=== PATIENT | female | born 1955 | race Caucasian/White ===

== ENCOUNTER 2017-04-07 05:16 | Inpatient (IN) | payer SELFPAY ==
[~2017-04-07] VITALS: Ht 154.9 cm; Wt 66.9 kg
[2017-04-07] VITALS (7 sets, daily range): BP systolic 122–165; BP diastolic 71–100; PULSE 71–100; RESP 14–20; TEMP 97–98; O2SAT 92–98
[~2017-04-07 05:16] MED LIST: PERC5TAB12 PO
--- NOTE | 2017-04-07 05:42 | PD ---
HPI Chief Complaint: Abdominal Pain Time Seen by Provider: 05:30 Travel History International Travel<30 days: No Contact w/Intl Traveler<30days: No Traveled to known affect area: No History of Present Illness HPI The patient is a 61-year-old female who complains of generalized abdominal pain , particularly in the right upper quadrant for 10 days. She has a slightly loose stool which she states is dark green. She denies any fever. She does have a history of alcohol abuse and states her all: Take last night was 2 beers before 10 PM. Her last vomiting was over week ago. In January of last year the patient had a gallbladder ultrasound which showed echogenic liver and cholelithiasis without any evidence for cholecystitis. PFSH Past Medical History Diabetes: No Diminished Hearing: No GERD: Yes Immunizations Current: Yes Menopausal: Yes Past Surgical History Abdominal Surgery: Yes (RECTAL SURGERY) Section: Yes Tonsillectomy: Yes Social History Alcohol Use: Yes Tobacco Use: Yes Substance Use: Yes (cocaine on a rare instance) Allergies-Medications (Allergen,Severity, Reaction): Coded Allergies: Sulfa (Verified Allergy, Mild, 04/07/17) Reported Meds & Prescriptions Reported Meds & Active Scripts Active No Active Prescriptions or Reported Medications Review of Systems Except as stated in HPI: all other systems reviewed are Neg Physical Exam Narrative GENERAL: The patient is alert, oriented 3 in moderate to severe distress with her abdominal discomfort. She does not smell of alcohol. Her vital signs show blood pressure 144/100 but are otherwise normal. SKIN: Focused skin assessment warm/dry. HEAD: Atraumatic. Normocephalic. EYES: Pupils equal and round. No scleral icterus. No injection or drainage. ENT: No nasal bleeding or discharge. Mucous membranes pink and moist. NECK: Trachea midline. No JVD. CARDIOVASCULAR: Regular rate and rhythm. No murmur appreciated. RESPIRATORY: No accessory muscle use. Clear to auscultation. Breath sounds equal bilaterally. GASTROINTESTINAL: Abdomen soft, with tenderness to direct palpation all 4 quadrants but particularly in the right upper quadrant, nondistended. Hepatic and splenic margins not palpable. Regalado's sign is positive. MUSCULOSKELETAL: No obvious deformities. No clubbing. No cyanosis. No edema. NEUROLOGICAL: Awake and alert. No obvious cranial nerve deficits. Motor grossly within normal limits. Normal speech. PSYCHIATRIC: Appropriate mood and affect; insight and judgment normal. Data Data Last Documented VS Vital Signs Date Time Temp Pulse Resp B/P Pulse Ox O2 Delivery O2 Flow Rate FiO2 04/07/17 05:32 04/07/17 05:21 98.0 88 14 97 Orders Complete Blood Count With Diff (04/07/17 05:36) Comprehensive Metabolic Panel (04/07/17 05:36) Lipase (04/07/17 05:36) Us Abdomen Gallbladder (04/07/17 ) Iv Access Insert/Monitor (04/07/17 05:36) Ecg Monitoring (04/07/17 05:36) Oximetry (04/07/17 05:36) Sodium Chloride 0.9% Flush (Ns Flush) (04/07/17 05:45) Urinalysis - C+S If Indicated (04/07/17 05:37) Sodium Chlor 0.9% 1000 Ml Inj (Ns 1000 M (04/07/17 05:45) Alcohol (Ethanol) (04/07/17 05:42) Hydromorphone Pf Inj (Dilaudid Pf Inj) (04/07/17 07:00) Ondansetron Inj (Zofran Inj) (04/07/17 07:00) Labs Laboratory Tests Test 04/07/17 05:50 White Blood Count 8.3 TH/MM3 Red Blood Count 5.49 MIL/MM3 Hemoglobin 16.9 GM/DL Hematocrit 51.0 % Mean Corpuscular Volume 92.9 FL Mean Corpuscular Hemoglobin 30.7 PG Mean Corpuscular Hemoglobin 33.1 % Concent Red Cell Distribution Width 12.1 % Platelet Count 255 TH/MM3 Mean Platelet Volume 7.9 FL Neutrophils (%) (Auto) 66.5 % Lymphocytes (%) (Auto) 23.0 % Monocytes (%) (Auto) 7.2 % Eosinophils (%) (Auto) 1.4 % Basophils (%) (Auto) 1.9 % Neutrophils # (Auto) 5.4 TH/MM3 Lymphocytes # (Auto) 1.9 TH/MM3 Monocytes # (Auto) 0.6 TH/MM3 Eosinophils # (Auto) 0.1 TH/MM3 Basophils # (Auto) 0.2 TH/MM3 CBC Comment DIFF FINAL Differential Comment Sodium Level 140 MEQ/L Potassium Level 3.9 MEQ/L Chloride Level 104 MEQ/L Carbon Dioxide Level 24.2 MEQ/L Anion Gap 12 MEQ/L Blood Urea Nitrogen 6 MG/DL Creatinine 0.56 MG/DL Estimat Glomerular Filtration 111 ML/MIN Rate Random Glucose 102 MG/DL Calcium Level 9.5 MG/DL Total Bilirubin 0.9 MG/DL Aspartate Amino Transf 25 U/L (AST/SGOT) Alanine Aminotransferase 37 U/L (ALT/SGPT) Alkaline Phosphatase 86 U/L Total Protein 7.2 GM/DL Albumin 3.6 GM/DL Lipase 871 U/L Ethyl Alcohol Level LESS THAN 3 MG/DL [facility] Medical Decision Making Medical Screen Exam Complete: Yes Emergency Medical Condition: Yes Medical Record Reviewed: Yes Interpretation(s) The ultrasound shows wall thickening. The CBC shows a hemoglobin of 16.9 with hematocrit of 51.0. The lipase is 871. The complete metabolic profile is normal. The alcohol level is less than 3essentially 0. Differential Diagnosis Cholelithiasis with colic, Choledocholithiasis, cholecystitis, urinary tract infection, dehydration, colitisunlikely, dehydration, pancreatitis Narrative Course It is now 070 and the patient is transferred to Dr. Chapa. The patient shows dehydration with the apparent hemoconcentration with a hemoglobin and hematocrit. The patient may have a pancreatitis and a CT scan is being ordered. Scripts No Active Prescriptions or Reported Meds Chuy Harmon MD Apr 07, 2017 05:42
[2017-04-07] MEDS ORDERED: SODIUM CHLORIDE 0.9% FLUSH 10 ML FLUSH IV FLUSH PRN ×2 (05:45→09:15)
[2017-04-07] MEDS: SODIUM CHLOR 0.9% 1000 ML INJ 1,000 ML IV SCH ×5 (06:06→19:02)
[2017-04-07 06:07] LABS: AUTOMATED NEUTROPHIL # 5.4 TH/MM3 (1.8-7.7); BASOPHIL # 0.2 TH/MM3 (0-0.2); BASOPHIL % 1.9 % (0.0-2.0); EOSINOPHIL # 0.1 TH/MM3 (0-0.4); EOSINOPHIL % 1.4 % (0.0-4.0); HEMO FLAGS DIFF FINAL; LYMPHOCYTE # 1.9 TH/MM3 (1.0-4.8); MEAN CELL VOLUME 92.9 FL (80.0-100.0); MEAN CORPUSCULAR HEMOGLOBIN 30.7 PG (27.0-34.0); MEAN CORPUSCULAR HGB CONC 33.1 % (32.0-36.0); MONO % 7.2 % (0.0-8.0); NEUT % 66.5 % (16.0-70.0); PLATELET COUNT 255 TH/MM3 (150-450); RED BLOOD COUNT 5.49 MIL/MM3 (4.00-5.30); RED CELL DISTRIBUTION WIDTH 12.1 % (11.6-17.2); WHITE BLOOD COUNT 8.3 TH/MM3 (4.0-11.0)
[2017-04-07 06:15] LABS: CHLORIDE 104 MEQ/L (98-107); POTASSIUM 3.9 MEQ/L (3.5-5.1); SODIUM (NA) 140 MEQ/L (136-145)
[2017-04-07 06:19] LABS: ANION GAP 12 MEQ/L (5-15); BICARBONATE 24.2 MEQ/L (21.0-32.0); BLOOD UREA NITROGEN 6 MG/DL (7-18)
[2017-04-07 06:22] LABS: ALT (GPT) 37 U/L (10-53); AST (GOT) 25 U/L (15-37); GLOMERULAR FILTRATION RATE 111 ML/MIN (>89)
[2017-04-07 06:23] LABS: TOTAL BILIRUBIN ADULT 0.9 MG/DL (0.2-1.0)
[2017-04-07 06:25] LABS: ALKALINE PHOSPHATASE 86 U/L (45-117)
[2017-04-07] MEDS ORDERED: ONDANSETRON HCL 4 MG/2 ML VIAL IV ONE (07:00)
[2017-04-07] MEDS ORDERED: HYDROmorphone HCL PF 1 MG/ML VIAL IVP ONE (07:00)
--- NOTE | 2017-04-07 07:18 | RADRPT ---
EXAM DATE/TIME: 04/07/2017 06:38 [facility] COMPARISON: US ABDOMEN - GALLBLADDER, January 15, 2016, 21:09. INDICATIONS : Right upper quadrant pain. MEDICAL HISTORY : Gastroesophageal reflux disease. . Cholelithiasis. SURGICAL HISTORY : Tonsillectomy. section. Rectal surgery. ENCOUNTER: Subsequent ACUITY: 2 weeks PAIN SCORE: 6/10 LOCATION: Right upper quadrant MEASUREMENTS: LIVER: 14.3 cm length COMMON DUCT: 3 mm RIGHT KIDNEY: 10.1 x 5.3 x 4.8 cm FINDINGS: LIVER: Increased echotexture without focal lesion or ductal dilatation. COMMON DUCT: No intraluminal mass or stone visualized. GALLBLADDER: Contains no stones, demonstrates no pericholecystic fluid.Some portions of the wall to measure slight ly thicker than normal but other areas are entirely normal PANCREAS: The visualized portions are within normal limits. RIGHT KIDNEY: No evidence of hydronephrosis, stone, or mass. CONCLUSION: Echogenic liver presumably fatty infiltration. No definite gallstones are identified. At times the w all appears to be thicker than normal however other areas the wall is normal thickness without eviden ce of a sonographic Regalado's sign. Jose Sousa MD on April 07, 2017 at 7:15 Board Certified Radiologist. This report was verified electronically.
[2017-04-07] MEDS ORDERED: IOHEXOL 350 MG/ML 10 ML VIAL (for RAD DIAG) IV ONE (07:35)
[2017-04-07 07:58] LABS: BLOOD, URINE TRACE (NEG); GLUCOSE,URINE NEG (NEG); KETONE, URINE NEG (NEG); NITRITE,URINE NEG (NEG)
[2017-04-07 08:11] LABS: METHOD OF COLLECTION VOIDED
[2017-04-07 08:12] LABS: BACTERIA, URINE RARE /hpf; COMMENT (UR) CULTURE INDICATED; CULTURE IF INDICATED CULTURE INDICATED
--- NOTE | 2017-04-07 08:21 | RADRPT ---
EXAM DATE/TIME: 04/07/2017 07:20 [facility] COMPARISON: No previous studies available for comparison. INDICATIONS : Diffuse abdominal pain with some right upper quadrant pain x 10 days. IV CONTRAST: 85 cc Omnipaque 350 (iohexol) IV ORAL CONTRAST: No oral contrast ingested. RADIATION DOSE: 8.24 CTDIvol (mGy) MEDICAL HISTORY : Gastroesophageal reflux disease. SURGICAL HISTORY : section. Rectal surgery. ENCOUNTER: Initial ACUITY: 1 week PAIN SCALE: 4/10 LOCATION: Right upper quadrant TECHNIQUE: Volumetric scanning of the abdomen and pelvis was performed. Using automated exposure control and ad justment of the mA and/or kV according to patient size, radiation dose was kept as low as reasonably achievable to obtain optimal diagnostic quality images. DICOM format image data is available electro nically for review and comparison. FINDINGS: Two small left less than 1 cm nodular opacities are seen in the left lung base. A 7 mm nodular opaci ty seen on the right. These are nonspecific. CT scan of the chest may be of benefit. The liver is free of focal defects. The spleen is unremarkable. There is normal edema in the region of the mesentery and pancreas suggesting mild pancreatitis. There is symmetrical renal function. There is no free air. Pelvic contents are unremarkable. CONCLUSION: 1. Findings would be consistent with mild pancreatitis radiographically. 2. Small nonspecific nodular opacities are seen in both lung bases. CT scan of the chest is suggest ed. Elmer Contreras MD FACR on April 07, 2017 at 7:52 Board Certified Radiologist. This report was verified electronically.
--- NOTE | 2017-04-07 09:11 | PD ---
Physical Exam Narrative GENERAL: Well-nourished, well-developed patient. SKIN: Warm and dry. HEAD: Normocephalic and atraumatic. EYES: No injection or drainage. ENT: No nasal drainage noted. NECK: Supple, trachea midline. CARDIOVASCULAR: Regular rate and rhythm RESPIRATORY: no increased effort. No accessory muscle use. NEUROLOGICAL: Awake and alert. moves all extremities. Normal speech. Data Data Last Documented VS Vital Signs Date Time Temp Pulse Resp B/P Pulse Ox O2 Delivery O2 Flow Rate FiO2 04/07/17 08:30 100 16 137/71 93 Room Air 04/07/17 07:15 97.7 Orders Complete Blood Count With Diff (04/07/17 05:36) Comprehensive Metabolic Panel (04/07/17 05:36) Lipase (04/07/17 05:36) Us Abdomen Gallbladder (04/07/17 ) Iv Access Insert/Monitor (04/07/17 05:36) Ecg Monitoring (04/07/17 05:36) Oximetry (04/07/17 05:36) Sodium Chloride 0.9% Flush (Ns Flush) (04/07/17 05:45) Urinalysis - C+S If Indicated (04/07/17 05:37) Sodium Chlor 0.9% 1000 Ml Inj (Ns 1000 M (04/07/17 05:45) Alcohol (Ethanol) (04/07/17 05:42) Hydromorphone Pf Inj (Dilaudid Pf Inj) (04/07/17 07:00) Ondansetron Inj (Zofran Inj) (04/07/17 07:00) Ct Abd/Pel W Iv Contrast(Rout) (04/07/17 06:54) Iohexol 350 Inj (Omnipaque 350 Inj) (04/07/17 07:35) Urine Culture (04/07/17 07:46) Admit Order (Ed Use Only) (04/07/17 08:47) Labs Laboratory Tests Test 04/07/17 04/07/17 05:50 07:46 White Blood Count 8.3 TH/MM3 Red Blood Count 5.49 MIL/MM3 Hemoglobin 16.9 GM/DL Hematocrit 51.0 % Mean Corpuscular Volume 92.9 FL Mean Corpuscular Hemoglobin 30.7 PG Mean Corpuscular Hemoglobin 33.1 % Concent Red Cell Distribution Width 12.1 % Platelet Count 255 TH/MM3 Mean Platelet Volume 7.9 FL Neutrophils (%) (Auto) 66.5 % Lymphocytes (%) (Auto) 23.0 % Monocytes (%) (Auto) 7.2 % Eosinophils (%) (Auto) 1.4 % Basophils (%) (Auto) 1.9 % Neutrophils # (Auto) 5.4 TH/MM3 Lymphocytes # (Auto) 1.9 TH/MM3 Monocytes # (Auto) 0.6 TH/MM3 Eosinophils # (Auto) 0.1 TH/MM3 Basophils # (Auto) 0.2 TH/MM3 CBC Comment DIFF FINAL Differential Comment Sodium Level 140 MEQ/L Potassium Level 3.9 MEQ/L Chloride Level 104 MEQ/L Carbon Dioxide Level 24.2 MEQ/L Anion Gap 12 MEQ/L Blood Urea Nitrogen 6 MG/DL Creatinine 0.56 MG/DL Estimat Glomerular Filtration 111 ML/MIN Rate Random Glucose 102 MG/DL Calcium Level 9.5 MG/DL Total Bilirubin 0.9 MG/DL Aspartate Amino Transf 25 U/L (AST/SGOT) Alanine Aminotransferase 37 U/L (ALT/SGPT) Alkaline Phosphatase 86 U/L Total Protein 7.2 GM/DL Albumin 3.6 GM/DL Lipase 871 U/L Ethyl Alcohol Level LESS THAN 3 MG/DL Urine Collection Type VOIDED Urine Color NONE Urine Turbidity CLEAR Urine pH 6.0 Urine Specific [place] 1.012 Urine Protein NEG mg/dL Urine Glucose (UA) NEG mg/dL Urine Ketones NEG mg/dL Urine Occult Blood TRACE Urine Nitrite NEG Urine Bilirubin NEG Urine Leukocyte Esterase SMALL Urine WBC 3-5 /hpf Urine WBC Clumps FEW Urine Squamous Epithelial 6-8 /hpf Cells Urine Bacteria RARE /hpf Microscopic Urinalysis Comment CULTURE INDICATED MDM Supervised Visit with AIME: No Interpretation(s) Last 24 hours Impressions Gall Bladder Ultrasound 04/07/17 0000 Signed Impressions: Service Date/Time: Friday, April 07, 2017 06:38 - CONCLUSION: Echogenic liver presumably fatty infiltration. No definite gallstones are identified. At times the wall appears to be thicker than normal however other areas the wall is normal thickness without evidence of a sonographic Regalado's sign. Jose Sousa MD ct with mild pancreatitis Narrative Course Signed over to me to follow CT and reevaluate. CT with mild pancreatitis. Patient agrees to observation for pain control Diagnosis Primary Impression: Pancreatitis Qualified Code: K85.90 - Acute pancreatitis, unspecified complication status, unspecified pancreatitis type Admitting Information Admitting Physician Requests: Observation Scripts No Active Prescriptions or Reported Meds Yamilet Merritt MD Apr 07, 2017 09:11
[2017-04-07] MEDS ORDERED: MAGNESIUM HYDROXIDE SUSP 30 ML CUP PO PRN (09:15)
[2017-04-07] MEDS ORDERED: ACETAMINOPHEN 325 MG TAB PO PRN (09:15)
[2017-04-07] MEDS ORDERED: SENNOSIDES 8.6 MG TAB PO PRN (09:15)
[2017-04-07] MEDS ORDERED: BISACODYL 10 MG SUPP RECTAL PRN (09:15)
[2017-04-07] MEDS ORDERED: LACTULOSE SYRUP 20 GM/30 ML CUP PO PRN (09:15)
--- NOTE | 2017-04-07 10:04 | RADRPT ---
EXAM DATE/TIME: 04/07/2017 09:20 [facility] COMPARISON: No previous studies available for comparison. INDICATIONS : Lung nodules. RADIATION DOSE: 6.82 CTDIvol (mGy) MEDICAL HISTORY : Gastroesophageal reflux disease. SURGICAL HISTORY : section. Rectal surgery. ENCOUNTER: Initial ACUITY: 1 day PAIN SCALE: 0/10 LOCATION: Bilateral chest TECHNIQUE: Volumetric scanning of the chest was performed. Using automated exposure control and adjustment of t he mA and/or kV according to patient size, radiation dose was kept as low as reasonably achievable to obtain optimal diagnostic quality images. DICOM format image data is available electronically for r eview and comparison. FINDINGS: LUNGS: There are multiple scattered nodular densities of both lung hunter. The largest nodule measures appro ximate 7 mm in the left lung base. Most of the other nodules are 5 mm or less in size. PLEURAE: There is no pleural thickening or pleural effusion. MEDIASTINUM: The heart and great vessels demonstrate no acute abnormality. There is no mediastinal or hilar lymph adenopathy. AXILLAE: Within normal limits. No lymphadenopathy. MUSCULOSKELETAL: Within normal limits for patient age. MISCELLANEOUS: Nonspecific edema surrounding the pancreas suggestive of pancreatitis. CONCLUSION: Multiple subcentimeter scattered bilateral pulmonary nodules. There are no prior studies for comparis on. Metastatic disease versus atypical inflammatory process are the primary considerations. A PET/CT could be performed to evaluate for a unknown primary neoplastic process. Denny Andino MD on April 07, 2017 at 9:56 Board Certified Radiologist. This report was verified electronically.
--- NOTE | 2017-04-07 11:37 | HHI.HP ---
[facility] Service [facility] Primary Care Physician No Primary Care Physician Admission Diagnosis pancreatitis Diagnoses: (1) Pancreatitis Diagnosis: Principal (2) Abdominal pain Diagnosis: Principal (3) Alcohol abuse Diagnosis: Secondary Chief Complaint: Abdominal pain Travel History International Travel<30 Days: No Contact w/Intl Traveler <30 Da: No Traveled to Known Affected Are: No History of Present Illness Written by Anibal Harmon, acting as scribe for Dr. Horn on 04/07/17 at 11:32. 61-year-old female with known history of alcohol abuse who presented to the hospital because of epigastric abdominal pain. Patient states that she is experiencing symptoms for up to 2 weeks to include epigastric abdominal pain radiating into her back that ranked 8/10 on a pain scale. She had had associated nausea vomiting. The patient thought that it was due to her drinking liquor on a daily basis, she switched to wine and it did improve minimally. She did eat some cottage cheese and some cherries yesterday morning and went to work. She is doing well and when she came home last night she ate some pizza and started having severe abdominal pain again progressively got worse so she came to the hospital for evaluation. Patient had workup done emergency department and CT indicates mild pancreatitis, lipase level was elevated. Those reasons the ER physician recommended patient be admitted for pancreatitis. Review of Systems Constitutional: DENIES: Diaphoretic episodes, Fatigue, Fever, Weight gain, Weight loss, Chills, Dizziness, Change in appetite, Night Sweats Eyes: DENIES: Blurred vision, Diplopia, Eye pain, Vision loss, Double Vision Ears, nose, mouth, throat: DENIES: Vertigo, Nasal discharge, Throat pain, Ear Pain, Running Nose, Sinus Pain Respiratory: DENIES: Apneas, Cough, Snoring, Wheezing, Hemoptysis, Sputum production, Shortness of breath Cardiovascular: DENIES: Chest pain, Palpitations, Syncope, Dyspnea on Exertion , PND, Lower Extremity Edema, Orthopnea, Claudication Gastrointestinal: COMPLAINS OF: Abdominal pain, Nausea, Vomiting, DENIES: Black stools, Bloody stools, Constipation, Diarrhea, Difficulty Swallowing, Anorexia Neurologic: DENIES: Abnormal gait, Headache, Localized weakness, Paresthesias, Seizures, Speech Problems, Tremor, Poor Balance Past Family Social History Past Medical History Alcohol abuse Past Surgical History 2 Rectal surgery Tonsillectomy Reported Medications Reported Meds & Active Scripts Active No Active Prescriptions or Reported Medications Allergies: Coded Allergies: Sulfa (Verified Allergy, Mild, 04/07/17) Family History Reviewed with patient and unremarkable for any heart disease, diabetes, cancer, seizures, stroke Social History Patient does continue to drink alcohol in which she states at least 5 times weekly. She is he does drink liquor but has reduced under wine due to her abdominal pain and discomfort. There is indication that she has used cocaine intermittently. He does continue to smoke mainly whenever she drinks that she was 22 years old. Physical Exam Vital Signs Vital Signs Date Time Temp Pulse Resp B/P Pulse Ox O2 Delivery O2 Flow Rate FiO2 04/07/17 09:15 97.5 82 18 122/84 97 04/07/17 08:30 100 16 137/71 93 Room Air 04/07/17 07:15 97.7 84 16 165/94 98 Room Air 04/07/17 05:32 04/07/17 05:21 98.0 88 14 144/100 97 Physical Exam GENERAL: Well-developed, well-nourished, in no acute distress. alert and orientated HEENT: Head is normocephalic without any lesions or masses noted. Facial features are symmetric. Eyes: Pupils equal round reactive to light. Extraocular muscles are intact. Conjunctivae were clear. Oropharyngeal: Pharynx without any erythema edema. Tongue is midline without deviation. Buccal mucosa is moist without any masses or lesions NECK: Supple without any masses. Trachea midline no deviation. No JVD, no bruits are appreciated CARDIAC: Regular rhythm, regular rate. S1/S2 are heard. No murmurs gallops or rubs. LUNGS: Clear to auscultation bilaterally. No wheeze, rhonchi or rales. No use of accessory muscles on inspiration or expiration. ABDOMEN: Soft, epigastric abdominal tenderness. Nondistended. Bowel sounds heard in all 4 quadrants. No organomegaly or masses. Negative rebound, negative guarding EXTREMITIES: No edema, pulses are equal bilaterally. No cyanosis or clubbing NEUROLOGY: Mood and affect appear appropriate. Cranial nerves II through XII grossly intact. Muscle strength 5/5 in upper and lower extremities bilaterally. Deep tendon reflexes are 2+ in upper and lower extremities bilaterally. Laboratory Laboratory Tests Test 04/07/17 04/07/17 05:50 07:46 White Blood Count 8.3 Red Blood Count 5.49 Hemoglobin 16.9 Hematocrit 51.0 Mean Corpuscular Volume 92.9 Mean Corpuscular Hemoglobin 30.7 Mean Corpuscular Hemoglobin 33.1 Concent Red Cell Distribution Width 12.1 Platelet Count 255 Mean Platelet Volume 7.9 Neutrophils (%) (Auto) 66.5 Lymphocytes (%) (Auto) 23.0 Monocytes (%) (Auto) 7.2 Eosinophils (%) (Auto) 1.4 Basophils (%) (Auto) 1.9 Neutrophils # (Auto) 5.4 Lymphocytes # (Auto) 1.9 Monocytes # (Auto) 0.6 Eosinophils # (Auto) 0.1 Basophils # (Auto) 0.2 CBC Comment DIFF FINAL Differential Comment Sodium Level 140 Potassium Level 3.9 Chloride Level 104 Carbon Dioxide Level 24.2 Anion Gap 12 Blood Urea Nitrogen 6 Creatinine 0.56 Estimat Glomerular Filtration 111 Rate Random Glucose 102 Calcium Level 9.5 Total Bilirubin 0.9 Aspartate Amino Transf 25 (AST/SGOT) Alanine Aminotransferase 37 (ALT/SGPT) Alkaline Phosphatase 86 Total Protein 7.2 Albumin 3.6 Lipase 871 Ethyl Alcohol Level LESS THAN 3 Urine Collection Type VOIDED Urine Color NONE Urine Turbidity CLEAR Urine pH 6.0 Urine Specific [place] 1.012 Urine Protein NEG Urine Glucose (UA) NEG Urine Ketones NEG Urine Occult Blood TRACE Urine Nitrite NEG Urine Bilirubin NEG Urine Leukocyte Esterase SMALL Urine WBC 3-5 Urine WBC Clumps FEW Urine Squamous Epithelial 6-8 Cells Urine Bacteria RARE Microscopic Urinalysis Comment CULTURE INDICATED Date/Time Procedure Status Source Growth 04/07/17 07:46 Urine Culture Received Urine Random Urine Pending Result Diagram: 04/07/17 0550 04/07/17 0550 Imaging Last Impressions Gall Bladder Ultrasound 04/07/17 0000 Signed Impressions: Service Date/Time: Wednesday, April 07, 2017 06:38 - CONCLUSION: Echogenic liver presumably fatty infiltration. No definite gallstones are identified. At times the wall appears to be thicker than normal however other areas the wall is normal thickness without evidence of a sonographic Regalado's sign. Jose Sousa MD Chest CT 04/07/17 0000 Signed Impressions: Service Date/Time: Friday, April 07, 2017 09:20 - CONCLUSION: Multiple subcentimeter scattered bilateral pulmonary nodules. There are no prior studies for comparison. Metastatic disease versus atypical inflammatory process are the primary considerations. A PET/CT could be performed to evaluate for a unknown primary neoplastic process. Denny Andino MD Assessment and Plan Problem List: (1) Pancreatitis ICD Code: K85.90 Status: Acute Plan: Patient with chronic alcohol abuse, history of gallstones. Symptoms could be secondary to a passed gallstone or alcohol abuse Continue nothing by mouth Continue IV fluids Continue pain control Continue trend lipase level (2) Alcohol abuse ICD Code: F10.10 Status: Acute Plan: Patient counseled on cessation Continue monitor for withdrawal May need to start CIWA protocol Assessment and Plan DVT prevention Subcutaneous Lovenox This note was transcribed by boone Harmon I, Dr. Tenzin Concepcion personally performed the history, physical exam, and medical decision making; and confirmed the accuracy of the information in the transcribed note. Authenticated by Dr. Tenzin Concepcion on 04/07/17 at 14:11. Problem Qualifiers (1) Pancreatitis: Qualified Code: K85.90 - Acute pancreatitis, unspecified complication status, unspecified pancreatitis type Anibal Harmon Apr 07, 2017 11:37 Tenzin Stephen MD Apr 07, 2017 14:11
[2017-04-07] MEDS: ENOXAPARIN SODIUM 40 MG/0.4 ML SYRINGE SQ SCH (12:00)
[2017-04-07] MEDS ORDERED: ONDANSETRON HCL 4 MG/2 ML VIAL IVP PRN (13:00)
[2017-04-07] MEDS ORDERED: MORPHINE SULFATE 8 MG/ML INJ IV PUSH PRN (15:00)
[2017-04-07] MEDS: DOCUSATE SODIUM 50 MG/SENNA 8.6 MG TAB PO SCH (21:44)
[2017-04-07] MEDS: SODIUM CHLORIDE 0.9% FLUSH 10 ML FLUSH IV FLUSH SCH (21:45)
[2017-04-07] MEDS: MORPHINE SULFATE 8 MG/ML INJ IV PUSH PRN (21:45)
[2017-04-08] VITALS: BP 117/83; PULSE 78; RESP 20; TEMP 96.4; O2SAT 96
[2017-04-08] MEDS: SODIUM CHLOR 0.9% 1000 ML INJ 1,000 ML IV SCH ×3 (03:55→19:09)
[2017-04-08] MEDS: MORPHINE SULFATE 8 MG/ML INJ IV PUSH PRN ×5 (04:03→21:58)
[2017-04-08 06:25] LABS: AUTOMATED NEUTROPHIL # 5.1 TH/MM3 (1.8-7.7); BASOPHIL % 0.1 % (0.0-2.0); EOSINOPHIL # 0.1 TH/MM3 (0-0.4); EOSINOPHIL % 1.9 % (0.0-4.0); HEMATOCRIT 42.5 % (35.0-46.0); HEMO FLAGS DIFF FINAL; LYMPH % 23.9 % (9.0-44.0); LYMPHOCYTE # 1.8 TH/MM3 (1.0-4.8); MEAN CELL VOLUME 93.4 FL (80.0-100.0); MEAN CORPUSCULAR HGB CONC 33.2 % (32.0-36.0); MONO % 8.7 % (0.0-8.0); NEUT % 65.4 % (16.0-70.0); PLATELET COUNT 217 TH/MM3 (150-450); RED BLOOD COUNT 4.55 MIL/MM3 (4.00-5.30); RED CELL DISTRIBUTION WIDTH 12.8 % (11.6-17.2); WHITE BLOOD COUNT 7.7 TH/MM3 (4.0-11.0)
[2017-04-08 07:10] LABS: ALKALINE PHOSPHATASE 66 U/L (45-117); ALT (GPT) 28 U/L (10-53); ANION GAP 6 MEQ/L (5-15); AST (GOT) 18 U/L (15-37); BICARBONATE 27.2 MEQ/L (21.0-32.0); BLOOD UREA NITROGEN 2 MG/DL (7-18); CHLORIDE 112 MEQ/L (98-107); GLOMERULAR FILTRATION RATE 89 ML/MIN (>89); POTASSIUM 4.6 MEQ/L (3.5-5.1); SODIUM (NA) 145 MEQ/L (136-145); TOTAL BILIRUBIN ADULT 0.7 MG/DL (0.2-1.0)
[2017-04-08] MEDS: DOCUSATE SODIUM 50 MG/SENNA 8.6 MG TAB PO SCH ×2 (08:24→20:11)
[2017-04-08] MEDS: SODIUM CHLORIDE 0.9% FLUSH 10 ML FLUSH IV FLUSH SCH ×2 (08:24→20:12)
[2017-04-08 08:56] VITALS: BP 141/88; PULSE 69; RESP 16; TEMP 96.7; O2SAT 97
[2017-04-08] MEDS: ENOXAPARIN SODIUM 40 MG/0.4 ML SYRINGE SQ SCH (12:13)
--- NOTE | 2017-04-08 12:40 | HHI.PR ---
Subjective Remarks c/o pain in lower back radiating down to the back of right thigh abdominal pain resolved denies nausea or vomiting states " I am starving" Objective Vitals Vital Signs Date Time Temp Pulse Resp B/P Pulse Ox O2 Delivery O2 Flow Rate FiO2 04/08/17 08:56 96.7 69 16 141/88 97 04/08/17 00:00 96.4 78 20 117/83 96 04/07/17 20:00 97.1 71 20 122/88 92 04/07/17 16:00 97.0 73 18 126/77 96 04/07/17 15:12 18 I/O 04/07/17 04/07/17 04/07/17 04/08/17 04/08/17 04/08/17 06:59 14:59 22:59 06:59 14:59 22:59 Intake Total 2606 ml 450 ml 2160 ml Balance 2606 ml 450 ml 2160 ml Intake Oral 0 ml 960 ml IV Total 2606 ml 450 ml 1200 ml # Voids 3 5 # Bowel Movements 0 Result Diagram: 04/08/17 0558 04/08/17 0558 Imaging Last Impressions Gall Bladder Ultrasound 04/07/17 0000 Signed Impressions: Service Date/Time: Friday, April 07, 2017 06:38 - CONCLUSION: Echogenic liver presumably fatty infiltration. No definite gallstones are identified. At times the wall appears to be thicker than normal however other areas the wall is normal thickness without evidence of a sonographic Regalado's sign. Jose Sousa MD Chest CT 04/07/17 0000 Signed Impressions: Service Date/Time: Friday, April 07, 2017 09:20 - CONCLUSION: Multiple subcentimeter scattered bilateral pulmonary nodules. There are no prior studies for comparison. Metastatic disease versus atypical inflammatory process are the primary considerations. A PET/CT could be performed to evaluate for a unknown primary neoplastic process. Denny Andino MD Objective Remarks GENERAL: Well-developed, well-nourished, in no acute distress. alert and orientated HEENT: Head is normocephalic without any lesions or masses noted. Facial features are symmetric. Eyes: Pupils equal round reactive to light. Extraocular muscles are intact. Conjunctivae were clear. Oropharyngeal: Pharynx without any erythema edema. Tongue is midline without deviation. Buccal mucosa is moist without any masses or lesions NECK: Supple without any masses. Trachea midline no deviation. No JVD, no bruits are appreciated CARDIAC: Regular rhythm, regular rate. S1/S2 are heard. No murmurs gallops or rubs. LUNGS: Clear to auscultation bilaterally. No wheeze, rhonchi or rales. No use of accessory muscles on inspiration or expiration. ABDOMEN: Soft, non tender to palpation. Nondistended. Bowel sounds heard in all 4 quadrants. No organomegaly or masses. Negative rebound, negative guarding EXTREMITIES: No edema, pulses are equal bilaterally. No cyanosis or clubbing NEUROLOGY: Mood and affect appear appropriate. Cranial nerves II through XII grossly intact. Muscle strength 5/5 in upper and lower extremities bilaterally. Deep tendon reflexes are 2+ in upper and lower extremities bilaterally. Procedures none Medications and IVs Current Medications Medications (Trade) Dose Ordered Sig/Zane Route Start Time Stop Time Status Last Admin Sodium Chloride 2 ml 2 ml UNSCH PRN IV FLUSH 04/07/17 05:45 (NS 1000 ml Inj) 1,000 ml @ 150 mls/hr Q6H40M IV 04/07/17 09:09 04/08/17 12:13 (NS Flush) 2 ml UNSCH PRN IV FLUSH 04/07/17 09:15 (NS Flush) 2 ml BID IV FLUSH 04/07/17 21:00 04/07/17 21:45 (Tylenol) 650 mg Q4H PRN PO 04/07/17 09:15 (Zofran Inj) 4 mg Q6H PRN IVP 04/07/17 13:00 (Lovenox Inj) 40 mg Q24H SQ 04/07/17 12:00 04/08/17 12:13 (Meghna-Colace) 1 tab BID PO 04/07/17 21:00 04/07/17 21:44 (Milk Of Magnesia Liq) 30 ml Q12H PRN PO 04/07/17 09:15 (Senokot) 17.2 mg Q12H PRN PO 04/07/17 09:15 (Dulcolax Supp) 10 mg DAILY PRN RECTAL 04/07/17 09:15 (Lactulose Liq) 30 ml DAILY PRN PO 04/07/17 09:15 (Morphine Inj) 2 mg Q3H PRN IV PUSH 04/07/17 15:00 04/08/17 08:31 (Morphine Inj) 4 mg Q3H PRN IV PUSH 04/07/17 15:00 04/07/17 15:07 Urinary Catheter: No Vascular Central Line Catheter: No A/P Problem List: (1) Pancreatitis ICD Code: K85.90 Status: Acute Plan: Patient with chronic alcohol abuse, history of gallstones. Symptoms could be secondary to a passed gallstone or alcohol abuse treated supportively with Iv fluids and IV morphine and npo status 04/08 Pain resolving and lipase trending down. Will add a PPI and place on soft diet. (2) Alcohol abuse ICD Code: F10.10 Status: Acute Plan: Patient counseled on cessation Continue monitor for withdrawal May need to start CIWA protocol 04/08 no evidence of alcohol withdrawal. (3) Radiculopathy ICD Code: M54.10 Status: Acute Plan: Will Rx tramadol prn. No weakness on exam. Can be worked up as outpatient if persistent. Assessment and Plan Gi proph: add PPI DVT prophylaxis: SCD's, Lovenox SQ Discharge Planning Poss dc later today if tolerates regular diet. Problem Qualifiers (1) Pancreatitis: Qualified Code: K85.90 - Acute pancreatitis, unspecified complication status, unspecified pancreatitis type (2) Radiculopathy: Qualified Code: M54.17 - Lumbosacral radiculopathy Tenzin Stephen MD Apr 08, 2017 12:40
[2017-04-08 14:19] VITALS: BP 161/103; PULSE 71; RESP 14; TEMP 96.9; O2SAT 98
[2017-04-08] MEDS ORDERED: cloNIDine HCL 0.1 MG TAB PO PRN (14:30)
[2017-04-08] MEDS ORDERED: LORazepam 2 MG TAB PO PRN (14:30)
[2017-04-08] MEDS ORDERED: LORazepam 1 MG TAB PO PRN (14:30)
[2017-04-08] MEDS ORDERED: LORazepam 2 MG/ML VIAL IV PUSH PRN ×4 (14:30)
[2017-04-08] MEDS ORDERED: ENALAPRILAT 1.25 MG/ML VIAL IV PUSH PRN (14:30)
[2017-04-08] MEDS ORDERED: FLUMAZENIL 0.5 MG/5 ML VIAL IV PUSH PRN (14:30)
[2017-04-08] MEDS ORDERED: THIAMINE INJ 100 MG in SODIUM CHLORIDE 0.9% INJ 100 ML IV SCH (16:00)
[2017-04-08] MEDS ORDERED: MULTIVITAMIN INJ 10 ML, FOLIC ACID INJ 1 MG in SODIUM CHLORID 0.9% 500 ML INJ 500 ML IV SCH (16:00)
[2017-04-08 18:51] VITALS: BP 160/98; PULSE 71; RESP 16; TEMP 96.1; O2SAT 96
[2017-04-08 20:00] VITALS: BP 160/102; PULSE 74; RESP 18; TEMP 96.7; O2SAT 97
[2017-04-09] VITALS: BP 144/108; PULSE 62; RESP 18; TEMP 96.9; O2SAT 95
[2017-04-09] MEDS: SODIUM CHLOR 0.9% 1000 ML INJ 1,000 ML IV SCH (01:49)
[2017-04-09 04:00] VITALS: BP 131/81; PULSE 74; RESP 18; TEMP 98.3; O2SAT 95
[2017-04-09 08:00] VITALS: BP 143/96; PULSE 70; RESP 18; TEMP 96.6; O2SAT 97
[2017-04-09] MEDS: MORPHINE SULFATE 8 MG/ML INJ IV PUSH PRN (08:56)
[2017-04-09] MEDS: DOCUSATE SODIUM 50 MG/SENNA 8.6 MG TAB PO SCH (08:57)
[2017-04-09] MEDS: SODIUM CHLORIDE 0.9% FLUSH 10 ML FLUSH IV FLUSH SCH (09:00)
[2017-04-09 12:00] VITALS: BP 142/100; PULSE 70; RESP 18; TEMP 98.6; O2SAT 98
[2017-04-09] MEDS ORDERED: OXYC1CAP PO (12:04)
--- NOTE | 2017-04-09 12:05 | HHI.DCPOC ---
Discharge Care Plan Diagnosis: (1) Pancreatitis (2) Alcohol abuse Goals to Promote Your Health * To prevent worsening of your condition and complications * To maintain your health at the optimal level Directions to Meet Your Goals Take your medications as prescribed Follow your dietary instruction Follow activity as directed Keep your appointments as scheduled Take your immunizations and boosters as scheduled If your symptoms worsen call your PCP, if no PCP go to Urgent Care Center or Emergency Room Smoking is Dangerous to Your Health. Avoid second hand smoke Call the 24-hour hour crisis hotline for domestic abuse at Tenzin Stephen MD Apr 09, 2017 12:05
--- NOTE | 2017-04-09 12:09 | HHI.DS ---
Discharge Summary Admission Date Apr 08, 2017 at 14:35 Admitting Diagnosis pancreatitis (1) Pancreatitis ICD Code: K85.90 (2) Alcohol abuse ICD Code: F10.10 (3) Radiculopathy ICD Code: M54.10 Procedures none Brief History - From Admission Written by Anibal Harmon, acting as scribe for Dr. Horn on 04/07/17 at 11:32. 61-year-old female with known history of alcohol abuse who presented to the hospital because of epigastric abdominal pain. Patient states that she is experiencing symptoms for up to 2 weeks to include epigastric abdominal pain radiating into her back that ranked 8/10 on a pain scale. She had had associated nausea vomiting. The patient thought that it was due to her drinking liquor on a daily basis, she switched to wine and it did improve minimally. She did eat some cottage cheese and some cherries yesterday morning and went to work. She is doing well and when she came home last night she ate some pizza and started having severe abdominal pain again progressively got worse so she came to the hospital for evaluation. Patient had workup done emergency department and CT indicates mild pancreatitis, lipase level was elevated. Those reasons the ER physician recommended patient be admitted for pancreatitis. CBC/BMP: 04/08/17 0558 04/08/17 0558 Significant Findings Laboratory Tests Test 04/07/17 04/07/17 04/08/17 05:50 07:46 05:58 Red Blood Count 5.49 MIL/MM3 (4.00-5.30) Hemoglobin 16.9 GM/DL (11.6-15.3) Hematocrit 51.0 % (35.0-46.0) Blood Urea Nitrogen 6 MG/DL (7-18) 2 MG/DL (7-18) Lipase 871 U/L 695 U/L (73-393) (73-393) Urine Occult Blood TRACE (NEG) Urine Leukocyte Esterase SMALL (NEG) Urine WBC Clumps FEW (NONE) Urine Squamous Epithelial 6-8 /hpf (0-5) Cells Urine Bacteria RARE /hpf (NONE) Monocytes (%) (Auto) 8.7 % (0.0-8.0) Chloride Level 112 MEQ/L (98-107) Calcium Level 8.4 MG/DL (8.5-10.1) Total Protein 6.0 GM/DL (6.4-8.2) Albumin 3.0 GM/DL (3.4-5.0) PE at Discharge GENERAL: Well-developed, well-nourished, in no acute distress. alert and orientated HEENT: Head is normocephalic without any lesions or masses noted. Facial features are symmetric. Eyes: Pupils equal round reactive to light. Extraocular muscles are intact. Conjunctivae were clear. Oropharyngeal: Pharynx without any erythema edema. Tongue is midline without deviation. Buccal mucosa is moist without any masses or lesions NECK: Supple without any masses. Trachea midline no deviation. No JVD, no bruits are appreciated CARDIAC: Regular rhythm, regular rate. S1/S2 are heard. No murmurs gallops or rubs. LUNGS: Clear to auscultation bilaterally. No wheeze, rhonchi or rales. No use of accessory muscles on inspiration or expiration. ABDOMEN: Soft, non tender to palpation. Nondistended. Bowel sounds heard in all 4 quadrants. No organomegaly or masses. Negative rebound, negative guarding EXTREMITIES: No edema, pulses are equal bilaterally. No cyanosis or clubbing NEUROLOGY: Mood and affect appear appropriate. Cranial nerves II through XII grossly intact. Muscle strength 5/5 in upper and lower extremities bilaterally. Deep tendon reflexes are 2+ in upper and lower extremities bilaterally. Discharge Disposition: Discharge Home Discharge Instructions DIET: Follow Instructions for: As Tolerated, No Restrictions Activities you can perform: Regular-No Restrictions Tenzin Stephen MD Apr 09, 2017 12:09
[2017-04-09] MEDS ORDERED: amLODIPine BESYLATE 5 MG TAB PO SCH (12:15)
[2017-04-09] MEDS ORDERED: PILL SPLITTER OTHER PRN (12:45)
== END 2017-04-09 15:00 | disposition home or self-care (01) | DRG 440 ==
LOC: PHED 05:16 → PHEDA 08:47 → PH3A 09:15 → OBSVTOIN 04-08 14:35
PROVIDERS: ADMIT Hospitalist; ATTEND Hospitalist
DX: K85.90 Acute pancreatitis without necrosis or infection, unspecified (principal); E86.0 Dehydration; F10.10 Alcohol abuse, uncomplicated; K21.9 Gastro-esophageal reflux disease without esophagitis; F17.200 Nicotine dependence, unspecified, uncomplicated; M54.17 Radiculopathy, lumbosacral region; R91.8 Other nonspecific abnormal finding of lung field
CPT/HCPCS: 71250; 74177; 76705; 80053; 80307; 81001; 83690; 85025; 87086; 96361; 96374; 96375; G0378; G8987-GP; G8988-GP; J1170; J1650; J2270; J2405; J3411; J7030; J7040; Q9967

== ENCOUNTER 2017-05-09 22:20 | Inpatient (IN) | payer OTHER ==
[~2017-05-09] VITALS: Ht 154.9 cm; Wt 58.3 kg
[~2017-05-09 22:20] MED LIST changes: +OXYC1CAP PO; -PERC5TAB12 PO
[2017-05-09 22:24] VITALS: BP 146/91; PULSE 74; RESP 18; TEMP 98.2; O2SAT 96
--- NOTE | 2017-05-09 23:25 | PD ---
HPI Chief Complaint: Abdominal Pain Time Seen by Provider: 23:22 Travel History International Travel<30 days: No Contact w/Intl Traveler<30days: No Traveled to known affect area: No History of Present Illness HPI H/O GALLSTONES AND BOUT OF PANCREATITIS IN EARLY APRIL. TODAY PATIENT RETURNS WITH C/O N/V AND UPPER/LEFT UPPER ABD AREA PAIN, 8/10, RADIATING TO BACK AT THIS TIME. DENIES FEVER/CP/[place]/DIARRHEA AT THIS POINT. NO ALLEVIATING / AGGRAVATING FACTORS NOTED PFSH Past Medical History Cardiovascular Problems: No Diabetes: No Diminished Hearing: No GERD: Yes (acid reflux) Genitourinary: No Musculoskeletal: No Neurologic: No Reproductive: No Respiratory: No Immunizations Current: Yes ?: Not Menopausal: Yes Past Surgical History Abdominal Surgery: Yes (RECTAL SURGERY) Section: Yes Gynecologic Surgery: Yes () Tonsillectomy: Yes Social History Alcohol Use: Yes Tobacco Use: Yes Substance Use: Yes (ETOH ) Allergies-Medications (Allergen,Severity, Reaction): Coded Allergies: Sulfa (Verified Allergy, Mild, 05/09/17) Reported Meds & Prescriptions Reported Meds & Active Scripts Active No Active Prescriptions or Reported Medications Review of Systems Except as stated in HPI: all other systems reviewed are Neg Gastrointestinal: Positive: Nausea, Vomiting, Abdominal Pain Physical Exam Narrative GENERAL: SKIN: Warm and dry. HEAD: Atraumatic. Normocephalic. EYES: Pupils equal and round. No scleral icterus. No injection or drainage. ENT: No nasal bleeding or discharge. Mucous membranes pink and moist. NECK: Trachea midline. No JVD. CARDIOVASCULAR: Regular rate and rhythm. RESPIRATORY: No accessory muscle use. Clear to auscultation. Breath sounds equal bilaterally. GASTROINTESTINAL: Abdomen soft, NO REBOUND BUT NOTED EPIG TT PERCUSSION, nondistended. MUSCULOSKELETAL: Extremities without clubbing, cyanosis, or edema. No obvious deformities. NEUROLOGICAL: Awake and alert. No obvious cranial nerve deficits. Motor grossly within normal limits. Five out of 5 muscle strength in the arms and legs. Normal speech. PSYCHIATRIC: Appropriate mood and affect; insight and judgment normal. Data Data Last Documented VS Vital Signs Date Time Temp Pulse Resp B/P Pulse Ox O2 Delivery O2 Flow Rate FiO2 05/10/17 00:12 18 97 Room Air 05/09/17 23:58 56 147/77 05/09/17 22:24 98.2 Orders Ondansetron Inj (Zofran Inj) (05/10/17 00:00) Sodium Chlor 0.9% 1000 Ml Inj (Ns 1000 M (05/09/17 23:46) Hydromorphone Pf Inj (Dilaudid Pf Inj) (05/10/17 00:00) Complete Blood Count With Diff (05/10/17 00:01) Comprehensive Metabolic Panel (05/10/17 00:01) Lipase (05/10/17 00:01) Abdomen, Flat & Upright (05/10/17 ) Iv Access Insert/Monitor (05/10/17 00:01) Ecg Monitoring (05/10/17 00:01) Oximetry (05/10/17 00:01) NPO (05/10/17 00:01) Sodium Chloride 0.9% Flush (Ns Flush) (05/10/17 00:15) Electrocardiogram (05/10/17 00:01) Admit Order (Ed Use Only) (05/10/17 ) ^ Saline Lock (05/10/17 00:51) Resp Oxygen Neno C Titrat 1-4 L (05/10/17 ) Notify Dr: Other (05/10/17 00:51) Sodium Chloride 0.9% Flush (Ns Flush) (05/10/17 09:00) Sodium Chloride 0.9% Flush (Ns Flush) (05/10/17 01:00) Pantoprazole Inj (Protonix Inj) (05/10/17 01:00) Place In Observation (05/10/17 ) Vital Signs (Adult) Q4H (05/10/17 00:52) Activity Oob Ad Tisha (05/10/17 00:52) Intake + Output ABEL.QSHIFT (05/10/17 00:52) Diet Clear Liquid (05/10/17 Breakfast) Sodium Chlor 0.9% 1000 Ml Inj (Ns 1000 M (05/10/17 00:52) Sodium Chloride 0.9% Flush (Ns Flush) (05/10/17 01:00) Sodium Chloride 0.9% Flush (Ns Flush) (05/10/17 09:00) Ondansetron Inj (Zofran Inj) (05/10/17 01:00) Comprehensive Metabolic Panel (05/10/17 06:00) Complete Blood Count With Diff (05/10/17 06:00) Lipase (05/10/17 06:00) Scd Bilateral/Knee High ABEL.BID (05/10/17 00:52) Vishnu Bilateral/Knee High ABEL.QSHIFT (05/10/17 00:52) Acetaminophen (Tylenol) (05/10/17 01:00) Acetamin-Hydrocod 325-5 Mg (Luverne 5-325 (05/10/17 01:00) Morphine Inj (Morphine Inj) (05/10/17 01:00) Docusate Sodium-Senna (Meghna-Colace) (05/10/17 09:00) Magnesium Hydroxide Liq (Milk Of Magnesi (05/10/17 01:00) Sennosides (Senokot) (05/10/17 01:00) Bisacodyl Supp (Dulcolax Supp) (05/10/17 01:00) Lactulose Liq (Lactulose Liq) (05/10/17 01:00) Labs Laboratory Tests Test 05/10/17 00:00 White Blood Count 7.4 TH/MM3 Red Blood Count 5.15 MIL/MM3 Hemoglobin 15.2 GM/DL Hematocrit 46.6 % Mean Corpuscular Volume 90.6 FL Mean Corpuscular Hemoglobin 29.6 PG Mean Corpuscular Hemoglobin 32.7 % Concent Red Cell Distribution Width 12.0 % Platelet Count 197 TH/MM3 Mean Platelet Volume 8.5 FL Neutrophils (%) (Auto) 60.1 % Lymphocytes (%) (Auto) 28.5 % Monocytes (%) (Auto) 8.4 % Eosinophils (%) (Auto) 1.6 % Basophils (%) (Auto) 1.4 % Neutrophils # (Auto) 4.5 TH/MM3 Lymphocytes # (Auto) 2.1 TH/MM3 Monocytes # (Auto) 0.6 TH/MM3 Eosinophils # (Auto) 0.1 TH/MM3 Basophils # (Auto) 0.1 TH/MM3 CBC Comment DIFF FINAL Differential Comment Sodium Level 141 MEQ/L Potassium Level 3.9 MEQ/L Chloride Level 109 MEQ/L Carbon Dioxide Level 26.3 MEQ/L Anion Gap 6 MEQ/L Blood Urea Nitrogen 3 MG/DL Creatinine 0.45 MG/DL Estimat Glomerular Filtration 143 ML/MIN Rate Random Glucose 92 MG/DL Calcium Level 9.2 MG/DL Total Bilirubin 0.8 MG/DL Aspartate Amino Transf 22 U/L (AST/SGOT) Alanine Aminotransferase 40 U/L (ALT/SGPT) Alkaline Phosphatase 91 U/L Total Protein 7.1 GM/DL Albumin 3.8 GM/DL Lipase 833 U/L MDM Medical Decision Making Medical Screen Exam Complete: Yes Emergency Medical Condition: Yes Medical Record Reviewed: Yes Differential Diagnosis ENTERITITS V PANCREATITIS V DYSPEPSIA Narrative Course SIGNED OUT TO DR MARS PENDING LAB RESULTS AND REEVALUATION Diagnosis Primary Impression: Abdominal pain Scripts No Active Prescriptions or Reported Meds Petar Sesay MD May 09, 2017 23:25
[2017-05-09] MEDS ORDERED: SODIUM CHLOR 0.9% 1000 ML INJ 1,000 ML IV SCH (23:46)
[2017-05-09 23:58] VITALS: BP 147/77; PULSE 56; RESP 18; O2SAT 97
[2017-05-10] VITALS (11 sets, daily range): BP systolic 121–187; BP diastolic 76–103; PULSE 20–68; RESP 16–20; TEMP 95.4–97.6; O2SAT 95–100
[2017-05-10] MEDS ORDERED: HYDROmorphone HCL PF 1 MG/ML VIAL IVS ONE
[2017-05-10] MEDS ORDERED: ONDANSETRON HCL 4 MG/2 ML VIAL IVP ONE
[2017-05-10] MEDS ORDERED: SODIUM CHLORIDE 0.9% FLUSH 10 ML FLUSH IV FLUSH PRN ×2 (00:15→01:00)
[2017-05-10 00:23] LABS: AUTOMATED NEUTROPHIL # 4.5 TH/MM3 (1.8-7.7); BASOPHIL # 0.1 TH/MM3 (0-0.2); BASOPHIL % 1.4 % (0.0-2.0); EOSINOPHIL # 0.1 TH/MM3 (0-0.4); EOSINOPHIL % 1.6 % (0.0-4.0); HEMATOCRIT 46.6 % (35.0-46.0); HEMO FLAGS DIFF FINAL; LYMPH % 28.5 % (9.0-44.0); LYMPHOCYTE # 2.1 TH/MM3 (1.0-4.8); MEAN CELL VOLUME 90.6 FL (80.0-100.0); MEAN CORPUSCULAR HEMOGLOBIN 29.6 PG (27.0-34.0); MEAN CORPUSCULAR HGB CONC 32.7 % (32.0-36.0); MONO % 8.4 % (0.0-8.0); NEUT % 60.1 % (16.0-70.0); PLATELET COUNT 197 TH/MM3 (150-450); RED BLOOD COUNT 5.15 MIL/MM3 (4.00-5.30); WHITE BLOOD COUNT 7.4 TH/MM3 (4.0-11.0)
[2017-05-10 00:29] LABS: CHLORIDE 109 MEQ/L (98-107); POTASSIUM 3.9 MEQ/L (3.5-5.1); SODIUM (NA) 141 MEQ/L (136-145)
[2017-05-10 00:33] LABS: ANION GAP 6 MEQ/L (5-15); BICARBONATE 26.3 MEQ/L (21.0-32.0); BLOOD UREA NITROGEN 3 MG/DL (7-18)
--- NOTE | 2017-05-10 00:33 | RADRPT ---
EXAM DATE/TIME: 05/10/2017 00:07 [place] COMPARISON: No previous studies available for comparison. INDICATIONS : Evaluate for ileus. MEDICAL HISTORY : Gastroesophageal reflux disease. SURGICAL HISTORY : section. Rectal surgery. ENCOUNTER: Initial ACUITY: 1 day PAIN SCORE: 5/10 LOCATION: Left upper quadrant abdomen. FINDINGS: Supine and upright views of the abdomen were performed. The abdominal bowel gas pattern is normal. No air fluid levels are seen. No abnormal masses, calcifications, or organomegaly is seen. The visu alized lower lungs are clear. No evidence of free intraperitoneal gas. The osseous structures are u nremarkable. CONCLUSION: Normal examination for a patient of this age. Luis Sparks MD on May 10, 2017 at 0:31 Board Certified Radiologist. This report was verified electronically.
[2017-05-10 00:36] LABS: ALT (GPT) 40 U/L (10-53); AST (GOT) 22 U/L (15-37); GLOMERULAR FILTRATION RATE 143 ML/MIN (>89)
[2017-05-10 00:37] LABS: TOTAL BILIRUBIN ADULT 0.8 MG/DL (0.2-1.0)
[2017-05-10 00:39] LABS: ALKALINE PHOSPHATASE 91 U/L (45-117)
--- NOTE | 2017-05-10 00:51 | PD ---
Physical Exam Date Seen by Provider: May 10, 2017 Time Seen by Provider: 00:39 Narrative Accept in transfer of care from Dr. Sesay GENERAL: Well developed well-nourished female in no acute distress no respiratory distress CARDIOVASCULAR: Regular rate and rhythm without murmurs, gallops, or rubs. RESPIRATORY: Breath sounds equal bilaterally. No accessory muscle use. GASTROINTESTINAL: Abdomen soft, periumbilical and epigastric tenderness to palpation without guarding or rebound, no clinical Regalado sign, nondistended. Data Data Last Documented VS Vital Signs Date Time Temp Pulse Resp B/P Pulse Ox O2 Delivery O2 Flow Rate FiO2 05/10/17 00:12 18 97 Room Air 05/09/17 23:58 56 147/77 05/09/17 22:24 98.2 Orders Ondansetron Inj (Zofran Inj) (05/10/17 00:00) Sodium Chlor 0.9% 1000 Ml Inj (Ns 1000 M (05/09/17 23:46) Hydromorphone Pf Inj (Dilaudid Pf Inj) (05/10/17 00:00) Complete Blood Count With Diff (05/10/17 00:01) Comprehensive Metabolic Panel (05/10/17 00:01) Lipase (05/10/17 00:01) Abdomen, Flat & Upright (05/10/17 ) Iv Access Insert/Monitor (05/10/17 00:01) Ecg Monitoring (05/10/17 00:01) Oximetry (05/10/17 00:01) NPO (05/10/17 00:01) Sodium Chloride 0.9% Flush (Ns Flush) (05/10/17 00:15) Electrocardiogram (05/10/17 00:01) Admit Order (Ed Use Only) (05/10/17 ) ^ Saline Lock (05/10/17 00:51) Resp Oxygen Neno C Titrat 1-4 L (05/10/17 ) Notify Dr: Other (05/10/17 00:51) Sodium Chloride 0.9% Flush (Ns Flush) (05/10/17 09:00) Sodium Chloride 0.9% Flush (Ns Flush) (05/10/17 01:00) Labs Laboratory Tests Test 05/10/17 00:00 White Blood Count 7.4 TH/MM3 Red Blood Count 5.15 MIL/MM3 Hemoglobin 15.2 GM/DL Hematocrit 46.6 % Mean Corpuscular Volume 90.6 FL Mean Corpuscular Hemoglobin 29.6 PG Mean Corpuscular Hemoglobin 32.7 % Concent Red Cell Distribution Width 12.0 % Platelet Count 197 TH/MM3 Mean Platelet Volume 8.5 FL Neutrophils (%) (Auto) 60.1 % Lymphocytes (%) (Auto) 28.5 % Monocytes (%) (Auto) 8.4 % Eosinophils (%) (Auto) 1.6 % Basophils (%) (Auto) 1.4 % Neutrophils # (Auto) 4.5 TH/MM3 Lymphocytes # (Auto) 2.1 TH/MM3 Monocytes # (Auto) 0.6 TH/MM3 Eosinophils # (Auto) 0.1 TH/MM3 Basophils # (Auto) 0.1 TH/MM3 CBC Comment DIFF FINAL Differential Comment Sodium Level 141 MEQ/L Potassium Level 3.9 MEQ/L Chloride Level 109 MEQ/L Carbon Dioxide Level 26.3 MEQ/L Anion Gap 6 MEQ/L Blood Urea Nitrogen 3 MG/DL Creatinine 0.45 MG/DL Estimat Glomerular Filtration 143 ML/MIN Rate Random Glucose 92 MG/DL Calcium Level 9.2 MG/DL Total Bilirubin 0.8 MG/DL Aspartate Amino Transf 22 U/L (AST/SGOT) Alanine Aminotransferase 40 U/L (ALT/SGPT) Alkaline Phosphatase 91 U/L Total Protein 7.1 GM/DL Albumin 3.8 GM/DL Lipase 833 U/L [facility] Medical Record Reviewed: Yes Supervised Visit with AIME: No Interpretation(s) EKG sinus bradycardia rate [address] elevation or ectopy or injury pattern CBC & BMP Diagram 05/10/17 00:00 Vital Signs Date Time Temp Pulse Resp B/P Pulse Ox O2 Delivery O2 Flow Rate FiO2 05/10/17 00:12 18 97 Room Air 05/09/17 23:58 56 18 147/77 97 Room Air 05/09/17 23:36 18 05/09/17 22:24 98.2 74 18 146/91 96 Lipase: 833, elevated Differential Diagnosis Accepted in transfer of care from Dr. Sesay please refer to his dictation Narrative Course Accepted in transfer of care from Dr. Sesay for follow-up of pending labs and patient disposition Patient presents with abdominal pain increasing since . Patient with recent diagnosis 04/07/17 of pancreatitis; at that time CT abdomen and pelvis revealed mild inflammatory changes consistent with pancreatitis; ultrasound identified intermittent areas of gallbladder wall thickening but no gallstones and no evidence for acute cholecystitis. Patient here presents with epigastric and periumbilical pain primary periumbilical pain 8/10 in intensity presently 1/ 10 in intensity after Dilaudid 1 mg. Patient denies any alcohol use since diagnosis of pancreatitis 04/07/17. Patient is been following up Jey diet to clear liquid diet. Patient is a no fever or chills. No chest pain. EKG is sinus rhythm without any acute injury pattern change. Patient is nothing by mouth and receiving IV fluids. Plans to admit patient for bowel rest and further evaluation of pancreatitis Physician Communication Physician Communication [facility] - Dr Hilton --- OBS Diagnosis Primary Impression: Abdominal pain Qualified Code: R10.33 - Periumbilical abdominal pain Additional Impression: Pancreatitis Qualified Code: K85.90 - Acute pancreatitis, unspecified complication status, unspecified pancreatitis type Admitting Information Admitting Physician Requests: Observation Scripts No Active Prescriptions or Reported Meds Cinthia Edwards MD May 10, 2017 00:51
[2017-05-10] MEDS ORDERED: MAGNESIUM HYDROXIDE SUSP 30 ML CUP PO PRN (01:00)
[2017-05-10] MEDS ORDERED: SENNOSIDES 8.6 MG TAB PO PRN (01:00)
[2017-05-10] MEDS ORDERED: BISACODYL 10 MG SUPP RECTAL PRN (01:00)
[2017-05-10] MEDS ORDERED: ACETAMINOPHEN 325 MG TAB PO PRN (01:00)
[2017-05-10] MEDS ORDERED: ONDANSETRON HCL 4 MG/2 ML VIAL IVP PRN (01:00)
[2017-05-10] MEDS ORDERED: LACTULOSE SYRUP 20 GM/30 ML CUP PO PRN (01:00)
[2017-05-10] MEDS ORDERED: SODIUM CHLORIDE 0.9% FLUSH 10 ML FLUSH IVF PRN (01:00)
[2017-05-10] MEDS: SODIUM CHLOR 0.9% 1000 ML INJ 1,000 ML IV SCH ×3 (01:16→21:13)
[2017-05-10] MEDS: PANTOPRAZOLE SODIUM 40 MG VIAL IV PUSH SCH ×2 (01:16→12:38)
[2017-05-10] MEDS: MORPHINE SULFATE 4 MG/ML INJ IV PRN ×5 (03:21→21:18)
[2017-05-10 06:54] LABS: CHLORIDE 112 MEQ/L (98-107); POTASSIUM 3.8 MEQ/L (3.5-5.1); SODIUM (NA) 143 MEQ/L (136-145)
[2017-05-10 07:06] LABS: AUTOMATED NEUTROPHIL # 3.8 TH/MM3 (1.8-7.7); BASOPHIL % 0.2 % (0.0-2.0); EOSINOPHIL # 0.2 TH/MM3 (0-0.4); EOSINOPHIL % 2.4 % (0.0-4.0); HEMATOCRIT 40.9 % (35.0-46.0); HEMO FLAGS DIFF FINAL; LYMPH % 31.7 % (9.0-44.0); LYMPHOCYTE # 2.1 TH/MM3 (1.0-4.8); MEAN CORPUSCULAR HEMOGLOBIN 29.9 PG (27.0-34.0); MEAN CORPUSCULAR HGB CONC 32.8 % (32.0-36.0); MONO % 7.7 % (0.0-8.0); PLATELET COUNT 172 TH/MM3 (150-450); RED CELL DISTRIBUTION WIDTH 12.5 % (11.6-17.2); WHITE BLOOD COUNT 6.6 TH/MM3 (4.0-11.0)
[2017-05-10 07:23] LABS: ALKALINE PHOSPHATASE 73 U/L (45-117); ALT (GPT) 31 U/L (10-53); ANION GAP 6 MEQ/L (5-15); AST (GOT) 18 U/L (15-37); BICARBONATE 24.8 MEQ/L (21.0-32.0); BLOOD UREA NITROGEN 3 MG/DL (7-18); GLOMERULAR FILTRATION RATE 159 ML/MIN (>89); TOTAL BILIRUBIN ADULT 0.8 MG/DL (0.2-1.0)
[2017-05-10] MEDS ORDERED: SODIUM CHLORIDE 0.9% FLUSH 10 ML FLUSH IV FLUSH SCH (09:00)
[2017-05-10] MEDS: SODIUM CHLORIDE 0.9% FLUSH 10 ML FLUSH IV FLUSH SCH ×2 (09:00→21:19)
[2017-05-10] MEDS: DOCUSATE SODIUM 50 MG/SENNA 8.6 MG TAB PO SCH ×2 (09:52→21:12)
--- NOTE | 2017-05-10 10:09 | HHI.HP ---
[facility] Primary Care Physician No Primary Care Physician Admission Diagnosis pancreatitis Diagnoses: (1) Abdominal pain Diagnosis: Principal (2) Pancreatitis Diagnosis: Principal Chief Complaint: Abdominal pain Travel History International Travel<30 Days: No Contact w/Intl Traveler <30 Da: No Traveled to Known Affected Are: No History of Present Illness Written by Anibal Harmon, acting as scribe for Dr. Bravo on 05/10/17 at 9: 50. 61-year-old female with no chronic medical illnesses who presented to hospital because of recurrent abdominal pain. Patient was admitted last month for first episode of pancreatitis. Patient was treated that time with nothing by mouth, IV fluids, pain control. Her lipase level trended down nicely and she was discharged home with pain medication and instructions to follow-up with primary medical doctor. Patient does not have any insurance or was unable to follow-up with any physicians. She states that she has been following a strict low-fat diet. She has abstained from any alcohol use since her last admission. She states that the abdominal pain has never gone away. She indicates the pain is always worse after she eats. She was using oxycodone and until 10 days after she was discharged last for pain control, then she switched to ibuprofen and has been using that on a daily basis since. She states that the pain has remained rather constant after she eats up until Wednesday when the pain progressively got worse so she placed herself on a clear liquid diet. She was doing well until Wednesday night and Wednesday morning when the pain started getting worse and radiating into her back. Because of the worsening pain she came to the hospital for evaluation. Patient had any nausea, vomiting, diarrhea , constipation, melena, hematochezia. ER physician did evaluate the patient and findings are indicative of pancreatitis and the patient placed in observation for continued evaluation. Review of Systems Gastrointestinal: COMPLAINS OF: Abdominal pain Except as stated in HPI: all other systems reviewed are Neg Past Family Social History Past Medical History History of pancreatitis History of Alcohol abuse Past Surgical History 2 Rectal surgery Tonsillectomy Reported Medications Reported Meds & Active Scripts Active No Active Prescriptions or Reported Medications Allergies: Coded Allergies: Sulfa (Verified Allergy, Mild, 05/09/17) Family History Reviewed with patient and unremarkable for any heart disease, diabetes, cancer, seizures, stroke Social History Patient does continue to drink alcohol in which she states at least 5 times weekly. She is he does drink liquor but has reduced under wine due to her abdominal pain and discomfort. There is indication that she has used cocaine intermittently. He does continue to smoke mainly whenever she drinks that she was 22 years old. Physical Exam Vital Signs Vital Signs Date Time Temp Pulse Resp B/P Pulse Ox O2 Delivery O2 Flow Rate FiO2 05/10/17 07:33 18 05/10/17 02:49 62 18 96 05/10/17 02:40 96.2 52 16 121/76 95 05/10/17 02:28 62 18 150/84 96 Room Air 05/10/17 01:18 66 18 154/86 97 Room Air 05/10/17 00:58 97 21 05/10/17 00:12 18 97 Room Air 05/09/17 23:58 56 18 147/77 97 Room Air 05/09/17 23:36 18 05/09/17 22:24 98.2 74 18 146/91 96 Physical Exam GENERAL: Well-developed, well-nourished, in no acute distress. alert and orientated HEENT: Head is normocephalic without any lesions or masses noted. Facial features are symmetric. Eyes: Pupils equal round reactive to light. Extraocular muscles are intact. Conjunctivae were clear. Oropharyngeal: Pharynx without any erythema edema. Tongue is midline without deviation. Buccal mucosa is moist without any masses or lesions NECK: Supple without any masses. Trachea midline no deviation. No JVD, no bruits are appreciated CARDIAC: Regular rhythm, regular rate. S1/S2 are heard. No murmurs gallops or rubs. LUNGS: Clear to auscultation bilaterally. No wheeze, rhonchi or rales. No use of accessory muscles on inspiration or expiration. ABDOMEN: Soft, mild abdominal pain in the upper quadrant. No Regalado sign. Nondistended. Bowel sounds heard in all 4 quadrants. No organomegaly or masses. Negative rebound, negative guarding EXTREMITIES: No edema, pulses are equal bilaterally. No cyanosis or clubbing NEUROLOGY: Mood and affect appear appropriate. Cranial nerves II through XII grossly intact. Muscle strength 5/5 in upper and lower extremities bilaterally. Deep tendon reflexes are 2+ in upper and lower extremities bilaterally. Laboratory Laboratory Tests Test 05/10/17 05/10/17 00:00 05:10 White Blood Count 7.4 6.6 Red Blood Count 5.15 4.50 Hemoglobin 15.2 13.4 Hematocrit 46.6 40.9 Mean Corpuscular Volume 90.6 91.0 Mean Corpuscular Hemoglobin 29.6 29.9 Mean Corpuscular Hemoglobin 32.7 32.8 Concent Red Cell Distribution Width 12.0 12.5 Platelet Count 197 172 Mean Platelet Volume 8.5 8.7 Neutrophils (%) (Auto) 60.1 58.0 Lymphocytes (%) (Auto) 28.5 31.7 Monocytes (%) (Auto) 8.4 7.7 Eosinophils (%) (Auto) 1.6 2.4 Basophils (%) (Auto) 1.4 0.2 Neutrophils # (Auto) 4.5 3.8 Lymphocytes # (Auto) 2.1 2.1 Monocytes # (Auto) 0.6 0.5 Eosinophils # (Auto) 0.1 0.2 Basophils # (Auto) 0.1 0.0 CBC Comment DIFF FINAL DIFF FINAL Differential Comment Sodium Level 141 143 Potassium Level 3.9 3.8 Chloride Level 109 112 Carbon Dioxide Level 26.3 24.8 Anion Gap 6 6 Blood Urea Nitrogen 3 3 Creatinine 0.45 0.41 Estimat Glomerular Filtration 143 159 Rate Random Glucose 92 87 Calcium Level 9.2 8.5 Total Bilirubin 0.8 0.8 Aspartate Amino Transf 22 18 (AST/SGOT) Alanine Aminotransferase 40 31 (ALT/SGPT) Alkaline Phosphatase 91 73 Total Protein 7.1 5.8 Albumin 3.8 2.9 Lipase 833 818 Result Diagram: 05/10/17 0510 05/10/17 0510 Imaging Last Impressions Abdomen X-Ray 05/10/17 0000 Signed Impressions: Service Date/Time: Wednesday, May 10, 2017 00:07 - CONCLUSION: Normal examination for a patient of this age. Luis Sparks MD Assessment and Plan Assessment and Plan Epigastric/RUQ abd pain - possible Pancreatitis, recurrent: Patient presented with abdominal pain with elevated lipase and recent hospitalization for pancreatitis. Check gallbladder u/s. Patient recommended to DC ibuprofen. Continue IV fluids, continue pain control, clear liquid diet, consult driller hand for further recommendations Elevated blood pressure: Could be related to pain. Continue monitor blood pressure, as needed Vasotec History of alcohol abuse: patient states that she has been abstinent since her last admission DVT prevention: Sequential compression devices This note was transcribed by boone Harmon. I, Dr. Carol Bravo personally performed the history, physical exam, and medical decision making; and confirmed the accuracy of the information in the transcribed note. Authenticated by Dr. Carol Bravo on 05/10/17 at 11:24. Problem Qualifiers (1) Abdominal pain: Qualified Code: R10.13 - Epigastric pain (2) Pancreatitis: Qualified Code: K85.90 - Acute pancreatitis, unspecified complication status, unspecified pancreatitis type Anibal Harmon May 10, 2017 10:08 Carol Bravo MD May 10, 2017 11:24
[2017-05-10] MEDS ORDERED: ENALAPRILAT 1.25 MG/ML VIAL IV PUSH PRN (10:15)
--- NOTE | 2017-05-10 16:39 | EKG ---
Date Performed: 05/10/2017 Time Performed: 00:32:54 PTAGE: 61 years EKG: SINUS BRADYCARDIA BORDERLINE ECG PREVIOUS TRACING : 01/15/2016 20.58 Since previous tracing, no significant change noted DOCTOR: Edwar Fu Interpretating Date/Time 05/10/2017 16:38:25
--- NOTE | 2017-05-10 18:40 | RADRPT ---
EXAM DATE/TIME: 05/10/2017 15:13 [facility] COMPARISON: No previous studies available for comparison. INDICATIONS : Right upper quadrant pain. MEDICAL HISTORY : Pancreatitis. Gallstones. Abdominal pain. GERD. UTI. ETOH abuse. SURGICAL HISTORY : Tonsillectomy. section. Rectal surgery. Right knee surgery. Blood transfusions. ENCOUNTER: Subsequent ACUITY: 4-6 days PAIN SCORE: 4/10 LOCATION: Right upper quadrant MEASUREMENTS: LIVER: 14.0 cm length COMMON DUCT: 4 mm RIGHT KIDNEY: 10.5 x 5.3 x 5.0 cm FINDINGS: Minimal free fluid in Harmon's pouch LIVER: Normal echotexture without focal lesion or ductal dilatation. COMMON DUCT: No intraluminal mass or stone visualized. GALLBLADDER: Contains significant sludge. The patient was mildly tender to sonographic compression over the gallbl adder. PANCREAS: 17 mm solid-appearing mass in the tail region of the pancreas. RIGHT KIDNEY: No evidence of hydronephrosis, stone, or mass. CONCLUSION: Mildly distended gallbladder containing sludge with mildly positive Regalado's sign. Pancreatic tail region mass. Recommend further evaluation with pancreas protocol CT. Carlos Enrique Blanchard MD on May 10, 2017 at 18:36 Board Certified Radiologist. This report was verified electronically.
[2017-05-10] MEDS: ACETAMINOPHEN/HYDROcodone 325 MG/5 MG TAB PO PRN (19:06)
--- NOTE | 2017-05-10 21:14 | PD.CONS ---
HPI History of Present Illness This is a 61 year old female who about a year ago had gallstones and so she took supplements to break down the stones and last month ended up in the hospital with an episode of pancreatitis the etiology was not exactly clear but she was noted to have sludge in her gallbladder and at that point in time she had been actively drinking alcohol she would drink about 4-5 drinks a day about 5 times a week but since that admission she had quit alcohol and on discharge she was given instructions to be on a low-fat diet and in spite of the fact that she was following all the instructions in the diet she continued to have some upper abdominal pain and the pain would waver and sometimes increase and on Wednesday she decided to go on a clear liquid diet with that she felt good Wednesday and Wednesday when in fact on Wednesday she had a sudden onset of pain in the right side under her ribs with radiation to the back and she felt also some abdominal distention no nausea or vomiting no fever or chills she had been in fact constipated as a result of the oxycodone and so she had quit the oxycodone started ibuprofen 600 mg 4 times a day she denies any melena or hematochezia any blood or bleeding denies any fever or chills she did have some cramping lower extremity pain and as a result she decided to come in for further evaluation on admission through the EGD and ultrasound of the abdomen reveals gallbladder sludge and possible pancreatic tail mass she is currently comfortable in bed with no acute pain no nausea or vomiting PFSH Past Medical History History of pancreatitis History of Alcohol abuse Past Surgical History 2 Rectal surgery for anal fissure Tonsillectomy Coded Allergies: Sulfa (Verified Allergy, Mild, 05/09/17) Medications No home medications except recently she had taken ibuprofen and had been on oxycodone Family History Reviewed with patient and unremarkable for any heart disease, diabetes, cancer, seizures, stroke Social History She tells me her last alcoholic beverage was April 06. She does continue to smoke very little and from the chart apparently there has been some cocaine use in the past Review of Systems ROS Review of systems Patient denies any headache dizziness blurry vision, denies any chest pain shortness of breath cough fever chills, Denies any palpitations or fatigue denies any polyuria dysuria hematuria, denies any numbness tingling or weakness, denies any skin rash pruritus or jaundice, denies any easy bruising or bleeding tendency, denies any recent change in mood GI Exam Vitals I&O Vital Signs Date Time Temp Pulse Resp B/P Pulse Ox O2 Delivery O2 Flow Rate FiO2 05/10/17 19:30 98 21 05/10/17 16:00 95.4 68 20 136/86 98 05/10/17 15:46 18 05/10/17 12:00 96.2 20 20 137/90 100 05/10/17 10:00 96 21 05/10/17 08:00 96.2 64 20 134/89 100 05/10/17 02:49 62 18 96 05/10/17 02:40 96.2 52 16 121/76 95 05/10/17 02:28 62 18 150/84 96 Room Air 05/10/17 01:18 66 18 154/86 97 Room Air 05/10/17 00:58 97 21 05/10/17 00:12 18 97 Room Air 05/09/17 23:58 56 18 147/77 97 Room Air 05/09/17 23:36 18 05/09/17 22:24 98.2 74 18 146/91 96 I/O 05/09/17 05/09/17 05/09/17 05/10/17 05/10/17 05/10/17 07:00 15:00 23:00 07:00 15:00 23:00 Intake Total 397 ml 1400 ml Balance 397 ml 1400 ml Intake Oral 75 ml 200 ml IV Total 322 ml 1200 ml # Voids 1 1 2 Imaging Last Impressions Gall Bladder Ultrasound 05/10/17 0000 Signed Impressions: Service Date/Time: Wednesday, May 10, 2017 15:13 - CONCLUSION: Mildly distended gallbladder containing sludge with mildly positive Regalado's sign. Pancreatic tail region mass. Recommend further evaluation with pancreas protocol CT. Carlos Enrique Blanchard MD Abdomen X-Ray 05/10/17 0000 Signed Impressions: Service Date/Time: Wednesday, May 10, 2017 00:07 - CONCLUSION: Normal examination for a patient of this age. Luis Sparks MD Laboratory Test 05/10/17 05/10/17 00:00 05:10 White Blood Count 7.4 TH/MM3 6.6 TH/MM3 Red Blood Count 5.15 MIL/MM3 4.50 MIL/MM3 Hemoglobin 15.2 GM/DL 13.4 GM/DL Hematocrit 46.6 % 40.9 % Mean Corpuscular Volume 90.6 FL 91.0 FL Mean Corpuscular Hemoglobin 29.6 PG 29.9 PG Mean Corpuscular Hemoglobin 32.7 % 32.8 % Concent Red Cell Distribution Width 12.0 % 12.5 % Platelet Count 197 TH/MM3 172 TH/MM3 Mean Platelet Volume 8.5 FL 8.7 FL Neutrophils (%) (Auto) 60.1 % 58.0 % Lymphocytes (%) (Auto) 28.5 % 31.7 % Monocytes (%) (Auto) 8.4 % 7.7 % Eosinophils (%) (Auto) 1.6 % 2.4 % Basophils (%) (Auto) 1.4 % 0.2 % Neutrophils # (Auto) 4.5 TH/MM3 3.8 TH/MM3 Lymphocytes # (Auto) 2.1 TH/MM3 2.1 TH/MM3 Monocytes # (Auto) 0.6 TH/MM3 0.5 TH/MM3 Eosinophils # (Auto) 0.1 TH/MM3 0.2 TH/MM3 Basophils # (Auto) 0.1 TH/MM3 0.0 TH/MM3 CBC Comment DIFF FINAL DIFF FINAL Differential Comment Sodium Level 141 MEQ/L 143 MEQ/L Potassium Level 3.9 MEQ/L 3.8 MEQ/L Chloride Level 109 MEQ/L 112 MEQ/L Carbon Dioxide Level 26.3 MEQ/L 24.8 MEQ/L Anion Gap 6 MEQ/L 6 MEQ/L Blood Urea Nitrogen 3 MG/DL 3 MG/DL Creatinine 0.45 MG/DL 0.41 MG/DL Estimat Glomerular Filtration 143 ML/MIN 159 ML/MIN Rate Random Glucose 92 MG/DL 87 MG/DL Calcium Level 9.2 MG/DL 8.5 MG/DL Total Bilirubin 0.8 MG/DL 0.8 MG/DL Aspartate Amino Transf 22 U/L 18 U/L (AST/SGOT) Alanine Aminotransferase 40 U/L 31 U/L (ALT/SGPT) Alkaline Phosphatase 91 U/L 73 U/L Total Protein 7.1 GM/DL 5.8 GM/DL Albumin 3.8 GM/DL 2.9 GM/DL Lipase 833 U/L 818 U/L Physical Examination HEENT: Pupils round and reactive to light; normocephalic; atraumatic; no jaundice. Throat is clear. NECK: Neck is supple, no JVD, no lymphadenopathy. CHEST: Chest is clear to auscultation and percussion. CARDIAC: Regular rate and rhythm with no murmur gallop or rubs. ABDOMEN: Soft, nondistended, mild upper abdominal tenderness no rebound or guarding; no hepatosplenomegaly; bowel sounds are present in all four quadrants. EXTREMITIES: No clubbing, cyanosis, or edema. SKIN: Normal; no rash; no jaundice. 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 Assessment and Plan Plan Abdominal pain Elevated lipase possible recurrent pancreatitis Abnormal imaging with biliary sludge and pancreatic tail mass Agree with current supportive care Monitor labs CT of the abdomen Consider MRCP Consider EUS Emphasize no alcohol Tumor markers Julián Hubbard MD May 10, 2017 21:14
[2017-05-11] VITALS: BP 175/95; PULSE 73; RESP 20; TEMP 97.3; O2SAT 98
[2017-05-11] MEDS: IOHEXOL 350 MG/ML 10 ML VIAL (for RAD DIAG) IV ONE (00:50)
[2017-05-11] MEDS: PANTOPRAZOLE SODIUM 40 MG VIAL IV PUSH SCH ×2 (01:12→12:01)
[2017-05-11] MEDS: MORPHINE SULFATE 4 MG/ML INJ IV PRN ×2 (01:21→15:12)
--- NOTE | 2017-05-11 02:05 | RADRPT ---
EXAM DATE/TIME: 05/11/2017 00:43 This report includes an Addendum and supersedes previous reports for this exam. [facility] COMPARISON: US ABDOMEN - GALLBLADDER, May 10, 2017, 15:13. INDICATIONS : Evaluate for mass in the pancreatic tail region. IV CONTRAST: 100 cc Omnipaque 350 (iohexol) IV ORAL CONTRAST: No oral contrast ingested. RADIATION DOSE: 14.59 CTDIvol (mGy) ; High dose protocol MEDICAL HISTORY : Pancreatitis. Gastroesophageal reflux disease. SURGICAL HISTORY : section. Anal fissure. ENCOUNTER: Subsequent ACUITY: 3 days PAIN SCALE: 8/10 LOCATION: Right upper quadrant TECHNIQUE: Volumetric scanning of the abdomen was performed. Using automated exposure control and adjustment of the mA and/or kV according to patient size, radiation dose was kept as low as reasonably achievable t o obtain optimal diagnostic quality images. DICOM format image data is available electronically for review and comparison. FINDINGS: The gallbladder is mildly distended. The spleen, right adrenal gland and kidneys are unrema rkable. 1.6 cm mass lateral limb left adrenal gland with negative Hounsfield units characteristic of an adenoma. There is no evidence for pancreatic mass. There is retroperitoneal lymphadenopathy with a left para-aortic node measuring 2 cm, aortocaval 1.1 cm short axis lymph node. There is also identif ied at the level of the takeoff of the inferior mesenteric artery, bulky adenopathy measuring 2.7 x 1 .8 cm transverse and AP dimension. There is mesenteric edema and subcentimeter mesenteric lymph nodes . No aneurysm. There is a noncalcified right lower lobe pulmonary nodule measured 7.7 mm on image one . There are atelectatic changes at the lung bases and a left lower lobe 9.5 mm nodule. The osseous st ructures are intact. There is a cyst left kidney measure 9.9 mm. There is a nodule of the left adrena l gland also present measuring 1 cm on image 27. CONCLUSION: 1. Left adrenal nodules felt to represent adenomas. 2. Tiny left renal cyst. 3. There is retroperitoneal lymphadenopathy identified which is likely what was imaged on the recent ultrasound. This would be concerning for metastatic disease of unknown primary or other malignant pro cesses such as lymphoma. 4. No evidence for pancreatic mass. 5. Mesenteric haziness and subcentimeter mesenteric lymph nodes are identified. 6. Lung nodules. Luis Sparks MD on May 11, 2017 at 1:56 Board Certified Radiologist. This report was verified electronically. ADDENDUM: Also noted is a 1.8 cm heterogeneous mass lesion off the upper pole of the left kidney. This should b e considered a renal cell carcinoma until proven otherwise. Elroy Loya MD on May 13, 2017 at 7:44 Board Certified Radiologist. This report was verified electronically.
[2017-05-11 05:14] VITALS: BP 138/86; PULSE 64; RESP 18
[2017-05-11] MEDS: ACETAMINOPHEN/HYDROcodone 325 MG/5 MG TAB PO PRN ×4 (05:25→22:18)
[2017-05-11 06:07] LABS: HEMATOCRIT 40.6 % (35.0-46.0); MEAN CELL VOLUME 89.6 FL (80.0-100.0); MEAN CORPUSCULAR HEMOGLOBIN 30.4 PG (27.0-34.0); MEAN CORPUSCULAR HGB CONC 33.9 % (32.0-36.0); PLATELET COUNT 167 TH/MM3 (150-450); RED BLOOD COUNT 4.53 MIL/MM3 (4.00-5.30); RED CELL DISTRIBUTION WIDTH 11.9 % (11.6-17.2); REVIEW FLAG FINAL; WHITE BLOOD COUNT 8.5 TH/MM3 (4.0-11.0)
[2017-05-11 06:15] LABS: CHLORIDE 107 MEQ/L (98-107); POTASSIUM 3.5 MEQ/L (3.5-5.1); SODIUM (NA) 140 MEQ/L (136-145)
[2017-05-11 06:22] LABS: ANION GAP 9 MEQ/L (5-15); BICARBONATE 24.4 MEQ/L (21.0-32.0); BLOOD UREA NITROGEN 2 MG/DL (7-18)
[2017-05-11 06:24] LABS: ALT (GPT) 31 U/L (10-53)
[2017-05-11 06:25] LABS: AST (GOT) 18 U/L (15-37); GLOMERULAR FILTRATION RATE 191 ML/MIN (>89)
[2017-05-11 06:27] LABS: ALKALINE PHOSPHATASE 74 U/L (45-117)
[2017-05-11 07:55] VITALS: BP 115/81; PULSE 69; RESP 16; TEMP 97.9; O2SAT 96
[2017-05-11] MEDS: SODIUM CHLOR 0.9% 1000 ML INJ 1,000 ML IV SCH ×2 (08:24→17:06)
[2017-05-11] MEDS: DOCUSATE SODIUM 50 MG/SENNA 8.6 MG TAB PO SCH ×2 (08:24→21:00)
[2017-05-11] MEDS: SODIUM CHLORIDE 0.9% FLUSH 10 ML FLUSH IV FLUSH SCH ×2 (08:24→21:00)
--- NOTE | 2017-05-11 10:02 | HHI.PR ---
Subjective Remarks The patient is tearful and anxious over the abdominal ultrasound, but is relieved to find that she does not have pancreatic mass. The patient is still having some epigastric pain but is tolerating clear liquid diet without vomiting. Objective Vitals Vital Signs Date Time Temp Pulse Resp B/P Pulse Ox O2 Delivery O2 Flow Rate FiO2 05/11/17 07:55 97.9 69 16 115/81 96 05/11/17 05:14 64 18 138/86 05/11/17 00:00 97.3 73 20 175/95 98 05/10/17 23:11 20 05/10/17 20:00 97.6 60 16 187/103 99 05/10/17 19:30 98 21 05/10/17 16:00 95.4 68 20 136/86 98 05/10/17 12:00 96.2 20 20 137/90 100 05/10/17 10:00 96 21 I/O 05/10/17 05/10/17 05/10/17 05/11/17 05/11/17 05/11/17 07:00 15:00 23:00 07:00 15:00 23:00 Intake Total 397 ml 1820 ml 3700 ml Balance 397 ml 1820 ml 3700 ml Intake Oral 75 ml 620 ml 2500 ml IV Total 322 ml 1200 ml 1200 ml # Voids 1 1 4 5 # Bowel Movements 1 Result Diagram: 05/11/17 0450 05/11/17 0450 Objective Remarks GENERAL: Well-nourished, well-developed patient. SKIN: Warm and dry. HEAD: Normocephalic. EYES: No scleral icterus. No injection or drainage. NECK: Supple, trachea midline. No JVD or lymphadenopathy. CARDIOVASCULAR: Regular rate and rhythm without murmurs, gallops, or rubs. RESPIRATORY: Breath sounds equal bilaterally. No accessory muscle use. GASTROINTESTINAL: Bowel sounds positive. Abdomen soft, mildly tender in the epigastrium, nondistended. EXTREMITIES: No cyanosis, or edema. NEUROLOGICAL: Awake, alert, and oriented x 3. Non-focal. A/P Problem List: (1) Abdominal pain ICD Code: R10.9 Status: Acute (2) Pancreatitis ICD Code: K85.90 Status: Acute (3) Retroperitoneal lymphadenopathy ICD Code: R59.0 Status: Acute (4) Alcohol abuse ICD Code: F10.10 Status: Resolved Assessment and Plan -Recurrent versus chronic pancreatitis - patient hospitalized for same one month ago and states that the pain never really resolved. The patient states she has been abstinent from alcohol for the past month. Symptoms are somewhat mild with lipase 600 today. Abdominal ultrasound showing sludge in the gallbladder with mildly distended gallbladder and sonographic mildly positive Regalado sign, possible mass in the pancreatic tail. Dominant CT scan shows retroperitoneal adenopathy which would be concerning for metastatic disease of unknown primary or other malignant process such as lymphoma, no pancreatic mass. Continue liquid diet, and I will order a hida scan. GI is following and I appreciate the consultation. Continue pain control with morphine IV and Lortab as needed. -Retroperitoneal lymphadenopathy - patient advised to have repeat CT scan in 3 months to ensure that the adenopathy resolves. As patient has no insurance, I will see if we can arrange a blue card for her and to follow-up at the [facility]. -DVT prophylaxis with SCDs. Problem Qualifiers (1) Abdominal pain: Qualified Code: R10.13 - Epigastric pain (2) Pancreatitis: Qualified Code: K85.20 - Alcohol-induced acute pancreatitis, unspecified complication status Carol Bravo MD May 11, 2017 10:02
[2017-05-11] MEDS ORDERED: HYDR-3516 PO (10:19)
[2017-05-11 12:00] VITALS: BP 125/74; PULSE 58; RESP 16; TEMP 97.6; O2SAT 97
--- NOTE | 2017-05-11 15:00 | RADRPT ---
EXAM DATE/TIME: 05/11/2017 13:11 [facility] COMPARISON: No previous studies available for comparison. INDICATIONS : Pancreatitis and gallstones with right upper quadrant pain radiating to back with nausea. DOSE: 4.1 mCi Tc99m Mebrofenin IV MEDICAL HISTORY : Pancreatitis. SURGICAL HISTORY : section. Tonsillectomy. Anal fissure repair. ENCOUNTER: Initial ACUITY: 3 days PAIN SCALE: 6/10 LOCATION: Right upper quadrant TECHNIQUE: Following the intravenous administration of radiotracer, dynamic sequential images were performed wit h continuous acquisition. FINDINGS: HEPATIC KINETICS: There is prompt uptake of radiotracer in the liver. No focal defects are seen. There is normal rate of washout from the hepatic parenchyma. BILIARY CLEARANCE: Activity is first seen in the extrahepatic biliary system at 10 minutes. There is normal excretion i nto the small bowel. GALLBLADDER: Activity is first seen in the gallbladder at 25 minutes. Common bile duct kinetics are normal and th ere is no evidence of biliary obstruction. BILIARY ENTRIC REFLUX: There is tracer activity in the stomach characteristic of some bile reflux. CONCLUSION: 1. Unremarkable HIDA scan. 2. Tracer activity noted in the stomach characteristic of bile reflux. Denny Andino MD on May 11, 2017 at 14:56 Board Certified Radiologist. This report was verified electronically.
[2017-05-11 16:00] VITALS: BP 102/71; PULSE 52; RESP 16; TEMP 97; O2SAT 97
[2017-05-11 20:00] VITALS: BP 127/76; PULSE 57; RESP 16; TEMP 96.8; O2SAT 97
--- NOTE | 2017-05-11 23:24 | HHI.GIFU ---
Subjective Remarks Patient comfortable in bed still having some abdominal pain no nausea or vomiting tolerating liquids Objective Vitals I&O Vital Signs Date Time Temp Pulse Resp B/P Pulse Ox O2 Delivery O2 Flow Rate FiO2 05/11/17 20:00 96.8 57 16 127/76 97 05/11/17 18:06 18 05/11/17 16:00 97.0 52 16 102/71 97 05/11/17 15:17 18 05/11/17 12:00 97.6 58 16 125/74 97 05/11/17 07:55 97.9 69 16 115/81 96 05/11/17 05:14 64 18 138/86 05/11/17 00:00 97.3 73 20 175/95 98 I/O 05/10/17 05/10/17 05/10/17 05/11/17 05/11/17 05/11/17 07:00 15:00 23:00 07:00 15:00 23:00 Intake Total 397 ml 1820 ml 3700 ml 200 ml 1000 ml Balance 397 ml 1820 ml 3700 ml 200 ml 1000 ml Intake Oral 75 ml 620 ml 2500 ml 200 ml 200 ml IV Total 322 ml 1200 ml 1200 ml 800 ml # Voids 1 1 4 5 6 2 # Bowel Movements 1 0 Laboratory Laboratory Tests Test 05/11/17 04:50 White Blood Count 8.5 Red Blood Count 4.53 Hemoglobin 13.8 Hematocrit 40.6 Mean Corpuscular Volume 89.6 Mean Corpuscular Hemoglobin 30.4 Mean Corpuscular Hemoglobin 33.9 Concent Red Cell Distribution Width 11.9 Platelet Count 167 Mean Platelet Volume 8.7 Sodium Level 140 Potassium Level 3.5 Chloride Level 107 Carbon Dioxide Level 24.4 Anion Gap 9 Blood Urea Nitrogen 2 Creatinine 0.35 Estimat Glomerular Filtration 191 Rate Random Glucose 77 Calcium Level 8.2 Total Bilirubin 1.0 Aspartate Amino Transf 18 (AST/SGOT) Alanine Aminotransferase 31 (ALT/SGPT) Alkaline Phosphatase 74 Total Protein 5.9 Albumin 3.0 Lipase 614 Imaging Last 48 hours Impressions Hepatobiliary Scan Nuclear Medicine 05/11/17 0000 Signed Impressions: Service Date/Time: Thursday, May 11, 2017 13:11 - CONCLUSION: 1. Unremarkable HIDA scan. 2. Tracer activity noted in the stomach characteristic of bile reflux. Denny Andino MD Gall Bladder Ultrasound 05/10/17 0000 Signed Impressions: Service Date/Time: Wednesday, May 10, 2017 15:13 - CONCLUSION: Mildly distended gallbladder containing sludge with mildly positive Regalado's sign. Pancreatic tail region mass. Recommend further evaluation with pancreas protocol CT. Carlos Enrique Blanchard MD Abdomen X-Ray 05/10/17 0000 Signed Impressions: Service Date/Time: Wednesday, May 10, 2017 00:07 - CONCLUSION: Normal examination for a patient of this age. Luis Sparks MD Abdomen CT 05/10/17 0000 Signed Impressions: Service Date/Time: Thursday, May 11, 2017 00:43 - CONCLUSION: 1. Left adrenal nodules felt to represent adenomas. 2. Tiny left renal cyst. 3. There is retroperitoneal lymphadenopathy identified which is likely what was imaged on the recent ultrasound. This would be concerning for metastatic disease of unknown primary or other malignant processes such as lymphoma. 4. No evidence for pancreatic mass. 5. Mesenteric haziness and subcentimeter mesenteric lymph nodes are identified. 6. Lung nodules. Luis Sparks MD Physical Exam HEENT: normocephalic; atraumatic; no jaundice. Throat is clear. NECK: Neck is supple, CHEST: Chest is clear to auscultation and percussion. CARDIAC: Regular rate and rhythm with no murmur gallop or rubs. ABDOMEN: Soft, nondistended, nontender; no hepatosplenomegaly; bowel sounds are present in all four quadrants. EXTREMITIES: No clubbing, cyanosis, or edema. SKIN: Normal; no rash; no jaundice. 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 Assessment and Plan Plan Abdominal pain Elevated lipase possible recurrent pancreatitis versus continuation of pancreatitis from last month Abnormal imaging with retroperitoneal lymphadenopathy and biliary sludge with a negative and normal height a scan Elevated CA 199 probably secondary to pancreatitis Agree with current supportive care Monitor labs Consider EUS Emphasize no alcohol Consider oncology evaluation Continue with clear liquid diet and in fact I would wait until her lipase has fallen significantly prior to advancing diet Julián Hubbard MD May 11, 2017 23:24
[2017-05-12] VITALS: BP 100/80; PULSE 49; RESP 20; TEMP 96.9; O2SAT 96
[2017-05-12] MEDS: PANTOPRAZOLE SODIUM 40 MG VIAL IV PUSH SCH ×2 (01:22→14:34)
[2017-05-12 04:00] VITALS: BP 150/79; PULSE 93; RESP 21; TEMP 96.5; O2SAT 97
[2017-05-12] MEDS: SODIUM CHLOR 0.9% 1000 ML INJ 1,000 ML IV SCH (06:34)
[2017-05-12] MEDS: ACETAMINOPHEN/HYDROcodone 325 MG/5 MG TAB PO PRN ×2 (06:36→22:34)
[2017-05-12] MEDS: DOCUSATE SODIUM 50 MG/SENNA 8.6 MG TAB PO SCH (09:00)
[2017-05-12] MEDS: SODIUM CHLORIDE 0.9% FLUSH 10 ML FLUSH IV FLUSH SCH ×2 (09:00→22:34)
--- NOTE | 2017-05-12 11:50 | HHI.PR ---
Subjective Remarks Patient seen in follow up for acute pancreatitis with etoh dependence US concerning for pancreatic mass, but no mass seen on further imaging Likely LAD due to pancreatitis LFTs better, Pain better patient would likle to try some mor efood. Objective Vitals Vital Signs Date Time Temp Pulse Resp B/P Pulse Ox O2 Delivery O2 Flow Rate FiO2 05/12/17 04:00 96.5 93 21 150/79 97 05/12/17 00:00 96.9 49 20 100/80 96 Automatic Cuff 05/11/17 20:00 96.8 57 16 127/76 97 05/11/17 18:06 18 05/11/17 16:00 97.0 52 16 102/71 97 05/11/17 15:17 18 05/11/17 12:00 97.6 58 16 125/74 97 I/O 05/11/17 05/11/17 05/11/17 05/12/17 05/12/17 05/12/17 07:00 15:00 23:00 07:00 15:00 23:00 Intake Total 3700 ml 200 ml 3020 ml 745 ml Balance 3700 ml 200 ml 3020 ml 745 ml Intake Oral 2500 ml 200 ml 920 ml 240 ml IV Total 1200 ml 2100 ml 505 ml # Voids 5 6 5 2 # Bowel Movements 0 0 0 Result Diagram: 05/11/17 0450 05/11/17 0450 Imaging Last Impressions Hepatobiliary Scan Nuclear Medicine 05/11/17 0000 Signed Impressions: Service Date/Time: Thursday, May 11, 2017 13:11 - CONCLUSION: 1. Unremarkable HIDA scan. 2. Tracer activity noted in the stomach characteristic of bile reflux. Denny Andino MD Gall Bladder Ultrasound 05/10/17 0000 Signed Impressions: Service Date/Time: Wednesday, May 10, 2017 15:13 - CONCLUSION: Mildly distended gallbladder containing sludge with mildly positive Regalado's sign. Pancreatic tail region mass. Recommend further evaluation with pancreas protocol CT. Carlos Enrique Blanchard MD Abdomen X-Ray 05/10/17 0000 Signed Impressions: Service Date/Time: Wednesday, May 10, 2017 00:07 - CONCLUSION: Normal examination for a patient of this age. Luis Sparks MD Abdomen CT 05/10/17 0000 Signed Impressions: Service Date/Time: Thursday, May 11, 2017 00:43 - CONCLUSION: 1. Left adrenal nodules felt to represent adenomas. 2. Tiny left renal cyst. 3. There is retroperitoneal lymphadenopathy identified which is likely what was imaged on the recent ultrasound. This would be concerning for metastatic disease of unknown primary or other malignant processes such as lymphoma. 4. No evidence for pancreatic mass. 5. Mesenteric haziness and subcentimeter mesenteric lymph nodes are identified. 6. Lung nodules. Luis Sparks MD Objective Remarks GENERAL: This is a well-nourished, well-developed patient, anxious, minimal pain CARDIOVASCULAR: Regular rate and rhythm without murmurs, gallops, or rubs. RESPIRATORY: Clear to auscultation. Breath sounds equal bilaterally. No wheezes , rales, or rhonchi. GASTROINTESTINAL: Abdomen soft, non-tender, nondistended. Normal active bowel sounds MUSCULOSKELETAL: Extremities without clubbing, cyanosis, or edema. NEURO: Alert & Oriented x4 to person, place, time, situation. Moves all ext x4 A/P Problem List: (1) Abdominal pain ICD Code: R10.9 Status: Acute Plan: Likely due to pancreatitis Imaging shows retroperitoneal LAD. oncology eval pending (may be reactive) HIDA neg GI eval appreciated Elevated CA 199 probably secondary to pancreatitis Wean narcotics (2) Pancreatitis ICD Code: K85.90 Status: Acute Plan: IV FL, Advance diet slowly (3) Alcohol abuse ICD Code: F10.10 Status: Resolved Plan: patient advise to d/c etoh Problem Qualifiers (1) Abdominal pain: Qualified Code: R10.13 - Epigastric pain (2) Pancreatitis: Qualified Code: K85.20 - Alcohol-induced acute pancreatitis, unspecified complication status Maggie Shaw MD May 12, 2017 11:50
[2017-05-12] MEDS ORDERED: DOCUSATE SODIUM 50 MG/SENNA 8.6 MG TAB PO PRN (12:00)
[2017-05-12] MEDS: MORPHINE SULFATE 4 MG/ML INJ IV PRN ×2 (14:37→20:21)
[2017-05-12 16:00] VITALS: BP 169/106; PULSE 77; RESP 18; TEMP 96.9; O2SAT 97
--- NOTE | 2017-05-12 18:05 | HHI.GIFU ---
Subjective Remarks Patient comfortable in bed no new complaints she tried a cream of mushroom soup it felt a little uncomfortable afterwards Objective Vitals I&O Vital Signs Date Time Temp Pulse Resp B/P Pulse Ox O2 Delivery O2 Flow Rate FiO2 05/12/17 04:00 96.5 93 21 150/79 97 05/12/17 00:00 96.9 49 20 100/80 96 Automatic Cuff 05/11/17 20:00 96.8 57 16 127/76 97 05/11/17 18:06 18 I/O 05/11/17 05/11/17 05/11/17 05/12/17 05/12/17 05/12/17 06:59 14:59 22:59 06:59 14:59 22:59 Intake Total 3700 ml 200 ml 3020 ml 745 ml 776 ml Balance 3700 ml 200 ml 3020 ml 745 ml 776 ml Intake Oral 2500 ml 200 ml 920 ml 240 ml IV Total 1200 ml 2100 ml 505 ml 776 ml # Voids 5 6 5 2 # Bowel Movements 0 0 0 Laboratory Laboratory Tests Test 05/10/17 05/11/17 22:33 04:50 CA 19-9 Antigen 6368.6 U/ML White Blood Count 8.5 TH/MM3 Red Blood Count 4.53 MIL/MM3 Hemoglobin 13.8 GM/DL Hematocrit 40.6 % Mean Corpuscular Volume 89.6 FL Mean Corpuscular Hemoglobin 30.4 PG Mean Corpuscular Hemoglobin 33.9 % Concent Red Cell Distribution Width 11.9 % Platelet Count 167 TH/MM3 Mean Platelet Volume 8.7 FL Sodium Level 140 MEQ/L Potassium Level 3.5 MEQ/L Chloride Level 107 MEQ/L Carbon Dioxide Level 24.4 MEQ/L Anion Gap 9 MEQ/L Blood Urea Nitrogen 2 MG/DL Creatinine 0.35 MG/DL Estimat Glomerular Filtration 191 ML/MIN Rate Random Glucose 77 MG/DL Calcium Level 8.2 MG/DL Total Bilirubin 1.0 MG/DL Aspartate Amino Transf 18 U/L (AST/SGOT) Alanine Aminotransferase 31 U/L (ALT/SGPT) Alkaline Phosphatase 74 U/L Total Protein 5.9 GM/DL Albumin 3.0 GM/DL Lipase 614 U/L Imaging Last 48 hours Impressions Hepatobiliary Scan Nuclear Medicine 05/11/17 0000 Signed Impressions: Service Date/Time: Thursday, May 11, 2017 13:11 - CONCLUSION: 1. Unremarkable HIDA scan. 2. Tracer activity noted in the stomach characteristic of bile reflux. Denny Andino MD Physical Exam HEENT: normocephalic; atraumatic; no jaundice. Throat is clear. NECK: Neck is supple, CHEST: Chest is clear to auscultation and percussion. CARDIAC: Regular rate and rhythm with no murmur gallop or rubs. ABDOMEN: Soft, nondistended, nontender; no hepatosplenomegaly; bowel sounds are present in all four quadrants. EXTREMITIES: No clubbing, cyanosis, or edema. SKIN: Normal; no rash; no jaundice. 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 Assessment and Plan Plan Abdominal pain Elevated lipase possible recurrent pancreatitis versus continuation of pancreatitis from last month Abnormal imaging with retroperitoneal lymphadenopathy and biliary sludge with a negative and normal height a scan Elevated CA 199 probably secondary to pancreatitis Agree with current supportive care Monitor labs Consider EUS Case discussed with Dr. Gamble agree with his assessment for a CT-guided biopsy of the lymph nodes Continue with clear liquid diet and in fact I would wait until her lipase has fallen significantly prior to advancing diet Julián Hubbard MD May 12, 2017 18:05
[2017-05-12 18:50] LABS: APTT (PATIENT) 27.1 SEC (24.3-30.1)
[2017-05-12 20:00] VITALS: BP 138/88; PULSE 68; RESP 20; TEMP 98.1; O2SAT 100
[2017-05-12] MEDS: ALPRAZolam 0.25 MG TAB PO SCH (22:34)
[2017-05-13] VITALS: BP 162/100; PULSE 69; RESP 20; TEMP 98.1; O2SAT 97
[2017-05-13 05:46] VITALS: BP 126/88; PULSE 66; RESP 18
[2017-05-13 06:23] LABS: HEMATOCRIT 40.5 % (35.0-46.0); MEAN CELL VOLUME 90.7 FL (80.0-100.0); MEAN CORPUSCULAR HEMOGLOBIN 30.4 PG (27.0-34.0); MEAN CORPUSCULAR HGB CONC 33.6 % (32.0-36.0); PLATELET COUNT 160 TH/MM3 (150-450); RED BLOOD COUNT 4.46 MIL/MM3 (4.00-5.30); RED CELL DISTRIBUTION WIDTH 11.7 % (11.6-17.2); REVIEW FLAG FINAL; WHITE BLOOD COUNT 7.3 TH/MM3 (4.0-11.0)
[2017-05-13 06:24] LABS: CHLORIDE 108 MEQ/L (98-107); POTASSIUM 3.3 MEQ/L (3.5-5.1); SODIUM (NA) 142 MEQ/L (136-145)
[2017-05-13 06:29] LABS: ANION GAP 8 MEQ/L (5-15); BICARBONATE 26.3 MEQ/L (21.0-32.0); BLOOD UREA NITROGEN 2 MG/DL (7-18)
[2017-05-13 06:32] LABS: ALT (GPT) 24 U/L (10-53); AST (GOT) 17 U/L (15-37); GLOMERULAR FILTRATION RATE 136 ML/MIN (>89)
[2017-05-13 06:33] LABS: TOTAL BILIRUBIN ADULT 1.2 MG/DL (0.2-1.0)
[2017-05-13 06:35] LABS: ALKALINE PHOSPHATASE 76 U/L (45-117)
[2017-05-13 08:00] VITALS: BP 143/93; PULSE 77; RESP 17; TEMP 97.4; O2SAT 93
--- NOTE | 2017-05-13 08:04 | MB ---
cc: JOSH VARGAS M.D. DATE OF CONSULTATION 05/12/2017 REASON FOR CONSULTATION Consult requested by [facility] hospitalist for evaluation of retroperitoneal lymphadenopathy. HISTORY OF PRESENT ILLNESS Saritha is a pleasant 61-year-old female. She is without any significant past medical history. A month ago around the 06 of April weekend, she was admitted to the hospital complaining of abdominal pain. She was diagnosed with alcoholic pancreatitis. She was advised to refrain from alcohol. She stated that she used to drink four to five drinks every day five times a week, but since the last month, she had cut down considerably. She has been trying to do homeopathic treatment for her pancreatitis and abdominal pain. She also has been watching her diet and she is not eating any fatty food. In spite of all these, she continues to have abdominal pain. Recently her pain got really worse and she decided to come back to the hospital. The patient is now admitted to the hospital. She had an ultrasound of the gallbladder which showed mildly distended gallbladder containing sludge with a mildly positive Regalado sign. Pancreatic tail region showed a mass. A pancreatic protocol CT scan of the abdomen was obtained which failed to show any pancreatic mass. However, she was found to have retroperitoneal lymphadenopathy of 2 cm. The radiologist mentioned that this could be consistent with malignancy. I have been asked to see the patient for further evaluation. The patient continues to have abdominal pain. She denies any nausea or vomiting, diarrhea or constipation. Her appetite is good. She is not jaundiced. Her CA19-9 was found to be very high at 6368. The patient is quite concerned with the elevated tumor markers as she was told today that this high marker is possibly due to pancreatic cancer. The patient is very emotional. She was crying during my interview. Her daughter was present at the bedside. The patient denies any weight loss. She denies any anorexia. She denies any headaches or dizziness. She denies any bone pain. The rest of the review of systems is negative. PAST MEDICAL HISTORY None PAST SURGICAL HISTORY 1. x two. 2. Anal fissure 3. Tonsillectomy ALLERGIES SULFA MEDICATIONS Prior to coming into the hospital were [id number] pain medication and herbal medications. FAMILY HISTORY The patient's maternal grandmother had colon cancer a very long time ago. The patient's parents are alive and well. They are in their 80s. The patient does not have any brothers. She has one sister, two daughters and one son all alive and well. SOCIAL HISTORY The patient smokes cigarettes. She states a one-pack lasts for a week. She also used to drink alcohol heavy four to five drinks every day five times a week, but she has cut down significantly since last month. 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 PHYSICAL EXAM This is a well-developed, well-nourished white female in no apparent distress. VITAL SIGNS: Temperature 96.9, heart rate 77, blood pressure 169/106, O2 saturation 97% on room air. HEENT: PERRLA, EOMI, anicteric. No oral lesions are noted. NECK: Supple. There is no cervical, supraclavicular or axillary lymphadenopathy noted. LUNGS: Clear. No wheezing, rhonchi or rales. HEART: Regular rate and rhythm. ABDOMEN: Soft and nontender. No hepatosplenomegaly. EXTREMITIES: No pedal edema. NEUROLOGIC: Awake, alert, and oriented times three. SKIN: No significant lesions noted. ASSESSMENT 1. A 2.7 cm x 1.8 cm retroperitoneal lymphadenopathy. The differential is reactive versus neoplastic. 2. Elevated CA19-9. This could be either due to pancreatitis or maybe due to pancreaticobiliary neoplasm. 3. Acute pancreatitis 4. Alcoholism PLAN I have reviewed her available records and I had an extensive discussion with the patient and her daughter regarding the retroperitoneal lymphadenopathy. She has 2 cm left para-aortic lymphadenopathy and 1.1 cm aortocaval lymphadenopathy. Near the inferior mesenteric artery, there is a bulky adenopathy measuring 2 x 7 x 1.8 cm. There is a noncalcified right lower lobe pulmonary nodule measuring 7.7 mm. There is no pancreatic mass noted. I believe most likely she has reactive lymphadenopathy, but neoplastic lymphadenopathy cannot be ruled out at this time. Therefore I have recommended consultation with interventional radiologist for CT-guided core needle biopsy of the retroperitoneal lymphadenopathy for tissue diagnosis. I will check the PT/INR and APTT in preparation for the biopsy by the invasive radiologist. The patient and her daughter both have agreed with that. We also discuss the option of waiting for three months and repeat the CT scan, but both adamantly declined that option. She wants to know the nature of the lymphadenopathy and have it agree with the biopsy. I discussed the case with heddler tier, Dr. Hubbard who also agreed to obtain the biopsy to get a tissue diagnosis. Order has been placed for the biopsy. Further recommendations once we have the tissue diagnosis. Thank you for asking my opinion. MD CHEY James/ARSEN /10:18 PM /7:53 AM RUTHIE
[2017-05-13] MEDS ORDERED: IOHEXOL 350 MG/ML 10 ML VIAL (for RAD DIAG) IV ONE (08:46)
[2017-05-13] MEDS: SODIUM CHLORIDE 0.9% FLUSH 10 ML FLUSH IV FLUSH SCH ×2 (09:12→22:34)
[2017-05-13] MEDS: PANTOPRAZOLE SOD 40 MG DELAYED RELEASE TAB PO SCH (09:12)
--- NOTE | 2017-05-13 11:51 | HHI.PR ---
Subjective Remarks Reason seen today in follow-up for acute pancreatitis. Abdominal pain resolved. Patient tolerating liquids without difficulty. Care plan discussed with patient regarding biopsy and further inpatient therapy. She is in agreement Objective Vitals Vital Signs Date Time Temp Pulse Resp B/P Pulse Ox O2 Delivery O2 Flow Rate FiO2 05/13/17 08:00 97.4 77 17 143/93 93 05/13/17 05:46 66 18 126/88 05/13/17 00:00 98.1 69 20 162/100 97 Manual Cuff/Auscultation 05/12/17 20:00 98.1 68 20 138/88 100 05/12/17 16:00 96.9 77 18 169/106 97 I/O 05/12/17 05/12/17 05/12/17 05/13/17 05/13/17 05/13/17 07:00 15:00 23:00 07:00 15:00 23:00 Intake Total 745 ml 776 ml 720 ml 240 ml Balance 745 ml 776 ml 720 ml 240 ml Intake Oral 240 ml 720 ml 240 ml IV Total 505 ml 776 ml # Voids 2 6 3 # Bowel Movements 0 0 0 Result Diagram: 05/13/17 0507 05/13/17 0507 Objective Remarks GENERAL: This is a well-nourished, well-developed patient, anxious, minimal pain CARDIOVASCULAR: Regular rate and rhythm without murmurs, gallops, or rubs. RESPIRATORY: Clear to auscultation. Breath sounds equal bilaterally. No wheezes , rales, or rhonchi. GASTROINTESTINAL: Abdomen soft, non-tender, nondistended. Normal active bowel sounds MUSCULOSKELETAL: Extremities without clubbing, cyanosis, or edema. NEURO: Alert & Oriented x4 to person, place, time, situation. Moves all ext x4 A/P Problem List: (1) Abdominal pain ICD Code: R10.9 Status: Acute Plan: Likely due to pancreatitis Imaging shows retroperitoneal LAD. oncology eval appreciated, for biopsy Wednesday HIDA neg GI eval appreciated Elevated CA 199 probably secondary to pancreatitis Wean narcotics (2) Pancreatitis ICD Code: K85.90 Status: Acute Plan: Continue liquid diet (3) Alcohol abuse ICD Code: F10.10 Status: Resolved Plan: patient advise to d/c etoh Assessment and Plan lmwh Discharge Planning 1-2 days pending biopsy Follow-up CT abdomen pelvis Problem Qualifiers (1) Abdominal pain: Qualified Code: R10.13 - Epigastric pain (2) Pancreatitis: Qualified Code: K85.20 - Alcohol-induced acute pancreatitis, unspecified complication status Maggie Shaw MD May 13, 2017 11:51
[2017-05-13 12:00] VITALS: BP 139/83; PULSE 79; RESP 19; TEMP 97.7; O2SAT 94
[2017-05-13] MEDS ORDERED: POTASSIUM CHLORIDE 20 MEQ PWD PACKET PO ONE (13:00)
[2017-05-13] MEDS: ENOXAPARIN SODIUM 40 MG/0.4 ML SYRINGE SQ SCH (13:48)
--- NOTE | 2017-05-13 14:56 | RADRPT ---
EXAM DATE/TIME: 05/13/2017 08:35 [facility] COMPARISON: CT ABDOMEN & PELVIS W CONTRAST, April 07, 2017, 7:20. INDICATIONS : Adenopathy. Left renal mass. IV CONTRAST: 90 cc Omnipaque 350 (iohexol) IV ORAL CONTRAST: No oral contrast ingested. RADIATION DOSE: 6.98 CTDIvol (mGy) MEDICAL HISTORY : Pancreatitis. Gastroesophageal reflux disease. Gallstones. ETOH abuse. SURGICAL HISTORY : section. Rectal surgery. ENCOUNTER: Initial ACUITY: 1 day PAIN SCALE: 4/10 LOCATION: Abdomen. TECHNIQUE: Volumetric scanning of the abdomen and pelvis was performed. Using automated exposure control and ad justment of the mA and/or kV according to patient size, radiation dose was kept as low as reasonably achievable to obtain optimal diagnostic quality images. DICOM format image data is available electro nically for review and comparison. FINDINGS: LOWER LUNGS: Atelectatic changes in the left base. Noncalcified pulmonary nodules are seen in both lung bases nuha uring upwards of 8 mm in diameter. LIVER: Homogeneous density without lesion. There is no dilation of the biliary tree. No calcified gallston es. SPLEEN: Normal size without lesion. PANCREAS: Within normal limits. KIDNEYS: Benign-appearing 1 cm cyst in the midpole of the left kidney. Kidneys are otherwise radiographically normal ADRENAL GLANDS: 2 nodular densities are identified in the left adrenal gland. The largest in the lateral limb of the adrenal measuring 1.6 cm in diameter. Her present previously and are unchanged. VASCULAR: There is no aortic aneurysm. BOWEL/MESENTERY: Extensive stranding in the mesentery with borderline prominent lymph nodes. Bowel is intact. ABDOMINAL WALL: Within normal limits. RETROPERITONEUM: Bulky retroperitoneal adenopathy. There is no extension into the iliac chains or inguinal regions. Th ere are some small varicosities in the retroperitoneum in the left abdomen which may be due to to par tial narrowing of the central venous system associated with the regional inflammatory changes BLADDER: No wall thickening or mass. REPRODUCTIVE: Varicosities about the uterus with prominent gonadal veins bilaterally. INGUINAL: There is no lymphadenopathy or hernia. MUSCULOSKELETAL: Within normal limits for patient age. CONCLUSION: 1. Bulky adenopathy is limited to the periaortic retroperitoneal distribution. No extension into the iliac chain or inguinal regions. These would be amenable to percutaneous core biopsy. 2. Noncalcified pulmonary nodules in both lung bases. Linear atelectasis/scarring in the left base. 3. Pelvic varicosities and prominent gonadal veins. In the appropriate clinical setting, findings cou ld represent pelvic congestion syndrome. 4. Nodular density initially thought to represent a mass lesion in the left kidney is actually associ ated with the left adrenal gland. There are 2 nodules on the left adrenal which are unchanged and lik allie represent adenomas. . Elroy Loya MD on May 13, 2017 at 14:47 Board Certified Radiologist. This report was verified electronically.
[2017-05-13 16:00] VITALS: BP 155/91; PULSE 72; RESP 18; TEMP 97.9; O2SAT 97
--- NOTE | 2017-05-13 16:58 | PD.ONC.PN ---
Subjective Subjective Remarks Feeling better. No abdominal pain. +bloating and loose stool. Still anxious. Objective Data Date Time Temp Pulse Resp B/P Pulse Ox O2 Delivery O2 Flow Rate FiO2 05/13/17 16:00 97.9 72 18 155/91 97 05/13/17 12:00 97.7 79 19 139/83 94 05/13/17 08:00 97.4 77 17 143/93 93 05/13/17 05:46 66 18 126/88 05/13/17 00:00 98.1 69 20 162/100 97 Manual Cuff/Auscultation 05/12/17 20:00 98.1 68 20 138/88 100 05/13/17 05/13/17 05/13/17 07:00 15:00 23:00 Intake Total 240 ml Balance 240 ml Result Diagram: 05/13/17 0507 05/13/17 0507 Laboratory Results Laboratory Tests Test 05/12/17 05/13/17 18:30 05:07 Prothrombin Time 11.0 SEC Prothromb Time International 1.0 RATIO Ratio Activated Partial 27.1 SEC Thromboplast Time White Blood Count 7.3 TH/MM3 Red Blood Count 4.46 MIL/MM3 Hemoglobin 13.6 GM/DL Hematocrit 40.5 % Mean Corpuscular Volume 90.7 FL Mean Corpuscular Hemoglobin 30.4 PG Mean Corpuscular Hemoglobin 33.6 % Concent Red Cell Distribution Width 11.7 % Platelet Count 160 TH/MM3 Mean Platelet Volume 8.8 FL Sodium Level 142 MEQ/L Potassium Level 3.3 MEQ/L Chloride Level 108 MEQ/L Carbon Dioxide Level 26.3 MEQ/L Anion Gap 8 MEQ/L Blood Urea Nitrogen 2 MG/DL Creatinine 0.47 MG/DL Estimat Glomerular Filtration 136 ML/MIN Rate Random Glucose 83 MG/DL Calcium Level 8.8 MG/DL Total Bilirubin 1.2 MG/DL Aspartate Amino Transf 17 U/L (AST/SGOT) Alanine Aminotransferase 24 U/L (ALT/SGPT) Alkaline Phosphatase 76 U/L Total Protein 6.3 GM/DL Albumin 3.0 GM/DL Lipase 373 U/L Imaging Studies Last 24 hours Impressions Abdomen/Pelvis CT 05/13/17 0000 Signed Impressions: Service Date/Time: May 08:35 - CONCLUSION: 1. Bulky adenopathy is limited to the periaortic retroperitoneal distribution. No extension into the iliac chain or inguinal regions. These would be amenable to percutaneous core biopsy. 2. Noncalcified pulmonary nodules in both lung bases. Linear atelectasis/scarring in the left base. 3. Pelvic varicosities and prominent gonadal veins. In the appropriate clinical setting, findings could represent pelvic congestion syndrome. 4. Nodular density initially thought to represent a mass lesion in the left kidney is actually associated with the left adrenal gland. There are 2 nodules on the left adrenal which are unchanged and likely represent adenomas. . Elroy Loya MD Administered Medications Medications (Trade) Dose Ordered Sig/Zane Route PRN Reason Start Time Stop Time Status Last Admin Dose Admin Sodium Chloride (NS Flush) 2 ml UNSCH PRN IV FLUSH FLUSH AFTER USING IV ACCESS 05/10/17 01:00 05/10/17 03:21 Sodium Chloride (NS Flush) 2 ml BID IV FLUSH 05/10/17 09:00 05/13/17 09:12 Acetaminophen/ Hydrocodone Bitart (Ranger 5-325 Mg) 1 tab Q4H PRN PO PAIN SCALE 3 TO 5 05/10/17 01:00 05/12/17 22:34 Enalaprilat (Vasotec Inj) 1.25 mg Q6H PRN IV PUSH SBP>160, DBP>90 05/10/17 10:15 05/11/17 01:16 Morphine Sulfate (Morphine Inj) 2 mg Q6H PRN IV Pain 6-10 05/12/17 16:00 05/12/17 20:21 Pantoprazole Sodium (Protonix) 40 mg DAILY PO 05/13/17 09:00 05/13/17 09:12 Alprazolam (Xanax) 0.25 mg HS PO 05/12/17 21:00 05/12/17 22:34 Enoxaparin Sodium (Lovenox Inj) 40 mg Q24H SQ 05/13/17 13:00 05/13/17 13:48 Objective Remarks GENERAL: Well-nourished, well-developed patient. SKIN: Warm and dry. HEAD: Normocephalic. EYES: No scleral icterus. No injection or drainage. NECK: Supple, trachea midline. No JVD or lymphadenopathy. LYMPHATIC: No adenopathy. CARDIOVASCULAR: Regular rate and rhythm without murmurs. RESPIRATORY: Breath sounds equal bilaterally. No accessory muscle use. GASTROINTESTINAL: Abdomen soft, non-tender, nondistended. +BS EXTREMITIES: No cyanosis, or edema. MUSCULOSKELETAL: Adequate muscle tone. NEUROLOGICAL: No obvious focal deficit. Awake, alert, and oriented x3. PSYCHIATRIC: Appropriate mood and affect; insight and judgment normal. Assessment/Plan Problem List: (1) Retroperitoneal lymphadenopathy Status: Acute Plan: A 2.7 cm x 1.8 cm retroperitoneal lymphadenopathy. The differential is reactive versus neoplastic. Repeat CT showed stable adenopathy. Await biopsy. (2) Pancreatitis Status: Acute Plan: Improving. No more abdominal pain. Lipase trended down. Ca19-[address] did not show any mass in the pancreas but need to monitor. Plan PLAN I have reviewed her CT result with patient. Await biopsy of retroperitoneal LN. Can be d/c after biopsy and clear by GI. F/u with after d/c from hospital. Problem Qualifiers (1) Pancreatitis: Qualified Code: K85.20 - Alcohol-induced acute pancreatitis, unspecified complication status Betito Otero MD May 13, 2017 16:58
[2017-05-13 20:00] VITALS: BP 194/94; PULSE 66; RESP 20; TEMP 97.4; O2SAT 100
[2017-05-13] MEDS: ALPRAZolam 0.25 MG TAB PO SCH (22:34)
[2017-05-13] MEDS: MORPHINE SULFATE 4 MG/ML INJ IV PRN (22:35)
[2017-05-14] VITALS (8 sets, daily range): BP systolic 102–147; BP diastolic 51–96; PULSE 52–66; RESP 16–20; TEMP 97.2–98.5; O2SAT 95–100
[2017-05-14] MEDS ORDERED: MIDAZOLAM HCL 5 MG/5 ML VIAL ONE (09:00)
[2017-05-14] MEDS: PANTOPRAZOLE SOD 40 MG DELAYED RELEASE TAB PO SCH (09:00)
[2017-05-14] MEDS: SODIUM CHLORIDE 0.9% FLUSH 10 ML FLUSH IV FLUSH SCH (09:00)
--- NOTE | 2017-05-14 10:00 | PD.RAD ---
Post CT Procedure Prog Note Pre Procedure Diagnosis: (1) Retroperitoneal lymphadenopathy Post Procedure Diagnosis: (1) Retroperitoneal lymphadenopathy Procedure Date: May 14, 2017 Supervising Radiologist: Carlos Enrique Blanchard Anesthesia: Local, Conscious Sedation Plan of Activity Patient to Unit: PACU Patient Condition: Good See PACS Report for procedural detail/treatment Biopsy Imaging Guidance: CT Biopsy Procedure: Lymph Node Site: para-aortic Specimen: Core Biopsy Carlos Enrique Blanchard MD May 14, 2017 10:00
--- NOTE | 2017-05-14 10:21 | HHI.GIFU ---
Subjective Remarks feels well today, no abdominal pain, awaiting Bx of lymph nodes. Objective Vitals I&O Vital Signs Date Time Temp Pulse Resp B/P Pulse Ox O2 Delivery O2 Flow Rate FiO2 05/14/17 08:28 97.6 55 19 125/80 95 05/14/17 06:07 98.3 66 18 144/92 97 05/14/17 00:00 97.2 61 20 147/81 97 05/13/17 20:00 97.4 66 20 194/94 100 05/13/17 16:00 97.9 72 18 155/91 97 05/13/17 12:00 97.7 79 19 139/83 94 I/O 05/13/17 05/13/17 05/13/17 05/14/17 05/14/17 05/14/17 07:00 15:00 23:00 07:00 15:00 23:00 Intake Total 240 ml 240 ml Balance 240 ml 240 ml Intake Oral 240 ml 240 ml # Voids 3 7 1 # Bowel Movements 0 0 Physical Exam HEENT: normocephalic; atraumatic; no jaundice. Throat is clear. NECK: Neck is supple, CHEST: Chest is clear to auscultation and percussion. CARDIAC: Regular rate and rhythm with no murmur gallop or rubs. ABDOMEN: Soft, nondistended, nontender; no hepatosplenomegaly; bowel sounds are present in all four quadrants. EXTREMITIES: No clubbing, cyanosis, or edema. SKIN: Normal; no rash; no jaundice. KETTLE TENDER: No focal deficits; alert and oriented times three. Assessment and Plan Plan Abdominal pain Elevated lipase possible recurrent pancreatitis versus continuation of pancreatitis from last month Abnormal imaging with retroperitoneal lymphadenopathy and biliary sludge with a negative and normal height a scan Elevated CA 199 probably secondary to pancreatitis 05-14-17 doing OK, no abdominal pain now, most likely pancreatitis but can not exclude CA supportive care Monitor labs await Bx result if tolerate diet ok to DC home after Bx Consider EUS as outpatient FU with GI and oncology in 1-2 wks Jones Ahumada MD May 14, 2017 10:21
[2017-05-14] MEDS ORDERED: LIDOCAINE HCL 1% 20 ML VIAL SQ ONE (10:30)
--- NOTE | 2017-05-14 12:20 | HHI.PR ---
Subjective Remarks Follow-up retroperitoneal lymphadenopathy/pancreatitis 05/14/17-patient seen and examined, status post CT-guided biopsy. Denies any abdominal pain, nausea or vomiting. Objective Vitals Vital Signs Date Time Temp Pulse Resp B/P Pulse Ox O2 Delivery O2 Flow Rate FiO2 05/14/17 08:28 97.6 55 19 125/80 95 05/14/17 06:07 98.3 66 18 144/92 97 05/14/17 00:00 97.2 61 20 147/81 97 05/13/17 20:00 97.4 66 20 194/94 100 05/13/17 16:00 97.9 72 18 155/91 97 I/O 05/13/17 05/13/17 05/13/17 05/14/17 05/14/17 05/14/17 07:00 15:00 23:00 07:00 15:00 23:00 Intake Total 240 ml 240 ml Balance 240 ml 240 ml Intake Oral 240 ml 240 ml # Voids 3 7 1 # Bowel Movements 0 0 Result Diagram: 05/13/17 0507 05/13/17 0507 Imaging Last Impressions Abdomen/Pelvis CT 05/13/17 0000 Signed Impressions: Service Date/Time: May 08:35 - CONCLUSION: 1. Bulky adenopathy is limited to the periaortic retroperitoneal distribution. No extension into the iliac chain or inguinal regions. These would be amenable to percutaneous core biopsy. 2. Noncalcified pulmonary nodules in both lung bases. Linear atelectasis/scarring in the left base. 3. Pelvic varicosities and prominent gonadal veins. In the appropriate clinical setting, findings could represent pelvic congestion syndrome. 4. Nodular density initially thought to represent a mass lesion in the left kidney is actually associated with the left adrenal gland. There are 2 nodules on the left adrenal which are unchanged and likely represent adenomas. . Elroy Loya MD Hepatobiliary Scan Nuclear Medicine 05/11/17 0000 Signed Impressions: Service Date/Time: Thursday, May 11, 2017 13:11 - CONCLUSION: 1. Unremarkable HIDA scan. 2. Tracer activity noted in the stomach characteristic of bile reflux. Denny Andino MD Gall Bladder Ultrasound 05/10/17 0000 Signed Impressions: Service Date/Time: Wednesday, May 10, 2017 15:13 - CONCLUSION: Mildly distended gallbladder containing sludge with mildly positive Regalado's sign. Pancreatic tail region mass. Recommend further evaluation with pancreas protocol CT. Carlos Enrique Blanchard MD Abdomen X-Ray 05/10/17 0000 Signed Impressions: Service Date/Time: Wednesday, May 10, 2017 00:07 - CONCLUSION: Normal examination for a patient of this age. Luis Sparks MD Abdomen CT 05/10/17 0000 Signed Impressions: Service Date/Time: Thursday, May 11, 2017 00:43 - CONCLUSION: 1. Left adrenal nodules felt to represent adenomas. 2. Tiny left renal cyst. 3. There is retroperitoneal lymphadenopathy identified which is likely what was imaged on the recent ultrasound. This would be concerning for metastatic disease of unknown primary or other malignant processes such as lymphoma. 4. No evidence for pancreatic mass. 5. Mesenteric haziness and subcentimeter mesenteric lymph nodes are identified. 6. Lung nodules. Luis Sparks MD ADDENDUM: Also noted is a 1.8 cm heterogeneous mass lesion off the upper pole of the left kidney. This should be considered a renal cell carcinoma until proven otherwise. Elroy Loya MD Objective Remarks GENERAL: NAD SKIN: Warm and dry. HEAD: Normocephalic. EYES: No scleral icterus. No injection or drainage. NECK: Supple, trachea midline. No JVD or lymphadenopathy. CARDIOVASCULAR: Regular rate and rhythm without murmurs, gallops, or rubs. RESPIRATORY: Breath sounds equal bilaterally. No accessory muscle use. GASTROINTESTINAL: Abdomen soft, non-tender, nondistended. MUSCULOSKELETAL: No cyanosis, or edema. BACK: Nontender without obvious deformity. No CVA tenderness. A/P Problem List: (1) Abdominal pain ICD Code: R10.9 Status: Acute (2) Pancreatitis ICD Code: K85.90 Status: Acute (3) Alcohol abuse ICD Code: F10.10 Status: Resolved Assessment and Plan 61 year-old female with Retroperitoneal lymphadenopathy Status post CT-guided biopsy pending report Appreciate input from GI, oncology Consider outpatient EUS Abdominal pain Elevated CA 19-9 Maybe secondary to recurrent pancreatitis However biopsy pending from retroperitoneal lymphadenopathy HIDA scan negative Abdominal pain Recurrent pancreatitis Lipase now within normal limits History of alcohol abuse Counseled against Continue rally pack Problem Qualifiers (1) Abdominal pain: Qualified Code: R10.13 - Epigastric pain (2) Pancreatitis: Qualified Code: K85.20 - Alcohol-induced acute pancreatitis, unspecified complication status Ruben Walsh MD May 14, 2017 12:20
--- NOTE | 2017-05-14 12:30 | HHI.DS ---
Discharge Summary Admission Date May 11, 2017 at 09:08 Discharge Date: May 14, 2017 Admitting Diagnosis pancreatitis (1) Abdominal pain ICD Code: R10.9 (2) Pancreatitis ICD Code: K85.90 (3) Alcohol abuse ICD Code: F10.10 Procedures none Brief History - From Admission Written by Anibal Harmon, acting as scribe for Dr. Bravo on 05/10/17 at 9: 50. 61-year-old female with no chronic medical illnesses who presented to hospital because of recurrent abdominal pain. Patient was admitted last month for first episode of pancreatitis. Patient was treated that time with nothing by mouth, IV fluids, pain control. Her lipase level trended down nicely and she was discharged home with pain medication and instructions to follow-up with primary medical doctor. Patient does not have any insurance or was unable to follow-up with any physicians. She states that she has been following a strict low-fat diet. She has abstained from any alcohol use since her last admission. She states that the abdominal pain has never gone away. She indicates the pain is always worse after she eats. She was using oxycodone and until 10 days after she was discharged last for pain control, then she switched to ibuprofen and has been using that on a daily basis since. She states that the pain has remained rather constant after she eats up until Wednesday when the pain progressively got worse so she placed herself on a clear liquid diet. She was doing well until Wednesday night and Wednesday morning when the pain started getting worse and radiating into her back. Because of the worsening pain she came to the hospital for evaluation. Patient had any nausea, vomiting, diarrhea , constipation, melena, hematochezia. ER physician did evaluate the patient and findings are indicative of pancreatitis and the patient placed in observation for continued evaluation. CBC/BMP: 05/13/17 0507 05/13/17 0507 Significant Findings Laboratory Tests Test 05/13/17 05:07 Potassium Level 3.3 MEQ/L (3.5-5.1) Chloride Level 108 MEQ/L (98-107) Blood Urea Nitrogen 2 MG/DL (7-18) Creatinine 0.47 MG/DL (0.50-1.00) Total Bilirubin 1.2 MG/DL (0.2-1.0) Total Protein 6.3 GM/DL (6.4-8.2) Albumin 3.0 GM/DL (3.4-5.0) PE at Discharge GENERAL: NAD SKIN: Warm and dry. HEAD: Normocephalic. EYES: No scleral icterus. No injection or drainage. NECK: Supple, trachea midline. No JVD or lymphadenopathy. CARDIOVASCULAR: Regular rate and rhythm without murmurs, gallops, or rubs. RESPIRATORY: Breath sounds equal bilaterally. No accessory muscle use. GASTROINTESTINAL: Abdomen soft, non-tender, nondistended. MUSCULOSKELETAL: No cyanosis, or edema. BACK: Nontender without obvious deformity. No CVA tenderness. Hospital Course Patient admitted secondary to recurrent pancreatitis and treated conservatively however she was found to have retroperitoneal lymphadenopathy as well as elevated CA-19-9 for which current gastroenterology and medical oncology were consulted. She underwent CT-guided biopsy with report pending. Her lipase as well as abdominal pain improved with conservative treatment. She was advised on alcohol cessation. DVT and GI prophylaxis were provided. Prior to discharge , her condition improved and vitals remained stable. Pt Condition on Discharge: Stable Discharge Disposition: Discharge Home Discharge Time: <= 30 minutes Discharge Instructions DIET: Follow Instructions for: Heart Healthy Diet Activities you can perform: Regular-No Restrictions Follow up Referrals: Gastroenterology Oncology PCP Follow-up - 1 Week New Medications: Hydrocodone-Acetaminophen (Hydrocodone-Acetaminophen) 5-325 mg Tab 1 TAB PO Q4H PRN PAIN SCALE 3 TO 5 #30 TAB Ruben Walsh MD May 14, 2017 12:30
[2017-05-14] MEDS: ENOXAPARIN SODIUM 40 MG/0.4 ML SYRINGE SQ SCH (13:21)
--- NOTE | 2017-05-14 14:15 | RADRPT ---
EXAM DATE/TIME: 05/14/2017 09:27 [facility] COMPARISON: No previous studies available for comparison. INDICATIONS : Retroperitoneal lymph node. SEDATION TIME: 30 minutes BIOPSY SITE: Retroperitoneal lymph node MEDICATION(S): 1.) 3 mg midazolam (Versed) IV 2.) 150 mcg fentanyl (Sublimaze) IV DEVICE(S): 1.) 16 gauge Temno core biopsy needle MEDICAL HISTORY : Gastroesophageal reflux disease. Pancreatitis. Gall stones. SURGICAL HISTORY : section. Rectal surgery. ENCOUNTER: Initial ACUITY: 1 day PAIN SCORE: 0/10 LOCATION: Retroperitoneal lymph node A total of one core specimen(s) were obtained and sent to the laboratory for pathologic evaluation. PROCEDURE: 1. CT guided lymph noderetroperitoneal biopsy. 2. Conscious sedation with continuous EKG and oximetry monitoring. 3. EKG and oximetry remained stable throughout the procedure. Prior to the procedure informed consent was obtained. Any appropriate prior imaging studies were rev iewed. Using automated exposure control and adjustment of the mA and/or kV according to patient size, radiat ion dose was kept as low as reasonably achievable to obtain optimal diagnostic quality images. DICOM format image data is available electronically for review and comparison. The site was prepped in a sterile fashion. Full sterile technique was used, including cap, mask, ronn rile gloves and gown and a large sterile sheet. Hand hygiene and 2% chlorhexidine and/or betadine/al cohol prep was utilized per protocol for cutaneous antisepsis. The skin and subcutaneous tissues wer e infiltrated with local anesthetic solution. With CT guidance the previously identified target was localized. Biopsy was performed using the presc ribed needle as above. Adequate hemostasis was obtained with compression at the puncture site. Follow-up CT scan reveals no hemorrhage. The patient tolerated the procedure well and there were no complications. The patient was returned to the Radiology Outpatient Unit in stable condition. CONCLUSION: Uncomplicated CT guided core biopsy of para-aortic adenopathy as above. Carlos Enrique Blanchard MD on May 14, 2017 at 14:11 Board Certified Radiologist. This report was verified electronically.
--- NOTE | 2017-05-20 10:42 | PQ ---
Physician Query Response Document PATIENT: MIGUEL GRULLON : 1955 ADMIT DATE: 05/11/2017 9:08 AM DISCH DATE: 05/14/2017 4:52 PM RESPONDING PROVIDER #: Sheeba QUERY TEXT: Clarification of Clinical Diagnostic Findings Please clarify documentation or clinical relevance for the clinical / diagnostic findings or whether those are insignificant or unable to be further specified: Are you in agreement with the findings of the Pathology report as documented above under Clinical Indicators? If you have any additional questions/comments and/or concerns, please do not hesitate to reach out to the CDI/Coding Hotline, Ext. [phone]. The patient's Clinical Indicators include: Results of Pathology report are now in the chart: FINAL DIAGNOSIS: LYMPH NODE, RETROPERITONEUM, NEEDLE BIOPSY: * MODERATELY DIFFERENTIATED ADENOCARCINOMA (SEE COMMENT). Query created by: Cara Cook on 05/19/2017 8:48 AM RESPONSE TEXT: Provider disagreed with this CDI query. Electronically signed by: Ruben Walsh MD 05/20/2017 10:39 AM
[2017-06-04] MEDS ORDERED: TURM500C3 PO (10:58)
== END 2017-05-14 16:52 | disposition home or self-care (01) | DRG 425 ==
LOC: PHED 22:20 → PHEDA 05-10 00:53 → PH3A 05-10 02:39 → OBSVTOIN 05-11 09:08
PROVIDERS: ADMIT Hospitalist; ATTEND Hospitalist
PROC: 07BC3ZX Excision of Pelvis Lymphatic, Percutaneous Approach, Diagnostic (ICD-10-PCS; principal; 2017-05-14)
DX: K85.90 Acute pancreatitis without necrosis or infection, unspecified (principal); F17.210 Nicotine dependence, cigarettes, uncomplicated; R59.0 Localized enlarged lymph nodes; K21.9 Gastro-esophageal reflux disease without esophagitis
CPT/HCPCS: 38505; 74020; 74170; 74177; 76705; 77012; 78226; 80053; 83690; 85025; 85027; 85610; 85730; 86301; 88305; 88341; 88342; 93005; 96361; 96374; 96375; 96376; 99152; 99153; A9537; C9113; G0378; J1170; J1650; J2250; J2270; J2405; J3010; J7030; Q9967

== ENCOUNTER 2017-06-02 06:49 | Day surgery (SDC) | payer OTHER ==
[~2017-06-02] VITALS: Ht 154.9 cm; Wt 56.8 kg
[~2017-06-02 06:49] MED LIST changes: +HYDR-3516 PO; -OXYC1CAP PO
[2017-06-02 07:13] VITALS: BP 158/96; PULSE 80; RESP 18; TEMP 98; O2SAT 98
[2017-06-02] MEDS ORDERED: ceFAZolin 2 GM PREMIX 50 ML - implanted port/tunneled catheter insertion IV SCH (07:15)
[2017-06-02] MEDS ORDERED: VANCOMYCIN 1000 MG/NS 250 ML - implanted port/tunneled catheter IV SCH ×2 (07:15)
[2017-06-02] MEDS ORDERED: CHLORHEXIDINE GLUCONATE 2 % 1 PACK (2 CLOTHS) TOPICAL SCH (07:15)
[2017-06-02] MEDS ORDERED: POVIDONE IODINE 5% (ANTISEPSIS KIT) 4 APPLICATIONS EACH NARE SCH (07:15)
[2017-06-02] MEDS ORDERED: MILK175C7 PO (07:19)
[2017-06-02] MEDS ORDERED: TUMERIC PO (07:19)
[2017-06-02] MEDS ORDERED: ALPR0.25 PO (07:19)
[2017-06-02] MEDS ORDERED: GRAP50CA PO (07:19)
[2017-06-02] MEDS ORDERED: LEXA10TA PO (07:19)
[2017-06-02] MEDS ORDERED: MIDAZOLAM HCL 2 MG/2 ML VIAL ONE ×2 (08:00→08:20)
[2017-06-02] MEDS ORDERED: LIDOCAINE 1%/EPINEPHrine 1:200,000 PF SOLN 30 ML VIAL ONE (08:09)
[2017-06-02 09:00] VITALS: BP 89/59; PULSE 100; RESP 16; O2SAT 96
[2017-06-02 09:15] VITALS: BP 105/60; PULSE 100; RESP 18; O2SAT 96
[2017-06-02 09:45] VITALS: BP 114/75; PULSE 97; RESP 18; O2SAT 96
[2017-06-02 10:15] VITALS: BP 89/59; PULSE 100; RESP 18; TEMP 97.8; O2SAT 96
[2017-06-02 10:45] VITALS: BP 117/53; PULSE 72; RESP 18; TEMP 97.8; O2SAT 92
[2017-06-02] MEDS ORDERED: SODIUM CHLORIDE 0.9% FLUSH 10 ML FLUSH IVF PRN (10:45)
--- NOTE | 2017-06-02 10:45 | PD.RAD ---
Post Procedure Progress Note Pre Procedure Diagnosis: (1) Retroperitoneal lymphadenopathy Post Procedure Diagnosis: (1) Retroperitoneal lymphadenopathy Procedure Date: Jun 02, 2017 Supervising Radiologist: Santana Ambriz Proceduralist/Assist: Regla Eddy, RT(R), Gosia Mehta RT(R)() Anesthesia: Conscious Sedation Plan of Activity Patient to Unit: ROPU Patient Condition: Good See PACS Report for procedural detail/treatment Central Venous Access Device Procedure 1 Right Internal Jugular Infusaport Placement single lumen Santana Ambriz MD Jun 02, 2017 10:45
--- NOTE | 2017-06-02 11:38 | RADRPT ---
EXAM DATE/TIME: 06/02/2017 08:15 [facility] COMPARISON: No previous studies available for comparison. INDICATIONS : Patient with pancreatic cancer in need of [id number] placement. MEDICAL HISTORY : GERD, Pancreatitis, Alcohol abuse SURGICAL HISTORY : Rectal surgery, Tonsillectomy, Lymph node biopsy, Right knee surgery ENCOUNTER: Initial ACUITY: 2 weeks PAIN SCORE: 0/10 FLUORO TIME: 0.2 minutes IMAGE SERIES: 0 SEDATION TIME: 45 minutes ACCESS: Right internal jugular vein SEDATION: 1.) 3 mg midazolam (Versed) IV 2.) 175 mcg fentanyl (Sublimaze) IV Prophylactic antibiotics were administered with appropriate pre-procedure timing. Vancomycin within 2 hours of procedure, Ancef (or alternative) within 1 hour of procedure. DEVICE: 1. 8 Taj[place] single lumen Smart port with vortex PROCEDURE : 1. Continuous pulse oximetry and EKG monitoring. 2. Intravenous conscious sedation. 3. Ultrasound guidance for venous access. 4. Fluoroscopic guided implantable central venous port placement. The patient was placed supine. The neck was prepped in sterile fashion. Full sterile technique was u sed, including cap, mask, sterile gloves and gown, and a large sterile sheet. Hand hygiene and 2% ch lorhexidine Betadine was utilized per protocol for cutaneous antisepsis with appropriate dry time for site. The skin and subcutaneous tissues were infiltrated with local anesthetic solution. Sterile g el and sterile probe cover were utilized for ultrasound guidance. Under direct ultrasound guidance, central venous access was accomplished in the targeted vessel. The ultrasound images depicting access guidance were stored and saved to PACS for permanent record. A s ubcutaneous pocket was created using blunt dissection. The port was introduced to the pocket. The c atheter tubing was fed through a subcutaneous tunnel to the venotomy site. The catheter tubing was c ut to a suitable length and then was introduced through a valved Peel-Away sheath and positioned with catheter tubing tip at the cavo-atrial junction level. The pocket incision was closed with subcutic ular Vicryl suture. Steri-Strips were applied. The port was flushed and locked with heparin solutio n per protocol. Sterile dressing was applied to the site. The patient tolerated the procedure well. Conscious sedation was performed with the prescribed dosages and duration as above in the presence of an independent trained radiology nurse to assist in the monitoring of the patient. EKG and oximetry remained stable throughout the procedure. The patient tolerated the procedure well and there were no complications. The patient was sent to post anesthesia recovery in stable condition. CONCLUSION: Uncomplicated ultrasound and fluoroscopic guided implanted central venous port catheter placement as described in detail above. An 8 Tajik Power port was placed. Santana Ambriz MD on June 02, 2017 at 11:36 Board Certified Radiologist. This report was verified electronically.
[2017-06-04] MEDS ORDERED: TURM500C3 PO (10:58)
== END 2017-06-02 11:00 | disposition home or self-care (01) ==
LOC: HROP 06:49 → HRIP 06:54 → HROP 11:00
PROVIDERS: ATTEND Internal Medicine Hematology & Oncology
DX: C25.9 Malignant neoplasm of pancreas, unspecified (principal); F10.10 Alcohol abuse, uncomplicated
CPT/HCPCS: 36561; 76937; 77001; 99152; 99153; C1788; J0690; J1642; J2250; J3010; J3370; J7050

== ENCOUNTER → 2017-06-03 | Outpatient (CLI) | payer OTHER ==
[~2017-06-03] MED LIST changes: +ALPR0.25 PO; +GADODIAMIDE PF 287 MG/ML 5 ML VIAL (for RAD MRI) IVCONTRAST ONE; +GRAP50CA PO; +IOHEXOL 350 MG/ML 10 ML VIAL (for RAD DIAG) IVCONTRAST ONE; +LEVA500T20 PO; +LEXA10TA PO; +MILK175C7 PO; +MIRA3350 PO; +TUMERIC PO; +TURM500C3 PO; +ZOFR8TAB PO
--- NOTE | 2017-06-03 15:56 | RADRPT ---
EXAM DATE/TIME: 06/03/2017 14:20 [facility] COMPARISON: CT ABDOMEN & PELVIS W CONTRAST, May 13, 2017, 8:35. CT THORAX W/O CONTRAST, April 07, 2017, 9:20. INDICATIONS : Follow up lung nodules. Pancreatic cancer. IV CONTRAST: 70 cc Omnipaque 350 (iohexol) IV RADIATION DOSE: 8.05 CTDIvol (mGy) MEDICAL HISTORY : None SURGICAL HISTORY : None. ENCOUNTER: Subsequent ACUITY: 1 month PAIN SCALE: 0/10 LOCATION: Bilateral chest TECHNIQUE: Volumetric scanning of the chest was performed. Using automated exposure control and adjustment of t he mA and/or kV according to patient size, radiation dose was kept as low as reasonably achievable to obtain optimal diagnostic quality images. DICOM format image data is available electronically for review and comparison. Follow-up recommendations for detected pulmonary nodules are based at a minimum on nodule size and pa tient risk factors according to Fleischner Society Guidelines. FINDINGS: LUNGS: There are at least 4 or 5 new small scattered pulmonary nodules. The nodule in the left lower lobe fabian s increased in size and now measures 11 x 13 mm in diameter compared to 7 x 9 mm on the prior study. There several of the nodules in the right lung have increased mildly in size as well. There are no co nfluent infiltrates or bronchiectasis. PLEURA: There is no pleural thickening or pleural effusion. MEDIASTINUM: The heart and great vessels demonstrate no acute abnormality. Adenopathy is noted in the right perihi lar region measuring up to 2 cm in diameter. There is pretracheal adenopathy as well. These appear ne w. AXILLAE: Within normal limits. No lymphadenopathy. SKELETAL: Within normal limits for patient age. MISCELLANEOUS: Scan extended down to the level of the mid kidneys and there is evidence of retroperitoneal and mesen teric adenopathy. This there is fatty infiltration of the liver. Abnormal gordo patchy enhancement is n oted along the gallbladder fossa region. CONCLUSION: 1. Mild interval progression of metastatic disease in the lungs. Several of the nodules are slightly larger in size and there are multiple new small nodules. 2. Pretracheal and right hilar adenopathy is now present. 3. Partial visualization of retroperitoneal and mesenteric adenopathy in the upper abdomen. Trent Cortez MD on June 03, 2017 at 15:44 Board Certified Radiologist. This report was verified electronically.
--- NOTE | 2017-06-03 16:37 | RADRPT ---
EXAM DATE/TIME: 06/03/2017 15:40 [facility] COMPARISON: CT ABDOMEN & PELVIS W CONTRAST, April 07, 2017, 7:20. CT ABDOMEN & PELVIS W CONTRAST, May 13, 2017 , 8:35. INDICATIONS : Abdominal pain and adenopathy in the retroperitoneum. Left adrenal masses. CONTRAST: 12 cc Omniscan (gadodiamide) IV MEDICAL HISTORY : Carcinoma, pancreas. Metastatic disease. SURGICAL HISTORY : Tonsillectomy. section. Colonic fissure repair. ENCOUNTER: Subsequent ACUITY: 1 day PAIN SCORE: 3/10 LOCATION: Abdomen. TECHNIQUE: Multiplanar, multisequence magnetic resonance imaging of the abdomen was performed. High-resolution 3D dataset was utilized to reconstruct maximum-intensity projection (MIP) images. FINDINGS: INTRAHEPATIC BILE DUCTS: Within normal limits. No significant anatomical variant is present. EXTRAHEPATIC BILE DUCTS: The common bile duct measures 4-5 mm. No stone or filling defect is identified. There is apparent foc al narrowing noted in the distal duct approximately 3 cm from the ampulla. GALLBLADDER: No stones, wall thickening, or pericholecystic fluid. LIVER: Normal size and signal intensity. No liver lesion is identified. Portal vein is within normal limits . PANCREAS: The main pancreatic duct is normal in size. There is no significant anatomical variant. Signal inte nsity is within normal limits. No mass is visualized. OTHER: Retroperitoneal adenopathy is again visualized. The small left adrenal masses are again visualized. T hese are not well delineated on the in phase and out of phase images there is a small simple cyst in left kidney. CONCLUSION: 1. The common bile duct and intrahepatic biliary system is within normal limits of size with no evide nce of obstruction. There is apparent focal narrowing or stricture approximately 3 cm from the ampull a. This is of unclear significance. 2. The pancreas appears unremarkable with no visualized mass or pancreatic ductal dilatation. 3. Retroperitoneal adenopathy and left adrenal mass is again visualized. Trent Cortez MD on June 03, 2017 at 16:22 Board Certified Radiologist. This report was verified electronically.
== END ==
LOC: HRAD 12:35
PROVIDERS: ATTEND Internal Medicine Hematology & Oncology
DX: R10.9 Unspecified abdominal pain (principal); R59.9 Enlarged lymph nodes, unspecified; R91.1 Solitary pulmonary nodule
CPT/HCPCS: 71260; 74183; 76377; A9579; Q9967

== ENCOUNTER 2017-06-06 02:55 | Emergency (ER) | payer OTHER ==
[~2017-06-06] VITALS: Ht 154.9 cm; Wt 59.4 kg
[~2017-06-06 02:55] MED LIST changes: -GADODIAMIDE PF 287 MG/ML 5 ML VIAL (for RAD MRI) IVCONTRAST ONE; -IOHEXOL 350 MG/ML 10 ML VIAL (for RAD DIAG) IVCONTRAST ONE; -LEVA500T20 PO; -MIRA3350 PO; -TUMERIC PO; -ZOFR8TAB PO
[2017-06-06] MEDS ORDERED: ZOFR8TAB PO (03:16)
[2017-06-06] MEDS ORDERED: MIRA3350 PO (03:16)
[2017-06-06 03:27] VITALS: BP 127/62; PULSE 118; RESP 18; TEMP 99.2; O2SAT 99
--- NOTE | 2017-06-06 03:56 | PD ---
HPI Chief Complaint: Fever Time Seen by Provider: 03:28 Travel History International Travel<30 days: No Contact w/Intl Traveler<30days: No Traveled to known affect area: No History of Present Illness HPI The patient is a 61-year-old female that is being treated for pancreatic cancer. Apparently, her lymph nodes were positive and she is not getting surgery for this. She was started last Wednesday on her first dose of chemotherapy. Dr. Gamble is managing her care. Her temperature is 101.0 at home and here it is 99.2. Her heart rate is 122. She denies any dysuria, frequency, urgency, cough, nausea, vomiting, diarrhea, shortness of breath or chest pain. She has had recent MRI of the abdomen and CT of the chest. She had a fairly recent gallbladder ultrasound which showed no stones. PFSH Past Medical History Heart Rhythm Problems: No Cancer: Yes (PANCREATIC) Cardiovascular Problems: No High Cholesterol: No Chest Pain: No Congestive Heart Failure: No Diabetes: No Diminished Hearing: No Endocrine: No GERD: Yes (acid reflux) Genitourinary: Yes Immune Disorder: No Musculoskeletal: No Neurologic: No Psychiatric: No Reproductive: No Respiratory: No Immunizations Current: Yes Seizures: No Menopausal: Yes Past Surgical History Abdominal Surgery: Yes (RECTAL SURGERY) Cardiac Surgery: No Section: Yes Endocrine Surgery: No Eye Surgery: No Genitourinary Surgery: No Gynecologic Surgery: Yes () Thoracic Surgery: No Tonsillectomy: Yes Social History Alcohol Use: Yes Tobacco Use: Yes Substance Use: Yes (ETOH ) Allergies-Medications (Allergen,Severity, Reaction): Coded Allergies: Sulfa (Sulfonamide Antibiotics) (Verified Allergy, Mild, 06/06/17) Reported Meds & Prescriptions Reported Meds & Active Scripts Active Hydrocodone-Acetaminophen 5-325 mg Tab 1 Tab PO Q4H PRN Reported Miralax Powder (Polyethylene Glycol 3350 Powder) 17 Gm Powd 17 Gm PO DAILY Mix and dissolve one measuring cap-ful (17 grams) in water or juice. Zofran (Ondansetron HCl) 8 Mg Tab 8 Mg PO TID Turmeric (Turmeric (Curcuma Longa)) 450 Mg-50 Mg Cap 900 Mg PO DAILY Lexapro (Escitalopram Oxalate) 10 Mg Tab 10 Mg PO DAILY Alprazolam 0.25 Mg Tab 0.25 Mg PO Q6H PRN Review of Systems Except as stated in HPI: all other systems reviewed are Neg Physical Exam Narrative GENERAL: The patient is alert, oriented 3 and slight apparent distress except for some mild right upper quadrant abdominal discomfort. SKIN: Focused skin assessment warm/dry. HEAD: Atraumatic. Normocephalic. EYES: Pupils equal and round. No scleral icterus. No injection or drainage. ENT: No nasal bleeding or discharge. Mucous membranes pink and moist. NECK: Trachea midline. No JVD. CARDIOVASCULAR: Regular rate and rhythm. No murmur appreciated. RESPIRATORY: No accessory muscle use. Clear to auscultation. Breath sounds equal bilaterally. GASTROINTESTINAL: Abdomen soft, there is tenderness to direct palpation in the right upper quadrant, nondistended. Hepatic and splenic margins not palpable. No guarding or rebound is present. MUSCULOSKELETAL: No obvious deformities. No clubbing. No cyanosis. No edema. NEUROLOGICAL: Awake and alert. No obvious cranial nerve deficits. Motor grossly within normal limits. Normal speech. PSYCHIATRIC: Appropriate mood and affect; insight and judgment normal. Data Data Last Documented VS Vital Signs Date Time Temp Pulse Resp B/P (MAP) Pulse Ox O2 Delivery O2 Flow Rate FiO2 06/06/17 04:35 100.8 118 16 144/91 (108) 98 Room Air Orders Orders Complete Blood Count With Diff (06/06/17 03:28) Comprehensive Metabolic Panel (06/06/17 03:28) Lactic Acid Sepsis Protocol (06/06/17 03:28) Troponin I (06/06/17 03:28) Urinalysis - C+S If Indicated (06/06/17 03:28) Blood Culture (06/06/17 03:28) Chest, Single Ap (06/06/17 03:28) Blood Glucose (06/06/17 03:28) Ecg Monitoring (06/06/17 03:28) Iv Access Insert/Monitor (06/06/17 03:28) Oximetry (06/06/17 03:28) Oxygen Administration (06/06/17 03:28) Lipase (06/06/17 03:53) Acetamin-Hydrocod 325-7.5 Mg ([place] 7.5 (06/06/17 04:30) Labs Laboratory Tests Test 06/06/17 03:53 White Blood Count 8.8 TH/MM3 Red Blood Count 4.67 MIL/MM3 Hemoglobin 13.7 GM/DL Hematocrit 40.9 % Mean Corpuscular Volume 87.6 FL Mean Corpuscular Hemoglobin 29.3 PG Mean Corpuscular Hemoglobin Concent 33.4 % Red Cell Distribution Width 12.2 % Platelet Count 205 TH/MM3 Mean Platelet Volume 9.0 FL Neutrophils (%) (Auto) 90.3 % Lymphocytes (%) (Auto) 7.0 % Monocytes (%) (Auto) 1.4 % Eosinophils (%) (Auto) 0.6 % Basophils (%) (Auto) 0.7 % Neutrophils # (Auto) 7.9 TH/MM3 Lymphocytes # (Auto) 0.6 TH/MM3 Monocytes # (Auto) 0.1 TH/MM3 Eosinophils # (Auto) 0.1 TH/MM3 Basophils # (Auto) 0.1 TH/MM3 CBC Comment DIFF FINAL Differential Comment Urine Color YELLOW Urine Turbidity CLEAR Urine pH 6.0 Urine Specific Watson 1.006 Urine Protein NEG mg/dL Urine Glucose (UA) NEG mg/dL Urine Ketones 80 OR GREATER mg/dL Urine Occult Blood MOD Urine Nitrite NEG Urine Bilirubin NEG Urine Leukocyte Esterase TRACE Urine RBC 4-9 /hpf Urine WBC 3-5 /hpf Urine Squamous Epithelial Cells 0-5 /hpf Urine Bacteria NONE /hpf Microscopic Urinalysis Comment CULT NOT INDICATED Blood Urea Nitrogen 5 MG/DL Creatinine 0.52 MG/DL Random Glucose 107 MG/DL Total Protein 7.1 GM/DL Albumin 3.3 GM/DL Calcium Level 8.7 MG/DL Alkaline Phosphatase 321 U/L Aspartate Amino Transf (AST/SGOT) 724 U/L Alanine Aminotransferase (ALT/SGPT) 489 U/L Total Bilirubin 1.7 MG/DL Sodium Level 131 MEQ/L Potassium Level 3.7 MEQ/L Chloride Level 97 MEQ/L Carbon Dioxide Level 25.7 MEQ/L Anion Gap 8 MEQ/L Estimat Glomerular Filtration Rate 121 ML/MIN Lactic Acid Level 1.1 mmol/L Troponin I LESS THAN 0.02 NG/ML Lipase 363 U/L [facility] [place] Medical Decision Making Medical Screen Exam Complete: Yes Emergency Medical Condition: Yes Medical Record Reviewed: Yes Interpretation(s) The chest x-ray shows subsegmental airspace disease at the bases, no effusion no pneumothorax and the [id number] is noted. The complete metabolic profile shows an albumin of 3.3, alkaline phosphatase 321, GOT 724, GPT 489 with total bili 1.7 and sodium 131 but is otherwise unremarkable. The troponin I is normal. The lipase is 363. The CBC shows white count of 8800 with 90% neutrophils but is otherwise unremarkable. Differential Diagnosis Sepsis, fever from chemotherapy medication, acute cholecystitis, pancreatitis Narrative Course The patient has a good absolute neutrophil count. She does not feel sick and does not feel septic. She does not look septic. This may be fever from chemotherapy medication, a virus or septicemia. The patient will be given Levaquin 500 milligrams for 5 days. She will follow-up tomorrow, Wednesday, calling the oncology center to set up an appointment. I discussed this with Dr. Ramos who was covering for Dr. Gamble. Diagnosis Primary Impression: Fever Additional Impression: FH: chemotherapy Additional Instructions: Call Wednesday, tomorrow, to set up an appointment with oncology. The antibiotic is one tablet daily for 5 days. We will give you the first antibiotic dose tonight. Med/Other Pt SpecificInfo: Prescription(s) given Scripts Levofloxacin (Levaquin) 500 Mg Tablet 500 MG PO DAILY for Infection for 4 Days, TAB 0 Refills Prov: Chuy Harmon MD 06/06/17 Disposition: DISCHARGE HOME Condition: Stable Chuy Harmon MD Jun 06, 2017 03:56
--- NOTE | 2017-06-06 03:57 | RADRPT ---
EXAM DATE/TIME: 06/06/2017 03:36 [facility] COMPARISON: CT THORAX W CONTRAST, June 03, 2017, 14:20. INDICATIONS : Fever. MEDICAL HISTORY : Carcinoma, pancreas. SURGICAL HISTORY : Infusaport ENCOUNTER: Initial ACUITY: 1 day PAIN SCORE: 0/10 LOCATION: Bilateral chest FINDINGS: A single view of the chest demonstrates Bugbej-[id number] in the superior vena cava. Subsegmental basilar airspace disease. No effusion. No pneumothorax. Elevated right hemidiaphragm. Cardiomegaly. CONCLUSION: 1. Subsegmental airspace disease at the bases. No effusion. No pneumothorax. [id number] in superio r vena cava. Feliciano Sevilla MD on June 06, 2017 at 3:50 Board Certified Radiologist. This report was verified electronically.
[2017-06-06 04:21] LABS: AUTOMATED NEUTROPHIL # 7.9 TH/MM3 (1.8-7.7); BASOPHIL # 0.1 TH/MM3 (0-0.2); BASOPHIL % 0.7 % (0.0-2.0); EOSINOPHIL # 0.1 TH/MM3 (0-0.4); EOSINOPHIL % 0.6 % (0.0-4.0); HEMATOCRIT 40.9 % (35.0-46.0); HEMO FLAGS DIFF FINAL; LYMPHOCYTE # 0.6 TH/MM3 (1.0-4.8); MEAN CELL VOLUME 87.6 FL (80.0-100.0); MEAN CORPUSCULAR HEMOGLOBIN 29.3 PG (27.0-34.0); MEAN CORPUSCULAR HGB CONC 33.4 % (32.0-36.0); MONO % 1.4 % (0.0-8.0); NEUT % 90.3 % (16.0-70.0); PLATELET COUNT 205 TH/MM3 (150-450); RED BLOOD COUNT 4.67 MIL/MM3 (4.00-5.30); RED CELL DISTRIBUTION WIDTH 12.2 % (11.6-17.2); WHITE BLOOD COUNT 8.8 TH/MM3 (4.0-11.0)
[2017-06-06 04:22] LABS: BLOOD, URINE MOD (NEG); GLUCOSE,URINE NEG (NEG); KETONE, URINE 80 OR GREATER mg/dL (NEG); NITRITE,URINE NEG (NEG)
[2017-06-06 04:27] LABS: CHLORIDE 97 MEQ/L (98-107); POTASSIUM 3.7 MEQ/L (3.5-5.1); SODIUM (NA) 131 MEQ/L (136-145)
[2017-06-06 04:28] LABS: URINE COLOR YELLOW (YELLW/STRAW)
[2017-06-06 04:30] LABS: COMMENT (UR) CULT NOT INDICATED; CULTURE IF INDICATED CULT NOT INDICATED; SQUAMOUS EPITHELIAL CELL URINE 0-5 /hpf (0-5)
[2017-06-06] MEDS ORDERED: ACETAMINOPHEN/HYDROcodone 325 MG/7.5 MG TAB PO ONE (04:30)
[2017-06-06 04:31] LABS: ANION GAP 8 MEQ/L (5-15); BICARBONATE 25.7 MEQ/L (21.0-32.0); BLOOD UREA NITROGEN 5 MG/DL (7-18)
[2017-06-06 04:34] LABS: ALT (GPT) 489 U/L (10-53); AST (GOT) 724 U/L (15-37); GLOMERULAR FILTRATION RATE 121 ML/MIN (>89)
[2017-06-06 04:35] VITALS: BP_SYST 144; BP_SYST 152; BP_DIAS 91; PULSE 118; RESP 15; RESP 16; TEMP 100.8; O2SAT 98; O2SAT 99
[2017-06-06 04:36] LABS: TOTAL BILIRUBIN ADULT 1.7 MG/DL (0.2-1.0)
[2017-06-06 04:37] LABS: ALKALINE PHOSPHATASE 321 U/L (45-117)
[2017-06-06 05:26] VITALS: BP 117/75; PULSE 125; RESP 16; TEMP 100.9; O2SAT 99
[2017-06-06] MEDS ORDERED: LEVA500T20 PO (05:32)
[2017-06-06] MEDS ORDERED: LEVOFLOXACIN 500 MG TAB PO ONE (05:45)
== END 2017-06-06 05:49 | disposition home or self-care (01) ==
LOC: PHED 02:55
DX: R50.9 Fever, unspecified (principal); C25.9 Malignant neoplasm of pancreas, unspecified
CPT/HCPCS: 71010; 80053; 81001; 83605; 83690; 84484; 85025; 87040; 99284

== ENCOUNTER 2017-12-16 15:44 | Emergency (ER) | payer MEDICAID, OTHER ==
[~2017-12-16] VITALS: Ht 154.9 cm; Wt 56.0 kg
[~2017-12-16 15:44] MED LIST changes: -GRAP50CA PO; +LEVA500T33 PO; -MILK175C7 PO; +MIRA3350 PO; -TURM500C3 PO; +ZOFR8TAB PO
[2017-12-16 15:52] VITALS: BP 176/81; PULSE 92; RESP 16; TEMP 98.9; O2SAT 100
[2017-12-16] MEDS ORDERED: AUGM875T3 PO (17:40)
[2017-12-16] MEDS ORDERED: TRAM50TA PO (17:40)
--- NOTE | 2017-12-16 18:26 | PD ---
HPI Chief Complaint: Oral / Dental Pain or Problem Time Seen by Provider: 17:11 Travel History International Travel<30 days: No Contact w/Intl Traveler<30days: No Traveled to known affect area: No History of Present Illness HPI This patient complains of left jaw pain. Duration 2 days. Severity is moderate to severe at times. She is worried about a dental cavity or dental abscess. She also is getting chemotherapy for metastatic pancreatic cancer. She is due for chemotherapy tomorrow. Takes hydrocodone for pain which partially helps her pain. No exacerbating factors PFSH Past Medical History Heart Rhythm Problems: No Cancer: Yes (PANCREATIC) Cardiovascular Problems: No High Cholesterol: No Chemotherapy: Yes (2 weeks ago) Chest Pain: No Congestive Heart Failure: No Diabetes: No Diminished Hearing: No Endocrine: No Gastrointestinal Disorders: Yes (PANCREATITIS) GERD: Yes (acid reflux) Genitourinary: Yes Immune Disorder: No Implanted Vascular Access Dvce: Yes Musculoskeletal: No Neurologic: No Psychiatric: No Reproductive: No Respiratory: No Immunizations Current: Yes Pancreatitis: Yes Seizures: No Influenza Vaccination: No ?: Not Menopausal: Yes Past Surgical History Abdominal Surgery: Yes (RECTAL SURGERY) Cardiac Surgery: No Section: Yes Endocrine Surgery: No Eye Surgery: No Genitourinary Surgery: No Gynecologic Surgery: Yes () Thoracic Surgery: No Tonsillectomy: Yes Other Surgery: Yes (Port placed 06/02/17) Social History Alcohol Use: No Tobacco Use: No Substance Use: Yes (ETOH ) Allergies-Medications (Allergen,Severity, Reaction): Coded Allergies: Sulfa (Sulfonamide Antibiotics) (Verified Allergy, Mild, 12/16/17) Reported Meds & Prescriptions Reported Meds & Active Scripts Active Tramadol (Tramadol HCl) 50 Mg Tab 50 Mg PO Q6H PRN Augmentin (Amoxicillin-Clavulanate) 875-125 Mg Tab 1 Tab PO BID Levaquin (Levofloxacin) 500 Mg Tablet 500 Mg PO DAILY 4 Days Hydrocodone-Acetaminophen 5-325 mg Tab 1 Tab PO Q4H PRN Reported Miralax Powder (Polyethylene Glycol 3350 Powder) 17 Gm Powd 17 Gm PO DAILY Mix and dissolve one measuring cap-ful (17 grams) in water or juice. Zofran (Ondansetron HCl) 8 Mg Tab 8 Mg PO TID Lexapro (Escitalopram Oxalate) 10 Mg Tab 10 Mg PO DAILY Alprazolam 0.25 Mg Tab 0.25 Mg PO Q6H PRN Review of Systems General / Constitutional: No: Fever Eyes: No: Visual changes HENT: No: Headaches Cardiovascular: No: Chest Pain or Discomfort Respiratory: No: Shortness of Breath Gastrointestinal: Positive: Abdominal Pain Genitourinary: No: Dysuria Musculoskeletal: Positive: Pain Skin: No Rash Neurologic: No: Weakness Psychiatric: No: Depression Endocrine: No: Polydipsia Hematologic/Lymphatic: No: Easy Bruising Physical Exam Narrative GENERAL: Well-nourished, well-developed patient with left dental and jaw pain . SKIN: Focused skin assessment reveals no rash and nodules. Skin is Warm and dry. HEAD: Atraumatic. Normocephalic. EYES: Pupils equal and round. No scleral icterus. No injection or drainage. ENT: No nasal bleeding or discharge. Mucous membranes pink and moist. Uvula midline. No gingival abscess. Left lower jaw molar is tender. As is the mandible but no erythema or fluctuance or drainage NECK: Trachea midline. No JVD. CARDIOVASCULAR: Regular rate and rhythm. No murmur appreciated. RESPIRATORY: No accessory muscle use. Clear to auscultation. Breath sounds equal bilaterally. GASTROINTESTINAL: Abdomen soft, non-tender, nondistended. Hepatic and splenic margins not palpable. MUSCULOSKELETAL: No obvious deformities. No clubbing. No cyanosis. No edema. Has a right upper chest port NEUROLOGICAL: Awake and alert. No obvious cranial nerve deficits. Motor grossly within normal limits. Normal speech. PSYCHIATRIC: Appropriate mood and affect; insight and judgment normal. Data Data Last Documented VS Vital Signs Date Time Temp Pulse Resp B/P (MAP) Pulse Ox O2 Delivery O2 Flow Rate FiO2 12/16/17 15:52 98.9 92 16 176/81 (112) 100 MDM Medical Decision Making Medical Screen Exam Complete: Yes Emergency Medical Condition: Yes Medical Record Reviewed: Yes Differential Diagnosis Dental abscess, dental pain, gingivitis Narrative Course I have reviewed the patient's electronic medical record. Reviewed oncologist note from 3 weeks ago Patient is due for chemotherapy tomorrow. I don't think this situation should preclude that. She is afebrile Does not look septic or toxic I did give her injection of morphine and Zofran for her pain I wrote a few tramadol for breakthrough if needed I wrote one week of Augmentin She needs dental follow-up Diagnosis Primary Impression: Pain, dental Additional Impression: Pancreatic cancer Qualified Codes: C25.9 - Malignant neoplasm of pancreas, unspecified Additional Instructions: The patient was advised to follow up with their physician and a dentist and return if they worsen. The patient was warned about potential sedation for the medications they will receive on prescription. Med/Other Pt SpecificInfo: Prescription(s) given Scripts Tramadol (Tramadol) 50 Mg Tab 50 MG PO Q6H Y for PAIN, #15 TAB 0 Refills Prov: Anibal Keys MD 12/16/17 Amoxicillin-Clavulanate (Augmentin) 875-125 Mg Tab 1 TAB PO BID for Infection, #14 TAB 0 Refills Prov: Anibal Keys MD 12/16/17 Disposition: 01 DISCHARGE HOME Condition: Stable Anibal Keys MD Dec 16, 2017 18:26
[2017-12-16 18:30] VITALS: BP 168/88; PULSE 91; RESP 18; O2SAT 99
[2017-12-16] MEDS ORDERED: MORPHINE SULFATE 4 MG/ML INJ IM ONE (18:30)
[2017-12-16] MEDS ORDERED: ONDANSETRON HCL 4 MG/2 ML VIAL IM ONE (18:30)
[2017-12-16 18:33] VITALS: RESP 18
== END 2017-12-16 18:58 | disposition home or self-care (01) ==
LOC: PHED 15:44
DX: K08.89 Other specified disorders of teeth and supporting structures (principal); C25.9 Malignant neoplasm of pancreas, unspecified; R10.9 Unspecified abdominal pain
CPT/HCPCS: 96372; 99283; J2270; J2405

== ENCOUNTER 2018-02-18 11:19 | Day surgery (SDC) | END 2018-02-18 15:29 | disposition home or self-care (01) | DX: Z45.2 Encounter for adjustment and management of vascular access device (principal); C25.9 Malignant neoplasm of pancreas, unspecified; K21.9 Gastro-esophageal reflux disease without esophagitis | CPT/HCPCS: 36576; 99152; 99153; J0690; J1170; J2060; J3370; J7030; J7050 ==

== ENCOUNTER 2018-03-05 21:18 | Inpatient (IN) | payer MEDICAID, OTHER ==
[~2018-03-05] VITALS: Ht 154.9 cm; Wt 54.4 kg
[~2018-03-05 21:18] MED LIST changes: -HYDR-3516 PO; +HYDR-3583 PO; -LEVA500T33 PO; -LEXA10TA PO; +OXYC1CAP PO; -ZOFR8TAB PO
[2018-03-05 21:22] VITALS: BP 127/83; PULSE 92; RESP 16; TEMP 98.8; O2SAT 100
[2018-03-05] MEDS ORDERED: MUPI2OIN TOPICAL (21:34)
[2018-03-05] MEDS ORDERED: CEPH-460 PO (21:41)
--- NOTE | 2018-03-05 22:02 | PD ---
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 She was seen by Dr. Gamble yesterday for this and was prescribed mupirocin cream. She had already been on Keflex 500 mg twice daily for 1 week. She states the redness is increasing and the pain is increasing. She states the pain is now a 9/10, needlelike and burning type pain. Her last chemotherapy was 2 weeks ago. PFSH Past Medical History Anemia: Yes Heart Rhythm Problems: No Cancer: Yes (PANCREATIC) Cardiovascular Problems: No High Cholesterol: No Chemotherapy: Yes (02/21/18) Chest Pain: No Congestive Heart Failure: No Diabetes: No Diminished Hearing: No Endocrine: No Gastrointestinal Disorders: Yes (PANCREATIC CANCER) GERD: Yes (acid reflux) Genitourinary: Yes Hepatitis: No Immune Disorder: No Implanted Vascular Access Dvce: Yes (RIGHT CHEST) Musculoskeletal: No Neurologic: No Psychiatric: No Reproductive: No Respiratory: Yes (POSSIBLE METASTASIS) Immunizations Current: Yes Pancreatitis: Yes Seizures: No Thyroid Disease: No Influenza Vaccination: No ?: Not Menopausal: Yes : 3 Para: 3 Tubal Ligation: Yes Past Surgical History Abdominal Surgery: Yes (RECTAL SURGERY) AICD: No Cardiac Surgery: No Section: Yes (X2) Endocrine Surgery: No Eye Surgery: No Genitourinary Surgery: No Gynecologic Surgery: Yes () Joint Replacement: No Thoracic Surgery: No Tonsillectomy: Yes Other Surgery: Yes (Port placed 06/02/17, REPLACED 02/18/18) Social History Alcohol Use: No Tobacco Use: No (QUIT APRIL 07, 2017) Substance Use: No Allergies-Medications (Allergen,Severity, Reaction): Coded Allergies: Sulfa (Sulfonamide Antibiotics) (Verified Allergy, Mild, 03/05/18) Reported Meds & Prescriptions Reported Meds & Active Scripts Active Reported Keflex (Cephalexin) 500 Mg Capsule 500 Mg PO BID Mupirocin Topical (Mupirocin) 2 % Oint 1 Applic TOPICAL TID Hydrocodone-Acetaminophen 10-325 mg Tab 1 Tab PO Q4H PRN Oxycodone (Oxycodone HCl) 5 Mg Cap 5 Mg PO Q4H PRN Miralax Powder (Polyethylene Glycol 3350 Powder) 17 Gm Powd 17 Gm PO DAILY Mix and dissolve one measuring cap-ful (17 grams) in water or juice. Alprazolam 0.25 Mg Tab 0.25 Mg PO Q6H PRN Review of Systems Except as stated in HPI: all other systems reviewed are Neg Physical Exam Narrative GENERAL: The patient is alert, oriented 3 in severe distress with her right shoulder/right neck pain. Her vital signs show pulse of 92 but otherwise normal. SKIN: Focused skin assessment there is a violaceous, red erythematous area around the Kykhnq-d-Bzom approximately HEAD: Atraumatic. Normocephalic. EYES: Pupils equal and round. No scleral icterus. No injection or drainage. ENT: No nasal bleeding or discharge. Mucous membranes pink and moist. NECK: Trachea midline. No JVD. CARDIOVASCULAR: Regular rate and rhythm. No murmur appreciated. RESPIRATORY: No accessory muscle use. Clear to auscultation. Breath sounds equal bilaterally. GASTROINTESTINAL: Abdomen soft, non-tender, nondistended. Hepatic and splenic margins not palpable. MUSCULOSKELETAL: No obvious deformities. No clubbing. No cyanosis. No edema. NEUROLOGICAL: Awake and alert. No obvious cranial nerve deficits. Motor grossly within normal limits. Normal speech. PSYCHIATRIC: The patient is anxious, crying in pain; insight and judgment normal. Data Data Last Documented VS Vital Signs Date Time Temp Pulse Resp B/P (MAP) Pulse Ox O2 Delivery O2 Flow Rate FiO2 03/05/18 21:22 98.8 92 16 127/83 (98) 100 Orders Orders Blood Culture (03/05/18 22:02) Hydromorphone Pf Inj (Dilaudid Pf Inj) (03/05/18 22:30) Hydromorphone Pf Inj (Dilaudid Pf Inj) (03/05/18 22:30) Vancomycin Inj (Vancomycin Inj) (03/05/18 22:30) Vancomycin Consult Pharmacy (Vancomycin (03/05/18 22:30) Cefepime Inj (Maxipime Inj) (03/05/18 22:30) Consult Medical Oncology (03/05/18 ) Admit To Inpatient (03/05/18 ) Vital Signs (Adult) Q4H (03/05/18 22:25) Activity Oob Ad Tisha (03/05/18 22:25) Intake + Output ABEL.QSHIFT (03/05/18 22:25) Diet Regular Basic (03/06/18 Breakfast) Sodium Chlor 0.9% 1000 Ml Inj (Ns 1000 M (03/05/18 22:25) Sodium Chloride 0.9% Flush (Ns Flush) (03/05/18 22:30) Sodium Chloride 0.9% Flush (Ns Flush) (03/06/18 09:00) Metoclopramide Inj (Reglan Inj) (03/05/18 22:30) Comprehensive Metabolic Panel (03/06/18 06:00) Complete Blood Count With Diff (03/06/18 06:00) Scd Bilateral/Knee High ABEL.BID (03/05/18 22:25) Vishnu Bilateral/Knee High ABEL.QSHIFT (03/05/18 22:28) Acetaminophen (Tylenol) (03/05/18 22:30) Acetamin-Hydrocod 325-5 Mg ([place] 5-325 (03/05/18 22:30) Hydromorphone Pf Inj (Dilaudid Pf Inj) (03/05/18 22:30) Docusate Sodium-Senna (Meghna-Colace) (03/06/18 09:00) Magnesium Hydroxide Liq (Milk Of Magnesi (03/05/18 22:30) Sennosides (Senokot) (03/05/18 22:30) Bisacodyl Supp (Dulcolax Supp) (03/05/18 22:30) Lactulose Liq (Lactulose Liq) (03/05/18 22:30) Inpatient Certification (03/05/18 ) Complete Blood Count With Diff (03/05/18 22:25) Comprehensive Metabolic Panel (03/05/18 22:25) Alprazolam (Xanax) (03/05/18 22:30) MDM Medical Decision Making Medical Screen Exam Complete: Yes Emergency Medical Condition: Yes Medical Record Reviewed: Yes Differential Diagnosis Cellulitis from infected Xwjpcd-j-Sedq, abscess formation, lymphadenitis Narrative Course The patient has cellulitis from her infected Tybpsi-i-Vplb. Her pain medications are not working at home and she is in severe pain. I discussed the patient with Dr. Ceja and the patient will be admitted to the [facility], [facility], consulting oncology and put on vancomycin. Physician Communication Physician Communication I discussed the patient with Dr. Dewayne Ceja. I also discussed the patient with Dr. Pily Cutler. The patient will be admitted to Dr. Cutler and oncology will consult. Diagnosis Primary Impression: Cellulitis around Lxnkyv-f-Flft Additional Impressions: Lymphadenitis Intractable pain Admitting Information Admitting Physician Requests: Admit Chuy Harmon MD Mar 05, 2018 22:02
[2018-03-05] MEDS ORDERED: ACETAMINOPHEN 325 MG TAB PO PRN (22:30)
[2018-03-05] MEDS ORDERED: HYDROmorphone HCL PF 2 MG/ML VIAL IV PUSH ONE (22:30)
[2018-03-05] MEDS ORDERED: VANCOMYCIN INJ 1,000 MG in SODIUM CHLOR 0.9% 250 ML INJ 250 ML IV ONE (22:30)
[2018-03-05] MEDS ORDERED: MAGNESIUM HYDROXIDE SUSP 30 ML CUP PO PRN (22:30)
[2018-03-05] MEDS ORDERED: METOCLOPRAMIDE HCL 10 MG/2 ML VIAL IV PUSH PRN (22:30)
[2018-03-05] MEDS ORDERED: Vancomycin Consult Pharmacy 1 EA OTHER SCH (22:30)
[2018-03-05] MEDS ORDERED: ACETAMINOPHEN/HYDROcodone 325 MG/5 MG TAB PO PRN (22:30)
[2018-03-05] MEDS ORDERED: SENNOSIDES 8.6 MG TAB PO PRN (22:30)
[2018-03-05] MEDS ORDERED: HYDROmorphone HCL PF 0.5 MG/0.5 ML SYRINGE IV PUSH ONE (22:30)
[2018-03-05] MEDS ORDERED: LACTULOSE SYRUP 20 GM/30 ML CUP PO PRN (22:30)
[2018-03-05] MEDS ORDERED: BISACODYL 10 MG SUPP RECTAL PRN (22:30)
[2018-03-05 22:41] LABS: AUTOMATED NEUTROPHIL # 3.8 TH/MM3 (1.8-7.7); BASOPHIL % 0.4 % (0.0-2.0); EOSINOPHIL # 0.1 TH/MM3 (0-0.4); EOSINOPHIL % 1.5 % (0.0-4.0); HEMATOCRIT 33.8 % (35.0-46.0); HEMOGLOBIN 11.1 GM/DL (11.6-15.3); LYMPH % 27.5 % (9.0-44.0); LYMPHOCYTE # 1.6 TH/MM3 (1.0-4.8); MEAN CELL VOLUME 91.1 FL (80.0-100.0); MEAN CORPUSCULAR HEMOGLOBIN 29.8 PG (27.0-34.0); MEAN CORPUSCULAR HGB CONC 32.8 % (32.0-36.0); MEAN PLATELET VOLUME 8.1 FL (7.0-11.0); MONO % 7.2 % (0.0-8.0); MONOCYTE # 0.4 TH/MM3 (0-0.9); NEUT % 63.4 % (16.0-70.0); PLATELET COUNT 267 TH/MM3 (150-450); RED BLOOD COUNT 3.71 MIL/MM3 (4.00-5.30); RED CELL DISTRIBUTION WIDTH 15.2 % (11.6-17.2); WHITE BLOOD COUNT 5.9 TH/MM3 (4.0-11.0)
[2018-03-05 22:53] LABS: CHLORIDE 104 MEQ/L (98-107); SODIUM (NA) 138 MEQ/L (136-145)
[2018-03-05 22:56] LABS: CALCIUM 9.1 MG/DL (8.5-10.1)
[2018-03-05 22:57] LABS: ALBUMIN 3.6 GM/DL (3.4-5.0); BICARBONATE 28.1 MEQ/L (21.0-32.0); BLOOD UREA NITROGEN 10 MG/DL (7-18); GLUCOSE,RANDOM 95 MG/DL (74-106)
[2018-03-05 23:00] LABS: ALT (GPT) 17 U/L (10-53); AST (GOT) 10 U/L (15-37); CREATININE 0.51 MG/DL (0.50-1.00); GLOMERULAR FILTRATION RATE 123 ML/MIN (>89)
[2018-03-05 23:01] LABS: TOTAL BILIRUBIN ADULT 0.6 MG/DL (0.2-1.0); TOTAL PROTEIN 7.2 GM/DL (6.4-8.2)
[2018-03-05 23:03] LABS: ALKALINE PHOSPHATASE 63 U/L (45-117)
[2018-03-05] MEDS: SODIUM CHLORIDE 0.9% FLUSH 10 ML FLUSH IV FLUSH PRN (23:11)
[2018-03-05] MEDS ORDERED: HYDROmorphone HCL PF 0.5 MG/0.5 ML SYRINGE IV ONE (23:15)
[2018-03-05 23:47] VITALS: BP 134/78; PULSE 88; RESP 18; TEMP 96.9; O2SAT 100
[2018-03-06] MEDS: CEFEPIME INJ 1,000 MG in SODIUM CHLORIDE 0.9% INJ 100 ML IV SCH ×3 (00:18→22:26)
[2018-03-06] MEDS: SODIUM CHLOR 0.9% 1000 ML INJ 1,000 ML IV SCH ×3 (00:18→20:35)
[2018-03-06] MEDS: HYDROmorphone HCL PF 0.5 MG/0.5 ML SYRINGE IV PRN ×5 (03:40→22:29)
[2018-03-06 04:00] VITALS: BP_SYST 136; BP_SYST 142; BP_DIAS 61; BP_DIAS 77; PULSE 63; PULSE 78; RESP 18; TEMP 96.5; TEMP 98; O2SAT 100; O2SAT 93
[2018-03-06 07:50] VITALS: BP 112/66; PULSE 78; RESP 20; TEMP 96.9; O2SAT 99
[2018-03-06] MEDS: DOCUSATE SODIUM 50 MG/SENNA 8.6 MG TAB PO SCH ×2 (07:57→21:00)
[2018-03-06] MEDS: SODIUM CHLORIDE 0.9% FLUSH 10 ML FLUSH IV FLUSH SCH ×2 (07:57→21:44)
[2018-03-06 08:17] LABS: AUTOMATED NEUTROPHIL # 2.2 TH/MM3 (1.8-7.7); BASOPHIL % 0.7 % (0.0-2.0); EOSINOPHIL # 0.1 TH/MM3 (0-0.4); EOSINOPHIL % 1.9 % (0.0-4.0); HEMATOCRIT 28.2 % (35.0-46.0); HEMOGLOBIN 9.5 GM/DL (11.6-15.3); LYMPH % 37.1 % (9.0-44.0); LYMPHOCYTE # 1.5 TH/MM3 (1.0-4.8); MEAN CELL VOLUME 90.9 FL (80.0-100.0); MEAN CORPUSCULAR HEMOGLOBIN 30.7 PG (27.0-34.0); MEAN CORPUSCULAR HGB CONC 33.8 % (32.0-36.0); MEAN PLATELET VOLUME 8.1 FL (7.0-11.0); MONO % 8.1 % (0.0-8.0); MONOCYTE # 0.3 TH/MM3 (0-0.9); NEUT % 52.2 % (16.0-70.0); PLATELET COUNT 218 TH/MM3 (150-450); RED CELL DISTRIBUTION WIDTH 14.9 % (11.6-17.2); WHITE BLOOD COUNT 4.1 TH/MM3 (4.0-11.0)
[2018-03-06 08:22] LABS: CHLORIDE 107 MEQ/L (98-107); SODIUM (NA) 140 MEQ/L (136-145)
[2018-03-06 08:27] LABS: CALCIUM 8.4 MG/DL (8.5-10.1)
[2018-03-06 08:38] LABS: ALKALINE PHOSPHATASE 51 U/L (45-117); ALT (GPT) 13 U/L (10-53); AST (GOT) 10 U/L (15-37); BICARBONATE 27.3 MEQ/L (21.0-32.0); BLOOD UREA NITROGEN 7 MG/DL (7-18); CREATININE 0.41 MG/DL (0.50-1.00); GLOMERULAR FILTRATION RATE 158 ML/MIN (>89); GLUCOSE,RANDOM 90 MG/DL (74-106); TOTAL BILIRUBIN ADULT 0.5 MG/DL (0.2-1.0)
--- NOTE | 2018-03-06 09:48 | HHI.HP ---
[facility] No Primary Care Physician Admission Diagnosis Cellulitis Ybjmtf-q-Apzb, intractable pain Diagnoses: Chief Complaint: Chest wall pain at Dhsfua-l-Yvzm site as well as redness and swelling Travel History International Travel<30 Days: No Contact w/Intl Traveler <30 Da: No Traveled to Known Affected Are: No History of Present Illness This is a pleasant 62-year-old female patient with a known diagnosis of pancreatic cancer that metastases to the lung stage IV who is undergoing chemotherapy treatment with Fulfori FU5 at this time with Dr. Gamble. Patient presented to the ED with complaints of pain, swelling and redness to right chest Pksrhw-m-Ngtp site. The pain is localized and is characterized as "ripping" kind of pain. Patient states that on February 18 of this month she visited Dr. Nunn office and was referred to radiology for Kjdeoa-l-Pmlg replacement due to pain and redness to the site. After the intervention the symptoms initially began to improve but over the course of the next week the redness, swelling and pain continued to worsen. She was seen by Dr. Ovalle on February 27 and was given Keflex 500 mg twice daily prescribed for 1 week. Since beginning this antibiotic there has not been any improvement, but alternatively the symptoms have actually worsened once again. She called the office and was additionally prescribed mupirocin cream, used this for 1 day with no further improvement therefore she presented to the ED. Patient states the last time her Vydwyr-d-Vydf was accessed was 2 weeks ago. She denies any associated fever, chills, shortness of breath, headache, chest pain, abdominal pain, nausea, vomiting, diarrhea or dysuria. Review of Systems Constitutional: DENIES: Fatigue, Fever, Chills Eyes: DENIES: Diplopia Respiratory: DENIES: Cough, Sputum production, Shortness of breath Cardiovascular: DENIES: Chest pain, Palpitations Gastrointestinal: DENIES: Abdominal pain, Black stools, Bloody stools, Constipation, Diarrhea, Nausea, Vomiting Musculoskeletal: DENIES: Joint pain Integumentary: COMPLAINS OF: Abnormal pigmentation (Right chest wall Infuse-a- Port area swelling, pain) Hematologic/lymphatic: DENIES: Bruising Immunologic/allergic: DENIES: Eczema Psychiatric: COMPLAINS OF: Anxiety (, erythema) Except as stated in HPI: all other systems reviewed are Neg Past Family Social History Past Medical History Pancreatic cancer with metastatic disease to lungs stage IV. Currently on palliative chemotherapy. GERD Anemia History of pancreatitis and alcohol abuse Past Surgical History Right chest Qpgsdt-h-Byhz placement, replaced 02/18/18 Unspecified rectal surgery 2 Tonsillectomy Reported Medications Active Reported Keflex (Cephalexin) 500 Mg Capsule 500 Mg PO BID Mupirocin Topical (Mupirocin) 2 % Oint 1 Applic TOPICAL TID Hydrocodone-Acetaminophen 10-325 mg Tab 1 Tab PO Q4H PRN Oxycodone (Oxycodone HCl) 5 Mg Cap 5 Mg PO Q4H PRN Miralax Powder (Polyethylene Glycol 3350 Powder) 17 Gm Powd 17 Gm PO DAILY Mix and dissolve one measuring cap-ful (17 grams) in water or juice. Alprazolam 0.25 Mg Tab 0.25 Mg PO Q6H PRN Allergies: Coded Allergies: Sulfa (Sulfonamide Antibiotics) (Verified Allergy, Mild, 03/05/18) Active Ordered Medications Current Medications Medications (Trade) Dose Ordered Sig/Zane Route Start Time Stop Time Status Last Admin Pharmacy Profile Note 0 ml @ 0 mls/hr UNSCH OTHER 03/05/18 22:30 Cefepime HCl 1000 mg/Sodium Chloride 100 ml @ 200 mls/hr Q12H IV 03/05/18 23:00 03/06/18 00:18 Sodium Chloride 1,000 ml @ 100 mls/hr Q10H IV 03/05/18 22:25 03/06/18 07:57 (NS Flush) 2 ml UNSCH PRN IV FLUSH 03/05/18 22:30 03/05/18 23:11 (NS Flush) 2 ml BID IV FLUSH 03/06/18 09:00 (Reglan Inj) 5 mg Q6H PRN IV PUSH 03/05/18 22:30 (Tylenol) 650 mg Q6H PRN PO 03/05/18 22:30 ([place] 5-325 Mg) 1 tab Q4H PRN PO 03/05/18 22:30 (Dilaudid Pf Inj) 1 mg Q3H PRN IV 03/05/18 22:45 03/06/18 07:57 (Meghna-Colace) 1 tab BID PO 03/06/18 09:00 03/06/18 07:57 (Milk Of Magnesia Liq) 30 ml Q12H PRN PO 03/05/18 22:30 (Senokot) 17.2 mg Q12H PRN PO 03/05/18 22:30 (Dulcolax Supp) 10 mg DAILY PRN RECTAL 03/05/18 22:30 (Lactulose Liq) 30 ml DAILY PRN PO 03/05/18 22:30 (Xanax) 0.25 mg Q6H PRN PO 03/05/18 22:30 (Ativan Inj) 1 mg Q4H PRN IV PUSH 03/05/18 22:30 ([facility] [place] [facility] Ordered Lab Info) SPECIFIC LAB TO BE DRAWN:VANCOMYCIN TROUGH DATE TO... ONCE ONCE .XX 03/08/18 21:45 03/08/18 21:46 Vancomycin HCl 1000 mg/Sodium Chloride 260 ml @ 250 mls/hr Q24H IV 03/06/18 22:00 Family History Reviewed with patient and unremarkable for any heart disease, diabetes, cancer, seizures, stroke. Social History Denies any alcohol or illicit drug use. Denies any tobacco abuse. Physical Exam Vital Signs Vital Signs Date Time Temp Pulse Resp B/P (MAP) Pulse Ox O2 Delivery O2 Flow Rate FiO2 03/06/18 04:00 96.5 78 18 136/61 (86) 100 03/05/18 23:47 96.9 88 18 134/78 (96) 100 03/05/18 21:22 98.8 92 16 127/83 (98) 100 Physical Exam GENERAL: Well-developed, well-nourished patient in [facility]. SKIN: Warm and dry. Right chest wall redness and swelling, pain to palpation, firm to touch. HEAD: Normocephalic. Atraumatic. EYES: Pupils equal and round. No scleral icterus. No injection or drainage. ENT: No nasal bleeding or discharge. Mucous membranes pink and moist. NECK: Supple. Trachea midline. CARDIOVASCULAR: Regular rate and rhythm. S1, S2 noted. No murmur appreciated. RESPIRATORY: No accessory muscle use. Clear to auscultation. Breath sounds equal bilaterally. GASTROINTESTINAL: Abdomen soft, non-tender, nondistended. Normoactive bowel sounds x4. MUSCULOSKELETAL: No obvious deformities. Extremities without clubbing, cyanosis , or edema. NEUROLOGICAL: Awake and alert. No obvious cranial nerve deficits. Motor grossly within normal limits. 5/5 muscle strength in bilateral upper and lower extremities. Normal speech. PSYCHIATRIC: Appropriate mood and affect; insight and judgment normal. Laboratory Laboratory Tests Test 03/05/18 22:10 03/06/18 07:40 White Blood Count 5.9 4.1 Red Blood Count 3.71 3.10 Hemoglobin 11.1 9.5 Hematocrit 33.8 28.2 Mean Corpuscular Volume 91.1 90.9 Mean Corpuscular Hemoglobin 29.8 30.7 Mean Corpuscular Hemoglobin Concent 32.8 33.8 Red Cell Distribution Width 15.2 14.9 Platelet Count 267 218 Mean Platelet Volume 8.1 8.1 Neutrophils (%) (Auto) 63.4 52.2 Lymphocytes (%) (Auto) 27.5 37.1 Monocytes (%) (Auto) 7.2 8.1 Eosinophils (%) (Auto) 1.5 1.9 Basophils (%) (Auto) 0.4 0.7 Neutrophils # (Auto) 3.8 2.2 Lymphocytes # (Auto) 1.6 1.5 Monocytes # (Auto) 0.4 0.3 Eosinophils # (Auto) 0.1 0.1 Basophils # (Auto) 0.0 0.0 CBC Comment DIFF FINAL DIFF FINAL Differential Comment Blood Urea Nitrogen 10 7 Creatinine 0.51 0.41 Random Glucose 95 90 Total Protein 7.2 6.0 Albumin 3.6 3.0 Calcium Level 9.1 8.4 Alkaline Phosphatase 63 51 Aspartate Amino Transf (AST/SGOT) 10 10 Alanine Aminotransferase (ALT/SGPT) 17 13 Total Bilirubin 0.6 0.5 Sodium Level 138 140 Potassium Level 3.7 3.4 Chloride Level 104 107 Carbon Dioxide Level 28.1 27.3 Anion Gap 6 6 Estimat Glomerular Filtration Rate 123 158 Date/Time Source Procedure Growth Status 03/05/18 22:15 Blood Peripheral Aerobic Blood Culture Pending Received 03/05/18 22:15 Blood Peripheral Anaerobic Blood Culture Pending Received Result Diagram: 03/06/18 0740 03/06/18 0740 Septic Shock Reassessment Septic shock perfusion: reassessment completed Caprini VTE Risk Assessment Caprini VTE Risk Assessment: Mod/High Risk (score >= 2) Caprini Risk Assessment Model Point Value = 1 Point Value = 2 Point Value = 3 Point Value = 5 Age 41-60 Minor surgery BMI > 25 kg/m2 Swollen legs Varicose veins or History of unexplained or recurrent spontaneous Oral contraceptives or hormone replacement Sepsis (< 1 month) Serious lung disease, including pneumonia (< 1 month) Abnormal pulmonary function Acute myocardial infarction Congestive heart failure (< 1 month) History of inflammatory bowel disease Medical patient at bed rest Age 61-74 Arthroscopic surgery Major open surgery (> 45 min) Laparoscopic surgery (> 45 min) Malignancy Confined to bed (> 72 hours) Immobilizing plaster cast Central venous access Age >= 75 History of VTE Family history of VTE Factor V Leiden Prothrombin [id number] Lupus anticoagulant Anticardiolipin antibodies Elevated serum homocysteine Heparin-induced thrombocytopenia Other congenital or acquired thrombophilia Stroke (< 1 month) Elective arthroplasty Hip, pelvis, or leg fracture Acute spinal cord injury (< 1 month) Prophylaxis Regimen Total Risk Factor Score Risk Level Prophylaxis Regimen 0-1 Low Early ambulation 2 Moderate Order ONE of the following: *Sequential Compression Device (SCD) *Heparin 5000 units SQ BID 3-4 Higher Order ONE of the following medications: *Heparin 5000 units SQ TID *Enoxaparin/Lovenox 40 mg SQ daily (WT < 150 kg, CrCl > 30 mL/min) *Enoxaparin/Lovenox 30 mg SQ daily (WT < 150 kg, CrCl > 10-29 mL/min) *Enoxaparin/Lovenox 30 mg SQ BID (WT < 150 kg, CrCl > 30 mL/min) AND/OR *Sequential Compression Device (SCD) 5 or more Highest Order ONE of the following medications: *Heparin 5000 units SQ TID (Preferred with Epidurals) *Enoxaparin/Lovenox 40 mg SQ daily (WT < 150 kg, CrCl > 30 mL/min) *Enoxaparin/Lovenox 30 mg SQ daily (WT < 150 kg, CrCl > 10-29 mL/min) *Enoxaparin/Lovenox 30 mg SQ BID (WT < 150 kg, CrCl > 30 mL/min) AND *Sequential Compression Device (SCD) Assessment and Plan Assessment and Plan This is a pleasant 62-year-old female patient with a known diagnosis of pancreatic cancer that metastases to the lung stage IV who is undergoing chemotherapy treatment with Fulfori FU5 at this time with Dr. Gamble. Patient presented to the ED with complaints of pain, swelling and redness to right chest Rkryeu-b-Gnou site. Right chest wall cellulitis secondary to Qcuxxf-k-Wdli with possible abscess, failed outpatient antibiotic therapy Lymphadenitis suspect secondary to above Pancreatic cancer with metastasis to the lung, stage IV - Currently being treated by Dr. Gamble with chemotherapy, Fulfori FU5. - Chest wall ultrasound has been ordered and pending. Will follow. - Patient has been placed on cefepime and vancomycin for now. Will continue. - Blood cultures are pending. Follow cultures. - Monitor for any infection. White blood cells are stable at this time at 4.1. - Pain control, Dilaudid IV available per pain scale. As well as [place] p.o. per pain scale. - Ensure hydration, continue IV fluids. Encourage p.o. intake as tolerated. - Oncologist has been consulted, input and recommendations pending. Patient has chemotherapy scheduled for tomorrow a.m., this will most likely have to be postponed. Anxiety: We will continue home Xanax as needed. DVT prophylaxis: SCDs. Physician Certification 2 Midnight Certification Type: Admission for Inpatient Services Order for Inpatient Services The services are ordered in accordance with Medicare regulations or non- Medicare payer requirements, as applicable. In the case of services not specified as inpatient-only, they are appropriately provided as inpatient services in accordance with the 2-midnight benchmark. Estimated LOS (days): 3 3 days is the estimated time the patient will need to remain in the hospital, assuming treatment plan goals are met and no additional complications. Post-Hospital Plan: Home Tanesha Hickman Mar 06, 2018 09:48
[2018-03-06] MEDS: ALPRAZolam 0.25 MG TAB PO PRN (10:03)
[2018-03-06] MEDS: HEPARIN SODIUM - SQ 10,000 UNITS/ML VIAL SQ SCH ×2 (11:02→21:00)
[2018-03-06 11:50] VITALS: BP 101/59; PULSE 73; RESP 20; TEMP 98.2; O2SAT 97
[2018-03-06 15:50] VITALS: BP 105/55; PULSE 73; RESP 20; TEMP 96.7; O2SAT 100
--- NOTE | 2018-03-06 19:47 | RADRPT ---
EXAM DATE: 03/06/2018 7:34 PM EDT AGE/SEX: 62 years / Female INDICATIONS: Redness and pain at area of chemo port at right chest/neck. CLINICAL DATA: This is the patient's initial encounter. Patient reports that signs and symptoms have been present for 2 weeks and indicates a pain score of 3/10. Location: Laterality: MEDICAL/SURGICAL HISTORY: Carcinoma, pancreas. Pancreatitis. Hernia. Anemia. Chemotherapy. Blo od transfusions. Tonsillectomy. Tubal ligation. section. Rectal surgery. Knee repair. COMPARISON: No prior [place] exams available for comparison. FINDINGS: Multiple sonographic images of the region of interest around the patient's indwelling port. No subcut aneous fluid collection is noted. Subcutaneous edema is noted at the area of port placement. CONCLUSION: 1. No subcutaneous fluid collection identified. 2. Subcutaneous edema is noted at the site of the port. Electronically signed by: Ahsan Novak MD 03/06/2018 7:46 PM EDT
[2018-03-06 20:00] VITALS: BP 116/60; PULSE 80; RESP 20; TEMP 97.3; O2SAT 99
[2018-03-06] MEDS ORDERED: VANCOMYCIN INJ 1,000 MG in SODIUM CHLOR 0.9% 250 ML INJ 250 ML IV SCH (22:00)
[2018-03-07] VITALS: BP 108/65; PULSE 72; RESP 18; TEMP 97.6; O2SAT 99
--- NOTE | 2018-03-07 00:30 | MB ---
cc: Dewayne Foster MD DATE: 03/06/2018 REASON FOR CONSULTATION: The patient with a history of a pancreatic adenocarcinoma, who presents to the Emergency Department with pain, discomfort and redness at the port site. HISTORY OF PRESENT ILLNESS: This is a 62-year-old female who is currently being treated with systemic chemotherapy for her diagnosis of stage IV pancreatic adenocarcinoma. She follows with Dr. Gamble. She is being treated with FOLFIRI chemotherapy. She was originally diagnosed with pancreatic cancer in 2016. Systemic chemotherapy consisting of the FOLFIRI regimen, she follows with Dr. Gamble. She was recently treated with Gemzar and Abraxane in June 2017. She developed myelosuppression and subsequently she had dose reduction to this chemotherapy. She had a good treatment response. She states that she is doing reasonably well with her current treatment regimen. Her most recent CA 19-9 level is in the 100 range. She now presents to the emergency department with redness and discomfort at her port site. She states that she developed the redness and irritation on 02/18. She was referred to interventional radiology for Infusaport replacement. After the intervention, the symptoms improved initially, but then she developed redness, swelling and pain. She was started on Keflex 500 mg twice daily. She was also given mupirocin cream. Her symptoms continued to persist and she was worried and presented to the emergency department. She has not had any fevers or chills, no night sweats. She denies any shortness of breath. No abdominal pain. No lower extremity edema or pain. REVIEW OF SYSTEMS: A comprehensive review of system was completed, which is negative except as described in the HPI. PAST MEDICAL HISTORY: Pancreatic adenocarcinoma with metastatic disease to the lung, GERD, anemia, history of pancreatitis and alcohol abuse. PAST SURGICAL HISTORY: Right chest Infusaport placement, history of rectal surgery, x 2, tonsillectomy. MEDICATIONS: Vancomycin IV q. 24 hours, heparin 5000 units subcutaneous q. 12 hours, Meghna-Colace, cefepime, Dilaudid, Reglan, Tylenol p.r.n, Milk of Magnesia p.r.n., senna p.r.n., bisacodyl p.r.n., lactulose p.r.n., Xanax p.r.n., lorazepam p.r.n. ALLERGIES: SHE IS ALLERGIC TO SULFA DRUGS. FAMILY HISTORY: Reviewed and is noncontributory to this admission. SOCIAL HISTORY: Reviewed. She does not smoke any cigarettes. She does not drink any alcohol. No illicit drug use. PHYSICAL EXAMINATION: VITAL SIGNS: Blood pressure is 105/55, pulse is in the 70s, temperature 97.8, O2 saturation is 100% on room air. GENERAL: Well-developed, well-nourished female, in no apparent distress. She has alopecia. HEENT: Pupils are equal, round and reactive to light. EOMI. No oral thrush. No lesions. NECK: Supple. No JVD. No bruits. No lymphadenopathy. CHEST: Clear to auscultation bilaterally. CARDIAC: S1, S2. Regular rate and rhythm. ABDOMEN: Soft, nontender, nondistended. Bowel sounds are present. EXTREMITIES: Without any edema, erythema or cyanosis. SKIN: Right upper chest wall redness around the port site, with mild erythema. The area is somewhat tender. No discharge, no underlying abscess appreciated. LABORATORY DATA: WBC 4.1, hemoglobin 9.5, platelet count 218. Serum chemistries show sodium 140, potassium 3.4, chloride 107, CO2 27.3, anion gap 6, BUN 7, creatinine 0.41, GFR is 158, AST 10, ALT 13, alkaline phosphatase 51. Total protein 6, albumin 3. CA 19-9 levels are at 582.4. ASSESSMENT AND PLAN: This is a 62-year-old female with a diagnosis of stage IV pancreatic adenocarcinoma, who presents to the emergency room with swelling at the chest port site and pain. 1. Cellulitis around the port site. I agree with antibiotics consisting of IV vancomycin. She is also on cefepime. Blood cultures are pending. Clinically, she is already doing very well. We will followup on her blood cultures. If they remain negative, Cefepime can be discontinued. She can be discharged home on doxycycline 100 mg p.o. bid x 7 days. She will followup with Dr. Gamble. 2. Mild anemia, likely secondary to chemotherapy. 3. Mild hypokalemia. Replace oral potassium. 4. Stage IV pancreatic adenocarcinoma, currently getting systemic chemotherapy consisting of the FOLFIRI regimen. Most recent CA 19-9 levels are at 582.4. She will follow up in the oncology clinic. Thank you for allowing me to participate in the care of this patient. The patient can be discharged from an oncology perspective if she remains afebrile and her blood cultures are negative. Again, she can be discharged on oral antibiotics as stated above. MD AKIN Crouch/FERNANDO , 11:13 PM , 12:29 AM
[2018-03-07] MEDS: HYDROmorphone HCL PF 0.5 MG/0.5 ML SYRINGE IV PRN ×4 (04:53→21:34)
[2018-03-07 04:57] LABS: AUTOMATED NEUTROPHIL # 2.6 TH/MM3 (1.8-7.7); BASOPHIL % 0.4 % (0.0-2.0); EOSINOPHIL # 0.1 TH/MM3 (0-0.4); EOSINOPHIL % 2.4 % (0.0-4.0); HEMATOCRIT 28.1 % (35.0-46.0); HEMOGLOBIN 9.4 GM/DL (11.6-15.3); LYMPH % 33.2 % (9.0-44.0); LYMPHOCYTE # 1.5 TH/MM3 (1.0-4.8); MEAN CELL VOLUME 90.9 FL (80.0-100.0); MEAN CORPUSCULAR HEMOGLOBIN 30.3 PG (27.0-34.0); MEAN CORPUSCULAR HGB CONC 33.3 % (32.0-36.0); MEAN PLATELET VOLUME 7.8 FL (7.0-11.0); MONO % 9.3 % (0.0-8.0); MONOCYTE # 0.4 TH/MM3 (0-0.9); NEUT % 54.7 % (16.0-70.0); PLATELET COUNT 201 TH/MM3 (150-450); RED BLOOD COUNT 3.09 MIL/MM3 (4.00-5.30); RED CELL DISTRIBUTION WIDTH 14.8 % (11.6-17.2); WHITE BLOOD COUNT 4.6 TH/MM3 (4.0-11.0)
[2018-03-07 05:14] LABS: BICARBONATE 26.7 MEQ/L (21.0-32.0); CALCIUM 8.5 MG/DL (8.5-10.1)
[2018-03-07 05:18] LABS: CREATININE 0.43 MG/DL (0.50-1.00)
[2018-03-07] MEDS: ALPRAZolam 0.25 MG TAB PO PRN (06:25)
[2018-03-07] MEDS: SODIUM CHLOR 0.9% 1000 ML INJ 1,000 ML IV SCH ×2 (06:26→15:08)
[2018-03-07 08:00] VITALS: BP 111/64; PULSE 73; RESP 20; TEMP 96.9; O2SAT 100
--- NOTE | 2018-03-07 08:38 | HHI.PR ---
Subjective Remarks Follow up right chest wall cellulitis secondary to saymmd-x-znee. Patient seen and examined, sitting up in bed comfortably no apparent distress. Patient states she feels much improved. There is improvement to her Sgbrkz-l-Yxpv site , erythema has improved as well as pain. Patient denies any pain today with palpation. No fevers overnight. Vital signs are stable. Tolerating p.o. intake with no abdominal pain, nausea or vomiting. Patient is tearful regarding delay in chemotherapy. Spoke to Dr. Gamble this morning as well as a visit from Dr. Ovalle, all updated about patient presentation to the hospital. Awaiting interventional radiology input. Objective Vitals Vital Signs Date Time Temp Pulse Resp B/P (MAP) Pulse Ox O2 Delivery O2 Flow Rate FiO2 03/07/18 08:00 96.9 73 20 111/64 (80) 100 03/07/18 00:00 97.6 72 18 108/65 (79) 99 03/06/18 20:00 97.3 80 20 116/60 (78) 99 03/06/18 15:50 96.7 73 20 105/55 (72) 100 03/06/18 11:50 98.2 73 20 101/59 (73) 97 I/O 03/06/18 03/06/18 03/06/18 03/07/18 03/07/18 03/07/18 07:00 15:00 23:00 07:00 15:00 23:00 Intake Total 250 ml 240 ml 1600 ml 120 ml Output Total 4 ml Balance 250 ml 240 ml 1596 ml 120 ml Intake Oral 240 ml 600 ml 120 ml IV Total 250 ml 1000 ml Output Urine Total 4 ml # Voids 0 2 # Bowel Movements 2 0 Result Diagram: 03/07/18 0435 03/07/18 0435 Imaging Last Impressions Neck Ultrasound 03/06/18 0000 Signed Impressions: CONCLUSION: 1. No subcutaneous fluid collection identified. 2. Subcutaneous edema is noted at the site of the port. Objective Remarks GENERAL: Well-developed, well-nourished patient in NAD. SKIN: Warm and dry. Right chest wall with erythema, mild swelling, firm. No drainage. This has improved since yesterday. HEAD: Normocephalic. Atraumatic. EYES: Pupils equal and round. No scleral icterus. No injection or drainage. ENT: No nasal bleeding or discharge. Mucous membranes pink and moist. NECK: Supple. Trachea midline. CARDIOVASCULAR: Regular rate and rhythm. S1, S2 noted. No murmur appreciated. RESPIRATORY: No accessory muscle use. Clear to auscultation. Breath sounds equal bilaterally. GASTROINTESTINAL: Abdomen soft, non-tender, nondistended. Normoactive bowel sounds x4. MUSCULOSKELETAL: No obvious deformities. Extremities without clubbing, cyanosis , or edema. NEUROLOGICAL: Awake and alert. No obvious cranial nerve deficits. Motor grossly within normal limits. 5/5 muscle strength in bilateral upper and lower extremities. Normal speech. PSYCHIATRIC: Appropriate mood and affect; insight and judgment normal. A/P Assessment and Plan This is a pleasant 62-year-old female patient with a known diagnosis of pancreatic cancer that metastases to the lung stage IV who is undergoing chemotherapy treatment with Fulfori FU5 at this time with Dr. Gamble. Patient presented to the ED with complaints of pain, swelling and redness to right chest Gzwkdx-s-Ybwy site. Cellulitis of skin overlying Mnlppp-c-Hvbb, failed outpatient antibiotic therapy Lymphadenitis suspect secondary to above Metastatic adenocarcinoma of the pancreas with disease progression, stage IV - Currently being treated by Dr. Gamble with chemotherapy, gemcitabine and Abraxane. Will remain on hold until infection resolved. - Chest wall ultrasound reviewed showing no subcu fluid collection. Edema at the site, no abscess mentioned. Awaiting interventional radiology input. - Patient has been placed on cefepime and vancomycin. Will continue. - Blood cultures no growth to date. Follow cultures. - Monitor for any infection or neutropenia. White blood cells are stable at this time at 4.6. - Pain control, Dilaudid IV available per pain scale. As well as Britton p.o. per pain scale. Pain well controlled. - Ensure hydration, continue IV fluids. Encourage p.o. intake as tolerated. - Oncologist has been consulted, appreciate input recommendations. Anxiety: We will continue home Xanax as needed. DVT prophylaxis: SCDs. Discharge Planning Pending clinical improvement as well as interventional radiology input regarding Ntkdyd-z-Bubt. Tanesha Hickman Mar 07, 2018 08:38
--- NOTE | 2018-03-07 08:40 | PD.ONC.PN ---
Subjective Subjective Remarks Ms. Wyatt was seen and examined this morning, she reports the redness and swelling and pain around her infusion port has decreased significantly when compared to yesterday. Today is her second day of cefepime and vancomycin. The patient denies having fevers or chills, she denies nausea or vomiting. She is however concerned about missing chemotherapy infusion which was scheduled for today in [place]. Objective Data Date Time Temp Pulse Resp B/P (MAP) Pulse Ox O2 Delivery O2 Flow Rate FiO2 03/07/18 08:00 96.9 73 20 111/64 (80) 100 03/07/18 00:00 97.6 72 18 108/65 (79) 99 03/06/18 20:00 97.3 80 20 116/60 (78) 99 03/06/18 15:50 96.7 73 20 105/55 (72) 100 03/06/18 11:50 98.2 73 20 101/59 (73) 97 03/07/18 03/07/18 03/07/18 07:00 15:00 23:00 Intake Total 120 ml Balance 120 ml Result Diagram: 03/07/18 0435 03/07/18 0435 Laboratory Results Laboratory Tests Test 03/07/18 04:35 White Blood Count 4.6 TH/MM3 Red Blood Count 3.09 MIL/MM3 Hemoglobin 9.4 GM/DL Hematocrit 28.1 % Mean Corpuscular Volume 90.9 FL Mean Corpuscular Hemoglobin 30.3 PG Mean Corpuscular Hemoglobin Concent 33.3 % Red Cell Distribution Width 14.8 % Platelet Count 201 TH/MM3 Mean Platelet Volume 7.8 FL Neutrophils (%) (Auto) 54.7 % Lymphocytes (%) (Auto) 33.2 % Monocytes (%) (Auto) 9.3 % Eosinophils (%) (Auto) 2.4 % Basophils (%) (Auto) 0.4 % Neutrophils # (Auto) 2.6 TH/MM3 Lymphocytes # (Auto) 1.5 TH/MM3 Monocytes # (Auto) 0.4 TH/MM3 Eosinophils # (Auto) 0.1 TH/MM3 Basophils # (Auto) 0.0 TH/MM3 CBC Comment DIFF FINAL Differential Comment Blood Urea Nitrogen 5 MG/DL Creatinine 0.43 MG/DL Random Glucose 105 MG/DL Calcium Level 8.5 MG/DL Sodium Level 143 MEQ/L Potassium Level 3.7 MEQ/L Chloride Level 110 MEQ/L Carbon Dioxide Level 26.7 MEQ/L Anion Gap 6 MEQ/L Estimat Glomerular Filtration Rate 150 ML/MIN Culture Results Microbiology Date/Time Source Procedure Growth Status 03/05/18 22:15 Blood Peripheral Aerobic Blood Culture - Preliminary NO GROWTH IN 1 DAY Resulted 03/05/18 22:15 Blood Peripheral Anaerobic Blood Culture - Preliminary NO GROWTH IN 1 DAY Resulted 03/05/18 22:10 Blood Peripheral Aerobic Blood Culture - Preliminary NO GROWTH IN 1 DAY Resulted 03/05/18 22:10 Blood Peripheral Anaerobic Blood Culture - Preliminary NO GROWTH IN 1 DAY Resulted Administered Medications Medications (Trade) Dose Ordered Sig/Zane Route PRN Reason Start Time Stop Time Status Last Admin Dose Admin Cefepime HCl 1000 mg/Sodium Chloride 100 ml @ 200 mls/hr Q12H IV 03/05/18 23:00 03/06/18 22:26 Sodium Chloride 1,000 ml @ 100 mls/hr Q10H IV 03/05/18 22:25 03/07/18 06:26 Sodium Chloride (NS Flush) 2 ml UNSCH PRN IV FLUSH FLUSH AFTER USING IV ACCESS 03/05/18 22:30 03/05/18 23:11 Metoclopramide HCl (Reglan Inj) 5 mg Q6H PRN IV PUSH NAUSEA OR VOMITING 03/05/18 22:30 03/06/18 12:47 Hydromorphone HCl (Dilaudid Pf Inj) 1 mg Q3H PRN IV PAIN SCALE 6 TO 10 03/05/18 22:45 03/07/18 04:53 Senna/Docusate Sodium (Meghna-Colace) 1 tab BID PO 03/06/18 09:00 03/06/18 07:57 Alprazolam (Xanax) 0.25 mg Q6H PRN PO ANXIETY 03/05/18 22:30 03/07/18 06:25 Heparin Sodium (Porcine) (Heparin Inj) 5,000 units Q12HR SQ 03/06/18 10:00 03/06/18 11:02 Objective Remarks GENERAL: Middle-aged lady sitting up in bed, she has alopecia of chemotherapy, she appears to be comfortable. SKIN: Warm and dry. Erythema swelling and tenderness involving the infusion port in the right infraclavicular area with tracking superiorly to the sternoclavicular junction. HEAD: Normocephalic. EYES: No scleral icterus. No injection or drainage. Mildly pale conjunctivae. NECK: Supple, trachea midline. No JVD or lymphadenopathy. LYMPHATIC: No adenopathy. CARDIOVASCULAR: Regular rate and rhythm without murmurs. RESPIRATORY: Breath sounds equal bilaterally. No accessory muscle use. GASTROINTESTINAL: Abdomen soft, non-tender, nondistended. EXTREMITIES: No cyanosis, or edema. MUSCULOSKELETAL: Adequate muscle tone. NEUROLOGICAL: No obvious focal deficit. Awake, alert, and oriented x3. PSYCHIATRIC: Appropriate mood and affect; insight and judgment normal. Assessment/Plan Assessment 62-year-old female with a diagnosis of metastatic adenocarcinoma of the pancreas diagnosed in April 2017. She has progressed on first-line systemic therapy with Abraxane and gemcitabine and was recently initiated on FOLFIRI. She developed pain redness and tenderness involving her infusion port site about a week and a half ago and was called in oral Keflex by myself. Her redness and pain worsened and yesterday she presented to [facility] for further workup and evaluation. She has been initiated on vancomycin and cefepime empiric antibiotic therapy and underwent blood cultures which to date indicate no growth. An ultrasound of the soft tissues overlying the infusion port site indicates no evidence of an abscess or fluid collection in the soft tissues. Plan 1. Cellulitis of skin overlying infusion port: Continue empiric antibiotic therapy with vancomycin and cefepime. Clinically she is improving. I would continue antibiotic therapy until the erythema has significantly decreased and at that point would transition her to oral antibiotic therapy. 2. Metastatic adenocarcinoma of the pancreas with disease progression on first- line systemic therapy with gemcitabine and Abraxane: Systemic chemotherapy will remain on hold until her acute infectious issues have resolved. I did explain this to the patient, she understands. Continue ongoing care. Steven Ovalle MD Mar 07, 2018 08:40
[2018-03-07] MEDS: SODIUM CHLORIDE 0.9% FLUSH 10 ML FLUSH IV FLUSH SCH ×2 (09:00→19:35)
[2018-03-07] MEDS: HEPARIN SODIUM - SQ 10,000 UNITS/ML VIAL SQ SCH ×2 (09:00→19:42)
[2018-03-07] MEDS: DOCUSATE SODIUM 50 MG/SENNA 8.6 MG TAB PO SCH ×2 (09:00→19:47)
[2018-03-07] MEDS: CEFEPIME INJ 1,000 MG in SODIUM CHLORIDE 0.9% INJ 100 ML IV SCH (11:09)
[2018-03-07 12:00] VITALS: BP 127/75; PULSE 81; RESP 20; TEMP 97.6; O2SAT 97
[2018-03-07] MEDS: LORazepam 2 MG/ML VIAL IV PUSH PRN ×2 (13:46→19:43)
[2018-03-07 16:00] VITALS: BP 114/73; PULSE 80; RESP 19; TEMP 98.4; O2SAT 97
[2018-03-07 17:00] LABS: PROTHROMBIN TIME - PATIENT 9.8 SEC (9.8-11.6)
[2018-03-07 20:00] VITALS: BP 111/67; PULSE 81; RESP 20; TEMP 98.2; O2SAT 96
[2018-03-07] MEDS: VANCOMYCIN 1,000 MG/NS 250 ML IV SCH ×2 (21:33)
[2018-03-08] VITALS (8 sets, daily range): BP systolic 111–130; BP diastolic 62–86; PULSE 71–97; RESP 14–20; TEMP 96.9–97.9; O2SAT 97–100
[2018-03-08] MEDS: CEFEPIME INJ 1,000 MG in SODIUM CHLORIDE 0.9% INJ 100 ML IV SCH ×3 (00:58→23:18)
[2018-03-08] MEDS: SODIUM CHLOR 0.9% 1000 ML INJ 1,000 ML IV SCH ×3 (00:59→21:28)
[2018-03-08] MEDS: LORazepam 2 MG/ML VIAL IV PUSH PRN ×3 (02:02→13:08)
[2018-03-08] MEDS: HYDROmorphone HCL PF 0.5 MG/0.5 ML SYRINGE IV PRN ×3 (07:33→21:37)
[2018-03-08] MEDS: SODIUM CHLORIDE 0.9% FLUSH 10 ML FLUSH IV FLUSH SCH ×2 (07:37→21:27)
[2018-03-08] MEDS: DOCUSATE SODIUM 50 MG/SENNA 8.6 MG TAB PO SCH ×2 (07:41→21:28)
[2018-03-08] MEDS: HEPARIN SODIUM - SQ 10,000 UNITS/ML VIAL SQ SCH ×2 (07:41→21:28)
[2018-03-08] MEDS: SODIUM CHLORIDE 0.9% FLUSH 10 ML FLUSH IV FLUSH PRN ×3 (08:36→23:19)
[2018-03-08] MEDS ORDERED: MIDAZOLAM HCL 2 MG/2 ML VIAL IV ONE (16:00)
--- NOTE | 2018-03-08 16:06 | HHI.PR ---
Subjective Remarks Patient seen and examined today for follow-up on chest wall cellulitis around the Wqflhb-p-Apoa. Patient is doing well. Denies any fever, denies any new complaints. Vital signs are stable. Objective Vitals Vital Signs Date Time Temp Pulse Resp B/P (MAP) Pulse Ox O2 Delivery O2 Flow Rate FiO2 03/08/18 12:50 18 03/08/18 12:00 96.9 78 20 100 03/08/18 08:03 18 03/08/18 08:00 97.4 83 20 111/69 (83) 97 03/08/18 00:00 96.9 75 20 114/62 (79) 98 03/07/18 20:00 98.2 81 20 111/67 (82) 96 03/07/18 16:00 98.4 80 19 114/73 (87) 97 I/O 03/07/18 03/07/18 03/07/18 03/08/18 03/08/18 03/08/18 07:00 15:00 23:00 07:00 15:00 23:00 Intake Total 120 ml 1500 ml 0 ml Output Total 120 ml Balance 0 ml 1500 ml 0 ml Intake Oral 120 ml 1500 ml 0 ml Output Urine Total 120 ml # Voids 5 # Bowel Movements 1 Result Diagram: 03/07/18 0435 03/07/18 0435 Imaging Last Impressions Neck Ultrasound 03/06/18 0000 Signed Impressions: CONCLUSION: 1. No subcutaneous fluid collection identified. 2. Subcutaneous edema is noted at the site of the port. Objective Remarks GENERAL: Well-developed, well-nourished, in no acute distress. alert and orientated HEENT: Head is normocephalic without any lesions or masses noted. Facial features are symmetric. Eyes: Extraocular muscles are intact. Conjunctivae were clear. NECK: Supple without any masses. Trachea midline no deviation. No JVD, right- sided Qzstdu-v-Alic at the level of clavicle does have significant granulation, dark red discoloration noted around the Qeryos-u-Bmoa. No fluctuation or purulent exudates. CARDIAC: Regular rhythm, regular rate. S1/S2 are heard. No murmurs gallops or rubs. LUNGS: Clear to auscultation bilaterally. No wheeze, rhonchi or rales. No use of accessory muscles on inspiration or expiration. ABDOMEN: Soft, nontender. Nondistended. Bowel sounds heard in all 4 quadrants. No organomegaly or masses. Negative rebound, negative guarding EXTREMITIES: No edema, pulses are equal bilaterally. No cyanosis or clubbing NEUROLOGY: Mood and affect appear appropriate. Cranial nerves II through XII grossly intact. Moving all extremities, speech is clear Urinary Catheter: No Vascular Central Line Catheter: Yes Assessment to: Continue Side: Right A/P Assessment and Plan Cellulitis noted around Bjgonp-b-Gmln -No signs of sepsis at this time, patient remains afebrile, no leukocytosis, blood cultures have remained negative -Patient has been continued on vancomycin and cefepime -Interventional radiology evaluated the patient and recommending removal. Plans for removal of Zqwddl-t-Lptd today. Discussed with radiology who has discussed it with oncology and they are in agreement with removal at this time. -It was indicated that patient will get outpatient PICC line for future chemotherapy and new Fhqfhu-g-Slam may be placed once infection has cleared -Anticipate changing to p.o. medication tomorrow after removal of Eqgcja-i-Kprx Metastatic adenocarcinoma the pancreas with disease progression stage IV -Oncology following the patient -Patient to continue chemotherapy once discharged -IV access will be obtained by oncology in outpatient setting Anxiety -Continue Xanax DVT prevention -Subcutaneous heparin, sequential compression devices Discharge Planning Anticipate discharge tomorrow on p.o. antibiotics after Mediport has been removed today Anibal Harmon Mar 08, 2018 16:06
--- NOTE | 2018-03-08 16:54 | PD.RAD ---
Post Procedure Progress Note Pre Procedure Diagnosis: (1) Infected venous access port Post Procedure Diagnosis: (1) Infected venous access port Procedure Date: Mar 08, 2018 Supervising Radiologist: Hai Pinzon JR Proceduralist/Assist: RT Lena(R)() Anesthesia: Conscious Sedation Plan of Activity Patient to Unit: PACU Patient Condition: Good See PACS Report for procedural detail/treatment Central Venous Access Device Procedure 1 Right Internal Jugular Infusaport Removal Findings: Erythema and induration around port and catheter tract. No drainage. Removed port and sent tip for cx. Approximated skin with vertical mattress sutures. Plan Continue oral abx. F/U with IR at [facility] main on sunday 03/11 Jr. Jeromy,Hai Banks MD Mar 08, 2018 16:54
[2018-03-08] MEDS: ALPRAZolam 0.25 MG TAB PO PRN (21:37)
[2018-03-08] MEDS ORDERED: PHARMACY ORDERED LAB ONE (21:45)
[2018-03-08] MEDS: VANCOMYCIN 1,000 MG/NS 250 ML IV SCH ×2 (21:50)
[2018-03-09] VITALS: BP 120/80; PULSE 111; RESP 20; TEMP 99.2; O2SAT 96
[2018-03-09] MEDS: HYDROmorphone HCL PF 0.5 MG/0.5 ML SYRINGE IV PRN ×2 (00:52→09:35)
[2018-03-09] MEDS: SODIUM CHLORIDE 0.9% FLUSH 10 ML FLUSH IV FLUSH PRN (00:52)
[2018-03-09] MEDS: LORazepam 2 MG/ML VIAL IV PUSH PRN ×2 (00:53→09:35)
[2018-03-09] MEDS: SODIUM CHLOR 0.9% 1000 ML INJ 1,000 ML IV SCH (06:25)
[2018-03-09 07:47] VITALS: BP 112/69; PULSE 101; RESP 20; TEMP 99; O2SAT 95
--- NOTE | 2018-03-09 09:22 | HHI.DCPOC ---
Discharge Care Plan Diagnosis: (1) Infected venous access port (2) Lymphadenitis Goals to Promote Your Health * To prevent worsening of your condition and complications * To maintain your health at the optimal level Directions to Meet Your Goals Take your medications as prescribed Follow your dietary instruction Follow activity as directed Keep your appointments as scheduled Take your immunizations and boosters as scheduled If your symptoms worsen call your PCP, if no PCP go to Urgent Care Center or Emergency Room Smoking is Dangerous to Your Health. Avoid second hand smoke Call the 24-hour hour crisis hotline for domestic abuse at Anibal Harmon Mar 09, 2018 09:22
[2018-03-09] MEDS: SODIUM CHLORIDE 0.9% FLUSH 10 ML FLUSH IV FLUSH SCH (09:29)
[2018-03-09] MEDS: HEPARIN SODIUM - SQ 10,000 UNITS/ML VIAL SQ SCH (09:30)
[2018-03-09] MEDS: DOCUSATE SODIUM 50 MG/SENNA 8.6 MG TAB PO SCH (09:30)
[2018-03-09] MEDS ORDERED: AUGM875T3 PO (09:33)
[2018-03-09] MEDS ORDERED: DOXY100C PO (09:33)
[2018-03-09] MEDS: CEFEPIME INJ 1,000 MG in SODIUM CHLORIDE 0.9% INJ 100 ML IV SCH (09:35)
--- NOTE | 2018-03-09 09:40 | HHI.DS ---
Discharge Summary Admission Date Mar 05, 2018 at 22:34 Discharge Date: Mar 09, 2018 Admitting Diagnosis Cellulitis Ccrthz-l-Syen, intractable pain (1) Infected venous access port ICD Code: T80.219A - Unspecified infection due to central venous catheter, initial encounter Diagnosis: Principal (2) Lymphadenitis ICD Code: I88.9 - Nonspecific lymphadenitis, unspecified Diagnosis: Principal Status: Acute Procedures 03/08/18: Removal of Pmudbo-m-Hyoa by interventional radiology Brief History - From Admission This is a pleasant 62-year-old female patient with a known diagnosis of pancreatic cancer that metastases to the lung stage IV who is undergoing chemotherapy treatment with Fulfori FU5 at this time with Dr. Gamble. Patient presented to the ED with complaints of pain, swelling and redness to right chest Acxsvs-o-Dlqc site. The pain is localized and is characterized as "ripping" kind of pain. Patient states that on February 18 of this month she visited Dr. Nunn office and was referred to radiology for Jfpypw-j-Wzpi replacement due to pain and redness to the site. After the intervention the symptoms initially began to improve but over the course of the next week the redness, swelling and pain continued to worsen. She was seen by Dr. Ovalle on February 27 and was given Keflex 500 mg twice daily prescribed for 1 week. Since beginning this antibiotic there has not been any improvement, but alternatively the symptoms have actually worsened once again. She called the office and was additionally prescribed mupirocin cream, used this for 1 day with no further improvement therefore she presented to the ED. Patient states the last time her Neaywg-o-Sgbn was accessed was 2 weeks ago. She denies any associated fever, chills, shortness of breath, headache, chest pain, abdominal pain, nausea, vomiting, diarrhea or dysuria. CBC/BMP: 03/07/18 0435 03/07/18 0435 Significant Findings Laboratory Tests Test 03/07/18 04:35 03/08/18 21:40 Red Blood Count 3.09 MIL/MM3 (4.00-5.30) Hemoglobin 9.4 GM/DL (11.6-15.3) Hematocrit 28.1 % (35.0-46.0) Monocytes (%) (Auto) 9.3 % (0.0-8.0) Blood Urea Nitrogen 5 MG/DL (7-18) Creatinine 0.43 MG/DL (0.50-1.00) Chloride Level 110 MEQ/L (98-107) Imaging Last Impressions Neck Ultrasound 03/06/18 0000 Signed Impressions: CONCLUSION: 1. No subcutaneous fluid collection identified. 2. Subcutaneous edema is noted at the site of the port. PE at Discharge GENERAL: Well-developed, well-nourished, in no acute distress. alert and orientated HEENT: Head is normocephalic without any lesions or masses noted. Facial features are symmetric. Eyes: Extraocular muscles are intact. Conjunctivae were clear. NECK: Supple without any masses. Trachea midline no deviation. No JVD, right- sided Cdzbov-l-Rkvb at the level of clavicle does have significant granulation, dark red discoloration noted around the Rbskpl-f-Yhqx. No fluctuation or purulent exudates. CARDIAC: Regular rhythm, regular rate. S1/S2 are heard. No murmurs gallops or rubs. LUNGS: Clear to auscultation bilaterally. No wheeze, rhonchi or rales. No use of accessory muscles on inspiration or expiration. ABDOMEN: Soft, nontender. Nondistended. Bowel sounds heard in all 4 quadrants. No organomegaly or masses. Negative rebound, negative guarding EXTREMITIES: No edema, pulses are equal bilaterally. No cyanosis or clubbing NEUROLOGY: Mood and affect appear appropriate. Cranial nerves II through XII grossly intact. Moving all extremities, speech is clear Hospital Course This is an unfortunate 8-year-old female with known history of pancreatic cancer with metastasis to the lung stage IV he was undergoing chemotherapy with Dr Capellan. Patient presented to emergency department initially because of pain, swelling or redness in the right side of her chest at the site of the Bwzhbt-s-Cjgg. Patient was evaluated outpatient on February [address] Capellan's office due to pain and redness of the site. Patient was reevaluated on February 27 and was given Keflex 500 mg twice daily for 1 week. She took the antibiotics without any significant improvement and subsequently she called the office again and was given mupirocin cream and she used that for approximately 1 day with no significant improvement so she presented to the emergency department. Cellulitic changes noted around the Mteqap-i-Vcqf. Ultrasound was performed which did not indicate any abscess formation. Patient was started on empiric antibiotics to include vancomycin and cefepime. Interventional radiology evaluated the patient and thought it was in the patient's best interest to have the Pfzbfp-n-Mzoq removed. That was performed on 03/08/18. It was discussed with the radiologist that they have been in contact with the oncologist who are in agreement with removal of the Hohqoy-e-Whye. Anticipate placing a PICC line within the next week in order to continue with chemotherapy. Blood cultures have remained negative for 3 days since presenting to the hospital no sign of any sepsis. Patient has not had any leukocytosis or febrile illness. Likely localized soft tissue cellulitis which is improving with antibiotics and removal of Rcacgi-c-Fzuh. Patient is clinically stable at this time. She is very depressed about having the Rjgyxm-d-Kiau removed. She has been undergoing chemotherapy and has not had any significant issues since starting. She is very eager to go home. Clinically she is stable. Patient will need to follow- up with interventional radiology for surgical site evaluation in 2 days. Patient will continue follow-up with her oncologist. We will plan discharge accordingly. Pt Condition on Discharge: Stable Discharge Disposition: Discharge Home Discharge Time: > 30 minutes Discharge Instructions DIET: Follow Instructions for: As Tolerated, No Restrictions Activities you can perform: Regular-No Restrictions Follow up Referrals: Appointment for Follow Up - 03/11/18 with [facility] intervention[facility]ology Oncology/Hematology - 1 Week with Feng Gamble MD PCP Follow-up - 1 Week New Medications: Amoxicillin-Clavulanate (Augmentin) 875-125 Mg Tab 1 TAB PO BID for Infection for 10 Days, #20 TAB 0 Refills Doxycycline Hyclate (Doxycycline Hyclate) 100 Mg Cap 100 MG PO BID for Infection, #20 CAP 0 Refills Continued Medications: Alprazolam (Alprazolam) 0.25 Mg Tab 0.25 MG PO Q6H PRN for ANXIETY, TAB 0 Refills Hydrocodone-Acetaminophen (Hydrocodone-Acetaminophen) 10-325 mg Tab 1 TAB PO Q4H PRN for PAIN, TAB 0 Refills Mupirocin Topical (Mupirocin Topical) 2 % Oint 1 APPLIC TOPICAL TID for Mgmt Bacterial Infection, #22 GM 0 Refills Oxycodone (Oxycodone) 5 Mg Cap 5 MG PO Q4H PRN for PAIN, CAP 0 Refills Polyethylene Glycol 3350 Powder (Miralax Powder) 17 Gm Powd 17 GM PO DAILY for Constipation, #1 CAN 0 Refills Mix and dissolve one measuring cap-ful (17 grams) in water or juice. Discontinued Medications: Cephalexin (Keflex) 500 Mg Capsule 500 MG PO BID for Infection, CAP 0 Refills Anibal Harmon Mar 09, 2018 09:40
--- NOTE | 2018-03-09 10:14 | RADRPT ---
INDICATIONS: Patient with a history of pancreatic adenocarcinoma with metastatic disease to the lung . CLINICAL DATA: This is the patient's subsequent encounter. Patient reports that signs and symptoms h ave been present for 7 - 11 months and indicates a pain score of 8/10. Location: Upper Chest, Laterality: Right MEDICAL/SURGICAL HISTORY: . Metastatic pancreatic cancer GERD anemia Pancreatitis Alcohol abuse . InfusaportRectal surgery Tonsillectomy COMPARISON: No prior [facility] exams available for comparison. FLUORO TIME (min): IMAGE SERIES: 0 ACCESS SITE: SEDATION TIME (min): 30 CONTRAST (cc): MEDICATION(S): 3mg midazolam (Versed) IV 200mcg fentanyl (Sublimaze) IV DEVICE(S): Right power port . . PROCEDURE: 1. Removal of Vexjyv-t-vluz. 2. Conscious sedation with continuous EKG and oximetry monitoring. Clinically the patient has a significant area of erythema and induration tracking along the course of the tunneled catheter down to the level of the hub of the port. Currently there is no drainage from either incision site. The risk, benefits and potential complications of Xgcysg-r-Iqvq removal were di scussed. Written consent was obtained. The patient was placed supine. The chest wall was prepped in sterile fashion. Full sterile techniqu e was used, including cap, mask, sterile gloves and gown, and a large sterile sheet. Hand hygiene an d 2% chlorhexidine and/or Betadine/alcohol prep was utilized per protocol for cutaneous antisepsis. The skin and subcutaneous tissues were infiltrated with local anesthetic solution. A small incision w as made, the subcutaneous pocket was opened. The port was dissected from the subcutaneous tissues and easily removed in one piece. The pocket incision was approximated utilizing vertical interrupted ma ttress sutures with Prolene suture. This will allow drainage of the pocket. Conscious sedation was performed with the prescribed dosages and duration as above in the presence of an independent trained radiology nurse to assist in the monitoring of the patient. EKG and oximetry remained stable throughout the procedure. The patient tolerated the procedure well and there were no complications. The patient was sent to post anesthesia recovery in stable condition. CONCLUSION: 1. Uncomplicated port removal as above. The patient will return to the interventional department in 3 days to assess healing. Electronically signed by: Hai Pinzon MD 03/09/2018 10:12 AM EDT
[2018-03-09 11:23] VITALS: BP 121/71; PULSE 91; RESP 20; TEMP 97.8; O2SAT 95
== END 2018-03-09 12:22 | disposition home or self-care (01) | DRG 253 ==
LOC: PHED 21:18 → PHEDA 22:34 → PH3A 23:24
PROVIDERS: ADMIT Family Medicine; ATTEND Family Medicine
PROC: 05PY03Z Removal of Infusion Device from Upper Vein, Open Approach (ICD-10-PCS; principal; 2018-03-08)
PROC: 0JPT0WZ Removal of Totally Implantable Vascular Access Device from Trunk Subcutaneous Tissue and Fascia, Open Approach (ICD-10-PCS; 2018-03-08)
DX: T80.219A Unspecified infection due to central venous catheter, initial encounter (principal); L03.313 Cellulitis of chest wall; C25.9 Malignant neoplasm of pancreas, unspecified; C78.00 Secondary malignant neoplasm of unspecified lung; D64.81 Anemia due to antineoplastic chemotherapy; T45.1X5A Adverse effect of antineoplastic and immunosuppressive drugs, initial encounter; I88.9 Nonspecific lymphadenitis, unspecified; F41.9 Anxiety disorder, unspecified; Y84.8 Other medical procedures as the cause of abnormal reaction of the patient, or of later complication, without mention of misadventure at the time of the procedure; E87.6 Hypokalemia; K21.9 Gastro-esophageal reflux disease without esophagitis; Z87.891 Personal history of nicotine dependence
CPT/HCPCS: 36590; 76536; 80048; 80053; 80202; 85025; 85610; 87040; 87071; 96374; 96375; 99152; 99153; J0692; J1170; J1644; J2060; J2250; J2765; J3010; J3370; J7030; J7050

== ENCOUNTER 2018-07-23 21:02 | Inpatient (IN) ==
[2018-07-23] MEDS ORDERED: ALPRAZolam 0.25 MG Tablet PO ONE (22:02)
--- NOTE | 2018-07-23 22:33 | CT ---
EXAM DATE: 07/23/2018 10:06 PM EDT AGE/SEX: 62 years / Female INDICATIONS: Aphasia, bilateral extremity weakness CLINICAL DATA: This is the patient's initial encounter. Patient reports that signs and symptoms have been present for 1 day and indicates a pain score of 0/10. MEDICAL/SURGICAL HISTORY: Carcinoma, lung. Carcinoma, pancreas. section. Tubal ligation. RADIATION DOSE: 47.96 CTDI (mGy) COMPARISON: No prior exams available for comparison. TECHNIQUE: CT of the head without contrast. Using automated exposure control and adjustment of the mA and/or kV according to patient size, radiation dose was kept as low as reasonably achievable to ob tain optimal diagnostic quality images. DICOM format image data is available electronically for revi ew and comparison. FINDINGS: There is a 3.1 cm mass in the deep left frontal lobe with surrounding edema and mass effect. There is effacement of the left lateral ventricle and about 4 mm of [id number] midline shift. No other masses identified. No abnormal extra-axial fluid collections. CONCLUSION: 1. Circumscribed 3.1 cm mass in the deep left frontal lobe with surrounding edema and about 4 mm of ibjv-hr-qmnwy midline shift. Findings most characteristic of metastatic disease given the history of malignancy. . Electronically signed by: Feliciano Sevilla MD 07/23/2018 10:31 PM EDT
[2018-07-23 22:43] LABS: Baso % (Auto) 1.3 % (0.0-2.0); Eos # (Auto) 0.1 th/mm3 (0.0-0.4); Eos % (Auto) 2.3 % (0.0-4.0); Hematocrit 35.3 % (35.0-46.0); Hemoglobin 11.4 gm/dL (11.6-15.3); Lymph # (Auto) 1.3 th/mm3 (1.0-4.8); Lymph % (Auto) 40.2 % (9.0-44.0); Mean Corpuscular HGB Conc 32.3 % (32.0-36.0); Mean Corpuscular Hemoglobin 32.4 pg (27.0-34.0); Mean Corpuscular Volume 100.5 fL (80.0-100.0); Mono # (Auto) 0.5 th/mm3 (0.0-0.9); Mono % (Auto) 14.5 % (0.0-8.0); Neut # (Auto) 1.3 th/mm3 (1.8-7.7); Neut % (Auto) 41.7 % (16.0-70.0); Platelet Count 317 th/mm3 (150-450); Red Blood Count 3.51 mil/mm3 (4.00-5.30); Red Cell Distribution Width 14.9 % (11.6-17.2); White Blood Count 3.2 th/mm3 (4.0-11.0)
[2018-07-23 22:48] LABS: Chloride 108 meq/L (98-107); Potassium 3.3 meq/L (3.5-5.1); Sodium 143 meq/L (136-145)
[2018-07-23 22:51] LABS: Albumin 3.5 g/dL (3.4-5.0); Anion Gap 7 meq/L (5-15); Blood Urea Nitrogen 6 mg/dL (7-18); Calcium 8.9 mg/dL (8.5-10.1); Glucose,Random 87 mg/dL (74-106)
[2018-07-23 22:54] LABS: Alanine Aminotransferase 22 U/L (10-53); Aspartate Aminotransferase 17 U/L (15-37); Glomerular Filtration Rate Greater Than 89 mL/min (>89)
[2018-07-23 22:56] LABS: Total Protein 6.5 g/dL (6.4-8.2)
[2018-07-23 22:57] LABS: Alkaline Phosphatase 67 U/L (45-117)
[2018-07-23] MEDS ORDERED: Dexamethasone Inj 20 MG/5 ML Vial IV.PUSH ONE (23:14)
[2018-07-23 23:32] LABS: Bilirubin,Urine Negative (Negative); Clarity,Urine Clear (Clear); Color,Urine Yellow (Yellw/Straw); Glucose,Urine (UA) Negative (Negative); Leukocyte Esterase,Urine Trace (Negative); Nitrite,Urine Negative (Negative); Specific Gravity,Urine Less/Equal 1.005 (1.002-1.035); Urobilinogen,Urine 0.2 mg/dL (Less than 2)
[2018-07-23 23:36] LABS: Bacteria,Urine Occasional /hpf; RBC,Urine 0-3 /hpf (0-3); Squamous Epithelial Cell,Urine 0-5 /hpf (0-5)
--- NOTE | 2018-07-23 23:41 | P.HPCC ---
History of Present Illness Primary Care Physician: No Primary Care Physician History of Present Illness: 62-year-old unfortunate female with history of Lung cancer, and Pancreatic cancer presents for evaluation of altered mental status. The CT of the head obtained in the emergency department shows Circumscribed 3.1 cm mass in the deep left frontal lobe with surrounding edema and about 4 mm of iphs-zo-iguhu midline shift. Findings most characteristic of metastatic disease given the history of malignancy. Review of Systems unobtainable due to mental condition PMFSH - History History Provided By: Patient, Family Member - Medical History Medical History: Medical History (Last Reviewed 07/23/18 @ 21:22 by Connie Grady RN) Chronic pain History of blood product transfusion Lung cancer Neutropenia Pancreas cancer Port or reservoir infection - Surgical History Surgical History: Surgical History (Last Reviewed 07/23/18 @ 21:22 by Connie Grady RN) H/O section History of rectal surgery History of tubal ligation - Tobacco History Second Hand Smoke Exposure: No Tobacco Use In Past 30 Days: No Smoking Status: Former smoker Tobacco Type: Cigarettes - Alcohol History How Often Do You Have a Drink Containing Alcohol: Monthly or less - Substance Use History Substance History: No History of Abuse - Travel History Recent Travel in the [facility] Within the Last 8 Weeks: No - Immunization History Tetanus Immunization: <5 Years Medications and Allergies Active Medications: Current Medications Acetaminophen (Tylenol) 650 mg PO Q6H PRN PRN Reason: PAIN 1-10 AND/OR FEVER >101F Hydrocodone Bitart/Acetaminophen ([place] 10/325) 1 tab PO Q6H PRN PRN Reason: Pain1-10 Al Hydroxide/Mg Hydroxide (Milk Of Tg [place]) 30 ml PO Q12H PRN PRN Reason: Mild Constipation Albuterol (Duoneb Neb (Prn)) 1 ampul NEB Q2HR NEB PRN PRN Reason: WHEEZING Alprazolam (Xanax) 0.25 mg PO BID CALIN Bisacodyl (Dulcolax Supp) 10 mg RECTAL DAILY PRN PRN Reason: SEVERE CONSITIPATION Chlorhexidine Gluconate (Chlorhexidine 2% Cloth) 3 pack TOPICAL DAILY@0400 CALIN Stop: 07/29/18 03:59 Chlorhexidine Gluconate (Chlorhexidine 2% Cloth) 3 pack TOPICAL DAILY@0400 PRN PRN Reason: Extra cloth needed Stop: 07/29/18 03:59 Dexamethasone Sodium Phosphate (Decadron Inj) 4 mg IV.PUSH Q6HR [facility] Last Admin: 07/24/18 00:04 Dose: Not Given Enoxaparin Sodium (Lovenox Inj) 40 mg SQ Q24H [place] Famotidine (Pepcid Pf Inj) 20 mg IV.PUSH Q12HR [place] Hydromorphone HCl (Dilaudid Pf Inj) 1 mg IV.PUSH Q4H PRN PRN Reason: PAIN SCALE 6 TO 10 Sodium Chloride (Ns Inj) 1,000 mls @ 84 mls/hr IV.CONT .[id number] [facility] Last Admin: 07/24/18 00:38 Dose: 84 mls/hr Lactulose (Lactulose Liq) 30 ml PO DAILY PRN PRN Reason: SEVERE CONSITIPATION Ondansetron HCl (Zofran Inj) 4 mg IV.PUSH Q6H PRN PRN Reason: NAUSEA OR VOMITING Senna/Docusate Sodium (Meghna-Colace) 1 tab PO BID [facility] Sennosides (Senokot) 17.2 mg PO Q12H PRN PRN Reason: Moderate Constipation Sodium Chloride (Ns Flush) 2 ml IV.FLUSH BID CALIN Sodium Chloride (Ns Flush) 2 ml IV.FLUSH PRN PRN PRN Reason: FLUSH AFTER USING IV ACCESS Temazepam (Restoril) 15 mg PO HS PRN PRN Reason: INSOMNIA Allergies Allergy/AdvReac Type Severity Reaction Status Date / Time Sulfa (Sulfonamide Allergy Mild Shortness Verified 04/15/18 07:16 Antibiotics) of Breath surgical tape AdvReac Severe Irritation Uncoded 04/15/18 07:16 Home Medications Medication Instructions Recorded Confirmed Type alprazolam [Xanax] 0.25 mg PO BID 04/15/18 07/23/18 History hydrocodone-acetaminophen [[place]] 1 tab PO Q6H PRN 04/15/18 07/23/18 History Results - Labs CBC & Chem 7: 07/23/18 22:32 07/23/18 22:32 Labs: Short CBC 07/23/18 Range/Units 22:32 WBC 3.2 L (4.0-11.0) th/mm3 Hgb 11.4 L (11.6-15.3) gm/dL Hct 35.3 (35.0-46.0) % Plt Count 317 (150-450) th/mm3 BMP 07/23/18 22:32 Sodium 143 Potassium 3.3 L Chloride 108 H Carbon Dioxide 28.0 BUN 6 L Creatinine 0.57 Calcium 8.9 Liver Function 07/23/18 Range/Units 22:32 Total Bilirubin 0.5 (0.2-1.0) mg/dL AST 17 (15-37) U/L ALT 22 (10-53) U/L Alkaline Phosphatase 67 (45-117) U/L Albumin 3.5 (3.4-5.0) g/dL Urine 07/23/18 Range/Units 23:30 Urine Color Yellow (Yellw/Straw) Urine Clarity Clear (Clear) Urine pH 7.0 (5.0-8.5) Ur Specific [place] Less/equal 1.005 (1.002-1.035) Urine Protein Negative (Neg-Trace) mg/dL Urine Glucose (UA) Negative (Negative) mg/dL - Imaging Impressions Head CT 07/23/18 22:02 CONCLUSION: 1. Circumscribed 3.1 cm mass in the deep left frontal lobe with surrounding edema and about 4 mm of qkpr-zi-mjsod midline shift. Findings most characteristic of metastatic disease given the history of malignancy. . Exam Vital signs: Vital Signs 07/23/18 21:06 Temperature 99.1 F Pulse Rate 95 H Respiratory Rate 18 Blood Pressure 148/72 H Pulse Oximetry 100 Intake & Output 07/23/18 07/23/18 07/24/18 06:59 18:59 06:59 Weight 53.7 kg - Constitutional mild distress, chronically ill appearing - Routine HEENT Exam Head: Present: normocephalic Eye: Present: PERRL, normal accommodation ENT: Present: mucous membranes moist - Routine Neck Exam Present: supple, full ROM. Absent: JVD, carotid bruit - Routine Respiratory Exam Absent: accessory muscle use, rhonchi, stridor, wheezes - Routine Cardiovascular Exam Present: RRR, S1, S2 - Routine Abdominal Exam Present: soft, normoactive bowel sounds. Absent: tenderness, distended - Routine Extremities Exam Absent: cyanosis, clubbing, edema - Routine Skin Exam Present: intact. Absent: cyanosis, erythema - Routine Neurological Exam Present: alert, oriented X3, moving all extremities Septic Shock Reassessment Septic shock perfusion: reassessment completed Caprini VTE Risk Assessment Caprini VTE Risk Assessment: Moderate/High Risk (score >= 2) Caprini Risk Assessment Model: Point Value = 1 Point Value = 2 Point Value = 3 Point Value = 5 Age 41-60 Minor surgery BMI > 25 kg/m2 Swollen legs Varicose veins or History of unexplained or recurrent spontaneous Oral contraceptives or hormone replacement Sepsis (< 1 month) Serious lung disease, including pneumonia (< 1 month) Abnormal pulmonary function Acute myocardial infarction Congestive heart failure (< 1 month) History of inflammatory bowel disease Medical patient at bed rest Age 61-74 Arthroscopic surgery Major open surgery (> 45 min) Laparoscopic surgery (> 45 min) Malignancy Confined to bed (> 72 hours) Immobilizing plaster cast Central venous access Age >= 75 History of VTE Family history of VTE Factor V Leiden Prothrombin [id number] Lupus anticoagulant Anticardiolipin antibodies Elevated serum homocysteine Heparin-induced thrombocytopenia Other congenital or acquired thrombophilia Stroke (< 1 month) Elective arthroplasty Hip, pelvis, or leg fracture Acute spinal cord injury (< 1 month) Prophylaxis Regimen: Total Risk Factor Score Risk Level Prophylaxis Regimen 0-1 Low Early ambulation 2 Moderate Order ONE of the following: *Sequential Compression Device (SCD) *Heparin 5000 units SQ BID 3-4 Higher Order ONE of the following medications: *Heparin 5000 units SQ TID *Enoxaparin/Lovenox 40 mg SQ daily (WT < 150 kg, CrCl > 30 mL/min) *Enoxaparin/Lovenox 30 mg SQ daily (WT < 150 kg, CrCl > 10-29 mL/min) *Enoxaparin/Lovenox 30 mg SQ BID (WT < 150 kg, CrCl > 30 mL/min) AND/OR *Sequential Compression Device (SCD) 5 or more Highest Order ONE of the following medications: *Heparin 5000 units SQ TID (Preferred with Epidurals) *Enoxaparin/Lovenox 40 mg SQ daily (WT < 150 kg, CrCl > 30 mL/min) *Enoxaparin/Lovenox 30 mg SQ daily (WT < 150 kg, CrCl > 10-29 mL/min) *Enoxaparin/Lovenox 30 mg SQ BID (WT < 150 kg, CrCl > 30 mL/min) AND *Sequential Compression Device (SCD) Assessment and Plan - Assessment and Plan Plan: Brain mass with vasogenic edema -Decadron bolus followed by 4 mg every 6 hours -MRI with and without contrast -Consult neurosurgery -Palliative care evaluation Altered mental status -Due to above -Neuro checks per unit routine -Supportive care Leukopenia History of pancreatic cancer -Blood cultures -Consult medical oncology and palliative care Hypokalemia -Electrolyte replacement per ICU protocol Anxiety -Xanax as needed DVT GI prophylaxis -Teds SCDs -Subcu Lovenox -Pepcid 35 minutes of critical care
[2018-07-23] MEDS ORDERED: Temazepam 15 MG Capsule PO PRN (23:42)
[2018-07-23] MEDS ORDERED: Acetaminophen 325 MG Tablet PO PRN (23:42)
[2018-07-23] MEDS ORDERED: Bisacodyl 10 MG Supp RECTAL PRN (23:42)
[2018-07-23] MEDS ORDERED: Enoxaparin Inj 40 MG/0.4 ML Syringe SQ SCH (23:45)
[2018-07-24] MEDS: Sod Chloride 0.9% Inj 1,000 ML IV.CONT SCH ×2 (00:38→12:48)
[2018-07-24] MEDS ORDERED: Magnesium Sulfate Inj 4 GM in Sodium Chlor 0.9% Inj 92 ML IV.SIG PRN (01:09)
[2018-07-24] MEDS ORDERED: Potassium Chlor 40 mEq Premix 40 MEQ/100 ML PIGGYBACK IV.SIG PRN ×2 (01:09)
[2018-07-24] MEDS ORDERED: Potassium Chlor 20 mEq Premix 20 MEQ/100 ML PIGGYBACK IV.SIG PRN ×2 (01:09)
[2018-07-24] MEDS ORDERED: Potassium Chloride 25 MEQ Effervescent Tablet PO PRN (01:09)
[2018-07-24] MEDS ORDERED: Magnesium Oxide 400 MG Tablet PO PRN (01:09)
[2018-07-24] MEDS ORDERED: Magnesium Sulfate Inj 2 GM in Sodium Chlor 0.9% Inj 96 ML IV.SIG PRN (01:09)
[2018-07-24] MEDS ORDERED: Potassium Phosphate Inj 30 MMOL in Sodium Chlor 0.9% Inj 250 ML IV.SIG PRN (01:09)
[2018-07-24] MEDS ORDERED: Potassium Phosphate 500 MG Soluble Tablet PO PRN ×2 (01:09)
[2018-07-24] MEDS ORDERED: Sodium Phosphate Inj 30 MMOL in Sodium Chlor 0.9% Inj 250 ML IV.SIG PRN (01:09)
[2018-07-24] MEDS ORDERED: Chlorhexidine Gluconate 2% 1 Pack (2 Cloths) TOPICAL PRN (04:00)
[2018-07-24] MEDS: Chlorhexidine Gluconate 2% 1 Pack (2 Cloths) TOPICAL SCH (04:46)
--- NOTE | 2018-07-24 06:12 | ED ---
HPI General Chief complaint: Altered Mental Status Stated complaint: Disorientation/Speech Issues/headache x2Days Time Seen by Provider: 07/23/18 21:17 Source: patient Mode of arrival: ambulatory Limitations: no limitations History of Present Illness HPI narrative: This is a 62-year-old female who has a history of stage IV pancreatic cancer currently on palliative FOLFIRI with Dr. Gamble who presents to the emergency department with a week and a half of difficulty getting her words out, constant, severe, worsening associated with imbalance and poor coordination on her right side. She did have a fall a week and a half ago and hit her head. At that time she did not want to be evaluated because a good friend was in town. She has been worried that something might be going on and finally because her speech was getting so bad she came to the emergency department this evening. Related Data Home Medications Medication Instructions Recorded Confirmed alprazolam [Xanax] 0.25 mg PO BID 04/15/18 07/23/18 hydrocodone-acetaminophen [[place]] 1 tab PO Q6H PRN 04/15/18 07/23/18 Allergies Allergy/AdvReac Type Severity Reaction Status Date / Time Sulfa (Sulfonamide Allergy Mild Shortness Verified 04/15/18 07:16 Antibiotics) of Breath surgical tape AdvReac Severe Irritation Uncoded 04/15/18 07:16 Review of Systems ROS: all other systems reviewed are negative [facility] Medical History Medical History Chronic pain (Acute) History of blood product transfusion (Acute) Lung cancer (Acute) Neutropenia (Acute) Pancreas cancer (Acute) Port or reservoir infection (Acute) Surgical History Surgical History H/O section (Acute) History of rectal surgery (Acute) History of tubal ligation (Acute) Social History Social History Substance History: No History of Abuse Second Hand Smoke Exposure: No Smoking Status: Former smoker Tobacco Type: Cigarettes How Often Do You Have a Drink Containing Alcohol: Monthly or less Recent Travel in [facility] within the Last 8 Weeks: No Immunization History Tetanus Immunization: <5 Years Exam Narrative Exam Narrative: GENERAL: Thin, chronically unwell appearing. SKIN: Focused skin assessment warm and dry. HEAD: Atraumatic. Normocephalic. EYES: Pupils equal and round. No injection or drainage. ENT: Moist mucous membranes NECK: Trachea midline. CARDIOVASCULAR: Regular rate and rhythm. No murmur appreciated. RESPIRATORY: Clear to auscultation. Breath sounds equal bilaterally. GASTROINTESTINAL: Abdomen soft, non-tender, nondistended. MUSCULOSKELETAL: No obvious deformities. NEUROLOGICAL: Awake and alert. Moderate expressive aphasia, 4 out of 5 strength in the right upper and right lower extremities, 5 out of 5 strength on the left upper and left lower extremity. Ataxia affecting the right upper extremity. Normal visual hunter. PSYCHIATRIC: Appropriate mood and affect; insight and judgment normal. Course Initial Documented Vital Signs Temperature 99.1 F 07/23/18 21:06 Pulse Rate 95 H 07/23/18 21:06 Respiratory Rate 18 07/23/18 21:06 Blood Pressure 148/72 H 07/23/18 21:06 Pulse Oximetry 100 07/23/18 21:06 Last Documented Vital Signs Temperature 98.4 F 07/24/18 02:00 Pulse Rate 66 07/24/18 05:06 Respiratory Rate 13 07/24/18 05:06 Blood Pressure 117/63 07/24/18 05:06 Pulse Oximetry 98 07/24/18 05:06 Critical Care Time Critical Care Time: Yes Total Critical Care Time: 50 Attestation: Aggregate critical care time was 50 minutes. Time to perform other separately billable procedures was not included in the critical care time. My time did not include minutes spent treating any other patients simultaneously or on activities that did not directly contribute to the patient's treatment. The services I provided to this patient were to treat and/or prevent clinically significant deterioration that could result in: disability, I provided critical care services requiring my management, as noted below: Chart data review, documentation time, medication orders and management, vital sign assessments/reviewing monitor data, ordering and reviewing lab tests, ordering and interpreting/reviewing x-rays and diagnostic studies, care of the patient and discussion of the patient with the admitting physicians. Medical Decision Making MDM Narrative Medical decision making narrative: This is a 62-year-old female who presents to the emergency department with a history of stage IV pancreatic cancer with expressive aphasia, imbalance and right-sided weakness. CT demonstrates a 3.1 cm mass edema and mass-effect with midline shift. I discussed the case with Dr. Ovlale on-call who requested the patient be placed on IV Decadron and admitted to the intensive care unit at the [facility] for neurosurgical evaluation. Patient was agreeable to this plan. Case was discussed with DR. Santillan in the ICU who accepted the patient for transfer. We did discuss CODE STATUS. If the patient's heart were to stop in the hospital she would not want CPR or to be intubated. She expresses that she thinks this would be "pointless" in the setting of her underlying cancer and she would want to be allowed to naturally. She does have a living will at home. She was agreeable to a DO NOT RESUSCITATE order which I placed in the chart. Medical Screen Exam Complete: Yes Emergency Medical Condition: Yes Differential Diagnosis Differential Diagnosis: Brain metastases, subdural hematoma, ischemic stroke, hemorrhagic stroke Lab Data Result diagrams: 07/23/18 22:32 07/23/18 22:32 Lab Results 07/23/18 07/23/18 07/23/18 Range/Units 22:32 22:32 23:30 CBC w Diff Auto diff final WBC 3.2 L (4.0-11.0) th/mm3 RBC 3.51 L (4.00-5.30) mil/mm3 Hgb 11.4 L (11.6-15.3) gm/dL Hct 35.3 (35.0-46.0) % MCV 100.5 H (80.0-100.0) fL MCH 32.4 (27.0-34.0) pg MCHC 32.3 (32.0-36.0) % RDW 14.9 (11.6-17.2) % Plt Count 317 (150-450) th/mm3 MPV 7.0 (7.0-11.0) fL Neut % (Auto) 41.7 (16.0-70.0) % Lymph % (Auto) 40.2 (9.0-44.0) % [place] % (Auto) 14.5 H (0.0-8.0) % Eos % (Auto) 2.3 (0.0-4.0) % Baso % (Auto) 1.3 (0.0-2.0) % Neut # (Auto) 1.3 L (1.8-7.7) th/mm3 Lymph # (Auto) 1.3 (1.0-4.8) th/mm3 [place] # (Auto) 0.5 (0.0-0.9) th/mm3 Eos # (Auto) 0.1 (0.0-0.4) th/mm3 Baso # (Auto) 0.0 (0.0-0.2) th/mm3 WBC Differential . Differential Comment . Sodium 143 (136-145) meq/L Potassium 3.3 L (3.5-5.1) meq/L Chloride 108 H (98-107) meq/L Carbon Dioxide 28.0 (21.0-32.0) meq/L Anion Gap 7 (5-15) meq/L BUN 6 L (7-18) mg/dL Creatinine 0.57 (0.50-1.00) mg/dL Estimated GFR Greater than 89 (>89) mL/min Random Glucose 87 (74-106) mg/dL Calcium 8.9 (8.5-10.1) mg/dL Total Bilirubin 0.5 (0.2-1.0) mg/dL AST 17 (15-37) U/L ALT 22 (10-53) U/L Alkaline Phosphatase 67 (45-117) U/L Total Protein 6.5 (6.4-8.2) g/dL Albumin 3.5 (3.4-5.0) g/dL Urine Color Yellow (Yellw/Straw) Urine Clarity Clear (Clear) Urine pH 7.0 (5.0-8.5) Ur Specific [place] Less/equal 1.005 (1.002-1.035) Urine Protein Negative (Neg-Trace) mg/dL Urine Glucose (UA) Negative (Negative) mg/dL Urine Ketones Negative (Negative) mg/dL Urine Occult Blood Negative (Negative) Urine Nitrate Negative (Negative) Urine Bilirubin Negative (Negative) Urine Urobilinogen 0.2 (Less than 2) mg/dL Ur Leukocyte Esterase Trace H (Negative) Urine RBC 0-3 (0-3) /hpf Urine WBC 6-8 H (0-5) /hpf Ur Squamous Epith Cells 0-5 (0-5) /hpf Urine Bacteria Occasional H (None) /hpf Micro UA Comment Culture not ind Ur Microscopic Review Microscopic reviewed Nasal Screen MRSA (PCR) (Negative) 07/24/18 Range/Units 02:30 CBC w Diff WBC (4.0-11.0) th/mm3 RBC (4.00-5.30) mil/mm3 Hgb (11.6-15.3) gm/dL Hct (35.0-46.0) % MCV (80.0-100.0) fL MCH (27.0-34.0) pg MCHC (32.0-36.0) % RDW (11.6-17.2) % Plt Count (150-450) th/mm3 MPV (7.0-11.0) fL Neut % (Auto) (16.0-70.0) % Lymph % (Auto) (9.0-44.0) % [place] % (Auto) (0.0-8.0) % Eos % (Auto) (0.0-4.0) % Baso % (Auto) (0.0-2.0) % Neut # (Auto) (1.8-7.7) th/mm3 Lymph # (Auto) (1.0-4.8) th/mm3 [place] # (Auto) (0.0-0.9) th/mm3 Eos # (Auto) (0.0-0.4) th/mm3 Baso # (Auto) (0.0-0.2) th/mm3 WBC Differential Differential Comment Sodium (136-145) meq/L Potassium (3.5-5.1) meq/L Chloride (98-107) meq/L Carbon Dioxide (21.0-32.0) meq/L Anion Gap (5-15) meq/L BUN (7-18) mg/dL Creatinine (0.50-1.00) mg/dL Estimated GFR (>89) mL/min Random Glucose (74-106) mg/dL Calcium (8.5-10.1) mg/dL Total Bilirubin (0.2-1.0) mg/dL AST (15-37) U/L ALT (10-53) U/L Alkaline Phosphatase (45-117) U/L Total Protein (6.4-8.2) g/dL Albumin (3.4-5.0) g/dL Urine Color (Yellw/Straw) Urine Clarity (Clear) Urine pH (5.0-8.5) Ur Specific [place] (1.002-1.035) Urine Protein (Neg-Trace) mg/dL Urine Glucose (UA) (Negative) mg/dL Urine Ketones (Negative) mg/dL Urine Occult Blood (Negative) Urine Nitrate (Negative) Urine Bilirubin (Negative) Urine Urobilinogen (Less than 2) mg/dL Ur Leukocyte Esterase (Negative) Urine RBC (0-3) /hpf Urine WBC (0-5) /hpf Ur Squamous Epith Cells (0-5) /hpf Urine Bacteria (None) /hpf Micro UA Comment Ur Microscopic Review Nasal Screen MRSA (PCR) Not detected (Negative) Imaging Data Radiologist's impression: Head CT 07/23/18 22:02 CONCLUSION: 1. Circumscribed 3.1 cm mass in the deep left frontal lobe with surrounding edema and about 4 mm of hupw-nl-xwktt midline shift. Findings most characteristic of metastatic disease given the history of malignancy. . Discharge Plan Discharge Disposition Patient Disposition: 30 Still Patient Discharge Condition Condition: Stable Discharge Details Diagnosis: Brain metastases Physicians Team ED Provider: Francia Cruz Primary Care Provider: Primary Care Megan Gaines Attending Provider: Naldo Santillan Other Providers: Juan Jose Chavez ; Steven Ovalle ; Wolfgang Torres Discharge Interventions Interventions: ED Discharge Assessment Last Done: 07/24/18 01:22 Status ED Status: Left Department Discharge Information Discharge Date/Time: 07/24/18 01:25
[2018-07-24] MEDS: Famotidine PF Inj 20 MG/2 ML Vial IV.PUSH SCH ×2 (08:10→20:01)
[2018-07-24] MEDS: Senna/Docusate Sodium 8.6/50 MG Tablet PO SCH ×2 (08:10→20:01)
[2018-07-24] MEDS: ALPRAZolam 0.25 MG Tablet PO SCH ×2 (08:10→20:02)
--- NOTE | 2018-07-24 08:46 | P.PNCC ---
Subjective Subjective Remarks/Hospital Course: 62-year-old unfortunate female with history of Lung cancer, and Pancreatic cancer presents for evaluation of altered mental status. The CT of the head obtained in the emergency department shows Circumscribed 3.1 cm mass in the deep left frontal lobe with surrounding edema and about 4 mm of cqvz-ru-xzkda midline shift. Findings most characteristic of metastatic disease given the history of malignancy. 07/24: Scans reviewed. Likely metastatic nodule left hemisphere with mass- effect and extensive surrounding edema. Plan for biopsy of mass, preoperative evaluation in progress. Protects airway, no seizure activity. MRI today. Objective Vital Signs / I&O: Vital Signs 07/23/18 21:06 07/24/18 00:52 07/24/18 02:00 Temperature 99.1 F 98.4 F Pulse Rate 95 H 91 H 69 Respiratory Rate 18 18 25 H Blood Pressure 148/72 H 141/77 H 127/70 Pulse Oximetry 100 100 99 07/24/18 03:06 07/24/18 05:06 Temperature Pulse Rate 74 66 Respiratory Rate 21 13 Blood Pressure 114/62 117/63 Pulse Oximetry 97 98 Intake & Output 07/23/18 07/24/18 07/24/18 18:59 06:59 18:59 Intake Total 100 / 100 Balance 100 / 100 Weight 56.1 kg Intake: IV 100 / 100 KCl 20 mEq Premix Inj 20 meq In 100 / 100 100 ml @ 50 mls/hr IV.SIG Q2H PRN Rx#:[id number] Other: # Voids 1 Weight On Admission 56.1 kg Result Diagrams: 07/23/18 22:32 07/23/18 22:32 Objective Remarks: - Constitutional mild distress, chronically ill appearing - Routine HEENT Exam Head: Present: normocephalic Eye: Present: PERRL, normal accommodation ENT: Present: mucous membranes moist - Routine Neck Exam Present: supple, full ROM. Airway widely patent, no obstructive noises. Absent : JVD, carotid bruit - Routine Respiratory Exam Clear, normal excursions. Absent: accessory muscle use, rhonchi, stridor, wheezes - Routine Cardiovascular Exam Present: RRR, S1, S2, no JVD - Routine Abdominal Exam Present: soft, normoactive bowel sounds. Absent: tenderness, distended. No guarding - Routine Extremities Exam Warm, well-perfused. Absent: cyanosis, clubbing, edema - Routine Skin Exam Present: intact. Absent: cyanosis, erythema - Routine Neurological Exam Present: alert, oriented X3, moving all extremities spontaneously and to command. Protects airway well, handle secretions well. Assessment and Plan - Assessment and Plan Plan: Brain mass with vasogenic edema -Decadron bolus followed by 4 mg every 6 hours -MRI with and without contrast -Consult neurosurgery -Palliative care evaluation -MRI today Altered mental status -Due to above -Neuro checks -Supportive care Leukopenia History of pancreatic cancer -Blood cultures -Consult medical oncology and palliative care Hypokalemia -Electrolyte replacement per ICU protocol Anxiety -Xanax as needed DVT GI prophylaxis -Teds SCDs -Subcu Lovenox -Pepcid Overall impression: Likely metastatic disease to the brain causing DAYTIME C[employer]GIVER symptomatology.
[2018-07-24 09:16] LABS: Baso % (Auto) 0.4 % (0.0-2.0); Hematocrit 36.3 % (35.0-46.0); Hemoglobin 12.5 gm/dL (11.6-15.3); Lymph # (Auto) 0.4 th/mm3 (1.0-4.8); Lymph % (Auto) 14.5 % (9.0-44.0); Mean Corpuscular HGB Conc 34.6 % (32.0-36.0); Mean Corpuscular Hemoglobin 34.2 pg (27.0-34.0); Mean Corpuscular Volume 98.8 fL (80.0-100.0); Mean Platelet Volume 7.6 fL (7.0-11.0); Mono % (Auto) 1.9 % (0.0-8.0); Neut % (Auto) 83.2 % (16.0-70.0); Platelet Count 275 th/mm3 (150-450); Red Blood Count 3.67 mil/mm3 (4.00-5.30); White Blood Count 2.5 th/mm3 (4.0-11.0)
[2018-07-24 09:28] LABS: Albumin 3.6 g/dL (3.4-5.0); Anion Gap 6 meq/L (5-15); Aspartate Aminotransferase 13 U/L (15-37); Blood Urea Nitrogen 7 mg/dL (7-18); Calcium 9.3 mg/dL (8.5-10.1); Carbon Dioxide 23.8 meq/L (21.0-32.0); Chloride 108 meq/L (98-107); Glomerular Filtration Rate Greater Than 89 mL/min (>89); Glucose,Random 132 mg/dL (74-106); Magnesium 2.1 mg/dL (1.5-2.5); Potassium 4.1 meq/L (3.5-5.1); Sodium 138 meq/L (136-145)
[2018-07-24 09:29] LABS: Alanine Aminotransferase 24 U/L (10-53); Phosphorus 3.3 mg/dL (2.5-4.9)
[2018-07-24 09:31] LABS: Alkaline Phosphatase 75 U/L (45-117); Total Protein 7.2 g/dL (6.4-8.2)
[2018-07-24 09:32] LABS: Activated Partial Thrombo Time 21.7 sec (24.3-30.1); INR 0.9 Ratio; Prothrombin Time 9.6 sec (9.8-11.6)
--- NOTE | 2018-07-24 09:55 | P.CON ---
History of Present Illness Service: Hematology/oncology. Consult date: 07/24/18 Requesting Physician: Francia Cruz Reason for Consult: Pancreatic carcinoma now with brain metastasis. Primary Care Provider: No Primary Care Physician Chief Complaint: Difficulty speaking and weakness of the left upper extremity. History of Present Illness: Ms. Wyatt is a 62-year-old female who is well-known to the oncology service, she has been under the care of my associate Dr. Gamble. The patient was diagnosed in the summer 2016 with metastatic pancreatic adenocarcinoma. She had metastatic intra-abdominal lymphadenopathy as well as pulmonary metastases. She was initiated on palliative first-line systemic therapy with a combination of gemcitabine and Abraxane, she progressed on this treatment. She was subsequently initiated on palliative systemic therapy with 5-FU with liposomal Irinotecan in February 2018. She has been responding well to this treatment, most recent restaging imaging scans performed on 07/18/2018 indicate stable intra-abdominal findings and improvement in intrathoracic findings with reduction in size of the pulmonary metastases. Likewise her serum tumor marker CA 19-9 has been decreasing, this tumor marker peaked at over 12,000 and most recent levels were in the 165 range. Over the past Several weeks the patient has noted neurologic symptoms including difficulty speaking, weakness of the right hand, twitching of her eyes and difficulty swallowing. Symptoms worsened over the course of the past 24 hours and she presented to the emergency department at [facility] in [place]. Patient underwent a CT scan of the head with IV contrast on 07/23/2018; CT head findings revealed a circumscribed 3.1 cm mass deep in the left frontal lobe with surrounding vasogenic edema and mass-effect. There was effacement of the left lateral ventricular wall and approximately 4 mm left to right midline shift. No additional masses are identified. The patient was transferred from [facility] to [facility], she has been admitted to the critical care unit and has been seen by neurosurgery this morning. Patient has been initiated on corticosteroids for management of vasogenic edema. She is tentatively scheduled to undergo surgical resection of the brain metastasis on 07/26/2018. Subjectively; she reports noting an improvement in her speech already and has also noted improvement in her motor strength in left upper extremity. MRI brain has been ordered with and without contrast by neurosurgery, the studies pending at this time. Review of Systems Constitutional: Reports weakness, Denies anorexia, Denies chills, Denies daytime sleepiness, Denies lack of energy, Denies night sweats, Denies weight gain, Denies weight loss Eyes: Denies change in vision, Denies double vision, Denies loss of vision Ears, Nose, Mouth, and Throat: Reports headache(s), Denies change in voice, Denies facial pain, Denies hearing loss, Denies sore throat, Denies throat swelling Cardiovascular: Denies chest pain, Denies lightheadedness, Denies shortness of breath, Denies shortness of breath with activity, Denies shortness of breath causing sudden awakening Respiratory: Denies cough, Denies shortness of breath, Denies shortness of breath with activity Gastrointestinal: Denies abdominal pain, Denies constipation, Denies loose stools, Denies vomiting blood Genitourinary: Reports absent period, Denies abnormal periods Musculoskeletal: Reports muscle weakness, Denies abnormal walking Comments: Patient reports right upper extremity weakness. Skin/Breast: Denies rash, Denies skin pain, Denies skin ulcer, Denies sores Neurologic: Reports abnormal speech (Difficulty speaking words.), Reports headache(s), Reports localized weakness (Right upper extremity.), Denies abnormal hearing, Denies burning sensations, Denies confusion, Denies dizziness , Denies lack of coordination, Denies memory loss, Denies numbness Psychiatric: Denies abnormal sleep pattern Endocrine: Denies cold intolerance Hematologic/Lymphatic: Denies easy bleeding Allergic/Immunologic: Denies GI upset with certain foods PMFSH - History History Provided By: Patient, Family Member - Medical History Medical History: Medical History (Last Updated 07/24/18 @ 09:48 by Steven Ovalle MD) Lung metastases Chronic pain History of blood product transfusion Neutropenia Pancreas cancer Port or reservoir infection - Surgical History Surgical History: Surgical History (Last Reviewed 07/24/18 @ 09:48 by Steven Ovalle MD) H/O section History of rectal surgery History of tubal ligation - Social History I have reviewed the patient's Social History: Yes - Tobacco History Second Hand Smoke Exposure: No Tobacco Use In Past 30 Days: No Smoking Status: Former smoker Tobacco Type: Cigarettes - Alcohol History How Often Do You Have a Drink Containing Alcohol: Monthly or less - Substance Use History Substance History: No History of Abuse - Travel History Recent Travel in the [facility] [place] Within the Last 8 Weeks: No - Immunization History Tetanus Immunization: <5 Years Medications and Allergies Active Medications: Active Medications Acetaminophen (Tylenol) 650 mg PO Q6H PRN PRN Reason: PAIN 1-10 AND/OR FEVER >101F Hydrocodone Bitart/Acetaminophen (Tryon 10/325) 1 tab PO Q6H PRN PRN Reason: Pain1-10 Al Hydroxide/Mg Hydroxide (Milk Of Tg Liq) 30 ml PO Q12H PRN PRN Reason: Mild Constipation Albuterol (Duoneb Neb (Prn)) 1 ampul NEB Q2HR NEB PRN PRN Reason: WHEEZING Alprazolam (Xanax) 0.25 mg PO BID [facility] Last Admin: 07/24/18 08:10 Dose: 0.25 mg Bisacodyl (Dulcolax Supp) 10 mg RECTAL DAILY PRN PRN Reason: SEVERE CONSITIPATION Chlorhexidine Gluconate (Chlorhexidine 2% Cloth) 3 pack TOPICAL DAILY@0400 [facility] Stop: 07/29/18 03:59 Last Admin: 07/24/18 04:46 Dose: 3 pack Chlorhexidine Gluconate (Chlorhexidine 2% Cloth) 3 pack TOPICAL DAILY@0400 PRN PRN Reason: Extra cloth needed Stop: 07/29/18 03:59 Dexamethasone Sodium Phosphate (Decadron Inj) 4 mg IV.PUSH Q6HR [facility] Last Admin: 07/24/18 05:23 Dose: 4 mg Famotidine (Pepcid Pf Inj) 20 mg IV.PUSH Q12HR [facility] Last Admin: 07/24/18 08:10 Dose: 20 mg Heparin Sodium (Porcine) (Heparin Inj) 5,000 units SQ Q8HR [facility] Stop: 07/25/18 18:00 Hydromorphone HCl (Dilaudid Pf Inj) 1 mg IV.PUSH Q4H PRN PRN Reason: PAIN SCALE 6 TO 10 Sodium Chloride (Ns Inj) 1,000 mls @ 84 mls/hr IV.CONT .[id number] [facility] Last Admin: 07/24/18 00:38 Dose: 84 mls/hr Magnesium Sulfate 4 gm/ Sodium (Chloride) 100 mls @ 50 mls/hr IV.SIG UNSCH PRN PRN Reason: For Magnesium 0.9 - 1.1 mg/dL Magnesium Sulfate 2 gm/ Sodium (Chloride) 100 mls @ 50 mls/hr IV.SIG UNSCH PRN PRN Reason: For Magnesium 1.2 - 1.6 mg/dL Potassium Chloride (Kcl 20 Meq Premix Inj) 20 meq in 100 mls @ 50 mls/hr IV.SIG Q2H PRN PRN Reason: For Potassium 3.3 - 3.5 mEq/L Last Infusion: 07/24/18 07:40 Dose: Infused Potassium Chloride (Kcl 40 Meq Premix Inj) 40 meq in 100 mls @ 25 mls/hr IV.SIG UNSCH PRN PRN Reason: For Potassium 3.3 - 3.5 mEq/L Potassium Chloride (Kcl 20 Meq Premix Inj) 20 meq in 100 mls @ 50 mls/hr IV.SIG Q2H PRN PRN Reason: For Potassium 2.8 - 3.2 mEq/L Potassium Phosphate 30 mmol/ (Sodium Chloride) 260 mls @ 42 mls/hr IV.SIG UNSCH PRN PRN Reason: SEE LABEL COMMENTS Sodium Phosphate 30 mmol/ (Sodium Chloride) 260 mls @ 42 mls/hr IV.SIG UNSCH PRN PRN Reason: For Phosphorus < 2.5 mg/dL Potassium Chloride (Kcl 40 Meq Premix Inj) 40 meq in 100 mls @ 25 mls/hr IV.SIG Q2H PRN PRN Reason: For Potassium 2.8 - 3.2 mEq/L Lactulose (Lactulose Liq) 30 ml PO DAILY PRN PRN Reason: SEVERE CONSITIPATION Magnesium Oxide (Mag-Ox) 800 mg PO UNSCH PRN PRN Reason: For Magnesium 1.2 - 1.6 mg/dL Ondansetron HCl (Zofran Inj) 4 mg IV.PUSH Q6H PRN PRN Reason: NAUSEA OR VOMITING Potassium Bicarb/Potassium Chloride (K-Lyte Cl Eff) 50 meq PO UNSCH PRN PRN Reason: For Potassium 3.3 - 3.5 mEq/L Potassium Phosphate (K-Phos Original) 2,000 mg PO Q4H PRN PRN Reason: Phosphorus Less Than 2.5 mg/dL Potassium Phosphate (K-Phos Original) 2,000 mg PO UNSCH PRN PRN Reason: SEE LABEL COMMENTS Senna/Docusate Sodium (Meghna-Colace) 1 tab PO BID [facility] Last Admin: 07/24/18 08:10 Dose: 1 tab Sennosides (Senokot) 17.2 mg PO Q12H PRN PRN Reason: Moderate Constipation Sodium Chloride (Ns Flush) 2 ml IV.FLUSH BID [facility] Last Admin: 07/24/18 08:10 Dose: 2 ml Sodium Chloride (Ns Flush) 2 ml IV.FLUSH PRN PRN PRN Reason: FLUSH AFTER USING IV ACCESS Temazepam (Restoril) 15 mg PO HS PRN PRN Reason: INSOMNIA Allergies Allergy/AdvReac Type Severity Reaction Status Date / Time Sulfa (Sulfonamide Allergy Mild Shortness Verified 04/15/18 07:16 Antibiotics) of Breath surgical tape AdvReac Severe Irritation Uncoded 04/15/18 07:16 Home Medications Medication Instructions Recorded Confirmed Type alprazolam [Xanax] 0.25 mg PO BID 04/15/18 07/23/18 History hydrocodone-acetaminophen [Tryon] 1 tab PO Q6H PRN 04/15/18 07/23/18 History Physical Exam Vital signs: Vital Signs 07/23/18 21:06 07/24/18 00:52 07/24/18 02:00 Temperature 99.1 F 98.4 F Pulse Rate 95 H 91 H 69 Respiratory Rate 18 18 25 H Blood Pressure 148/72 H 141/77 H 127/70 Pulse Oximetry 100 100 99 07/24/18 03:06 07/24/18 05:06 07/24/18 07:00 Temperature 98.1 F Pulse Rate 74 66 73 Respiratory Rate 21 13 16 Blood Pressure 114/62 117/63 143/74 H Pulse Oximetry 97 98 07/24/18 08:00 Temperature Pulse Rate 72 Respiratory Rate Blood Pressure Pulse Oximetry Intake & Output 07/23/18 07/24/18 07/24/18 18:59 06:59 18:59 Intake Total 100 / 100 Balance 100 / 100 Weight 56.1 kg Intake: IV 100 / 100 KCl 20 mEq Premix Inj 20 meq In 100 / 100 100 ml @ 50 mls/hr IV.SIG Q2H PRN Rx#:[id number] Other: # Voids 1 Weight On Admission 56.1 kg Narrative: Middle-aged lady, sitting up in bed, appears to be no acute distress. She has some a aphasia but is able to communicate effectively. - Constitutional no acute distress - Routine HEENT Exam Head: Present: normocephalic, atraumatic Eye: Present: EOMI, PERRL, normal accommodation. Absent: conjunctival icterus, scleral injection ENT: Present: mucous membranes moist - Routine Neck Exam Present: supple. Absent: lymphadenopathy - Routine Respiratory Exam Present: CTA bilaterally. Absent: accessory muscle use, rales, respiratory distress, rhonchi, stridor - Routine Cardiovascular Exam Present: RRR, S1, S2. Absent: murmur, gallop, rubs, S3, S4 - Routine Abdominal Exam Present: soft. Absent: tenderness, distended, rebound, guarding, firm - Routine Extremities Exam Present: full ROM. Absent: cyanosis, clubbing, edema - Routine Skin Exam Present: intact. Absent: cyanosis, erythema, dry, pallor - Routine Neurological Exam Present: alert, oriented X3, CN II-XII intact, motor deficit (Expressive aphasia.). Absent: sensory deficit, altered mental status, normal speech ( Weakness of the right upper extremity.), tremors - Detailed Neurological Exam: Coma Scale Eye Opening: Spontaneous Motor Response: Obey commands - Routine Psychiatric Exam Present: normal affect, cooperative, good insight, good judgment. Absent: depressed, anxious, agitated Assessment and Plan - Plan Ms. Wyatt is a very pleasant 62-year-old female who was diagnosed with pancreatic adenocarcinoma in May 2017. She had amish metastases in the abdomen as well as pulmonary nodules which are consistent with metastatic disease at the time of diagnosis. Her disease progressed on palliative first- line systemic therapy consisting of gemcitabine and Abraxane. In February 2018 she was transitioned to liposomal Irinotecan in combination with 5-FU (FOLFIRI). She had been responding well to this treatment based on restaging imaging scans performed in mid July 2018. Overall based on PET/CT imaging her systemic disease burden is quite limited, it appears to be limited to the pancreas, intra -abdominal lymph nodes and small pulmonary nodules. She presents the hospital with a several week history of progressive difficulty speaking, weakness of the right upper extremity and headaches. Imaging studies performed on 07/23/2018; CT head with contrast indicates a 3.1 cm mass involving the deep left frontal lobe associated with vasogenic edema and a 4 mm left to right midline shift. The patient has been admitted to the critical care unit, she is been initiated on corticosteroids and has been evaluated by neurosurgery. She has been advised craniotomy with resection of the primary tumor. Following surgery she will be candidate for palliative radiation as well. MRI of the brain is pending at this time, the MRI may impact clinical decision making should there be additional metastatic deposits be identified. Recommendations: 1. Metastatic pancreas adenocarcinoma: She had been responding well to second line palliative systemic therapy consisting of FOLFIRI (liposomal Irinotecan). Treatment will remain on hold until she has recovered from her craniotomy and until after she is completed radiation to the tumor bed. 2. Continue corticosteroid treatment for management of vasogenic edema. She already notices some improvement in her speech and in the motor strength of her right upper extremity. 3. The oncology service will follow with you, Dr. Gamble will return on 07/25 to assume care.
[2018-07-24] MEDS ORDERED: Gadobutrol PF 7.5 MMOL/7.5 ML Vial (for RAD) IV.SIG ONE (11:32)
--- NOTE | 2018-07-24 12:00 | MR ---
EXAM DATE: 07/24/2018 10:52 AM EDT AGE/SEX: 62 years / Female INDICATIONS: Patient with aphasia and bilateral extremity weakness. Patient has a history of cancer w ith abnormal head CT demonstrating a 3 cm mass. CLINICAL DATA: This is the patient's initial encounter. Patient reports that signs and symptoms have been present for 1 day and indicates a pain score of 0/10. MEDICAL/SURGICAL HISTORY: Carcinoma, lung. Pancreatic CA. section. Tubal ligation. Total knee replacement, right. Colorectal surgery. COMPARISON: [facility], CT HEAD W/O CONTRAST, 07/23/2018. . TECHNIQUE: Multiplanar, multisequence examination of the brain was performed without and with 5.5 ml Gadavist (gadobutrol) contrast as a single exam dose. FINDINGS: Cerebrum: The ventricles are normal for age. There is a 3 x 3 cm mass adjacent to the left lateral v entricle which demonstrates mildly heterogeneous enhancement and ring enhancement. There is surroundi ng edema. There is mild mass effect and midline shift of approximately 4 to 5 mm. No additional chandni s are identified. No evidence of midline shift, hemorrhage or acute infarction. No extraaxial fluid collections are seen. The pituitary gland and suprasellar cistern are normal in configuration. White Matter: No significant signal abnormalities are seen in the white matter. Posterior Fossa: The cerebellum and brainstem are intact. The 4th ventricle is midline. The cerebel lopontine angle is unremarkable. The cerebellar tonsils are normal in position. Diffusion Imaging: No focal areas of restricted diffusion are seen. No evidence of acute infarction . Extracranial: The visualized portions of the orbits and paranasal sinuses are unremarkable. Post Contrast: No abnormal areas of parenchymal or dural enhancement. No evidence of blood-brain ba rrier breakdown. CONCLUSION: 1. Single 3 cm enhancing mass with surrounding edema and mass effect. This remains most consistent w ith metastatic disease given the medical history. Electronically signed by: Trent Cortez MD 07/24/2018 11:59 AM EDT
[2018-07-24] MEDS: HYDROmorphone PF Inj 2 MG/ML Vial IV.PUSH PRN (12:43)
[2018-07-24] MEDS: Heparin - SQ 10,000 UNITS/ML Vial SQ SCH ×2 (14:12→22:47)
[2018-07-24] MEDS: LORazepam 0.5 MG Tablet PO PRN (20:01)
--- NOTE | 2018-07-24 22:16 | ECG ---
Date Performed: 07/23/2018 Time Performed: 22:47:19 PTAGE: 62 years EKG: Sinus rhythm LOW QRS VOLTAGE IN PRECORDIAL LEADS BORDERLINE ECG PREVIOUS TRACING : 05/10/2017 00.32 Since the previous tracing, no significant change noted DOCTOR: Shirlene Tijerina Interpretating Date/Time 07/24/2018 22:14:08
[2018-07-25] MEDS: Sod Chloride 0.9% Inj 1,000 ML IV.CONT SCH ×3 (00:36→11:03)
[2018-07-25] MEDS: Chlorhexidine Gluconate 2% 1 Pack (2 Cloths) TOPICAL SCH (04:31)
[2018-07-25] MEDS: Heparin - SQ 10,000 UNITS/ML Vial SQ SCH ×2 (05:15→14:43)
[2018-07-25] MEDS: ALPRAZolam 0.25 MG Tablet PO SCH ×2 (08:40→21:13)
[2018-07-25] MEDS: Famotidine PF Inj 20 MG/2 ML Vial IV.PUSH SCH ×2 (08:40→21:13)
[2018-07-25] MEDS: Senna/Docusate Sodium 8.6/50 MG Tablet PO SCH ×2 (08:40→21:13)
[2018-07-25] MEDS: LORazepam 0.5 MG Tablet PO PRN (09:29)
--- NOTE | 2018-07-25 10:41 | P.CONPAL ---
Consult Service: Palliative Care Requesting Physician: Naldo Santillan Reason for Consult: a. To assist with evaluation and management of symptoms including: Pain, anxiety b. To assist medical decision maker(s) with: better understanding of current medical conditions; weighing benefits/burdens of medical treatment options; making medical treatment decisions. Primary Care Provider: No Primary Care Physician History of Present Illness History of Present Illness: Mrs Wyatt is a 62-year-old female with a medical history significant for metastatic pancreatic adenocarcinoma with metastatic intra-abdominal lymphadenopathy and pulmonary metastasis, chronic pain, and neutropenia. Patient presented to the emergency room [facility] on 07/23/18 with complaints of worsening neurological symptoms inclusive of difficulty speaking, difficulty swallowing, weakness of right hand, twitching of eyes, poor balance and coordination on the right side. Patient also reported that approximately a week and a half ago she had a fall and hit her head. Patient was initially diagnosed with metastatic pancreatic adenocarcinoma in the summer 2016. ER course: * Vital signs: Temperature 99.1, pulse 95, respirations 18, BP 148/72, O2 saturation 100%. * CT head revealed circumscribed 3.1 cm mass in the deep left frontal lobe with surrounding edema and 4 mm of [id number] midline shift. * Patient was started on parenteral Decadron * EKG reveals sinus rhythm * Laboratory workup revealed WBC 3.2, hemoglobin 11.4, hematocrit 35.3, platelet count 317, PT 9.6, INR 0.9, APTT 21.7, sodium 143, potassium 3.3, BUN/ creatinine 6/0.57, calcium 8.9, AST 17, ALT 22, total protein 6.5, albumin 3.5 * Urinalysis a trace leukocyte esterase and negative for nitrates-culture not indicated * [facility] [place] [facility] in [place] and admitted to the ICU under critical care management physician Neurosurgery consulted, patient tentatively scheduled to undergo surgical resection of brain mass on 07/27/18. Brain MRI on 07/24/18 revealed single 3 cm enhancing mass with vasogenic edema and mass-effect. Oncology Dr. Ovalle consulted for evaluation and management of a patient with pancreatic carcinoma now with brain metastasis, recommending continuing with corticosteroid treatment and holding palliative systemic therapy until after patient recovers from craniotomy and completed radiation to the tumor bed. Physical therapy consulted, recommended to home with home health PT for balance. Speech therapy consulted, recommended regular diet with thin liquids. Patient afebrile. Vital signs stable. Per bedside RN, patient speech has significantly improved since admission though patient still has difficulty finding words during conversation. Patient seen and examined in the presence of his and grandson. Patient is currently eating lunch. Alert, oriented to self, place and situation. Patient denies pain at this time. In this first visit introduced palliative care and its role in symptom management and establishment of goals of medical treatment. Patient states that she does not want palliative care services at this time. Inquired if patient has advanced directives, and patient stated that she does have a living will and his designated her is her healthcare surrogate and her son as an alternate healthcare surrogate. Patient not interested to engage in any further conversation regarding goals of medical treatment. Palliative care geriatric social work professor will continue following with patient and palliative care services are available at any time their needed by patient or family. Palliative care will also attempt with assisting patient with completing and signing [facility] DNR. Case discussed with bedside RN and Dr. Tang. Function/Cognitive Trajectory: Patient was initially diagnosed with metastatic pancreatic adenocarcinoma in the summer 2016. She was started on palliative first-line systemic therapy- gemcitabine and Abraxane and progressed on that therapy for some time. She was then subsequently initiated on second line palliative systemic therapy with 5- FU with liposomal Irinotecan in February 2018. Patient responded well and him most recent restaging imaging scans on 07/18/18 indicated stable intra-abdominal findings and improvement in intrathoracic findings with reduction in size of the pulmonary metastasis. Patient lives at home with his significant other, mother and grandson. She does not use any assistive devices. Patient has had falls at home. Physical therapy notes, patient experiences leg pain which she attributes to chemotherapy. She is able to ambulate approximately 500 feet before resting. Prior to this hospitalization patient was able to perform ADLs independently. Patient reported loss of memory. Review of Systems Constitutional: Reports weakness, Denies fever(s) Eyes: Denies blurry vision Ears, Nose, Mouth, and Throat: Reports difficulty swallowing, Reports poor balance, Denies abnormal hearing, Denies dry mouth Cardiovascular: Denies chest pain, Denies irregular heart rhythm, Denies shortness of breath Respiratory: Denies chest congestion, Denies shortness of breath Gastrointestinal: Denies abdominal pain, Denies incontinent of stools, Denies nausea, Denies vomiting Genitourinary: Denies blood in urine, Denies difficulty urinating, Denies urinary incontinence Musculoskeletal: Reports muscle weakness, Denies back pain Skin/Breast: Reports unusual bruising Neurologic: Reports abnormal speech (Of fascia), Reports frequent falls, Reports lack of coordination, Reports localized weakness, Reports memory loss, Reports tingling/numbness/burning sensations Psychiatric: Reports anxiety, Reports memory loss, Denies change in appetite, Denies confusion Endocrine: Denies increased urination Hematologic/Lymphatic: Reports easy bruising PMFSH - History History Provided By: Patient, Medical Record - Medical History Medical History: Medical History (Last Updated 07/24/18 @ 09:48 by Steven Ovalle MD) Lung metastases Chronic pain History of blood product transfusion Neutropenia Pancreas cancer Port or reservoir infection - Surgical History Surgical History: Surgical History (Last Reviewed 07/24/18 @ 09:48 by Steven Ovalle MD) H/O section History of rectal surgery History of tubal ligation - Family History Family History: Family History (Last Updated 07/25/18 @ 10:45 by Mily Mccollum) Grandparent Colon cancer - Tobacco History Second Hand Smoke Exposure: No Tobacco Use In Past 30 Days: No Smoking Status: Former smoker Tobacco Type: Cigarettes - Alcohol History How Often Do You Have a Drink Containing Alcohol: Monthly or less - Substance Use History Substance History: Past History (Past history of cocaine use. EMR documentation dated 05/10/17) - Travel History Recent Travel in the [facility] Within the Last 8 Weeks: No - Immunization History Tetanus Immunization: <5 Years Medications and Allergies Active Medications: Active Medications Acetaminophen (Tylenol) 650 mg PO Q6H PRN PRN Reason: PAIN 1-10 AND/OR FEVER >101F Hydrocodone Bitart/Acetaminophen ([place] 10/325) 1 tab PO Q6H PRN PRN Reason: Pain1-10 Last Admin: 07/24/18 21:21 Dose: 1 tab Al Hydroxide/Mg Hydroxide (Milk Of Magnesia Liq) 30 ml PO Q12H PRN PRN Reason: Mild Constipation Albuterol (Duoneb Neb (Prn)) 1 ampul NEB Q2HR NEB PRN PRN Reason: WHEEZING Alprazolam (Xanax) 0.25 mg PO BID CALIN Last Admin: 07/25/18 08:40 Dose: 0.25 mg Bisacodyl (Dulcolax Supp) 10 mg RECTAL DAILY PRN PRN Reason: SEVERE CONSITIPATION Chlorhexidine Gluconate (Chlorhexidine 2% Cloth) 3 pack TOPICAL DAILY@0400 [facility] Stop: 07/29/18 03:59 Last Admin: 07/25/18 04:31 Dose: 3 pack Chlorhexidine Gluconate (Chlorhexidine 2% Cloth) 3 pack TOPICAL DAILY@0400 PRN PRN Reason: Extra cloth needed Stop: 07/29/18 03:59 Dexamethasone Sodium Phosphate (Decadron Inj) 4 mg IV.PUSH Q6HR [facility] Last Admin: 07/25/18 05:14 Dose: 4 mg Famotidine (Pepcid Pf Inj) 20 mg IV.PUSH Q12HR [facility] Last Admin: 07/25/18 08:40 Dose: 20 mg Heparin Sodium (Porcine) (Heparin Inj) 5,000 units SQ Q8HR [facility] Stop: 07/25/18 18:00 Last Admin: 07/25/18 05:15 Dose: 5,000 units Hydromorphone HCl (Dilaudid Pf Inj) 1 mg IV.PUSH Q4H PRN PRN Reason: PAIN SCALE 6 TO 10 Last Admin: 07/24/18 12:43 Dose: 1 mg Sodium Chloride (Ns Inj) 1,000 mls @ 84 mls/hr IV.CONT .[id number] [facility] Last Admin: 07/25/18 08:41 Dose: 84 mls/hr Magnesium Sulfate 4 gm/ Sodium (Chloride) 100 mls @ 50 mls/hr IV.SIG UNSCH PRN PRN Reason: For Magnesium 0.9 - 1.1 mg/dL Magnesium Sulfate 2 gm/ Sodium (Chloride) 100 mls @ 50 mls/hr IV.SIG UNSCH PRN PRN Reason: For Magnesium 1.2 - 1.6 mg/dL Potassium Chloride (Kcl 20 Meq Premix Inj) 20 meq in 100 mls @ 50 mls/hr IV.SIG Q2H PRN PRN Reason: For Potassium 3.3 - 3.5 mEq/L Last Infusion: 07/24/18 07:40 Dose: Infused Potassium Chloride (Kcl 40 Meq Premix Inj) 40 meq in 100 mls @ 25 mls/hr IV.SIG UNSCH PRN PRN Reason: For Potassium 3.3 - 3.5 mEq/L Potassium Chloride (Kcl 20 Meq Premix Inj) 20 meq in 100 mls @ 50 mls/hr IV.SIG Q2H PRN PRN Reason: For Potassium 2.8 - 3.2 mEq/L Potassium Phosphate 30 mmol/ (Sodium Chloride) 260 mls @ 42 mls/hr IV.SIG UNSCH PRN PRN Reason: SEE LABEL COMMENTS Sodium Phosphate 30 mmol/ (Sodium Chloride) 260 mls @ 42 mls/hr IV.SIG UNSCH PRN PRN Reason: For Phosphorus < 2.5 mg/dL Potassium Chloride (Kcl 40 Meq Premix Inj) 40 meq in 100 mls @ 25 mls/hr IV.SIG Q2H PRN PRN Reason: For Potassium 2.8 - 3.2 mEq/L Lactulose (Lactulose Liq) 30 ml PO DAILY PRN PRN Reason: SEVERE CONSITIPATION Lorazepam (Ativan) 0.5 mg PO Q6H PRN PRN Reason: ANXIETY Last Admin: 07/25/18 09:29 Dose: 0.5 mg Magnesium Oxide (Mag-Ox) 800 mg PO UNSCH PRN PRN Reason: For Magnesium 1.2 - 1.6 mg/dL Ondansetron HCl (Zofran Inj) 4 mg IV.PUSH Q6H PRN PRN Reason: NAUSEA OR VOMITING Potassium Bicarb/Potassium Chloride (K-Lyte Cl Eff) 50 meq PO UNSCH PRN PRN Reason: For Potassium 3.3 - 3.5 mEq/L Potassium Phosphate (K-Phos Original) 2,000 mg PO Q4H PRN PRN Reason: Phosphorus Less Than 2.5 mg/dL Potassium Phosphate (K-Phos Original) 2,000 mg PO UNSCH PRN PRN Reason: SEE LABEL COMMENTS Senna/Docusate Sodium (Meghna-Colace) 1 tab PO BID [facility] Last Admin: 07/25/18 08:40 Dose: 1 tab Sennosides (Senokot) 17.2 mg PO Q12H PRN PRN Reason: Moderate Constipation Sodium Chloride (Ns Flush) 2 ml IV.FLUSH BID [facility] Last Admin: 07/25/18 08:41 Dose: 2 ml Sodium Chloride (Ns Flush) 2 ml IV.FLUSH PRN PRN PRN Reason: FLUSH AFTER USING IV ACCESS Temazepam (Restoril) 15 mg PO HS PRN PRN Reason: INSOMNIA Allergies Allergy/AdvReac Type Severity Reaction Status Date / Time Sulfa (Sulfonamide Allergy Mild Shortness Verified 04/15/18 07:16 Antibiotics) of Breath surgical tape AdvReac Severe Irritation Uncoded 04/15/18 07:16 Home Medications Medication Instructions Recorded Confirmed Type alprazolam [Xanax] 0.25 mg PO BID 04/15/18 07/23/18 History hydrocodone-acetaminophen [[place]] 1 tab PO Q6H PRN 04/15/18 07/23/18 History Advance Directives Living Will: No (yes but not made available) Healthcare Surrogate: Yes (Copy not made available) Health Care Surrogate Name and Number: HCS: Lucio Woods [phone] ALT: Son Power of Railcar Carpenter: No Family/friends goals: Goals aggressive-plan for resection of brain mass 07/27/18 Ethical and Legal Issues: None identified at this time Physical Exam Vital Signs: Vital Signs - 24 hr 07/24/18 11:00 07/24/18 13:00 07/24/18 13:54 Temperature 98 F 98 F Pulse Rate 84 84 Respiratory Rate 21 21 21 Blood Pressure 121/67 112/66 Pulse Oximetry 100 100 07/24/18 15:00 07/24/18 16:53 07/24/18 20:00 Temperature 98.1 F 98.2 F Pulse Rate 92 H 103 H 91 H Respiratory Rate 23 25 H 17 Blood Pressure 142/89 H 127/86 Pulse Oximetry 97 100 99 07/24/18 21:21 07/24/18 22:00 07/25/18 00:00 Temperature 98.4 F Pulse Rate 103 H 104 H Respiratory Rate 15 18 16 Blood Pressure 147/88 H 98/52 L Pulse Oximetry 100 97 07/25/18 02:00 07/25/18 04:00 07/25/18 06:00 Temperature 98.7 F Pulse Rate 95 H 64 80 Respiratory Rate 13 13 19 Blood Pressure 103/68 102/61 127/78 Pulse Oximetry 98 99 100 I&O: Intake & Output 07/23/18 07/24/18 07/25/18 07/26/18 06:59 06:59 06:59 06:59 Intake Total 1760 / 1760 Balance 1760 / 1760 Weight 56.1 kg 56.3 kg Physical Exam: CONSTITUTIONAL/GENERAL: This is an adequately nourished patient, in no apparent distress. TUBES/LINES/DRAINS: PIV SKIN: No jaundice, rashes, or lesions. Ecchymoses on upper extremities. No wounds seen anteriorly. Skin temperature appropriate. Not diaphoretic. HEAD: Atraumatic. Normocephalic. EYES: Pupils equal and round and reactive. Extraocular motions intact. No scleral icterus. No injection or drainage. Fundi not examined. ENT: Hearing grossly normal. Nose without bleeding or purulent drainage. Moist oral mucosa. NECK: Trachea midline. Supple, nontender. CARDIOVASCULAR: Regular rate and rhythm without murmurs, gallops, or rubs. No JVD. Peripheral pulses symmetric. RESPIRATORY/CHEST: Symmetric, unlabored respirations. Clear to auscultation. Breath sounds equal bilaterally. No wheezes, rales, or rhonchi. GASTROINTESTINAL: Abdomen soft, non-tender, nondistended. No guarding. Bowel sounds present. GENITOURINARY: Without palpable bladder distension. MUSCULOSKELETAL: Extremities without clubbing, cyanosis, or edema. No joint tenderness or effusion noted. No calf tenderness. No mottling or clubbing. LYMPHATICS: Did not assess NEUROLOGICAL: Awake and alert. Motor and sensory grossly within normal limits. Follows commands. Cognitively sharp. Moves all extremities. PSYCHIATRIC: No obvious anxiety/depression. no apparent hallucinations or other psychotic thought process. Diagnostic Tests Laboratory: Laboratory Results - last 72 hr 07/23/18 07/23/18 07/23/18 22:32 22:32 23:30 CBC w Diff Auto diff final WBC 3.2 L RBC 3.51 L Hgb 11.4 L Hct 35.3 MCV 100.5 H MCH 32.4 MCHC 32.3 RDW 14.9 Plt Count 317 MPV 7.0 Neut % (Auto) 41.7 Lymph % (Auto) 40.2 [place] % (Auto) 14.5 H Eos % (Auto) 2.3 Baso % (Auto) 1.3 Neut # (Auto) 1.3 L Lymph # (Auto) 1.3 [place] # (Auto) 0.5 Eos # (Auto) 0.1 Baso # (Auto) 0.0 WBC Differential . Differential Comment . PT INR APTT Sodium 143 Potassium 3.3 L Chloride 108 H Carbon Dioxide 28.0 Anion Gap 7 BUN 6 L Creatinine 0.57 Estimated GFR Greater than 89 Random Glucose 87 Calcium 8.9 Phosphorus Magnesium Total Bilirubin 0.5 AST 17 ALT 22 Alkaline Phosphatase 67 Total Protein 6.5 Albumin 3.5 Urine Color Yellow Urine Clarity Clear Urine pH 7.0 Ur Specific [place] Less/equal 1.005 Urine Protein Negative Urine Glucose (UA) Negative Urine Ketones Negative Urine Occult Blood Negative Urine Nitrate Negative Urine Bilirubin Negative Urine Urobilinogen 0.2 Ur Leukocyte Esterase Trace H Urine RBC 0-3 Urine WBC 6-8 H Ur Squamous Epith Cells 0-5 Urine Bacteria Occasional H Micro UA Comment Culture not ind Ur Microscopic Review Microscopic reviewed Nasal Screen MRSA (PCR) 07/24/18 07/24/18 07/24/18 02:30 08:55 09:01 CBC w Diff WBC 2.5 L RBC 3.67 L Hgb 12.5 Hct 36.3 MCV 98.8 MCH 34.2 H MCHC 34.6 RDW 15.0 Plt Count 275 MPV 7.6 Neut % (Auto) 83.2 H Lymph % (Auto) 14.5 [place] % (Auto) 1.9 Eos % (Auto) 0.0 Baso % (Auto) 0.4 Neut # (Auto) 2.0 Lymph # (Auto) 0.4 L [place] # (Auto) 0.0 Eos # (Auto) 0.0 Baso # (Auto) 0.0 WBC Differential . Differential Comment Auto diff final PT 9.6 L INR 0.9 APTT 21.7 L Sodium Potassium Chloride Carbon Dioxide Anion Gap BUN Creatinine Estimated GFR Random Glucose Calcium Phosphorus Magnesium Total Bilirubin AST ALT Alkaline Phosphatase Total Protein Albumin Urine Color Urine Clarity Urine pH Ur Specific [place] Urine Protein Urine Glucose (UA) Urine Ketones Urine Occult Blood Urine Nitrate Urine Bilirubin Urine Urobilinogen Ur Leukocyte Esterase Urine RBC Urine WBC Ur Squamous Epith Cells Urine Bacteria Micro UA Comment Ur Microscopic Review Nasal Screen MRSA (PCR) Not detected 07/24/18 09:01 CBC w Diff WBC RBC Hgb Hct MCV MCH MCHC RDW Plt Count MPV Neut % (Auto) Lymph % (Auto) [place] % (Auto) Eos % (Auto) Baso % (Auto) Neut # (Auto) Lymph # (Auto) [place] # (Auto) Eos # (Auto) Baso # (Auto) WBC Differential Differential Comment PT INR APTT Sodium 138 Potassium 4.1 D Chloride 108 H Carbon Dioxide 23.8 Anion Gap 6 BUN 7 Creatinine 0.48 L Estimated GFR Greater than 89 Random Glucose 132 H Calcium 9.3 Phosphorus 3.3 Magnesium 2.1 Total Bilirubin 0.7 AST 13 L ALT 24 Alkaline Phosphatase 75 Total Protein 7.2 D Albumin 3.6 Urine Color Urine Clarity Urine pH Ur Specific [place] Urine Protein Urine Glucose (UA) Urine Ketones Urine Occult Blood Urine Nitrate Urine Bilirubin Urine Urobilinogen Ur Leukocyte Esterase Urine RBC Urine WBC Ur Squamous Epith Cells Urine Bacteria Micro UA Comment Ur Microscopic Review Nasal Screen MRSA (PCR) Result Diagrams: 07/24/18 08:55 07/25/18 11:02 Imaging: Head CT 07/23/18 22:02 CONCLUSION: 1. Circumscribed 3.1 cm mass in the deep left frontal lobe with surrounding edema and about 4 mm of [id number] midline shift. Findings most characteristic of metastatic disease given the history of malignancy. . Head MRI 07/24/18 00:00 CONCLUSION: 1. Single 3 cm enhancing mass with surrounding edema and mass effect. This remains most consistent with metastatic disease given the medical history. Patient/Family Conference Family Conference Location: Bedside Issues Discussed: * Palliative care role, purpose, approach * Additional medical, psychosocial, and spiritual history * Patients general health, functional status, and cognitive changes in the months leading up to the current hospitalization * Patient/family understanding of the current medical problems * Patient/family understanding of prognosis * Patients goals of care as best understood from advance directives and/or conversations and/or values * Current medical treatment options and benefits/burdens of those options * Likely scenarios comparing ongoing aggressive care with a transition to comfort measures only * Questions answered to the best of my ability * Palliative care contact information provided Assessment and Plan - Disease Oriented Problem List (1) Pancreatic cancer (2) Brain metastases (3) Leukopenia (4) Hypokalemia - Symptom Scale (1) Anxiety 0-10 Scale: Unable to quantify (2) Pain 0-10 Scale: 5 Pertinent Non-Medical Issues: Psychosocial: Patient does not have any brothers. She has 1 sister, 2 daughters and 1 son. 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 Spiritual: Sabianist Legal: Has a living will but not made available. Ethical issues impacting care: None identified at this time. Important Contacts: Son- Rivera Wyatt [phone] Significant other- Lucio Woods [phone] Prognosis: Mrs Wyatt is a 62-year-old female with a medical history significant for metastatic pancreatic adenocarcinoma with metastatic intra-abdominal lymphadenopathy and pulmonary metastasis, chronic pain, and neutropenia. Patient presented to the emergency room [facility] on 07/23/18 with complaints of worsening neurological symptoms inclusive of difficulty speaking, difficulty swallowing, weakness of right hand, twitching of eyes, poor balance and coordination on the right side. Diagnostic imaging (MRI and CT brain) revealed 3 cm metastatic nodule with vasogenic edema and mass-effect. Given ongoing multiple comorbidities, patient remains at high risk for further complications, deterioration and decline. Code Status: No Code DNR Plan: PLAN: Legal decision maker: Patient is able to participate in medical decision making. In the event that she is incapacitated, she stated that she has designated her Lucio Woods as her healthcare surrogate and her son Rivera Wyatt as her alternate health care surrogate. Goals: Aggressive short of no code. Patient states that she does not want palliative care services at this time. Patient not interested to engage in any further conversation regarding goals of medical treatment. Palliative care geriatric social work professor will continue following with patient and palliative care services are available at any time their needed by patient or family. Palliative care will also attempt with assisting patient with completing and signing [facility] DNR. CODE STATUS: No code DNR SYMPTOMS: * Anxiety: Patient has been complaining of anxiety. Patient currently is on alprazolam 0.25 mg twice daily and was started on lorazepam 0.5 mg IV push every 6 hours prn. Recommending using one anxiolytic. Alprazolam frequency can be increased to TID and there is still room for increasing dosage and if patient responds well to Lorazepam then Alprazolam can be discontinued. Lorazepam can be switched to p.o. * Pain: History of chronic pain. Patient has history of metastatic pancreatic cancer on palliative chemotherapy. Patient complaining of neuropathic pain to hands and feet at night due to chemotherapy. Patient currently his hydrocodone/ acetaminophen 10/325 every 6 hours prn Palliative care will continue to follow the patient during hospital course as condition evolves, to assist patient/decision-maker with understanding of their medical conditions, weighing benefits/burdens of treatment options, for clarification of goals of treatment. Additionally will assist with any symptoms of palliative concern Appreciation Thank you for the opportunity to participate in the care of Saritha Wyatt. Attestation Attestation: To help prompt me to consider important information that might be impacting today's encounter and assessment, information from prior notes written by myself or my colleagues may have been "brought forward" into today's note. My signature on this note, however, is an attestation that I personally performed the exam, history, and/or decision-making noted today, and, unless otherwise indicated, the interactions with patient, family, and staff as well as the review of records all occurred today. I also attest that the listed assessment and stated plan reflect my best clinical judgment today based on the combination of historical information, prior notes, and today's exam/ interactions. When time spent is documented, it refers only to time spent today by the signer, or if indicated, combined time spent today by collaborating physician/nurse practitioner.
--- NOTE | 2018-07-25 11:41 | P.PNCC ---
Subjective Subjective Remarks/Hospital Course: 62-year-old unfortunate female with history of Pancreatic cancer presents for evaluation of altered mental status. The CT of the head obtained in the emergency department shows Circumscribed 3.1 cm mass in the deep left frontal lobe with surrounding edema and about 4 mm of [id number] midline shift. Findings most characteristic of metastatic disease given the history of malignancy. 07/24: Scans reviewed. Likely metastatic nodule left hemisphere with mass- effect and extensive surrounding edema. Plan for biopsy of mass, preoperative evaluation in progress. Protects airway, no seizure activity. MRI today. 07/25: MRI of the brain reveals solitary 3 cm metastatic nodule without evidence of additional metastatic disease. Coagulation profile is normal and platelet count normal. No growth on cultures. Patient has symptomatic improvement from steroids. Plan for resection of metastatic brain lesion tomorrow. Objective Vital Signs / I&O: Vital Signs 07/24/18 13:00 07/24/18 13:54 07/24/18 15:00 Temperature 98 F 98.1 F Pulse Rate 84 92 H Respiratory Rate 21 21 23 Blood Pressure 112/66 142/89 H Pulse Oximetry 100 97 07/24/18 16:53 07/24/18 20:00 07/24/18 21:21 Temperature 98.2 F Pulse Rate 103 H 91 H Respiratory Rate 25 H 17 15 Blood Pressure 127/86 Pulse Oximetry 100 99 07/24/18 22:00 07/25/18 00:00 07/25/18 02:00 Temperature 98.4 F Pulse Rate 103 H 104 H 95 H Respiratory Rate 18 16 13 Blood Pressure 147/88 H 98/52 L 103/68 Pulse Oximetry 100 97 98 07/25/18 04:00 07/25/18 06:00 Temperature 98.7 F Pulse Rate 64 80 Respiratory Rate 13 19 Blood Pressure 102/61 127/78 Pulse Oximetry 99 100 Intake & Output 07/24/18 07/25/18 07/25/18 18:59 06:59 18:59 Intake Total 1260 / 1260 500 / 500 Balance 1260 / 1260 500 / 500 Weight 56.3 kg Intake: IV 900 / 900 NS Inj 1,000 ML @ 84 mls/hr IV. 800 / 800 CONT .[id number] CALIN Rx#: [id number] KCl 20 mEq Premix Inj 20 meq In 100 / 100 100 ml @ 50 mls/hr IV.SIG Q2H PRN Rx#:[id number] Oral 360 / 360 500 / 500 Other: # Voids 3 Result Diagrams: 07/24/18 08:55 07/24/18 09:01 Objective Remarks: - Constitutional mild distress, chronically ill appearing - Routine HEENT Exam Head: Present: normocephalic Eye: Present: PERRL, normal accommodation ENT: Present: mucous membranes moist - Routine Neck Exam Present: supple, full ROM. Airway widely patent, no obstructive noises. Absent : JVD, carotid bruit - Routine Respiratory Exam Clear, normal excursions. Absent: accessory muscle use, rhonchi, stridor, wheezes - Routine Cardiovascular Exam Present: RRR, S1, S2, no JVD - Routine Abdominal Exam Present: soft, normoactive bowel sounds. Absent: tenderness, distended. No guarding - Routine Extremities Exam Warm, well-perfused. Absent: cyanosis, clubbing, edema - Routine Skin Exam Present: intact. Absent: cyanosis, erythema - Routine Neurological Exam Present: alert, oriented X3, moving all extremities spontaneously and to command. Some weakness right arm motor strength. Protects airway well, handle secretions well. Assessment and Plan - Assessment and Plan Plan: Brain mass with vasogenic edema -Decadron bolus followed by 4 mg every 6 hours -MRI with and without contrast -Consult neurosurgery -Palliative care evaluation -Resection of metastatic brain lesion tomorrow Altered mental status -Due to above -Neuro checks per unit routine -Supportive care -Well oriented today. Leukopenia History of pancreatic cancer -Blood cultures -Consult medical oncology and palliative care -Coagulation profile and platelet count acceptable for surgery Hypokalemia -Electrolyte replacement per ICU protocol Anxiety -Xanax as needed DVT GI prophylaxis -Teds SCDs -Discontinue subcu Lovenox today -Pepcid Overall impression: Solitary 3 cm brain lesion, well-circumscribed and likely metastatic from previous pancreatic cancer. Patient has realized mild symptomatic improvement following steroid administration. Resection of mass is planned for tomorrow. From a critical care standpoint she is ready for surgery. Recent CXR is clear.
[2018-07-25 11:44] LABS: Anion Gap 10 meq/L (5-15); Blood Urea Nitrogen 10 mg/dL (7-18); Carbon Dioxide 24.1 meq/L (21.0-32.0); Chloride 108 meq/L (98-107); Potassium 3.3 meq/L (3.5-5.1); Sodium 142 meq/L (136-145)
[2018-07-25 11:45] LABS: Calcium 8.7 mg/dL (8.5-10.1); Glomerular Filtration Rate Greater Than 89 mL/min (>89); Glucose,Random 116 mg/dL (74-106)
--- NOTE | 2018-07-25 12:09 | P.PNONC ---
Subjective Interval history: Afebrile. Patient lying in bed, awake and alert. She reports some improvement in her weakness since being on steroids. Her right arm remains weak and she has to assist it with her left. She also reports her speech has improved. She states prior to steroid she was unable to speak. She requests that her Ativan be changed to IV, reporting that the p.o. Ativan is not helping her anxiety. She denies any chest pain or shortness of breath. Denies N/V/D. Objective Vital Signs/Intake & Output: Vital Signs 07/24/18 13:00 07/24/18 13:54 07/24/18 15:00 Temperature 98 F 98.1 F Pulse Rate 84 92 H Respiratory Rate 21 21 23 Blood Pressure 112/66 142/89 H Pulse Oximetry 100 97 07/24/18 16:53 07/24/18 20:00 07/24/18 21:21 Temperature 98.2 F Pulse Rate 103 H 91 H Respiratory Rate 25 H 17 15 Blood Pressure 127/86 Pulse Oximetry 100 99 07/24/18 22:00 07/25/18 00:00 07/25/18 02:00 Temperature 98.4 F Pulse Rate 103 H 104 H 95 H Respiratory Rate 18 16 13 Blood Pressure 147/88 H 98/52 L 103/68 Pulse Oximetry 100 97 98 07/25/18 04:00 07/25/18 06:00 Temperature 98.7 F Pulse Rate 64 80 Respiratory Rate 13 19 Blood Pressure 102/61 127/78 Pulse Oximetry 99 100 Intake & Output 07/24/18 07/25/18 07/25/18 18:59 06:59 18:59 Intake Total 1260 / 1260 500 / 500 Balance 1260 / 1260 500 / 500 Weight 56.3 kg Intake: IV 900 / 900 NS Inj 1,000 ML @ 84 mls/hr IV. 800 / 800 CONT .[id number] CALIN Rx#: [id number] KCl 20 mEq Premix Inj 20 meq In 100 / 100 100 ml @ 50 mls/hr IV.SIG Q2H PRN Rx#:[id number] Oral 360 / 360 500 / 500 Other: # Voids 3 Result Diagrams: 07/24/18 08:55 07/25/18 11:02 Laboratory Results: Laboratory Results - last 24 hr 07/25/18 11:02 Sodium 142 Potassium 3.3 L D Chloride 108 H Carbon Dioxide 24.1 Anion Gap 10 BUN 10 Creatinine 0.61 Estimated GFR Greater than 89 Random Glucose 116 H Calcium 8.7 Culture Results: Microbiology 07/24/18 09:01 Aerobic Blood Culture - Preliminary Blood - Peripheral No growth in 1 day Anaerobic Blood Culture - Preliminary No growth in 1 day 07/24/18 08:55 Aerobic Blood Culture - Preliminary Blood - Peripheral No growth in 1 day Anaerobic Blood Culture - Preliminary No growth in 1 day Imaging Studies: Impressions Head MRI 07/24/18 00:00 CONCLUSION: 1. Single 3 cm enhancing mass with surrounding edema and mass effect. This remains most consistent with metastatic disease given the medical history. Medications: Active Medications Generic Name Dose Route Start Last Admin Trade Name Freq PRN Reason Stop Dose Admin Hydrocodone Bitart/Acetaminophen 1 tab 07/23/18 23:42 07/24/18 21:21 Gum Spring 10/325 PO 1 tab Q6H PRN Administration Pain1-10 Alprazolam 0.25 mg 07/24/18 09:00 07/25/18 08:40 Xanax PO 0.25 mg BID CALIN Administration Chlorhexidine Gluconate 3 pack 07/24/18 04:00 07/25/18 04:31 Chlorhexidine 2% Cloth TOPICAL 07/29/18 03:59 3 pack DAILY@0400 CALIN Administration Dexamethasone Sodium Phosphate 4 mg 07/24/18 00:00 07/25/18 11:02 Decadron Inj IV.PUSH 4 mg Q6HR CALIN Administration Famotidine 20 mg 07/24/18 09:00 07/25/18 08:40 Pepcid Pf Inj IV.PUSH 20 mg Q12HR CALIN Administration Heparin Sodium (Porcine) 5,000 units 07/24/18 14:00 07/25/18 05:15 Heparin Inj SQ 07/25/18 18:00 5,000 units Q8HR CALIN Administration Hydromorphone HCl 1 mg 07/23/18 23:42 07/24/18 12:43 Dilaudid Pf Inj IV.PUSH 1 mg Q4H PRN Administration PAIN SCALE 6 TO 10 Sodium Chloride 1,000 mls @ 84 mls/hr 07/23/18 23:45 07/25/18 11:03 Ns Inj IV.CONT Not Given .[id number] CALIN Potassium Chloride 20 meq in 100 mls @ 50 mls/hr 07/24/18 01:09 07/24/18 07: 40 Kcl 20 Meq Premix Inj IV.SIG Infused Q2H PRN Infusion For Potassium 3.3 - 3.5 mEq/L Lorazepam 0.5 mg 07/24/18 19:49 07/25/18 09:29 Ativan PO 0.5 mg Q6H PRN Administration ANXIETY Senna/Docusate Sodium 1 tab 07/24/18 09:00 07/25/18 08:40 Meghna-Colace PO 1 tab BID CALIN Administration Sodium Chloride 2 ml 07/24/18 09:00 07/25/18 08:41 Ns Flush IV.FLUSH 2 ml BID CALIN Administration Objective Remarks: GENERAL: Well-nourished, well-developed female patient, in no acute distress. SKIN: Warm and dry. HEAD: Normocephalic. EYES: No scleral icterus. No injection or drainage. PERRLA. NECK: Supple, trachea midline. CARDIOVASCULAR: Regular rate and rhythm without murmurs. RESPIRATORY: Posterior breath sounds clear, equal bilaterally. Nonlabored at rest. GASTROINTESTINAL: Abdomen soft, non-tender, nondistended. EXTREMITIES: No cyanosis, or edema. MUSCULOSKELETAL: Adequate muscle tone. NEUROLOGICAL: Awake, alert, and oriented x3. +stammering speech, decreased strength right extremities. PSYCHIATRIC: Appropriate mood and affect; insight and judgment normal. Assessment/Plan - Plan Ms. Wyatt is a pleasant 62-year-old female who was diagnosed with pancreatic adenocarcinoma in May 2017. She had amish metastases in the abdomen as well as pulmonary nodules which are consistent with metastatic disease at the time of diagnosis. Her disease progressed on palliative first-line systemic therapy consisting of gemcitabine and Abraxane. In February 2018 she was transitioned to liposomal Irinotecan in combination with 5-FU (FOLFIRI). She had been responding well to this treatment based on restaging imaging scans performed in mid July 2018. Overall based on PET/CT imaging her systemic disease burden is quite limited, it appears to be limited to the pancreas, intra-abdominal lymph nodes and small pulmonary nodules. She presents the hospital with a several week history of progressive difficulty speaking, weakness of the right upper extremity and headaches. Imaging studies performed on 07/23/2018; CT head with contrast indicates a 3.1 cm mass involving the deep left frontal lobe associated with vasogenic edema and a 4 mm left to right midline shift. The patient has been admitted to the critical care unit, she is been initiated on corticosteroids and has been evaluated by neurosurgery. She has been advised craniotomy with resection of the primary tumor. Following surgery she will be candidate for palliative radiation as well. Recommendations: 1. Metastatic pancreas adenocarcinoma, second line palliative chemotherapy with FOLFIRI (liposomal Irinotecan), currently on hold. 2. Brain mass with vasogenic edema, continue steroids per shirring machine operator automatic. Neurosurgery has been consulted. Mass resection planned for tomorrow. 3. Anxiety, continue Ativan and Xanax as needed. 4. Continue supportive care. - Attending Statement The exam, history, and the medical decision-making described in the above note were completed with the assistance of the mid-level provider. I reviewed and agree with the findings presented. I attest that I had a [id number] encounter with the patient on the same day, and personally performed and documented my assessment and findings in the medical record. Event of the admission noted and discussed with Dr. 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 I held the chemotherapy and order MRI of the brain to evaluate for brain metastasis. This is scheduled for Friday 07/[address] [facility]. Patient since that visit in the office has developed weakness of right upper arm and difficulty in speech with slurring of words. She came to the emergency room. CAT scan and MRI of the brain showed solitary brain lesion of 3.1 cm with vasogenic edema. I have discussed the case with neurosurgeon Dr. Dyson. He has concern with neuro deficit after the surgical resection. We discussed that the tumor is too big for stereotactic radiosurgery at this time. My recommendation is for debulking the tumor and then have stereotactic radiosurgery. Consult radiation oncologist. Patient has been evaluated by Dr. melendez who agreed with the above plan. Patient is scheduled for surgery on Wednesday Discussed with the patient and significant other at the bedside. Chemotherapy will be put on hold until she had surgery followed by radiation therapy. Patient desire aggressive treatment. She is optimistic that she will get better. Continue Decadron for vasogenic edema
--- NOTE | 2018-07-25 15:43 | P.PNNS ---
Subjective Interval history: Reports of some word finding difficulty and right arm weakness. denies headaches, seizures. <Zelda Rodriguez - Last Filed: 07/25/18 15:38> Physical Exam Vital signs: Vital Signs 07/24/18 16:53 07/24/18 20:00 07/24/18 21:21 Temperature 98.2 F Pulse Rate 103 H 91 H Respiratory Rate 25 H 17 15 Blood Pressure 127/86 Pulse Oximetry 100 99 07/24/18 22:00 07/25/18 00:00 07/25/18 02:00 Temperature 98.4 F Pulse Rate 103 H 104 H 95 H Respiratory Rate 18 16 13 Blood Pressure 147/88 H 98/52 L 103/68 Pulse Oximetry 100 97 98 07/25/18 04:00 07/25/18 06:00 07/25/18 08:00 Temperature 98.7 F Pulse Rate 64 80 16 L Respiratory Rate 13 19 Blood Pressure 102/61 127/78 Pulse Oximetry 99 100 Intake & Output 07/24/18 07/25/18 07/25/18 18:59 06:59 18:59 Intake Total 1260 / 1260 500 / 500 Balance 1260 / 1260 500 / 500 Weight 56.3 kg Intake: IV 900 / 900 NS Inj 1,000 ML @ 84 mls/hr IV. 800 / 800 CONT .[id number] CALIN Rx#: [id number] KCl 20 mEq Premix Inj 20 meq In 100 / 100 100 ml @ 50 mls/hr IV.SIG Q2H PRN Rx#:[id number] Oral 360 / 360 500 / 500 Other: # Voids 3 Narrative: awake, alert mild word finding difficulty, she is able to converse and follow commands well normocephalic pupils equal, EOMs intact facial motor symmetric 4/5 right upper and lower extremity, 5/5 left side sensory intact light touch x 4 extremities cerebellar intact finger to nose b/l heart regular rate rhythm <Zelda Rodriguez - Last Filed: 07/25/18 15:38> Vital signs: Vital Signs 07/24/18 20:00 07/24/18 21:21 07/24/18 22:00 Temperature Pulse Rate 91 H 103 H Respiratory Rate 17 15 18 Blood Pressure 147/88 H Pulse Oximetry 99 100 07/25/18 00:00 07/25/18 02:00 07/25/18 04:00 Temperature 98.4 F 98.7 F Pulse Rate 104 H 95 H 64 Respiratory Rate 16 13 13 Blood Pressure 98/52 L 103/68 102/61 Pulse Oximetry 97 98 99 07/25/18 06:00 07/25/18 08:00 07/25/18 12:00 Temperature 98.1 F 98.6 F Pulse Rate 80 66 86 Respiratory Rate 19 16 19 Blood Pressure 127/78 108/65 144/96 H Pulse Oximetry 100 100 100 07/25/18 16:00 Temperature 98.0 F Pulse Rate 74 Respiratory Rate 17 Blood Pressure 112/55 L Pulse Oximetry 96 Intake & Output 07/24/18 07/25/18 07/25/18 18:59 06:59 18:59 Intake Total 1260 / 1260 500 / 500 480 / 480 Balance 1260 / 1260 500 / 500 480 / 480 Weight 56.3 kg Intake: IV 900 / 900 NS Inj 1,000 ML @ 84 mls/hr IV. 800 / 800 CONT .[id number] CALIN Rx#: [id number] KCl 20 mEq Premix Inj 20 meq In 100 / 100 100 ml @ 50 mls/hr IV.SIG Q2H PRN Rx#:[id number] Oral 360 / 360 500 / 500 480 / 480 Other: # Voids 3 4 # Bowel Movements 0 Narrative: The patient is alert, awake. Comfortable, in no acute distress. Speech is fluent. Mild word finding difficulty Cranial nerve examination: pupils to be equal, round and reactive to light. Extra-ocular movements are intact. Facial motor and sensory function are normal and symmetrical. Gross hearing appears intact. Sternocleidomastoid and trapezius muscles are symmetrical. Other cranial nerves are intact. Neck is soft and supple with a good range of motion without pain. Muscle strength 4/5 right upper and lower extremity, 5/5 left side Sensory examination is intact to light touch and pin prick in both the upper and lower extremities. Deep tendon reflexes are symmetrical in both upper and lower extremities. There is a bilateral plantar flexion response. Cerebellar examination is unremarkable, without deficits. Lungs are clear Heart regular rhythm is regular rate Skin warm and dry - Urinary Catheter Management Indwelling Urethral Catheter Cath placed during this visit: no Straight Cath placed during this visit: no <Segun Dyson - Last Filed: 07/31/18 18:34> Assessment and Plan - Plan 62 y/o female 3 cm enhancing mass left frontal lobe with 4 mm midline shift history of pancreatic CA Plan: surgery wed with brainlab for resection of brain mass cont decadron cont protonix keppra for seizure prophylaxis <Zelda Rodriguez - Last Filed: 07/25/18 15:38> - Plan I reviewed her MRI and I discussed her case with her oncologist, Dr. Ramos and Dr. Capellan Head CT 07/23/18 22:02 CONCLUSION: 1. Circumscribed 3.1 cm mass in the deep left frontal lobe with surrounding edema and about 4 mm of [id number] midline shift. Findings most characteristic of metastatic disease given the history of malignancy. . Head MRI 07/24/18 00:00 CONCLUSION: 1. Single 3 cm enhancing mass with surrounding edema and mass effect. This remains most consistent with metastatic disease given the medical history. I discussed with her the alternatives of treatment, including the possibility of a surgical resection. I am very concerned that a surgical resection may result in the permanent neurological deficit, such as permanent hemiparesis or right hemiplegia, as well as risk of aggravation of her aphasia. This has been discussed with Dr. Ramos and Dr. Capellan as well.. Mindi discussed the [id number] details of the surgical procedure, its indications, alternatives, risks, and potential complications. Risks and potential complications include, but are not limited to, infection, blood loss, CSF leak, partial or complete loss of sight in one or both eyes, paresis, paralysis, permanent pain or difficulty swallowing, loss of bowel or bladder function, complications from anesthesia, blood clot, stroke, myocardial infarction, or even . The possibility of nonoperative treatment has been offered. Pulmonary: aggressive pulmonary toilette, nasotracheal suction, and breathing treatments with nebulizers. Daily PT and OT Renal: Continue to monitor closely urine output, BUN and creatinine Endocrine: Continue to Monitor serial Acu checks and SSI as needed in detail ID continue to monitor for signs of infection Continue Protonix for stress ulcer prophylaxis Continue Vishnu hose and SCD's for DVT prophylaxis Further recommendations will be provided depending on the patient's clinical evaluation and follow up studies. The exam, history, and the medical decision-making described in the above note were completed with the assistance of the mid-level provider. I reviewed and agree with the findings presented. I attest that I had a [id number] encounter with the patient on the same day, and personally performed and documented my assessment and findings in the medical record. <Segun Dyson - Last Filed: 07/31/18 18:34>
--- NOTE | 2018-07-25 18:30 | P.CON ---
History of Present Illness Service: Radiation Oncology Reason for Consult: new intracranial lesion, history esophageal cancer Primary Care Provider: No Primary Care Physician Chief Complaint: Difficulty speaking and weakness of the left upper extremity. History of Present Illness: 3.1 cm intracranial lesion with mass effect and edema. inpatient. [facility] - History History Provided By: Patient, Medical Record - Medical History Medical History: Medical History (Last Updated 07/24/18 @ 09:48 by Steven Ovalle MD) Lung metastases Chronic pain History of blood product transfusion Neutropenia Pancreas cancer Port or reservoir infection - Surgical History Surgical History: Surgical History (Last Reviewed 07/24/18 @ 09:48 by Steven Ovalle MD) H/O section History of rectal surgery History of tubal ligation - Family History Family History: Family History (Last Updated 07/25/18 @ 10:45 by Mily Mccollum) Grandparent Colon cancer - Tobacco History Second Hand Smoke Exposure: No Tobacco Use In Past 30 Days: No Smoking Status: Former smoker Tobacco Type: Cigarettes - Alcohol History How Often Do You Have a Drink Containing Alcohol: Monthly or less - Substance Use History Substance History: Past History (Past history of cocaine use. EMR documentation dated 05/10/17) - Travel History Recent Travel in the [facility] Within the Last 8 Weeks: No - Immunization History Tetanus Immunization: <5 Years Medications and Allergies Active Medications: Active Medications Acetaminophen (Tylenol) 650 mg PO Q6H PRN PRN Reason: PAIN 1-10 AND/OR FEVER >101F Hydrocodone Bitart/Acetaminophen ([place] 10/325) 1 tab PO Q6H PRN PRN Reason: Pain1-10 Last Admin: 07/24/18 21:21 Dose: 1 tab Al Hydroxide/Mg Hydroxide (Milk Of Magnesia Liq) 30 ml PO Q12H PRN PRN Reason: Mild Constipation Albuterol (Duoneb Neb (Prn)) 1 ampul NEB Q2HR NEB PRN PRN Reason: WHEEZING Alprazolam (Xanax) 0.25 mg PO BID [facility] Last Admin: 07/25/18 08:40 Dose: 0.25 mg Bisacodyl (Dulcolax Supp) 10 mg RECTAL DAILY PRN PRN Reason: SEVERE CONSITIPATION Chlorhexidine Gluconate (Chlorhexidine 2% Cloth) 3 pack TOPICAL DAILY@0400 [facility] Stop: 07/29/18 03:59 Last Admin: 07/25/18 04:31 Dose: 3 pack Chlorhexidine Gluconate (Chlorhexidine 2% Cloth) 3 pack TOPICAL DAILY@0400 PRN PRN Reason: Extra cloth needed Stop: 07/29/18 03:59 Dexamethasone Sodium Phosphate (Decadron Inj) 4 mg IV.PUSH Q6HR [facility] Last Admin: 07/25/18 17:05 Dose: 4 mg Famotidine (Pepcid Pf Inj) 20 mg IV.PUSH Q12HR [facility] Last Admin: 07/25/18 08:40 Dose: 20 mg Hydromorphone HCl (Dilaudid Pf Inj) 1 mg IV.PUSH Q4H PRN PRN Reason: PAIN SCALE 6 TO 10 Last Admin: 07/24/18 12:43 Dose: 1 mg Sodium Chloride (Ns Inj) 1,000 mls @ 84 mls/hr IV.CONT .[id number] [facility] Last Admin: 07/25/18 11:03 Dose: Not Given Magnesium Sulfate 4 gm/ Sodium (Chloride) 100 mls @ 50 mls/hr IV.SIG UNSCH PRN PRN Reason: For Magnesium 0.9 - 1.1 mg/dL Magnesium Sulfate 2 gm/ Sodium (Chloride) 100 mls @ 50 mls/hr IV.SIG UNSCH PRN PRN Reason: For Magnesium 1.2 - 1.6 mg/dL Potassium Chloride (Kcl 20 Meq Premix Inj) 20 meq in 100 mls @ 50 mls/hr IV.SIG Q2H PRN PRN Reason: For Potassium 3.3 - 3.5 mEq/L Last Infusion: 07/24/18 07:40 Dose: Infused Potassium Chloride (Kcl 40 Meq Premix Inj) 40 meq in 100 mls @ 25 mls/hr IV.SIG UNSCH PRN PRN Reason: For Potassium 3.3 - 3.5 mEq/L Potassium Chloride (Kcl 20 Meq Premix Inj) 20 meq in 100 mls @ 50 mls/hr IV.SIG Q2H PRN PRN Reason: For Potassium 2.8 - 3.2 mEq/L Potassium Phosphate 30 mmol/ (Sodium Chloride) 260 mls @ 42 mls/hr IV.SIG UNSCH PRN PRN Reason: SEE LABEL COMMENTS Sodium Phosphate 30 mmol/ (Sodium Chloride) 260 mls @ 42 mls/hr IV.SIG UNSCH PRN PRN Reason: For Phosphorus < 2.5 mg/dL Potassium Chloride (Kcl 40 Meq Premix Inj) 40 meq in 100 mls @ 25 mls/hr IV.SIG Q2H PRN PRN Reason: For Potassium 2.8 - 3.2 mEq/L Lactulose (Lactulose Liq) 30 ml PO DAILY PRN PRN Reason: SEVERE CONSITIPATION Lorazepam (Ativan Inj) 0.5 mg IV.PUSH Q6H PRN PRN Reason: ANXIETY Last Admin: 07/25/18 17:18 Dose: 0.5 mg Magnesium Oxide (Mag-Ox) 800 mg PO UNSCH PRN PRN Reason: For Magnesium 1.2 - 1.6 mg/dL Ondansetron HCl (Zofran Inj) 4 mg IV.PUSH Q6H PRN PRN Reason: NAUSEA OR VOMITING Potassium Bicarb/Potassium Chloride (K-Lyte Cl Eff) 50 meq PO UNSCH PRN PRN Reason: For Potassium 3.3 - 3.5 mEq/L Potassium Phosphate (K-Phos Original) 2,000 mg PO Q4H PRN PRN Reason: Phosphorus Less Than 2.5 mg/dL Potassium Phosphate (K-Phos Original) 2,000 mg PO UNSCH PRN PRN Reason: SEE LABEL COMMENTS Senna/Docusate Sodium (Meghna-Colace) 1 tab PO BID [facility] Last Admin: 07/25/18 08:40 Dose: 1 tab Sennosides (Senokot) 17.2 mg PO Q12H PRN PRN Reason: Moderate Constipation Sodium Chloride (Ns Flush) 2 ml IV.FLUSH BID [facility] Last Admin: 07/25/18 08:41 Dose: 2 ml Sodium Chloride (Ns Flush) 2 ml IV.FLUSH PRN PRN PRN Reason: FLUSH AFTER USING IV ACCESS Temazepam (Restoril) 15 mg PO HS PRN PRN Reason: INSOMNIA Allergies Allergy/AdvReac Type Severity Reaction Status Date / Time Sulfa (Sulfonamide Allergy Mild Shortness Verified 04/15/18 07:16 Antibiotics) of Breath surgical tape AdvReac Severe Irritation Uncoded 04/15/18 07:16 Home Medications Medication Instructions Recorded Confirmed Type alprazolam [Xanax] 0.25 mg PO BID 04/15/18 07/23/18 History hydrocodone-acetaminophen [Toppenish] 1 tab PO Q6H PRN 04/15/18 07/23/18 History Physical Exam Vital signs: Vital Signs 07/24/18 20:00 07/24/18 21:21 07/24/18 22:00 Temperature Pulse Rate 91 H 103 H Respiratory Rate 17 15 18 Blood Pressure 147/88 H Pulse Oximetry 99 100 07/25/18 00:00 07/25/18 02:00 07/25/18 04:00 Temperature 98.4 F 98.7 F Pulse Rate 104 H 95 H 64 Respiratory Rate 16 13 13 Blood Pressure 98/52 L 103/68 102/61 Pulse Oximetry 97 98 99 07/25/18 06:00 07/25/18 08:00 07/25/18 12:00 Temperature 98.1 F 98.6 F Pulse Rate 80 66 86 Respiratory Rate 19 16 19 Blood Pressure 127/78 108/65 144/96 H Pulse Oximetry 100 100 100 07/25/18 16:00 Temperature 98.0 F Pulse Rate 74 Respiratory Rate 17 Blood Pressure 112/55 L Pulse Oximetry 96 Intake & Output 07/24/18 07/25/18 07/25/18 18:59 06:59 18:59 Intake Total 1260 / 1260 500 / 500 480 / 480 Balance 1260 / 1260 500 / 500 480 / 480 Weight 56.3 kg Intake: IV 900 / 900 NS Inj 1,000 ML @ 84 mls/hr IV. 800 / 800 CONT .[id number] [facility] Rx#: [id number] KCl 20 mEq Premix Inj 20 meq In 100 / 100 100 ml @ 50 mls/hr IV.SIG Q2H PRN Rx#:[id number] Oral 360 / 360 500 / 500 480 / 480 Other: # Voids 3 4 # Bowel Movements 0 Assessment and Plan - Plan Agree with surgical resection. Will schedule re-eval 1-2 weeks. > 20 minutes involvement in her case at this time.
[2018-07-26] MEDS: Sod Chloride 0.9% Inj 1,000 ML IV.CONT SCH ×3 (01:48→23:26)
[2018-07-26] MEDS: Chlorhexidine Gluconate 2% 1 Pack (2 Cloths) TOPICAL SCH (04:46)
--- NOTE | 2018-07-26 06:22 | CT ---
EXAM DATE: 07/26/2018 5:42 AM EDT AGE/SEX: 62 years / Female INDICATIONS: Follow up metastatic disease. Sudden right sided weakness. CLINICAL DATA: This is the patient's subsequent encounter. Patient reports that signs and symptoms h ave been present for 3 days and indicates a pain score of 0/10. MEDICAL/SURGICAL HISTORY: Carcinoma, lung. Carcinoma, pancreas. section. Tubal ligation. RADIATION DOSE: 56.35 CTDI (mGy) COMPARISON: [facility], CT HEAD W/O CONTRAST, 07/23/2018. . TECHNIQUE: CT of the head without contrast. Using automated exposure control and adjustment of the mA and/or kV according to patient size, radiation dose was kept as low as reasonably achievable to ob tain optimal diagnostic quality images. DICOM format image data is available electronically for revi ew and comparison. FINDINGS: Cerebrum: There is a persistent 3.1 cm mass seen in the left lower medial frontal lobe. This causes mass effect on the anterior aspect of the left lateral ventricle. There is 5 mm of [id number] midl ine shift anteriorly. No other focal masses are seen. The ventricles are otherwise normal. There is e brie seen surrounding the mass extending into the frontal white matter and into the internal and exte rnal capsule regions. There is a small focal area of low density seen in the right posterior limb of the internal capsule. No evidence of hemorrhage or acute infarction. No extraaxial fluid collections are seen. Posterior Fossa: The cerebellum and brainstem are intact. The 4th ventricle is midline. The cerebe llopontine angle is unremarkable. Extracranial: The visualized portion of the orbits is intact. Skull: The calvaria is intact. No evidence of skull fracture. CONCLUSION: Persistent 3.1 cm left frontal mass with surrounding vasogenic edema. There is 5 mm of [id number] midline shift. . Electronically signed by: Carlos Enrique Merchant MD 07/26/2018 6:20 AM EDT
[2018-07-26] MEDS: ALPRAZolam 0.25 MG Tablet PO SCH ×2 (08:10→21:21)
[2018-07-26] MEDS: Famotidine PF Inj 20 MG/2 ML Vial IV.PUSH SCH ×2 (08:10→21:20)
[2018-07-26] MEDS: Senna/Docusate Sodium 8.6/50 MG Tablet PO SCH ×2 (08:11→21:21)
--- NOTE | 2018-07-26 14:47 | P.PNCC ---
Subjective Subjective Remarks/Hospital Course: 62-year-old unfortunate female with history of Pancreatic cancer presents for evaluation of altered mental status. The CT of the head obtained in the emergency department shows Circumscribed 3.1 cm mass in the deep left frontal lobe with surrounding edema and about 4 mm of [id number]-[id number] midline shift. Findings most characteristic of metastatic disease given the history of malignancy. 07/24: Scans reviewed. Likely metastatic nodule left hemisphere with mass- effect and extensive surrounding edema. Plan for biopsy of mass, preoperative evaluation in progress. Protects airway, no seizure activity. MRI today. 07/25: MRI of the brain reveals solitary 3 cm metastatic nodule without evidence of additional metastatic disease. Coagulation profile is normal and platelet count normal. No growth on cultures. Patient has symptomatic improvement from steroids. Plan for resection of metastatic brain lesion tomorrow. 07/26: Patient is clinically ready for craniotomy should she decide that route of care. She continues to have some weakness involving her right side particularly the right arm and acknowledges that she has trouble finding words. Objective Vital Signs / I&O: Vital Signs 07/25/18 16:00 07/25/18 20:00 07/25/18 22:00 Temperature 98.0 F 98.6 F Pulse Rate 74 74 65 Respiratory Rate 17 19 21 Blood Pressure 112/55 L 138/81 128/81 Pulse Oximetry 96 98 98 07/26/18 00:00 07/26/18 02:00 07/26/18 04:00 Temperature 98.9 F 98.2 F Pulse Rate 59 L 54 L 51 L Respiratory Rate 17 15 17 Blood Pressure 114/58 L 126/65 155/73 H Pulse Oximetry 96 98 97 07/26/18 06:00 07/26/18 08:00 07/26/18 10:00 Temperature 98.5 F Pulse Rate 71 68 76 Respiratory Rate 25 H 14 20 Blood Pressure 158/94 H 169/81 H 127/75 Pulse Oximetry 96 98 99 07/26/18 12:00 Temperature 98.6 F Pulse Rate 88 Respiratory Rate 21 Blood Pressure 127/66 Pulse Oximetry 98 Intake & Output 07/25/18 07/26/18 07/26/18 18:59 06:59 18:59 Intake Total 480 / 480 480 / 480 1000 / 1000 Balance 480 / 480 480 / 480 1000 / 1000 Weight 56.1 kg Intake: IV 1000 / 1000 NS Inj 1,000 ML @ 84 mls/hr IV. 1000 / 1000 CONT .[id number] [facility] Rx#: [id number] Oral 480 / 480 480 / 480 Other: # Voids 4 4 # Bowel Movements 0 0 Result Diagrams: 07/24/18 08:55 07/25/18 11:02 Objective Remarks: - Constitutional mild distress, chronically ill appearing - Routine HEENT Exam Head: Present: normocephalic Eye: Present: PERRL, normal accommodation ENT: Present: mucous membranes moist - Routine Neck Exam Present: supple, full ROM. Airway widely patent, no obstructive noises. Absent : JVD, carotid bruit - Routine Respiratory Exam Clear, normal excursions. Absent: accessory muscle use, rhonchi, stridor, wheezes - Routine Cardiovascular Exam Present: RRR, S1, S2, no JVD - Routine Abdominal Exam Present: soft, normoactive bowel sounds. Absent: tenderness, distended. No guarding - Routine Extremities Exam Warm, well-perfused. Absent: cyanosis, clubbing, edema - Routine Skin Exam Present: intact. Absent: cyanosis, erythema - Routine Neurological Exam Present: alert, oriented X3, moving all extremities spontaneously and to command. Some weakness right arm and leg motor strength. Protects airway well , handle secretions well. Some difficulty finding words. Assessment and Plan - Assessment and Plan Plan: Brain mass with vasogenic edema -Decadron bolus followed by 4 mg every 6 hours -MRI with and without contrast -Consult neurosurgery -Palliative care evaluation -Resection of metastatic brain lesion tomorrow Altered mental status -Due to above -Neuro checks per unit routine -Supportive care -Well oriented today. Leukopenia History of pancreatic cancer -Blood cultures -Consult medical oncology and palliative care -Coagulation profile and platelet count acceptable for surgery Hypokalemia -Electrolyte replacement per ICU protocol Anxiety -Xanax as needed DVT GI prophylaxis -Teds SCDs -Discontinue subcu Lovenox today -Pepcid Overall impression: Solitary 3 cm brain lesion, well-circumscribed and likely metastatic from previous pancreatic cancer. Patient has realized mild symptomatic improvement following steroid administration. From a critical care standpoint she is ready for surgery. Recent CXR is clear. Patient acknowledges that resection of the brain tumor on the left side carries considerable risks of permanent neurological injury.
--- NOTE | 2018-07-26 15:05 | P.PNNS ---
Subjective Interval history: no changes overnight <MichaelZelda - Last Filed: 07/26/18 15:03> Physical Exam Vital signs: Vital Signs 07/25/18 16:00 07/25/18 20:00 07/25/18 22:00 Temperature 98.0 F 98.6 F Pulse Rate 74 74 65 Respiratory Rate 17 19 21 Blood Pressure 112/55 L 138/81 128/81 Pulse Oximetry 96 98 98 07/26/18 00:00 07/26/18 02:00 07/26/18 04:00 Temperature 98.9 F 98.2 F Pulse Rate 59 L 54 L 51 L Respiratory Rate 17 15 17 Blood Pressure 114/58 L 126/65 155/73 H Pulse Oximetry 96 98 97 07/26/18 06:00 07/26/18 08:00 07/26/18 10:00 Temperature 98.5 F Pulse Rate 71 68 76 Respiratory Rate 25 H 14 20 Blood Pressure 158/94 H 169/81 H 127/75 Pulse Oximetry 96 98 99 07/26/18 12:00 Temperature 98.6 F Pulse Rate 88 Respiratory Rate 21 Blood Pressure 127/66 Pulse Oximetry 98 Intake & Output 07/25/18 07/26/18 07/26/18 18:59 06:59 18:59 Intake Total 480 / 480 480 / 480 1000 / 1000 Balance 480 / 480 480 / 480 1000 / 1000 Weight 56.1 kg Intake: IV 1000 / 1000 NS Inj 1,000 ML @ 84 mls/hr IV. 1000 / 1000 CONT .[id number] [facility] Rx#: [id number] Oral 480 / 480 480 / 480 Other: # Voids 4 4 # Bowel Movements 0 0 Narrative: awake, alert mild word finding difficulty, she is able to converse and follow commands well normocephalic pupils equal, EOMs intact facial motor symmetric 4/5 right upper and lower extremity, 5/5 left side sensory intact light touch x 4 extremities cerebellar intact finger to nose b/l heart regular rate rhythm <Zelda Rodriguez - Last Filed: 07/26/18 15:03> Vital signs: Vital Signs 07/26/18 19:50 07/26/18 20:00 07/26/18 20:47 Temperature 97.7 F Pulse Rate 74 74 88 Respiratory Rate 31 H 17 28 H Blood Pressure 131/82 131/82 Pulse Oximetry 98 97 95 07/26/18 20:50 07/26/18 21:00 07/26/18 21:21 Temperature Pulse Rate 82 Respiratory Rate 28 H 14 Blood Pressure 154/74 H Pulse Oximetry 97 07/26/18 21:50 07/26/18 22:00 07/26/18 22:50 Temperature Pulse Rate 76 77 68 Respiratory Rate 20 22 16 Blood Pressure 142/80 H 142/82 H Pulse Oximetry 95 96 98 07/26/18 23:00 07/26/18 23:25 07/26/18 23:50 Temperature Pulse Rate 82 56 L Respiratory Rate 19 24 13 Blood Pressure 112/56 L Pulse Oximetry 97 96 07/27/18 00:00 07/27/18 00:50 07/27/18 01:00 Temperature 98.7 F Pulse Rate 54 L 63 59 L Respiratory Rate 14 15 13 Blood Pressure 112/56 L 116/57 L Pulse Oximetry 96 96 96 07/27/18 01:50 07/27/18 02:00 07/27/18 02:50 Temperature Pulse Rate 58 L 58 L 55 L Respiratory Rate 15 14 16 Blood Pressure 112/58 L 135/72 Pulse Oximetry 95 95 95 07/27/18 03:00 07/27/18 03:50 07/27/18 04:00 Temperature 98.2 F Pulse Rate 52 L 54 L 55 L Respiratory Rate 15 15 14 Blood Pressure 135/72 115/66 Pulse Oximetry 95 95 97 07/27/18 04:50 07/27/18 05:00 07/27/18 06:00 Temperature 98.2 F Pulse Rate 54 L 53 L 68 Respiratory Rate 15 14 10 L Blood Pressure 129/66 115/66 Pulse Oximetry 95 96 100 07/27/18 06:20 07/27/18 06:50 07/27/18 07:00 Temperature Pulse Rate 53 L 51 L 53 L Respiratory Rate 23 13 13 Blood Pressure 133/67 139/71 Pulse Oximetry 95 95 94 L 07/27/18 07:50 07/27/18 08:00 07/27/18 08:50 Temperature 98.3 F Pulse Rate 77 65 53 L Respiratory Rate 18 10 L 19 Blood Pressure 139/89 155/103 H Pulse Oximetry 97 98 97 07/27/18 09:00 07/27/18 09:01 07/27/18 09:50 Temperature Pulse Rate 60 61 50 L Respiratory Rate 15 17 10 L Blood Pressure 160/88 H 174/91 H Pulse Oximetry 97 97 97 07/27/18 10:00 07/27/18 10:50 07/27/18 11:00 Temperature Pulse Rate 68 76 56 L Respiratory Rate 28 H 22 17 Blood Pressure 184/84 H Pulse Oximetry 94 L 98 98 07/27/18 11:12 07/27/18 11:50 07/27/18 12:00 Temperature 97.9 F Pulse Rate 68 53 L 53 L Respiratory Rate 29 H 11 L 13 Blood Pressure 160/79 H 149/75 H Pulse Oximetry 07/27/18 13:00 07/27/18 13:21 07/27/18 13:45 Temperature Pulse Rate 59 L 64 Respiratory Rate 9 L 11 L 17 Blood Pressure 175/92 H Pulse Oximetry 100 95 07/27/18 13:50 07/27/18 14:00 07/27/18 14:55 Temperature 98 F Pulse Rate 62 51 L 67 Respiratory Rate 26 H 9 L Blood Pressure 162/85 H 156/87 H Pulse Oximetry 99 97 07/27/18 15:30 07/27/18 18:45 07/27/18 19:00 Temperature 98 F 97.5 F L Pulse Rate 67 91 H 80 Respiratory Rate 18 12 13 Blood Pressure 156/87 H 116/80 Pulse Oximetry 97 100 100 07/27/18 19:15 Temperature Pulse Rate 68 Respiratory Rate 10 L Blood Pressure 135/71 Pulse Oximetry 100 Intake & Output 07/27/18 07/27/18 07/28/18 06:59 18:59 06:59 Intake Total 1420 / 1420 2600 / 2600 Output Total 0 / 0 950 / 950 Balance 1420 / 1420 1650 / 1650 Intake: IV 1000 / 1000 1000 / 1000 NS Inj 1,000 ML @ 84 mls/hr IV. 1000 / 1000 1000 / 1000 CONT .[id number] [facility] Rx#: [id number] Oral 420 / 420 Anesthesia Amount 1600 / 1600 Output: Stool 0 / 0 Estimated Blood Loss 50 / 50 Urine Amount (Catheter) 900 / 900 Indwelling Urethral Catheter 900 / 900 Other: # Voids 2 Narrative: awake, alert word finding difficulty, she is able to converse and follow commands well normocephalic pupils equal, EOMs intact facial motor symmetric 3/5 right upper and lower extremity, 5/5 left side sensory intact light touch x 4 extremities cerebellar intact finger to nose b/l heart regular rate rhythm - Urinary Catheter Management Indwelling Urethral Catheter Cath placed during this visit: no Straight Cath placed during this visit: no <Segun Dyson - Last Filed: 07/31/18 18:42> Assessment and Plan - Plan 62 y/o female 3 cm enhancing mass left frontal lobe with 4 mm midline shift history of pancreatic CA Plan: cont decadron cont protonix keppra for seizure prophylaxis surgery planned Wednesday due to unavailability of Brain lab tomorrow cont current care <Zelda Rodriguez - Last Filed: 07/26/18 15:03> - Plan I again discussed with the patient and her family the alternatives of treatment. I explained to the that there are significant risks with a surgical procedure, including the risk of aphasia and significant right hemiparesis and/ or hemiplegia. The alternative of no agressive treatment or paliative care was offered versus palliative radiation therapy. She is requesting to proceed with surgery, and she understands the significant surgical risks. Goyo discussed with her the [id number] details of the surgical procedure, its indications, alternatives, risks, and potential complications. Risks and potential complications include, but are not limited to, infection, blood loss, CSF leak, partial or complete loss of sight in one or both eyes, paresis, paralysis, permanent pain or difficulty swallowing, loss of bowel or bladder function, complications from anesthesia, blood clot, stroke , myocardial infarction, or even . The possibility of nonoperative treatment has been again offered. She understands that I am very concerned that a surgical resection may result in the permanent neurological deficit. This has also been discussed with Dr. Ramos and Dr. Capellan as well. Pulmonary: aggressive pulmonary toilette, nasotracheal suction, and breathing treatments with nebulizers. Daily PT and OT Renal: Continue to monitor closely urine output, BUN and creatinine Endocrine: Continue to Monitor serial Acu checks and SSI as needed in detail ID continue to monitor for signs of infection Continue Protonix for stress ulcer prophylaxis Continue Vishnu hose and SCD's for DVT prophylaxis Further recommendations will be provided depending on the patient's clinical evaluation and follow up studies. The exam, history, and the medical decision-making described in the above note were completed with the assistance of the mid-level provider. I reviewed and agree with the findings presented. I attest that I had a [id number] encounter with the patient on the same day, and personally performed and documented my assessment and findings in the medical record. <Segun Dyson - Last Filed: 07/31/18 18:42>
--- NOTE | 2018-07-26 15:13 | P.PNPAL ---
Supportive follow-up visit with Mrs. Wyatt. Patient seen in her room, at bedside assisting with toileting/situating her back to bed. Mrs. Wyatt tells me she just received Ativan. Denies any uncomfortable symptoms at this time. In review of symptoms present during hospitalization, patient reports she was struggling with pain between 4-6. Describes pain has neuropathy in her legs. Also expressed ongoing anxiety. Patient and report she was previously on Xanax PRN however Mrs. Wyatt feels this is no longer working as well for her. She tells me the best regiment for her has been Dilaudid and Ativan. Mrs. Wyatt continues with some weakness in her right arm/hand. Ongoing frustrations with finding her words. Currently finds yashira in knowing her grandkids are coming to visit later this afternoon. Mrs. Wyatt and her are looking forward to surgery planned for tomorrow. Goals remain aggressive short of NO CODE. Unable to address Community DNR due to patient's current receptiveness and mental status post Ativan, more appropriate to wait until she can engage more in discussion of this document. Receptive to continued palliative care follow-up for symptom management and support. Provided palliative care SW contact information. Palliative care will continue to follow throughout hospitalization.
[2018-07-27] MEDS: Chlorhexidine Gluconate 2% 1 Pack (2 Cloths) TOPICAL SCH (03:38)
[2018-07-27] MEDS: Famotidine PF Inj 20 MG/2 ML Vial IV.PUSH SCH ×2 (08:19→22:43)
[2018-07-27] MEDS: HYDROmorphone PF Inj 2 MG/ML Vial IV.PUSH PRN ×2 (08:20→13:15)
[2018-07-27] MEDS: Senna/Docusate Sodium 8.6/50 MG Tablet PO SCH ×3 (08:21→21:44)
[2018-07-27] MEDS: ALPRAZolam 0.25 MG Tablet PO SCH ×2 (08:21→21:45)
[2018-07-27] MEDS: Sod Chloride 0.9% Inj 1,000 ML IV.CONT SCH ×2 (13:14→19:17)
--- NOTE | 2018-07-27 14:51 | P.PNPAL ---
Palliative care continues to follow along with patient and family for ongoing support and assistance with communication. Patient is seen in room, and 2 others at bedside. RN at bedside preparing patient to leave unit for surgery. She is alert, continues with difficulty finding words, but smiles and is appropriate. Verbalizes knowing she needs to slow down when conversing. Appears comfortable without complaint. Patient and family deny any questions or concerns today. Confirm they have palliative care contact information. Appreciative of support and visits. Palliative care will follow-up tomorrow post surgery. Palliative care will continue to follow throughout hospitalization.
--- NOTE | 2018-07-27 15:09 | P.PNONC ---
Subjective Interval history: Patient is alert and oriented. She is currently being prepped for craniotomy. She reports continued difficulty with her speech and right-sided weakness. Objective Vital Signs/Intake & Output: Vital Signs 07/26/18 15:50 07/26/18 16:00 07/26/18 16:50 Temperature 98.5 F Pulse Rate 69 65 64 Respiratory Rate 13 13 14 Blood Pressure 112/69 112/69 114/59 L Pulse Oximetry 96 95 94 L 07/26/18 17:00 07/26/18 17:50 07/26/18 18:00 Temperature Pulse Rate 63 81 77 Respiratory Rate 14 28 H 22 Blood Pressure 114/76 114/76 Pulse Oximetry 95 97 98 07/26/18 18:50 07/26/18 19:00 07/26/18 19:50 Temperature Pulse Rate 90 86 74 Respiratory Rate 24 18 31 H Blood Pressure 165/86 H 131/82 Pulse Oximetry 98 98 98 07/26/18 20:00 07/26/18 20:47 07/26/18 20:50 Temperature 97.7 F Pulse Rate 74 88 Respiratory Rate 17 28 H Blood Pressure 131/82 154/74 H Pulse Oximetry 97 95 07/26/18 21:00 07/26/18 21:21 07/26/18 21:50 Temperature Pulse Rate 82 76 Respiratory Rate 28 H 14 20 Blood Pressure 142/80 H Pulse Oximetry 97 95 07/26/18 22:00 07/26/18 22:50 07/26/18 23:00 Temperature Pulse Rate 77 68 82 Respiratory Rate 22 16 19 Blood Pressure 142/82 H Pulse Oximetry 96 98 97 07/26/18 23:25 07/26/18 23:50 07/27/18 00:00 Temperature 98.7 F Pulse Rate 56 L 54 L Respiratory Rate 24 13 14 Blood Pressure 112/56 L 112/56 L Pulse Oximetry 96 96 07/27/18 00:50 07/27/18 01:00 07/27/18 01:50 Temperature Pulse Rate 63 59 L 58 L Respiratory Rate 15 13 15 Blood Pressure 116/57 L 112/58 L Pulse Oximetry 96 96 95 07/27/18 02:00 07/27/18 02:50 07/27/18 03:00 Temperature 98.2 F Pulse Rate 58 L 55 L 52 L Respiratory Rate 14 16 15 Blood Pressure 135/72 135/72 Pulse Oximetry 95 95 95 07/27/18 03:50 07/27/18 04:00 07/27/18 04:50 Temperature Pulse Rate 54 L 55 L 54 L Respiratory Rate 15 14 15 Blood Pressure 115/66 129/66 Pulse Oximetry 95 97 95 07/27/18 05:00 07/27/18 06:00 07/27/18 06:20 Temperature 98.2 F Pulse Rate 53 L 68 53 L Respiratory Rate 14 10 L 23 Blood Pressure 115/66 133/67 Pulse Oximetry 96 100 95 07/27/18 06:50 07/27/18 07:00 07/27/18 07:50 Temperature Pulse Rate 51 L 53 L 77 Respiratory Rate 13 13 18 Blood Pressure 139/71 139/89 Pulse Oximetry 95 94 L 97 07/27/18 08:00 07/27/18 08:50 07/27/18 09:00 Temperature 98.3 F Pulse Rate 65 53 L 60 Respiratory Rate 10 L 19 15 Blood Pressure 155/103 H Pulse Oximetry 98 97 97 07/27/18 09:01 07/27/18 09:50 07/27/18 10:00 Temperature Pulse Rate 61 50 L 68 Respiratory Rate 17 10 L 28 H Blood Pressure 160/88 H 174/91 H Pulse Oximetry 97 97 94 L 07/27/18 10:50 07/27/18 11:00 07/27/18 11:12 Temperature Pulse Rate 76 56 L 68 Respiratory Rate 22 17 29 H Blood Pressure 184/84 H 160/79 H Pulse Oximetry 98 98 07/27/18 11:50 07/27/18 12:00 07/27/18 13:00 Temperature 97.9 F Pulse Rate 53 L 53 L 59 L Respiratory Rate 11 L 13 9 L Blood Pressure 149/75 H Pulse Oximetry 100 07/27/18 13:21 07/27/18 13:50 07/27/18 14:00 Temperature Pulse Rate 64 62 51 L Respiratory Rate 11 L 26 H 9 L Blood Pressure 175/92 H 162/85 H Pulse Oximetry 95 99 97 Intake & Output 07/26/18 07/27/18 07/27/18 18:59 06:59 18:59 Intake Total 1000 / 1000 1420 / 1420 1000 / 1000 Output Total 0 / 0 Balance 1000 / 1000 1420 / 1420 1000 / 1000 Intake: IV 1000 / 1000 1000 / 1000 1000 / 1000 NS Inj 1,000 ML @ 84 mls/hr IV. 1000 / 1000 1000 / 1000 1000 / 1000 CONT .[id number] CALIN Rx#: [id number] Oral 420 / 420 Output: Stool 0 / 0 Other: # Voids 3 2 # Bowel Movements 0 Result Diagrams: 07/24/18 08:55 07/25/18 11:02 Culture Results: Microbiology 07/24/18 09:01 Aerobic Blood Culture - Preliminary Blood - Peripheral No growth in 3 days Anaerobic Blood Culture - Preliminary No growth in 3 days 07/24/18 08:55 Aerobic Blood Culture - Preliminary Blood - Peripheral Staphylococcus epidermidis Anaerobic Blood Culture - Preliminary No growth in 3 days Medications: Active Medications Generic Name Dose Route Start Last Admin Trade Name Freq PRN Reason Stop Dose Admin Hydrocodone Bitart/Acetaminophen 1 tab 07/23/18 23:42 07/26/18 21:21 [place] 10/325 PO 1 tab Q6H PRN Administration Pain1-10 Alprazolam 0.25 mg 07/24/18 09:00 07/27/18 08:21 Xanax PO Not Given BID CALIN Chlorhexidine Gluconate 3 pack 07/24/18 04:00 07/27/18 03:38 Chlorhexidine 2% Cloth TOPICAL 07/29/18 03:59 Not Given DAILY@0400 [facility] Dexamethasone Sodium Phosphate 4 mg 07/24/18 00:00 07/27/18 13:16 Decadron Inj IV.PUSH 4 mg Q6HR CALIN Administration Famotidine 20 mg 07/24/18 09:00 07/27/18 08:19 Pepcid Pf Inj IV.PUSH 20 mg Q12HR CALIN Administration Hydromorphone HCl 1 mg 07/23/18 23:42 07/27/18 13:15 Dilaudid Pf Inj IV.PUSH 1 mg Q4H PRN Administration PAIN SCALE 6 TO 10 Sodium Chloride 1,000 mls @ 84 mls/hr 07/23/18 23:45 07/27/18 13:14 Ns Inj IV.CONT 84 mls/hr .[id number] CALIN Administration Potassium Chloride 20 meq in 100 mls @ 50 mls/hr 07/24/18 01:09 07/24/18 07: 40 Kcl 20 Meq Premix Inj IV.SIG Infused Q2H PRN Infusion For Potassium 3.3 - 3.5 mEq/L Lorazepam 0.5 mg 07/25/18 12:10 07/27/18 10:43 Ativan Inj IV.PUSH 0.5 mg Q6H PRN Administration ANXIETY Senna/Docusate Sodium 1 tab 07/24/18 09:00 07/27/18 08:21 Meghna-Colace PO Not Given BID CALIN Sodium Chloride 2 ml 07/24/18 09:00 07/27/18 08:21 Ns Flush IV.FLUSH 2 ml BID CALIN Administration Temazepam 15 mg 07/23/18 23:42 07/26/18 21:21 Restoril PO 15 mg HS PRN Administration INSOMNIA Objective Remarks: GENERAL: Well-nourished, well-developed female patient, in no acute distress. SKIN: Warm and dry. HEAD: Normocephalic. EYES: No scleral icterus. No injection or drainage. NECK: Supple, trachea midline. CARDIOVASCULAR: Regular rate and rhythm without murmurs. RESPIRATORY: Anterior breath sounds clear, equal bilaterally. No accessory muscle use. GASTROINTESTINAL: Abdomen soft, non-tender, nondistended. EXTREMITIES: No cyanosis, or edema. SCDs in place. MUSCULOSKELETAL: Adequate muscle tone. NEUROLOGICAL: Awake, alert, and oriented x3. +stammering speech, decreased strength right extremities. PSYCHIATRIC: Appropriate mood and affect; insight and judgment normal. Assessment/Plan - Plan Ms. Wyatt is a pleasant 62-year-old female who was diagnosed with pancreatic adenocarcinoma in May 2017. She had amish metastases in the abdomen as well as pulmonary nodules which are consistent with metastatic disease at the time of diagnosis. Her disease progressed on palliative first-line systemic therapy consisting of gemcitabine and Abraxane. In February 2018 she was transitioned to liposomal Irinotecan in combination with 5-FU (FOLFIRI). She had been responding well to this treatment based on restaging imaging scans performed in mid July 2018. Overall based on PET/CT imaging her systemic disease burden is quite limited, it appears to be limited to the pancreas, intra-abdominal lymph nodes and small pulmonary nodules. She presents the hospital with a several week history of progressive difficulty speaking, weakness of the right upper extremity and headaches. Imaging studies performed on 07/23/2018; CT head with contrast indicates a 3.1 cm mass involving the deep left frontal lobe associated with vasogenic edema and a 4 mm left to right midline shift. The patient has been admitted to the critical care unit, she is been initiated on corticosteroids and has been evaluated by neurosurgery. She has been advised craniotomy with resection of the primary tumor. Following surgery she will be candidate for palliative radiation as well. Recommendations: 1. Metastatic pancreas adenocarcinoma, second line palliative chemotherapy with FOLFIRI (liposomal Irinotecan), currently on hold. 2. Brain mass with vasogenic edema. Patient currently being prepped for craniotomy with mass resection. 3. Anxiety, continue Ativan and Xanax as needed. 4. Continue supportive care. - Attending Statement The exam, history, and the medical decision-making described in the above note were completed with the assistance of the mid-level provider. I reviewed and agree with the findings presented. I attest that I had a [id number] encounter with the patient on the same day, and personally performed and documented my assessment and findings in the medical record. Patient is still has problem with speech and weakness of the right side Anxiously waiting to have surgery today She is n.p.o. We discussed that after the surgery she would need radiation therapy. We will resume the chemotherapy after she completes the radiation treatment Patient's significant other was present at the bedside I have answered their questions. This seems to be satisfied
[2018-07-27] MEDS ORDERED: Lidocaine 1%/Epinephrine 1:100,000 Inj 30 ML Vial ONE (15:20)
[2018-07-27] MEDS ORDERED: Thrombin Topical Soln 5,000 UNIT Vial TOPICAL ONE (15:20)
[2018-07-27] MEDS ORDERED: Gelatin Size 100 Topical Foam ONE (15:20)
[2018-07-27] MEDS ORDERED: Lidocaine PF 1% Inj 5 ML Syringe OTHER ONE (15:34)
[2018-07-27] MEDS ORDERED: Phenylephrine/NS 1000 MCG/10ML Syringe IV.PUSH ONE (15:34)
[2018-07-27] MEDS ORDERED: Bisacodyl 10 MG Supp RECTAL PRN (15:39)
[2018-07-27] MEDS ORDERED: Morphine Inj 4 MG/ML Vial IV.PUSH PRN (15:39)
[2018-07-27] MEDS ORDERED: ceFAZolin 2 GM Premix Inj 2 GM/50 ML PIGGYBACK IV.SIG ONE (16:03)
[2018-07-27 16:41] LABS: ABG Base Excess 0.2 mmol/L (-2-2); ABG PCO2 30 mmHg (38-42); ABG PO2 250 mmHG (61-120)
--- NOTE | 2018-07-27 17:20 | P.PNCC ---
Subjective Subjective Remarks/Hospital Course: 62-year-old unfortunate female with history of Pancreatic cancer presents for evaluation of altered mental status. The CT of the head obtained in the emergency department shows Circumscribed 3.1 cm mass in the deep left frontal lobe with surrounding edema and about 4 mm of [id number] midline shift. Findings most characteristic of metastatic disease given the history of malignancy. 07/24: Scans reviewed. Likely metastatic nodule left hemisphere with mass- effect and extensive surrounding edema. Plan for biopsy of mass, preoperative evaluation in progress. Protects airway, no seizure activity. MRI today. 07/25: MRI of the brain reveals solitary 3 cm metastatic nodule without evidence of additional metastatic disease. Coagulation profile is normal and platelet count normal. No growth on cultures. Patient has symptomatic improvement from steroids. Plan for resection of metastatic brain lesion tomorrow. 07/26: Patient is clinically ready for craniotomy should she decide that route of care. She continues to have some weakness involving her right side particularly the right arm and acknowledges that she has trouble finding words. 07/27: Continued difficulty with speech, right arm weakness. Ready for surgery. Objective Vital Signs / I&O: Vital Signs 07/26/18 17:50 07/26/18 18:00 07/26/18 18:50 Temperature Pulse Rate 81 77 90 Respiratory Rate 28 H 22 24 Blood Pressure 114/76 114/76 165/86 H Pulse Oximetry 97 98 98 07/26/18 19:00 07/26/18 19:50 07/26/18 20:00 Temperature 97.7 F Pulse Rate 86 74 74 Respiratory Rate 18 31 H 17 Blood Pressure 131/82 131/82 Pulse Oximetry 98 98 97 07/26/18 20:47 07/26/18 20:50 07/26/18 21:00 Temperature Pulse Rate 88 82 Respiratory Rate 28 H 28 H Blood Pressure 154/74 H Pulse Oximetry 95 97 07/26/18 21:21 07/26/18 21:50 07/26/18 22:00 Temperature Pulse Rate 76 77 Respiratory Rate 14 20 22 Blood Pressure 142/80 H Pulse Oximetry 95 96 07/26/18 22:50 07/26/18 23:00 07/26/18 23:25 Temperature Pulse Rate 68 82 Respiratory Rate 16 19 24 Blood Pressure 142/82 H Pulse Oximetry 98 97 07/26/18 23:50 07/27/18 00:00 07/27/18 00:50 Temperature 98.7 F Pulse Rate 56 L 54 L 63 Respiratory Rate 13 14 15 Blood Pressure 112/56 L 112/56 L 116/57 L Pulse Oximetry 96 96 96 07/27/18 01:00 07/27/18 01:50 07/27/18 02:00 Temperature Pulse Rate 59 L 58 L 58 L Respiratory Rate 13 15 14 Blood Pressure 112/58 L Pulse Oximetry 96 95 95 07/27/18 02:50 07/27/18 03:00 07/27/18 03:50 Temperature 98.2 F Pulse Rate 55 L 52 L 54 L Respiratory Rate 16 15 15 Blood Pressure 135/72 135/72 115/66 Pulse Oximetry 95 95 95 07/27/18 04:00 07/27/18 04:50 07/27/18 05:00 Temperature 98.2 F Pulse Rate 55 L 54 L 53 L Respiratory Rate 14 15 14 Blood Pressure 129/66 115/66 Pulse Oximetry 97 95 96 07/27/18 06:00 07/27/18 06:20 07/27/18 06:50 Temperature Pulse Rate 68 53 L 51 L Respiratory Rate 10 L 23 13 Blood Pressure 133/67 139/71 Pulse Oximetry 100 95 95 07/27/18 07:00 07/27/18 07:50 07/27/18 08:00 Temperature 98.3 F Pulse Rate 53 L 77 65 Respiratory Rate 13 18 10 L Blood Pressure 139/89 Pulse Oximetry 94 L 97 98 07/27/18 08:50 07/27/18 09:00 07/27/18 09:01 Temperature Pulse Rate 53 L 60 61 Respiratory Rate 19 15 17 Blood Pressure 155/103 H 160/88 H Pulse Oximetry 97 97 97 07/27/18 09:50 07/27/18 10:00 07/27/18 10:50 Temperature Pulse Rate 50 L 68 76 Respiratory Rate 10 L 28 H 22 Blood Pressure 174/91 H 184/84 H Pulse Oximetry 97 94 L 98 07/27/18 11:00 07/27/18 11:12 07/27/18 11:50 Temperature Pulse Rate 56 L 68 53 L Respiratory Rate 17 29 H 11 L Blood Pressure 160/79 H 149/75 H Pulse Oximetry 98 07/27/18 12:00 07/27/18 13:00 07/27/18 13:21 Temperature 97.9 F Pulse Rate 53 L 59 L 64 Respiratory Rate 13 9 L 11 L Blood Pressure 175/92 H Pulse Oximetry 100 95 07/27/18 13:50 07/27/18 14:00 07/27/18 14:55 Temperature 98 F Pulse Rate 62 51 L 67 Respiratory Rate 26 H 9 L Blood Pressure 162/85 H 156/87 H Pulse Oximetry 99 97 07/27/18 15:30 Temperature 98 F Pulse Rate 67 Respiratory Rate 18 Blood Pressure 156/87 H Pulse Oximetry 97 Intake & Output 07/26/18 07/27/18 07/27/18 18:59 06:59 18:59 Intake Total 1000 / 1000 1420 / 1420 1000 / 1000 Output Total 0 / 0 Balance 1000 / 1000 1420 / 1420 1000 / 1000 Intake: IV 1000 / 1000 1000 / 1000 1000 / 1000 NS Inj 1,000 ML @ 84 mls/hr IV. 1000 / 1000 1000 / 1000 1000 / 1000 CONT .[id number] CALIN Rx#: [id number] Oral 420 / 420 Output: Stool 0 / 0 Other: # Voids 3 2 # Bowel Movements 0 Result Diagrams: 07/24/18 08:55 07/25/18 11:02 Objective Remarks: - Constitutional mild distress, chronically ill appearing - Routine HEENT Exam Head: Present: normocephalic Eye: Present: PERRL, normal accommodation ENT: Present: mucous membranes moist - Routine Neck Exam Present: supple, full ROM. Airway widely patent, no obstructive noises. Absent : JVD, carotid bruit - Routine Respiratory Exam Clear, normal excursions. Absent: accessory muscle use, rhonchi, stridor, wheezes - Routine Cardiovascular Exam Present: RRR, S1, S2, no JVD - Routine Abdominal Exam Present: soft, normoactive bowel sounds. Absent: tenderness, distended. No guarding - Routine Extremities Exam Warm, well-perfused. Absent: cyanosis, clubbing, edema - Routine Skin Exam Present: intact. Absent: cyanosis, erythema - Routine Neurological Exam Present: alert, oriented X3, moving all extremities spontaneously and to command. Some weakness right arm and leg motor strength. Protects airway well , handle secretions well. Some difficulty finding words. Assessment and Plan - Assessment and Plan Plan: Brain mass with vasogenic edema -Decadron bolus followed by 4 mg every 6 hours -MRI with and without contrast -Consult neurosurgery -Palliative care evaluation -Resection of metastatic brain lesion tomorrow Altered mental status -Due to above -Neuro checks per unit routine -Supportive care -Well oriented today. Leukopenia History of pancreatic cancer -Blood cultures -Consult medical oncology and palliative care -Coagulation profile and platelet count acceptable for surgery Hypokalemia -Electrolyte replacement per ICU protocol Anxiety -Xanax as needed DVT GI prophylaxis -Teds SCDs -Discontinue subcu Lovenox today -Pepcid Overall impression: Solitary 3 cm brain lesion, well-circumscribed and likely metastatic from previous pancreatic cancer. Patient has realized mild symptomatic improvement following steroid administration. From a critical care standpoint she is ready for surgery. Recent CXR is clear. Patient acknowledges that resection of the brain tumor on the left side carries considerable risks of permanent neurological injury. To OR today.
--- NOTE | 2018-07-27 19:19 | P.OP ---
Preoperative Diagnosis: metastatic tumor to the brain Postoperative Diagnosis: Metastatic adenocarcinoma to the brain Date of procedure: 07/27/18 Procedure: stereotactic image-guided Left frontal craniotomy, microsurgical resection of metastatic carcinoma Anesthesia: DAVEYA Surgeon: Segun Dyson MD Casting Trucker: Karla Booth Pathology: none sent Operation and Findings: INTRAOPERATIVE FINDINGS Frozen section consistent with metastatic adenocarcinoma INDICATIONS FOR THE PROCEDURE The patient is a 62-year-old female with history of pancreatic carcinoma, who presented with right hemoparesis She was found to have a left deep paraventricular tumor, causing mass effect on the underlying brain and midline shift. Surgical resection was indicated I have discussed the [id number] details of the procedure, its indications, alternatives, risks and potential complications with the patient including but not limited to the risk of infection, hemorrhage, paralysis, stroke, heart attack, even vegetative state or even the possibility of . The patient fully understands. All her questions were answered. No guarantees were given. She voiced requesting the procedure and provided informed consent. She has been offered the alternative of not having aggressive management. DETAILS OF THE SURGICAL PROCEDURE Prior to the surgery the patient underwent MRI of the brain according to the stereotactic protocol. The information was transferred to the workstation located in the operative suite. Preoperative registration was performed. The patient was then transferred to the operating room. After induction of general anesthesia, endotracheal intubation was done. A Hill catheter, bilateral JT hose, sequential compression devices were placed and kept throughout the procedure. The patient was positioned supine on a 30/80 table over gel mattress with her head in rigid fixation using the [place] set up mechanic heading machines. All pressure points were carefully padded with egg crate mattress. The eyes were tapped shut after ointment was applied by the anesthesiologist to prevent corneal abrasion. A Mary hugger was placed over the exposed lower body to maintain control of the core body temperature. The electrophysiological team placed the needles and electrodes in their proper location and baseline SSEP's evoked potentials were registered. The rigid reference body was attached to the set up mechanic heading machines and intraoperative registration was performed with a laser. The left frontal area was shaved, prepped and draped in the usual sterile fashion. A standard horseshoe shapped incition was outlined on the scalp and infiltrated with 1% lidocaine with epinephrine. The skin incision was made with a #10 blade down to the level of the periosteum in the frontoparietal region and to the temporalis fascia in the temporal region. Heidi clips were applied to the scalp. Using a Bovie, the temporalis fascia and muscle were incised and a subperiosteal dissection was performed reflecting the scalp flap anteriorly. The scalp was covered with a moist sponge and held in position using fish hooks. The TPS was brought to the field and a bur hole was made in the fontal region using the craniotome attachment. Then, using the footplate attachment, a frontal craniotomy flap was elevated. The dura was bulging, due to the underlying tumor. The dura was opened with a 15 blade and metzembaun sissors and retracted towards the midline with 4-0 Neurolon sutures attached to the fascia. The tumor was identified with the brainlab. At this point of the procedure the operative microscope was draped in the usual sterile fashion and brought to the field. The rest of the surgical procedure was performed using microdissection technique with the exception of the closure. Under the operative microscope a small corticotomy was performed and the mass was approached through a small surgical corridor and resected using microsurgical dissection technique, with the micro-bipolar forceps, microscissors, micro-suction, and gentle irrigation. Special attention and care was taken to remain within the confinities of the tumor, given the high risk of neurological deficits. The specimen was sent to the lab for histological analysis. The frozen section was reported as consistent with metastatic carcinoma. Specimen was also sent for final hystopathological analysis. the tumor was very carefully debulked under continuous electrophysiological monitoring. Appropriate hemostasis was then secured using the bipolar program mgr. Then the incision was irrigated with saline solution. The dural edges were tacked to the bone. The craniotomy flap was then repositioned and secured in place using Striker plates and screws. A 7 millimeter Lukas-Espinal drain was then left in the subgaleal space and externalized through a separate stab incision. The incision was then closed in layers. 0 Vicryl in interrupted sutures were used to close the temporalis fascia. The galea was closed with interrupted 3- 0 Vicryl. Ирина were applied to the skin. The drain was secured with a 3-0 nylon. At the end of the procedure, the sponge, needle and instrument counts were all correct. Estimated blood loss was less than 50 cc. No blood transfusion was given. No intraoperative complications occurred. The patient received prophylactic antibiotics. The patient was then transferred to the recovery room in stable condition.The procedure was performed using continuous neurophysiological monitoring. No electrophysiological abnormalities were detected during the resection COMPLICATIONS None
--- NOTE | 2018-07-27 20:41 | CT ---
EXAM DATE: 07/27/2018 7:56 PM EDT AGE/SEX: 62 years / Female INDICATIONS: Post operative mass resection. CLINICAL DATA: This is the patient's initial encounter. Patient reports that signs and symptoms have been present for 1 day and indicates a pain score of Nonresponsive. MEDICAL/SURGICAL HISTORY: Carcinoma, pancreas. Lung metastases. Tubal ligation. RADIATION DOSE: 36.59 CTDI (mGy) COMPARISON: [facility] – [place], CT HEAD W/O CONTRAST, 07/26/2018. . TECHNIQUE: CT of the head without contrast. Using automated exposure control and adjustment of the mA and/or kV according to patient size, radiation dose was kept as low as reasonably achievable to ob tain optimal diagnostic quality images. DICOM format image data is available electronically for revi ew and comparison. FINDINGS: There is interval left-sided craniotomy with resection of a left frontal mass. There is a drain in th e operative bed and a 1.9 cm hemorrhage in the operative bed. Surrounding vasogenic edema remains. Th ere is a small amount of pneumocephalus. Mass effect is relatively stable with stable mild left to ri ght shift. CONCLUSION: 1. Postoperative resection of a mass in the left frontal lobe with placement of the drain in the ope rative bed. Small hemorrhage in the operative bed. Surrounding edema persists. Mass effect is relativ allie stable. Trace pneumocephalus. . Electronically signed by: Feliciano Sevilla MD 07/27/2018 8:40 PM EDT
[2018-07-27] MEDS ORDERED: fentaNYL Citrate Inj 100 MCG/2 ML Ampul ONE (21:43)
[2018-07-27] MEDS: niCARdipine Inj 25 MG in Sodium Chlor 0.9% Inj 250 ML IV.CONT PRN (22:00)
[2018-07-27] MEDS ORDERED: niCARdipine Inj 25 MG/10 ML Vial ONE (22:00)
[2018-07-27] MEDS ORDERED: Sodium Chlor 0.9% Inj 250 ML ONE (22:01)
[2018-07-28] MEDS: Sod Chloride 0.9% Inj 1,000 ML IV.CONT SCH ×5 (00:26→23:35)
[2018-07-28 04:21] LABS: Baso % (Auto) 0.1 % (0.0-2.0); Hemoglobin 11.7 gm/dL (11.6-15.3); Lymph # (Auto) 0.8 th/mm3 (1.0-4.8); Lymph % (Auto) 10.4 % (9.0-44.0); Mean Corpuscular HGB Conc 33.4 % (32.0-36.0); Mean Corpuscular Volume 98.8 fL (80.0-100.0); Mean Platelet Volume 7.3 fL (7.0-11.0); Mono # (Auto) 1.4 th/mm3 (0.0-0.9); Mono % (Auto) 16.9 % (0.0-8.0); Neut # (Auto) 5.9 th/mm3 (1.8-7.7); Neut % (Auto) 72.6 % (16.0-70.0); Platelet Count 275 th/mm3 (150-450); Red Blood Count 3.54 mil/mm3 (4.00-5.30); Red Cell Distribution Width 15.2 % (11.6-17.2); White Blood Count 8.2 th/mm3 (4.0-11.0)
[2018-07-28 04:33] LABS: Anion Gap 10 meq/L (5-15); Blood Urea Nitrogen 10 mg/dL (7-18); Calcium 8.2 mg/dL (8.5-10.1); Carbon Dioxide 26.1 meq/L (21.0-32.0); Chloride 104 meq/L (98-107); Glomerular Filtration Rate Greater Than 89 mL/min (>89); Glucose,Random 116 mg/dL (74-106); Magnesium 1.9 mg/dL (1.5-2.5); Phosphorus 3.4 mg/dL (2.5-4.9); Potassium 3.7 meq/L (3.5-5.1); Sodium 140 meq/L (136-145)
[2018-07-28 04:48] LABS: Activated Partial Thrombo Time 19.6 sec (24.3-30.1)
[2018-07-28] MEDS: Chlorhexidine Gluconate 2% 1 Pack (2 Cloths) TOPICAL SCH (05:02)
[2018-07-28] MEDS: niCARdipine Inj 25 MG in Sodium Chlor 0.9% Inj 250 ML IV.CONT PRN (10:10)
[2018-07-28] MEDS: Famotidine PF Inj 20 MG/2 ML Vial IV.PUSH SCH ×2 (10:15→21:34)
[2018-07-28] MEDS: Senna/Docusate Sodium 8.6/50 MG Tablet PO SCH ×4 (10:16→23:34)
[2018-07-28] MEDS: ALPRAZolam 0.25 MG Tablet PO SCH ×2 (10:17→23:34)
--- NOTE | 2018-07-28 11:08 | P.PNCC ---
Subjective Subjective Remarks/Hospital Course: 62-year-old unfortunate female with history of Pancreatic cancer presents for evaluation of altered mental status. The CT of the head obtained in the emergency department shows Circumscribed 3.1 cm mass in the deep left frontal lobe with surrounding edema and about 4 mm of [id number] midline shift. Findings most characteristic of metastatic disease given the history of malignancy. 07/24: Scans reviewed. Likely metastatic nodule left hemisphere with mass- effect and extensive surrounding edema. Plan for biopsy of mass, preoperative evaluation in progress. Protects airway, no seizure activity. MRI today. 07/25: MRI of the brain reveals solitary 3 cm metastatic nodule without evidence of additional metastatic disease. Coagulation profile is normal and platelet count normal. No growth on cultures. Patient has symptomatic improvement from steroids. Plan for resection of metastatic brain lesion tomorrow. 07/26: Patient is clinically ready for craniotomy should she decide that route of care. She continues to have some weakness involving her right side particularly the right arm and acknowledges that she has trouble finding words. 07/27: Continued difficulty with speech, right arm weakness. Ready for surgery. 07/28: Extubated last evening. Breathing comfortably, protects airway well. She is sleeping during my visit this morning at 6 AM and I will return and examine her later. Objective Vital Signs / I&O: Vital Signs 07/27/18 11:12 07/27/18 11:50 07/27/18 12:00 Temperature 97.9 F Pulse Rate 68 53 L 53 L Respiratory Rate 29 H 11 L 13 Blood Pressure 160/79 H 149/75 H Pulse Oximetry 07/27/18 13:00 07/27/18 13:21 07/27/18 13:45 Temperature Pulse Rate 59 L 64 Respiratory Rate 9 L 11 L 17 Blood Pressure 175/92 H Pulse Oximetry 100 95 07/27/18 13:50 07/27/18 14:00 07/27/18 14:55 Temperature 98 F Pulse Rate 62 51 L 67 Respiratory Rate 26 H 9 L Blood Pressure 162/85 H 156/87 H Pulse Oximetry 99 97 07/27/18 15:30 07/27/18 18:45 07/27/18 19:00 Temperature 98 F 97.5 F L 97.9 F Pulse Rate 67 91 H 80 Respiratory Rate 18 12 14 Blood Pressure 156/87 H 116/80 Pulse Oximetry 97 100 100 07/27/18 19:15 07/27/18 19:30 07/27/18 19:45 Temperature 97.4 F L 97.4 F L Pulse Rate 68 73 79 Respiratory Rate 10 L 14 14 Blood Pressure 135/71 139/75 145/75 H Pulse Oximetry 100 100 100 07/27/18 20:00 07/27/18 22:00 07/27/18 23:00 Temperature 97.4 F L 98.3 F Pulse Rate 63 81 99 H Respiratory Rate 14 12 12 Blood Pressure 143/82 H 160/46 H 113/62 Pulse Oximetry 100 100 100 07/28/18 00:00 07/28/18 01:00 07/28/18 02:00 Temperature 99.0 F Pulse Rate 80 72 85 Respiratory Rate 13 16 15 Blood Pressure 109/60 109/64 124/69 Pulse Oximetry 100 100 98 07/28/18 03:00 07/28/18 04:00 07/28/18 05:00 Temperature 98.6 F Pulse Rate 85 84 85 Respiratory Rate 12 12 15 Blood Pressure 123/75 129/77 117/69 Pulse Oximetry 98 99 99 07/28/18 06:00 Temperature Pulse Rate 131 H Respiratory Rate 29 H Blood Pressure 150/92 H Pulse Oximetry 97 Intake & Output 07/27/18 07/28/18 07/28/18 18:59 06:59 18:59 Intake Total 2600 / 2600 1000 / 1000 260 / 260 Output Total 950 / 950 2575 / 2575 Balance 1650 / 1650 -1575 / -1575 260 / 260 Weight 58.7 kg Intake: IV 1000 / 1000 1000 / 1000 260 / 260 NS Inj 1,000 ML @ 100 mls/hr IV 1000 / 1000 1000 / 1000 .CONT .Q10H [facility] Rx#:[id number] Cardene Inj 25 MG In NS Inj 250 260 / 260 ML @ 5 MG/HR 52 mls/hr IV.CONT TITRATE PRN Rx#:[id number] Anesthesia Amount 1600 / 1600 Output: Estimated Blood Loss 50 / 50 Urine Amount (Catheter) 900 / 900 2325 / 2325 Indwelling Urethral Catheter 900 / 900 2325 / 2325 Wound Drainage 250 / 250 # 1 Head 80 / 80 # 2 Head 170 / 170 Result Diagrams: 07/28/18 04:00 07/28/18 04:00 Objective Remarks: - Constitutional mild distress, chronically ill appearing - Routine HEENT Exam Head: Present: normocephalic Eye: Present: PERRL, normal accommodation ENT: Present: mucous membranes moist - Routine Neck Exam Present: supple, full ROM. Airway widely patent, no obstructive noises. Absent : JVD, carotid bruit - Routine Respiratory Exam Clear, normal excursions. Absent: accessory muscle use, rhonchi, stridor, wheezes - Routine Cardiovascular Exam Present: RRR, S1, S2, no JVD - Routine Abdominal Exam Present: soft, normoactive bowel sounds. Absent: tenderness, distended. No guarding - Routine Extremities Exam Warm, well-perfused. Absent: cyanosis, clubbing, edema - Routine Skin Exam Present: intact. Absent: cyanosis, erythema - Routine Neurological Exam Present: Sleeping. Breathing comfortably. Protects airway well without aspiration Assessment and Plan - Assessment and Plan Plan: Brain mass with vasogenic edema -Decadron bolus followed by 4 mg every 6 hours -MRI with and without contrast -Consult neurosurgery -Palliative care evaluation -Resection of metastatic brain lesion tomorrow -> gross resection left hemispheric mass 07/27 Altered mental status -Due to above -Neuro checks per unit routine -Supportive care Leukopenia History of pancreatic cancer -Blood cultures -Consult medical oncology and palliative care -Coagulation profile and platelet count acceptable for surgery Hypokalemia -Electrolyte replacement per ICU protocol Anxiety -Xanax as needed DVT GI prophylaxis -Teds SCDs -Discontinue subcu Lovenox today -Pepcid Overall impression: Solitary 3 cm brain lesion, well-circumscribed and likely metastatic from previous pancreatic cancer. Resected via craniotomy on 07/27. Extubated now breathing comfortably. Protects airway well.
--- NOTE | 2018-07-28 11:33 | P.PNNS ---
Physical Exam Vital signs: Vital Signs 07/27/18 11:50 07/27/18 12:00 07/27/18 13:00 Temperature 97.9 F Pulse Rate 53 L 53 L 59 L Respiratory Rate 11 L 13 9 L Blood Pressure 149/75 H Pulse Oximetry 100 07/27/18 13:21 07/27/18 13:45 07/27/18 13:50 Temperature Pulse Rate 64 62 Respiratory Rate 11 L 17 26 H Blood Pressure 175/92 H 162/85 H Pulse Oximetry 95 99 07/27/18 14:00 07/27/18 14:55 07/27/18 15:30 Temperature 98 F 98 F Pulse Rate 51 L 67 67 Respiratory Rate 9 L 18 Blood Pressure 156/87 H 156/87 H Pulse Oximetry 97 97 07/27/18 18:45 07/27/18 19:00 07/27/18 19:15 Temperature 97.5 F L 97.9 F Pulse Rate 91 H 80 68 Respiratory Rate 12 14 10 L Blood Pressure 116/80 135/71 Pulse Oximetry 100 100 100 07/27/18 19:30 07/27/18 19:45 07/27/18 20:00 Temperature 97.4 F L 97.4 F L 97.4 F L Pulse Rate 73 79 63 Respiratory Rate 14 14 14 Blood Pressure 139/75 145/75 H 143/82 H Pulse Oximetry 100 100 100 07/27/18 22:00 07/27/18 23:00 07/28/18 00:00 Temperature 98.3 F 99.0 F Pulse Rate 81 99 H 80 Respiratory Rate 12 12 13 Blood Pressure 160/46 H 113/62 109/60 Pulse Oximetry 100 100 100 07/28/18 01:00 07/28/18 02:00 07/28/18 03:00 Temperature Pulse Rate 72 85 85 Respiratory Rate 16 15 12 Blood Pressure 109/64 124/69 123/75 Pulse Oximetry 100 98 98 07/28/18 04:00 07/28/18 05:00 07/28/18 06:00 Temperature 98.6 F Pulse Rate 84 85 131 H Respiratory Rate 12 15 29 H Blood Pressure 129/77 117/69 150/92 H Pulse Oximetry 99 99 97 Intake & Output 07/27/18 07/28/18 07/28/18 18:59 06:59 18:59 Intake Total 2600 / 2600 1000 / 1000 260 / 260 Output Total 950 / 950 2575 / 2575 Balance 1650 / 1650 -1575 / -1575 260 / 260 Weight 58.7 kg Intake: IV 1000 / 1000 1000 / 1000 260 / 260 NS Inj 1,000 ML @ 100 mls/hr IV 1000 / 1000 1000 / 1000 .CONT .Q10H [facility] Rx#:[id number] Cardene Inj 25 MG In NS Inj 250 260 / 260 ML @ 5 MG/HR 52 mls/hr IV.CONT TITRATE PRN Rx#:[id number] Anesthesia Amount 1600 / 1600 Output: Estimated Blood Loss 50 / 50 Urine Amount (Catheter) 900 / 900 2325 / 2325 Indwelling Urethral Catheter 900 / 900 2325 / 2325 Wound Drainage 250 / 250 # 1 Head 80 / 80 # 2 Head 170 / 170 Narrative: Obtunded, snoring not opening eyes or following commands ANA drains in place intermittently moves left side 0/5 right side pupils equal - Urinary Catheter Management Indwelling Urethral Catheter Cath placed during this visit: yes Reason for continuing: Hourly intake/output Insertion date: 07/27/18 Insertion time: 16:40 Assessment and Plan - Plan s/p stereotactic image-guided Left frontal craniotomy, microsurgical resection of metastatic carcinoma for 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
[2018-07-28] MEDS: HYDROmorphone PF Inj 2 MG/ML Vial IV.PUSH PRN ×2 (15:18→22:01)
--- NOTE | 2018-07-28 23:49 | P.PNONC ---
Subjective Interval history: pt is sleeping, not responding to questions. Objective Vital Signs/Intake & Output: Vital Signs 07/28/18 00:00 07/28/18 01:00 07/28/18 02:00 Temperature 99.0 F Pulse Rate 80 72 85 Respiratory Rate 13 16 15 Blood Pressure 109/60 109/64 124/69 Pulse Oximetry 100 100 98 07/28/18 03:00 07/28/18 04:00 07/28/18 05:00 Temperature 98.6 F Pulse Rate 85 84 85 Respiratory Rate 12 12 15 Blood Pressure 123/75 129/77 117/69 Pulse Oximetry 98 99 99 07/28/18 06:00 07/28/18 08:00 07/28/18 12:00 Temperature 98.6 F 97.6 F Pulse Rate 131 H 86 132 H Respiratory Rate 29 H 15 30 H Blood Pressure 150/92 H 131/67 151/83 H Pulse Oximetry 97 99 99 07/28/18 16:00 Temperature 98 F Pulse Rate 92 H Respiratory Rate 12 Blood Pressure 111/69 Pulse Oximetry 99 Intake & Output 07/28/18 07/28/18 07/29/18 06:59 18:59 06:59 Intake Total 1000 / 1000 1310 / 1310 Output Total 2575 / 2575 3055 / 3055 Balance -1575 / -1575 -1745 / -1745 Weight 58.7 kg Intake: IV 1000 / 1000 1310 / 1310 NS Inj 1,000 ML @ 100 mls/hr IV 1000 / 1000 1000 / 1000 .CONT .Q10H [facility] Rx#:[id number] Cardene Inj 25 MG In NS Inj 250 260 / 260 ML @ 5 MG/HR 52 mls/hr IV.CONT TITRATE PRN Rx#:[id number] Output: Urine Amount (Catheter) 2325 / 2325 3000 / 3000 Indwelling Urethral Catheter 2325 / 2325 3000 / 3000 Wound Drainage 250 / 250 55 / 55 # 1 Head 80 / 80 15 / 15 # 2 Head 170 / 170 40 / 40 Result Diagrams: 07/28/18 04:00 07/28/18 04:00 Laboratory Results: Laboratory Results - last 24 hr 07/27/18 07/28/18 07/28/18 22:20 04:00 04:00 WBC 8.2 RBC 3.54 L Hgb 11.7 Hct 35.0 MCV 98.8 MCH 33.0 MCHC 33.4 RDW 15.2 Plt Count 275 MPV 7.3 Neut % (Auto) 72.6 H Lymph % (Auto) 10.4 Parke % (Auto) 16.9 H Eos % (Auto) 0.0 Baso % (Auto) 0.1 Neut # (Auto) 5.9 Lymph # (Auto) 0.8 L Parke # (Auto) 1.4 H Eos # (Auto) 0.0 Baso # (Auto) 0.0 WBC Differential . Differential Comment Auto diff final PT 10.0 INR 1.0 APTT 19.6 L Sodium Potassium Chloride Carbon Dioxide Anion Gap BUN Creatinine Estimated GFR Random Glucose Osmolality 293 Calcium Phosphorus Magnesium 07/28/18 07/28/18 07/28/18 04:00 04:00 10:28 WBC RBC Hgb Hct MCV MCH MCHC RDW Plt Count MPV Neut % (Auto) Lymph % (Auto) Parke % (Auto) Eos % (Auto) Baso % (Auto) Neut # (Auto) Lymph # (Auto) Parke # (Auto) Eos # (Auto) Baso # (Auto) WBC Differential Differential Comment PT INR APTT Sodium 140 Potassium 3.7 Chloride 104 Carbon Dioxide 26.1 Anion Gap 10 BUN 10 Creatinine 0.63 Estimated GFR Greater than 89 Random Glucose 116 H Osmolality 294 290 Calcium 8.2 L Phosphorus 3.4 Magnesium 1.9 07/28/18 18:00 WBC RBC Hgb Hct MCV MCH MCHC RDW Plt Count MPV Neut % (Auto) Lymph % (Auto) Parke % (Auto) Eos % (Auto) Baso % (Auto) Neut # (Auto) Lymph # (Auto) Parke # (Auto) Eos # (Auto) Baso # (Auto) WBC Differential Differential Comment PT INR APTT Sodium Potassium Chloride Carbon Dioxide Anion Gap BUN Creatinine Estimated GFR Random Glucose Osmolality 299 H Calcium Phosphorus Magnesium Culture Results: Microbiology 07/24/18 08:55 Aerobic Blood Culture - Final Blood - Peripheral Staphylococcus epidermidis Anaerobic Blood Culture - Preliminary No growth in 4 days 07/24/18 09:01 Aerobic Blood Culture - Preliminary Blood - Peripheral No growth in 4 days Anaerobic Blood Culture - Preliminary No growth in 4 days Medications: Active Medications Generic Name Dose Route Start Last Admin Trade Name Freq PRN Reason Stop Dose Admin Hydrocodone Bitart/Acetaminophen 1 tab 07/23/18 23:42 07/26/18 21:21 [place] 10/325 PO 1 tab Q6H PRN Administration Pain1-10 Alprazolam 0.25 mg 07/24/18 09:00 07/28/18 23:34 Xanax PO Not Given BID [facility] Chlorhexidine Gluconate 3 pack 07/24/18 04:00 07/28/18 05:02 Chlorhexidine 2% Cloth TOPICAL 07/29/18 03:59 3 pack DAILY@0400 [facility] Administration Dexamethasone Sodium Phosphate 4 mg 07/24/18 00:00 07/28/18 18:32 Decadron Inj IV.PUSH 4 mg Q6HR [facility] Administration Dexamethasone Sodium Phosphate 4 mg 07/27/18 17:00 07/28/18 23:35 Decadron Inj IV.PUSH 4 mg Q6H [facility] Administration Famotidine 20 mg 07/24/18 09:00 07/28/18 21:34 Pepcid Pf Inj IV.PUSH 20 mg Q12HR [facility] Administration Hydromorphone HCl 1 mg 07/23/18 23:42 07/28/18 22:01 Dilaudid Pf Inj IV.PUSH 1 mg Q4H PRN Administration PAIN SCALE 6 TO 10 Sodium Chloride 1,000 mls @ 84 mls/hr 07/23/18 23:45 07/28/18 23:35 Ns Inj IV.CONT Not Given .[id number] [facility] Potassium Chloride 20 meq in 100 mls @ 50 mls/hr 07/24/18 01:09 07/24/18 07: 40 Kcl 20 Meq Premix Inj IV.SIG Infused Q2H PRN Infusion For Potassium 3.3 - 3.5 mEq/L Sodium Chloride 1,000 mls @ 100 mls/hr 07/27/18 15:45 07/28/18 12:38 Ns Inj IV.CONT 100 mls/hr .Q10H [facility] Administration Nicardipine HCl 25 mg/ Sodium 260 mls @ 52 mls/hr 07/27/18 22:44 07/28/18 18: 50 Chloride IV.CONT 0 mg/hr TITRATE PRN 0 mls/hr Per Protocol Titration Protocol 5 MG/HR Lorazepam 0.5 mg 07/25/18 12:10 07/28/18 11:30 Ativan Inj IV.PUSH 0.5 mg Q6H PRN Administration ANXIETY Mannitol 25 gm 07/27/18 17:00 07/28/18 16:30 Mannitol Inj IV.SIG 25 gm Q6H [facility] Administration Morphine Sulfate 4 mg 07/27/18 15:39 07/27/18 21:35 Morphine Inj IV.PUSH 4 mg Q4H PRN Administration Pain Scale 7 to 10 Pantoprazole Sodium 40 mg 07/28/18 09:00 07/28/18 10:16 Protonix PO Not Given DAILY [facility] Senna/Docusate Sodium 1 tab 07/24/18 09:00 07/28/18 23:34 Meghna-Colace PO Not Given BID [facility] Senna/Docusate Sodium 1 tab 07/27/18 21:00 07/28/18 23:34 Meghna-Colace PO Not Given BID [facility] Sodium Chloride 2 ml 07/24/18 09:00 07/28/18 21:34 Ns Flush IV.FLUSH 2 ml BID [facility] Administration Temazepam 15 mg 07/23/18 23:42 07/26/18 21:21 Restoril PO 15 mg HS PRN Administration INSOMNIA Objective Remarks: GENERAL: Chronically illl patient. SKIN: Warm and dry. HEAD: Normocephalic. ANA drain, Surgical dressing EYES: No scleral icterus. No injection or drainage. NECK no lymphadenopathy. LYMPHATIC: No adenopathy. CARDIOVASCULAR: Regular rate and rhythm without murmurs. RESPIRATORY: Breath sounds equal bilaterally. No accessory muscle use. GASTROINTESTINAL: Abdomen sof, nondistended. EXTREMITIES: No cyanosis, or edema. NEUROLOGICAL: not responding to vocal command Assessment/Plan (1) Brain metastases Code(s): C79.31 - Secondary malignant neoplasm of brain Status: Acute - Plan Ms. Wyatt is a pleasant 62-year-old female who was diagnosed with pancreatic adenocarcinoma in May 2017. She had amish metastases in the abdomen as well as pulmonary nodules which are consistent with metastatic disease at the time of diagnosis. Her disease progressed on palliative first-line systemic therapy consisting of gemcitabine and Abraxane. In February 2018 she was transitioned to liposomal Irinotecan in combination with 5-FU (FOLFIRI). She had been responding well to this treatment based on restaging imaging scans performed in mid July 2018. Overall based on PET/CT imaging her systemic disease burden is quite limited, it appears to be limited to the pancreas, intra-abdominal lymph nodes and small pulmonary nodules. She presents the hospital with a several week history of progressive difficulty speaking, weakness of the right upper extremity and headaches. Imaging studies performed on 07/23/2018; CT head with contrast indicates a 3.1 cm mass involving the deep left frontal lobe associated with vasogenic edema and a 4 mm left to right midline shift. The patient has been admitted to the critical care unit, she is been initiated on corticosteroids and has been evaluated by neurosurgery. She has been advised craniotomy with resection of the primary tumor. Following surgery she will be candidate for palliative radiation as well. Recommendations: 1. Metastatic pancreas adenocarcinoma, second line palliative chemotherapy with FOLFIRI (liposomal Irinotecan), currently on hold. 2. Brain mass with vasogenic edema. s/p resection yesterday. Frozen is c/w mets adenocarcinoma 4. Continue supportive care.
[2018-07-29] MEDS: Sod Chloride 0.9% Inj 1,000 ML IV.CONT SCH ×5 (01:04→17:07)
[2018-07-29] MEDS: niCARdipine Inj 25 MG in Sodium Chlor 0.9% Inj 250 ML IV.CONT PRN (08:45)
[2018-07-29] MEDS: HYDROmorphone PF Inj 2 MG/ML Vial IV.PUSH PRN (08:56)
[2018-07-29] MEDS: Famotidine PF Inj 20 MG/2 ML Vial IV.PUSH SCH ×2 (08:56→20:30)
[2018-07-29] MEDS: Senna/Docusate Sodium 8.6/50 MG Tablet PO SCH ×3 (08:57→20:30)
[2018-07-29] MEDS: ALPRAZolam 0.25 MG Tablet PO SCH ×2 (08:58→20:30)
--- NOTE | 2018-07-29 09:37 | P.PNCC ---
Subjective Subjective Remarks/Hospital Course: 62-year-old unfortunate female with history of Pancreatic cancer presents for evaluation of altered mental status. The CT of the head obtained in the emergency department shows Circumscribed 3.1 cm mass in the deep left frontal lobe with surrounding edema and about 4 mm of [id number] midline shift. Findings most characteristic of metastatic disease given the history of malignancy. 07/24: Scans reviewed. Likely metastatic nodule left hemisphere with mass- effect and extensive surrounding edema. Plan for biopsy of mass, preoperative evaluation in progress. Protects airway, no seizure activity. MRI today. 07/25: MRI of the brain reveals solitary 3 cm metastatic nodule without evidence of additional metastatic disease. Coagulation profile is normal and platelet count normal. No growth on cultures. Patient has symptomatic improvement from steroids. Plan for resection of metastatic brain lesion tomorrow. 07/26: Patient is clinically ready for craniotomy should she decide that route of care. She continues to have some weakness involving her right side particularly the right arm and acknowledges that she has trouble finding words. 07/27: Continued difficulty with speech, right arm weakness. Ready for surgery. 07/28: Extubated last evening. Breathing comfortably, protects airway well. She is sleeping during my visit this morning at 6 AM and I will return and examine her later. 07/29: No significant overnight events. Patient is tearful and upset this morning, aphasic, appears frustrated. She is only able to answer "no" to any questions, cannot tell me her name or nod/ shake head to yes/ no questions. Objective Vital Signs / I&O: Vital Signs 07/28/18 12:00 07/28/18 16:00 07/28/18 20:00 Temperature 97.6 F 98 F 98 F Pulse Rate 132 H 92 H 72 Respiratory Rate 30 H 12 14 Blood Pressure 151/83 H 111/69 Pulse Oximetry 99 99 97 07/29/18 00:00 07/29/18 04:00 Temperature 98.5 F 97.7 F Pulse Rate 54 L 54 L Respiratory Rate 11 L 11 L Blood Pressure Pulse Oximetry 97 98 Intake & Output 07/28/18 07/29/18 07/29/18 18:59 06:59 18:59 Intake Total 1310 / 1310 1000 / 1000 260 / 260 Output Total 3055 / 3055 1350 / 1350 Balance -1745 / -1745 -350 / -350 260 / 260 Weight 52.2 kg Intake: IV 1310 / 1310 1000 / 1000 260 / 260 NS Inj 1,000 ML @ 100 mls/hr IV 1000 / 1000 1000 / 1000 .CONT .Q10H [facility] Rx#:[id number] Cardene Inj 25 MG In NS Inj 250 260 / 260 260 / 260 ML @ 5 MG/HR 52 mls/hr IV.CONT TITRATE PRN Rx#:[id number] Output: Urine Amount (Catheter) 3000 / 3000 1300 / 1300 Indwelling Urethral Catheter 3000 / 3000 1300 / 1300 Wound Drainage 55 / 55 50 / 50 # 1 Head 15 / 15 15 / 15 # 2 Head 40 / 40 35 / 35 Other: # Bowel Movements 0 Result Diagrams: 07/28/18 04:00 07/28/18 04:00 Objective Remarks: GEN: Tearful and upset, appears frustrated HEENT: Surgical incisions to left scalp, clean/ dry/ intact, no drains present NECK: Trachea midline CARDIO: Regular rate and rhythm PULM: Clear to auscultation bilaterally ABD: Soft and non-tender in all quadrants EXT/MSK: No peripheral edema SKIN: Warm and dry NEURO: Awake and alert, makes good eye contact, pupils 2 mm and reactive bilaterally. Follows commands with left upper and lower extremity, no movement of RUE/ RLE although RN reports that the patient has spontaneously moved RLE earlier today. Patient is able to answer "no" to most questions but cannot tell me her name or nod/ shake head to yes/ no questions. PSYCH: Labile affect Assessment and Plan - Assessment and Plan Plan: Brain mass with vasogenic edema -Continue decadron 4 mg q6h, also on mannitol 25g q6h as per neurosurg * q6h serum osms, most recently 295 -Palliative care following, patient is DNR -s/p gross resection of left hemispheric mass 07/27 -Speech therapy consult- if patient fails swallow screen today, will need NGT Altered mental status -Due to above -Neuro checks per unit routine -Supportive care Leukopenia- resolved History of pancreatic cancer -Blood cultures on 07/24 showed staph epidermidis in 1 bottle, likely contaminant, patient afebrile with no overt signs of infection -Med onc following, palliative chemo with FOLFIRI currently on hold Hypokalemia- resolved -Electrolyte replacement per ICU protocol -Lab holiday today, check labs tomorrow Anxiety -Xanax PRN DVT GI prophylaxis -Teds SCDs -Hold anticoagulation as patient is s/p deep brain mass resection, appreciate neurosurg recs for when this can be restarted -Pepcid Discontinue [place] today Overall impression: Solitary 3 cm brain lesion, metastatic adenocarcinoma metastasis from previous pancreatic cancer s/p craniotomy and resection on (POD #2). She requires continued ICU level of care for aspiration precautions and frequent neuro exams. Level 2 follow-up Code Status: DNR
--- NOTE | 2018-07-29 09:58 | CT ---
EXAM DATE: 07/29/2018 9:31 AM EDT AGE/SEX: 62 years / Female INDICATIONS: Post op. Craniotomy yesterday. Brain mass removal. CLINICAL DATA: This is the patient's initial encounter. Patient reports that signs and symptoms have been present for 2 days and indicates a pain score of Nonresponsive. MEDICAL/SURGICAL HISTORY: Carcinoma, pancreas. Lung mets. Brain mets. Tubal ligation. RADIATION DOSE: 34.64 CTDI (mGy) COMPARISON: [facility] [place], CT HEAD W/O CONTRAST, 07/27/2018. . TECHNIQUE: CT of the head without contrast. Using automated exposure control and adjustment of the mA and/or kV according to patient size, radiation dose was kept as low as reasonably achievable to ob tain optimal diagnostic quality images. DICOM format image data is available electronically for revi ew and comparison. FINDINGS: Previous left-sided surgical drain has been removed. Patient status post left-sided craniotomy. There is some stable hemorrhage in the left basal ganglia with some new hemorrhage along the tract of the removed surgical drain measuring around 1 cm in diameter. There is trace pneumocephalus. Mild localiz ed mass effect and minimal left to right shift persists. There is now a small amount of hemorrhage in the left lateral ventricle and left lateral ventricle is increased in size slightly since July 27. CONCLUSION: 1. Removal of left-sided surgical drain with some new small hemorrhage along the tract. Relatively s table edema and hemorrhage in the left basal ganglia region. No significant change in mass effect. 2. Trace hemorrhage in the left lateral ventricle with a slight increase in left lateral ventricular size since July 27. . Electronically signed by: Feliciano Sevilla MD 07/29/2018 9:56 AM EDT
--- NOTE | 2018-07-29 11:03 | P.PNNS ---
Subjective Interval history: appears more awake today, aphasic, plegic right side. repeat CT Brain this morning completed. Physical Exam Vital signs: Vital Signs 07/28/18 12:00 07/28/18 16:00 07/28/18 20:00 Temperature 97.6 F 98 F 98 F Pulse Rate 132 H 92 H 72 Respiratory Rate 30 H 12 14 Blood Pressure 151/83 H 111/69 Pulse Oximetry 99 99 97 07/29/18 00:00 07/29/18 04:00 Temperature 98.5 F 97.7 F Pulse Rate 54 L 54 L Respiratory Rate 11 L 11 L Blood Pressure Pulse Oximetry 97 98 Intake & Output 07/28/18 07/29/18 07/29/18 18:59 06:59 18:59 Intake Total 1310 / 1310 1000 / 1000 260 / 260 Output Total 3055 / 3055 1350 / 1350 Balance -1745 / -1745 -350 / -350 260 / 260 Weight 52.2 kg Intake: IV 1310 / 1310 1000 / 1000 260 / 260 NS Inj 1,000 ML @ 100 mls/hr IV 1000 / 1000 1000 / 1000 .CONT .Q10H [facility] Rx#:[id number] Cardene Inj 25 MG In NS Inj 250 260 / 260 260 / 260 ML @ 5 MG/HR 52 mls/hr IV.CONT TITRATE PRN Rx#:[id number] Output: Urine Amount (Catheter) 3000 / 3000 1300 / 1300 Indwelling Urethral Catheter 3000 / 3000 1300 / 1300 Wound Drainage 55 / 55 50 / 50 # 1 Head 15 / 15 15 / 15 # 2 Head 40 / 40 35 / 35 Other: # Bowel Movements 0 Narrative: awake, alert aphasic tracks tearful mildly anxious moving left side purposefully 0/5 right side pupils equal surgical wound clean and dry - Urinary Catheter Management Indwelling Urethral Catheter Cath placed during this visit: yes Reason for continuing: Hourly intake/output Insertion date: 07/27/18 Insertion time: 16:40 Assessment and Plan - Plan s/p stereotactic image-guided Left frontal craniotomy, microsurgical resection of metastatic carcinoma for 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 Removal of left-sided surgical drain with some new small hemorrhage along the tract. Relatively stable edema and hemorrhage in the left basal ganglia region. No significant change in mass effect. 2. Trace hemorrhage in the left lateral ventricle with a slight increase in left lateral ventricular size since July 27. . Plan: f/u CT Brain 07/29/18 reviewed, cont neuro checks ANA drain removed by Dr. Dyson this morning cont PT, OT, ST follow up final pathology SCDs and TEDs for dvt prophylaxis
[2018-07-29] MEDS ORDERED: HYDROmorphone PF Inj 1 MG/ML Ampul IV.PUSH PRN (23:15)
[2018-07-30] MEDS: niCARdipine Inj 25 MG in Sodium Chlor 0.9% Inj 250 ML IV.CONT PRN (00:18)
[2018-07-30] MEDS: Sod Chloride 0.9% Inj 1,000 ML IV.CONT SCH ×5 (00:42→22:46)
[2018-07-30 03:56] LABS: Baso % (Auto) 0.1 % (0.0-2.0); Hemoglobin 11.4 gm/dL (11.6-15.3); Lymph # (Auto) 1.1 th/mm3 (1.0-4.8); Lymph % (Auto) 9.5 % (9.0-44.0); Mean Corpuscular HGB Conc 33.4 % (32.0-36.0); Mean Corpuscular Hemoglobin 33.3 pg (27.0-34.0); Mean Corpuscular Volume 99.7 fL (80.0-100.0); Mean Platelet Volume 7.2 fL (7.0-11.0); Mono # (Auto) 1.8 th/mm3 (0.0-0.9); Mono % (Auto) 15.8 % (0.0-8.0); Neut # (Auto) 8.4 th/mm3 (1.8-7.7); Neut % (Auto) 74.6 % (16.0-70.0); Platelet Count 255 th/mm3 (150-450); Red Blood Count 3.41 mil/mm3 (4.00-5.30); Red Cell Distribution Width 15.4 % (11.6-17.2); White Blood Count 11.2 th/mm3 (4.0-11.0)
[2018-07-30 04:12] LABS: Anion Gap 7 meq/L (5-15); Blood Urea Nitrogen 18 mg/dL (7-18); Calcium 8.3 mg/dL (8.5-10.1); Chloride 107 meq/L (98-107); Glomerular Filtration Rate Greater Than 89 mL/min (>89); Glucose,Random 119 mg/dL (74-106); Magnesium 2.1 mg/dL (1.5-2.5); Sodium 141 meq/L (136-145)
[2018-07-30 04:24] LABS: Ovalocytes 1+; Platelet Estimate Normal (Normal); Platelet Morphology Normal (Normal)
--- NOTE | 2018-07-30 08:15 | P.PNCC ---
Subjective Subjective Remarks/Hospital Course: 62-year-old unfortunate female with history of Pancreatic cancer presents for evaluation of altered mental status. The CT of the head obtained in the emergency department shows Circumscribed 3.1 cm mass in the deep left frontal lobe with surrounding edema and about 4 mm of [id number] midline shift. Findings most characteristic of metastatic disease given the history of malignancy. 07/24: Scans reviewed. Likely metastatic nodule left hemisphere with mass- effect and extensive surrounding edema. Plan for biopsy of mass, preoperative evaluation in progress. Protects airway, no seizure activity. MRI today. 07/25: MRI of the brain reveals solitary 3 cm metastatic nodule without evidence of additional metastatic disease. Coagulation profile is normal and platelet count normal. No growth on cultures. Patient has symptomatic improvement from steroids. Plan for resection of metastatic brain lesion tomorrow. 07/26: Patient is clinically ready for craniotomy should she decide that route of care. She continues to have some weakness involving her right side particularly the right arm and acknowledges that she has trouble finding words. 07/27: Continued difficulty with speech, right arm weakness. Ready for surgery. 07/28: Extubated last evening. Breathing comfortably, protects airway well. She is sleeping during my visit this morning at 6 AM and I will return and examine her later. 07/29: No significant overnight events. Patient is tearful and upset this morning, aphasic, appears frustrated. She is only able to answer "no" to any questions, cannot tell me her name or nod/ shake head to yes/ no questions. 07/30: Unable to find words. Weak right arm. Breathing comfortable and takes airway well. Patient is tearful. Objective Vital Signs / I&O: Vital Signs 07/29/18 09:00 07/29/18 09:26 07/29/18 10:00 Temperature Pulse Rate 99 H 76 Respiratory Rate 27 H 14 23 Blood Pressure Pulse Oximetry 99 97 07/29/18 10:12 07/29/18 10:15 07/29/18 10:30 Temperature Pulse Rate 72 61 88 Respiratory Rate 16 20 29 H Blood Pressure 132/70 145/67 H 181/91 H Pulse Oximetry 98 98 99 07/29/18 10:32 07/29/18 10:45 07/29/18 11:00 Temperature Pulse Rate 90 97 H 84 Respiratory Rate 31 H 29 H 26 H Blood Pressure 162/77 H 161/77 H Pulse Oximetry 99 99 100 07/29/18 11:15 07/29/18 11:30 07/29/18 11:45 Temperature Pulse Rate 68 69 71 Respiratory Rate 15 18 13 Blood Pressure 159/72 H 129/73 138/76 Pulse Oximetry 99 98 99 07/29/18 12:00 07/29/18 12:15 07/29/18 12:30 Temperature Pulse Rate 75 77 74 Respiratory Rate 14 15 27 H Blood Pressure 140/86 125/76 123/69 Pulse Oximetry 99 99 99 07/29/18 12:45 07/29/18 13:00 07/29/18 13:15 Temperature Pulse Rate 67 110 H 103 H Respiratory Rate 10 L 21 23 Blood Pressure 125/70 161/78 H 146/71 H Pulse Oximetry 99 99 100 07/29/18 13:30 07/29/18 13:45 07/29/18 14:00 Temperature Pulse Rate 100 H 84 80 Respiratory Rate 18 16 16 Blood Pressure 146/67 H 124/68 119/67 Pulse Oximetry 98 99 99 07/29/18 14:15 07/29/18 14:30 07/29/18 14:45 Temperature Pulse Rate 77 76 73 Respiratory Rate 13 13 14 Blood Pressure 121/63 104/60 109/63 Pulse Oximetry 98 97 99 07/29/18 15:00 07/29/18 15:15 07/29/18 15:30 Temperature Pulse Rate 76 75 69 Respiratory Rate 13 17 13 Blood Pressure 113/63 119/64 123/64 Pulse Oximetry 98 98 98 07/29/18 15:45 07/29/18 16:00 07/29/18 16:15 Temperature 98.4 F Pulse Rate 65 75 66 Respiratory Rate 14 15 16 Blood Pressure 123/65 132/74 150/73 H Pulse Oximetry 98 99 99 07/29/18 16:30 07/29/18 16:45 07/29/18 20:00 Temperature 98.8 F Pulse Rate 62 71 82 Respiratory Rate 15 20 24 Blood Pressure 132/73 152/81 H 142/76 H Pulse Oximetry 99 100 97 07/30/18 00:00 07/30/18 04:00 Temperature 98.6 F 98.9 F Pulse Rate 114 H 55 L Respiratory Rate 16 14 Blood Pressure 165/89 H 136/76 Pulse Oximetry 98 96 Intake & Output 07/29/18 07/30/18 07/30/18 18:59 06:59 18:59 Intake Total 740 / 740 1260 / 1260 Output Total 1400 / 1400 1999 Balance -660 / -660 -740 / -740 Weight 55.2 kg Intake: IV 260 / 260 1260 / 1260 NS Inj 1,000 ML @ 100 mls/hr IV 1000 / 1000 .CONT .Q10H [facility] Rx#:[id number] Cardene Inj 25 MG In NS Inj 250 260 / 260 260 / 260 ML @ 5 MG/HR 52 mls/hr IV.CONT TITRATE PRN Rx#:[id number] Oral 480 / 480 Output: Stool 0 / 0 Urine Amount (Catheter) 1399 Indwelling Urethral Catheter 1399 Straight 1999 Other: # Bowel Movements 0 0 Result Diagrams: 07/30/18 03:14 07/30/18 03:14 Objective Remarks: GEN: Tearful and uncomfortable, appears frustrated HEENT: Surgical incisions to left scalp, clean/ dry/ intact, no drains present NECK: Trachea midline CARDIO: Regular rate and rhythm, no murmur rub, no JVD PULM: Clear to auscultation bilaterally, no adventitious sounds. ABD: Soft and non-tender in all quadrants, no guarding, bowel sounds active. EXT/MSK: No peripheral edema SKIN: Warm and dry NEURO: Awake and alert, makes good eye contact, pupils 2 mm and reactive bilaterally. Follows commands with left upper and lower extremity, no movement of RUE/ RLE although RN reports that the patient has spontaneously moved RLE earlier today. Patient is able to answer "no" to most questions but cannot tell me her name or nod/ shake head to yes/ no questions. PSYCH: Emotional Assessment and Plan - Assessment and Plan Plan: Brain mass with vasogenic edema -Continue decadron 4 mg q6h, also on mannitol 25g q6h as per neurosurg * q6h serum osms, most recently 295 -Palliative care following, patient is DNR -s/p gross resection of left hemispheric mass 07/27 -Speech therapy consult- if patient fails swallow screen today, will need NGT -[place] catheter due to large urine outputs and retention of 900 mL's Altered mental status -Due to above -Neuro checks per unit routine -Supportive care Leukopenia- resolved History of pancreatic cancer -Blood cultures on 07/24 showed staph epidermidis in 1 bottle, likely contaminant, patient afebrile with no overt signs of infection -Med onc following, palliative chemo with FOLFIRI currently on hold Hypokalemia- resolved -Electrolyte replacement per ICU protocol -Lab today Anxiety -Xanax PRN DVT GI prophylaxis -Teds SCDs -Hold anticoagulation as patient is s/p deep brain mass resection, appreciate neurosurg recs for when this can be restarted -Pepcid Replace [place] catheter as mannitol is causing excessive urine outputs and patient's residual volume was 900 mls. Overall impression: Solitary 3 cm brain lesion, metastatic adenocarcinoma metastasis from previous pancreatic cancer s/p craniotomy and resection on (POD #3). She requires continued ICU level of care for aspiration precautions and frequent neuro exams.
[2018-07-30] MEDS: ALPRAZolam 0.25 MG Tablet PO SCH ×2 (08:16→20:04)
[2018-07-30] MEDS: Famotidine PF Inj 20 MG/2 ML Vial IV.PUSH SCH ×2 (08:16→20:04)
[2018-07-30] MEDS: Senna/Docusate Sodium 8.6/50 MG Tablet PO SCH ×2 (08:16→20:05)
[2018-07-30] MEDS ORDERED: Metoprolol Inj 5 MG/5 ML Vial IV.PUSH ONE (09:08)
[2018-07-30] MEDS: Metoprolol Tartrate 25 MG Tablet PO SCH ×2 (11:03→20:05)
--- NOTE | 2018-07-30 12:57 | P.PNNS ---
Subjective Interval history: Still hemiplegic right, Broca's aphasia which is frustrating to her Physical Exam Vital signs: Vital Signs 07/29/18 13:00 07/29/18 13:15 07/29/18 13:30 Temperature Pulse Rate 110 H 103 H 100 H Respiratory Rate 21 23 18 Blood Pressure 161/78 H 146/71 H 146/67 H Pulse Oximetry 99 100 98 07/29/18 13:45 07/29/18 14:00 07/29/18 14:15 Temperature Pulse Rate 84 80 77 Respiratory Rate 16 16 13 Blood Pressure 124/68 119/67 121/63 Pulse Oximetry 99 99 98 07/29/18 14:30 07/29/18 14:45 07/29/18 15:00 Temperature Pulse Rate 76 73 76 Respiratory Rate 13 14 13 Blood Pressure 104/60 109/63 113/63 Pulse Oximetry 97 99 98 07/29/18 15:15 07/29/18 15:30 07/29/18 15:45 Temperature Pulse Rate 75 69 65 Respiratory Rate 17 13 14 Blood Pressure 119/64 123/64 123/65 Pulse Oximetry 98 98 98 07/29/18 16:00 07/29/18 16:15 07/29/18 16:30 Temperature 98.4 F Pulse Rate 75 66 62 Respiratory Rate 15 16 15 Blood Pressure 132/74 150/73 H 132/73 Pulse Oximetry 99 99 99 07/29/18 16:45 07/29/18 20:00 07/29/18 23:30 Temperature 98.8 F Pulse Rate 71 82 Respiratory Rate 20 24 Blood Pressure 152/81 H 142/76 H 120/58 L Pulse Oximetry 100 97 07/29/18 23:45 07/30/18 00:00 07/30/18 00:15 Temperature 98.6 F Pulse Rate 85 114 H 101 H Respiratory Rate 19 24 20 Blood Pressure 155/79 H 165/89 H 149/79 H Pulse Oximetry 98 98 98 07/30/18 00:30 07/30/18 00:45 07/30/18 01:00 Temperature Pulse Rate 92 H 75 69 Respiratory Rate 19 11 L 22 Blood Pressure 138/67 105/63 118/68 Pulse Oximetry 97 97 97 07/30/18 01:15 07/30/18 01:30 07/30/18 01:45 Temperature Pulse Rate 69 68 67 Respiratory Rate 27 H 15 15 Blood Pressure 97/58 L 104/61 97/59 L Pulse Oximetry 96 96 97 07/30/18 02:00 07/30/18 02:15 07/30/18 02:30 Temperature Pulse Rate 61 60 60 Respiratory Rate 18 14 15 Blood Pressure 100/60 108/62 111/54 L Pulse Oximetry 97 97 97 07/30/18 02:45 07/30/18 03:00 07/30/18 03:15 Temperature Pulse Rate 60 60 63 Respiratory Rate 14 21 19 Blood Pressure 110/62 114/61 113/75 Pulse Oximetry 97 97 98 07/30/18 03:30 07/30/18 04:00 07/30/18 05:00 Temperature 98.9 F Pulse Rate 67 61 57 L Respiratory Rate 12 12 12 Blood Pressure 140/77 136/76 108/65 Pulse Oximetry 97 98 97 07/30/18 06:00 07/30/18 07:00 07/30/18 08:00 Temperature 98.8 F Pulse Rate 54 L 54 L 97 H Respiratory Rate 26 H 10 L 33 H Blood Pressure 117/68 139/70 174/97 H Pulse Oximetry 97 97 99 07/30/18 08:40 07/30/18 09:03 07/30/18 09:04 Temperature Pulse Rate 120 H 150 H Respiratory Rate 26 H 11 L Blood Pressure 137/97 H Pulse Oximetry 98 99 07/30/18 10:00 07/30/18 11:00 Temperature Pulse Rate 103 H 103 H Respiratory Rate 20 24 Blood Pressure 153/87 H 177/85 H Pulse Oximetry 99 99 Intake & Output 07/29/18 07/30/18 07/30/18 18:59 06:59 18:59 Intake Total 740 / 740 1260 / 1260 1000 / 1000 Output Total 1400 / 1400 2000 / 1999 Balance -660 / -660 -740 / -740 1000 / 1000 Weight 55.2 kg Intake: IV 260 / 260 1260 / 1260 1000 / 1000 NS Inj 1,000 ML @ 100 mls/hr IV 1000 / 1000 1000 / 1000 .CONT .Q10H [facility] Rx#:[id number] Cardene Inj 25 MG In NS Inj 250 260 / 260 260 / 260 ML @ 5 MG/HR 52 mls/hr IV.CONT TITRATE PRN Rx#:[id number] Oral 480 / 480 Output: Stool 0 / 0 Urine Amount (Catheter) 1399 Indwelling Urethral Catheter 1399 Straight 1999 Other: Date of Last Bowel Movement 07/30/18 # Bowel Movements 0 0 Narrative: awake, alert aphasic tracks tearful mildly anxious moving left side purposefully 0/5 right side pupils equal surgical wound clean and dry - Urinary Catheter Management Indwelling Urethral Catheter Cath placed during this visit: yes Reason for continuing: Not indwelling catheter Insertion date: 07/29/18 Insertion time: 23:00 Straight Cath placed during this visit: no Assessment and Plan - Plan s/p stereotactic image-guided Left frontal craniotomy, microsurgical resection of metastatic carcinoma for 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 Removal of left-sided surgical drain with some new small hemorrhage along the tract. Relatively stable edema and hemorrhage in the left basal ganglia region. No significant change in mass effect. 2. Trace hemorrhage in the left lateral ventricle with a slight increase in left lateral ventricular size since July 27. . Plan: f/u CT Brain 07/29/18 reviewed, cont neuro checks ANA drain removed by Dr. Dyson this morning cont PT, OT, ST follow up final pathology SCDs and TEDs for dvt prophylaxis 07/30/18 Aphasia slowly improving d/c mannitol today and taper decadron to 2mg
[2018-07-30] MEDS ORDERED: Labetalol HCl Inj 20 MG/4 ML Vial IV.PUSH PRN (14:02)
[2018-07-30] MEDS ORDERED: Labetalol HCl Inj 100 MG/20 ML Vial IV.PUSH PRN (14:15)
--- NOTE | 2018-07-30 17:40 | OTSOAPIP ---
TIME SESSION COMPLETED: AM TREATMENT TIME: 0 MINS. CHART REVIEWED. ATTEMPTED TO SEE PATIENT HOWEVER DAUGHTER REPORTED HER MOTHER FINALLY FELL A SLEEP AND WOULD LIKE HER TO REST PLAN: WILL SEE PATIENT NEXT TREATMENT DAY Therapist: Kareem Gottlieb Signature on file
[2018-07-31] MEDS: Sod Chloride 0.9% Inj 1,000 ML IV.CONT SCH ×3 (01:04→12:59)
[2018-07-31] MEDS: Metoprolol Tartrate 25 MG Tablet PO SCH ×2 (08:25→20:21)
[2018-07-31] MEDS: ALPRAZolam 0.25 MG Tablet PO SCH ×2 (08:26→20:21)
[2018-07-31] MEDS: Senna/Docusate Sodium 8.6/50 MG Tablet PO SCH ×2 (08:26→20:21)
[2018-07-31] MEDS: Famotidine PF Inj 20 MG/2 ML Vial IV.PUSH SCH ×2 (09:47→20:21)
--- NOTE | 2018-07-31 10:33 | P.PNCC ---
Subjective Subjective Remarks/Hospital Course: 62-year-old unfortunate female with history of Pancreatic cancer presents for evaluation of altered mental status. The CT of the head obtained in the emergency department shows Circumscribed 3.1 cm mass in the deep left frontal lobe with surrounding edema and about 4 mm of [id number] midline shift. Findings most characteristic of metastatic disease given the history of malignancy. 07/24: Scans reviewed. Likely metastatic nodule left hemisphere with mass- effect and extensive surrounding edema. Plan for biopsy of mass, preoperative evaluation in progress. Protects airway, no seizure activity. MRI today. 07/25: MRI of the brain reveals solitary 3 cm metastatic nodule without evidence of additional metastatic disease. Coagulation profile is normal and platelet count normal. No growth on cultures. Patient has symptomatic improvement from steroids. Plan for resection of metastatic brain lesion tomorrow. 07/26: Patient is clinically ready for craniotomy should she decide that route of care. She continues to have some weakness involving her right side particularly the right arm and acknowledges that she has trouble finding words. 07/27: Continued difficulty with speech, right arm weakness. Ready for surgery. 07/28: Extubated last evening. Breathing comfortably, protects airway well. She is sleeping during my visit this morning at 6 AM and I will return and examine her later. 07/29: No significant overnight events. Patient is tearful and upset this morning, aphasic, appears frustrated. She is only able to answer "no" to any questions, cannot tell me her name or nod/ shake head to yes/ no questions. 07/30: Unable to find words. Weak right arm. Breathing comfortable and takes airway well. Patient is tearful. 07/31: Difficult finding words but understands normally. Expresses an interest in going straight home. I talked to her about rehab placement but she wants to go home soon. Objective Vital Signs / I&O: Vital Signs 07/30/18 11:00 07/30/18 11:27 07/30/18 11:40 Temperature Pulse Rate 103 H 119 H Respiratory Rate 24 36 H Blood Pressure 177/85 H 171/86 H Pulse Oximetry 99 99 07/30/18 12:00 07/30/18 13:00 07/30/18 14:00 Temperature 98.6 F Pulse Rate 84 67 82 Respiratory Rate 20 12 28 H Blood Pressure 149/90 H 151/83 H Pulse Oximetry 98 98 99 07/30/18 14:55 07/30/18 15:00 07/30/18 16:00 Temperature 97.8 F Pulse Rate 59 L 58 L 79 Respiratory Rate 16 17 27 H Blood Pressure 121/69 121/72 172/93 H Pulse Oximetry 98 98 100 07/30/18 16:08 07/30/18 17:00 07/30/18 18:00 Temperature Pulse Rate 58 L 58 L 80 Respiratory Rate 13 22 38 H Blood Pressure 142/71 H 121/69 155/80 H Pulse Oximetry 97 96 100 07/30/18 19:00 07/30/18 19:58 07/30/18 20:00 Temperature 98.1 F Pulse Rate 90 83 86 Respiratory Rate 32 H 31 H 22 Blood Pressure 145/70 H 146/81 H Pulse Oximetry 100 99 100 07/30/18 20:01 07/30/18 20:03 07/30/18 21:00 Temperature Pulse Rate 81 65 Respiratory Rate 16 16 Blood Pressure 146/81 H 132/72 Pulse Oximetry 99 98 07/30/18 22:00 07/30/18 23:00 07/31/18 00:00 Temperature 98.4 F Pulse Rate 56 L 70 57 L Respiratory Rate 12 17 15 Blood Pressure 148/70 H 169/77 H 141/86 H Pulse Oximetry 99 100 99 07/31/18 01:00 07/31/18 02:00 07/31/18 03:00 Temperature Pulse Rate 61 51 L 49 L Respiratory Rate 18 28 H 16 Blood Pressure 155/72 H 125/62 119/61 Pulse Oximetry 99 97 97 07/31/18 04:00 07/31/18 05:00 07/31/18 06:00 Temperature 98.2 F Pulse Rate 52 L 43 L 45 L Respiratory Rate 16 19 15 Blood Pressure 95/59 L 140/77 113/65 Pulse Oximetry 99 98 98 07/31/18 07:00 07/31/18 08:00 07/31/18 08:04 Temperature 98 F Pulse Rate 46 L 69 72 Respiratory Rate 12 22 19 Blood Pressure 136/71 Pulse Oximetry 100 97 07/31/18 08:22 Temperature Pulse Rate 69 Respiratory Rate 25 H Blood Pressure 164/80 H Pulse Oximetry 100 Intake & Output 07/30/18 07/31/18 07/31/18 18:59 06:59 18:59 Intake Total 1250 / 1250 1005 / 1005 1000 / 1000 Output Total 50 / 50 Balance 1250 / 1250 955 / 955 1000 / 1000 Weight 55.7 kg Intake: IV 1000 / 1000 1005 / 1005 1000 / 1000 NS Inj 1,000 ML @ 100 mls/hr IV 1000 / 1000 1000 / 1000 1000 / 1000 .CONT .Q10H [facility] Rx#:[id number] Cardene Inj 25 MG In NS Inj 250 5 / 5 ML @ 5 MG/HR 52 mls/hr IV.CONT TITRATE PRN Rx#:[id number] Oral 250 / 250 Output: Stool 0 / 0 Estimated Blood Loss 50 / 50 Other: # Voids 4 2 Date of Last Bowel Movement 07/30/18 07/31/18 07/31/18 # Bowel Movements 3 1 Result Diagrams: 07/30/18 03:14 07/30/18 03:14 Objective Remarks: GEN: Tearful and uncomfortable, appears frustrated HEENT: Surgical incisions to left scalp, clean/ dry/ intact, no drains present NECK: Trachea midline CARDIO: Regular rate and rhythm, no murmur rub, no JVD PULM: Clear to auscultation bilaterally, no adventitious sounds. ABD: Soft and non-tender in all quadrants, no guarding, bowel sounds active. EXT/MSK: No peripheral edema SKIN: Warm and dry NEURO: Awake and alert, makes good eye contact, pupils 2 mm and reactive bilaterally. Follows commands with left upper and lower extremity, little movement of RUE/ RLE. Patient responds to answers with yes and no but has a difficult time finding words. PSYCH: Emotional Assessment and Plan - Assessment and Plan Plan: Brain mass with vasogenic edema -Continue decadron 4 mg q6h, also on mannitol 25g q6h as per neurosurg * q6h serum osms, most recently 295 -Palliative care following, patient is DNR -s/p gross resection of left hemispheric mass 07/27 -Speech therapy consult- if patient fails swallow screen today, will need NGT -Placed [place] catheter due to large urine outputs and retention of 900 mL's, remove today. Altered mental status -Due to above -Neuro checks per unit routine -Supportive care Leukopenia- resolved History of pancreatic cancer -Blood cultures on 07/24 showed staph epidermidis in 1 bottle, likely contaminant, patient afebrile with no overt signs of infection -Med onc following, palliative chemo with FOLFIRI currently on hold Hypokalemia- resolved -Electrolyte replacement per ICU protocol -Lab today Anxiety -Xanax PRN DVT GI prophylaxis -Teds SCDs -Hold anticoagulation as patient is s/p deep brain mass resection, appreciate neurosurg recs for when this can be restarted -Pepcid Replace [place] catheter as mannitol is causing excessive urine outputs and patient's residual volume was 900 mls. Mannitol now stopped, d/c smallwood. Overall impression: Solitary 3 cm brain lesion, metastatic adenocarcinoma from previous pancreatic cancer s/p craniotomy and resection on 07/27 (POD #4). Breathing comfortably protects airway well
--- NOTE | 2018-07-31 14:12 | P.PNNS ---
Subjective Interval history: Aphasic, improving. Would like to go home, tearful when told she might need rehab/skilled and grandson present and that cheers her up Physical Exam Vital signs: Vital Signs 07/30/18 14:55 07/30/18 15:00 07/30/18 16:00 Temperature 97.8 F Pulse Rate 59 L 58 L 79 Respiratory Rate 16 17 27 H Blood Pressure 121/69 121/72 172/93 H Pulse Oximetry 98 98 100 07/30/18 16:08 07/30/18 17:00 07/30/18 18:00 Temperature Pulse Rate 58 L 58 L 80 Respiratory Rate 13 22 38 H Blood Pressure 142/71 H 121/69 155/80 H Pulse Oximetry 97 96 100 07/30/18 19:00 07/30/18 19:58 07/30/18 20:00 Temperature 98.1 F Pulse Rate 90 83 86 Respiratory Rate 32 H 31 H 22 Blood Pressure 145/70 H 146/81 H Pulse Oximetry 100 99 100 07/30/18 20:01 07/30/18 20:03 07/30/18 21:00 Temperature Pulse Rate 81 65 Respiratory Rate 16 16 Blood Pressure 146/81 H 132/72 Pulse Oximetry 99 98 07/30/18 22:00 07/30/18 23:00 07/31/18 00:00 Temperature 98.4 F Pulse Rate 56 L 70 57 L Respiratory Rate 12 17 15 Blood Pressure 148/70 H 169/77 H 141/86 H Pulse Oximetry 99 100 99 07/31/18 01:00 07/31/18 02:00 07/31/18 03:00 Temperature Pulse Rate 61 51 L 49 L Respiratory Rate 18 28 H 16 Blood Pressure 155/72 H 125/62 119/61 Pulse Oximetry 99 97 97 07/31/18 04:00 07/31/18 05:00 07/31/18 06:00 Temperature 98.2 F Pulse Rate 52 L 43 L 45 L Respiratory Rate 16 19 15 Blood Pressure 95/59 L 140/77 113/65 Pulse Oximetry 99 98 98 07/31/18 07:00 07/31/18 08:00 07/31/18 08:04 Temperature 98 F Pulse Rate 46 L 69 72 Respiratory Rate 12 22 19 Blood Pressure 136/71 Pulse Oximetry 100 97 07/31/18 08:22 07/31/18 09:00 07/31/18 10:00 Temperature Pulse Rate 69 53 L 65 Respiratory Rate 25 H 26 H 29 H Blood Pressure 164/80 H 141/65 H 145/65 H Pulse Oximetry 100 100 100 07/31/18 11:00 07/31/18 11:10 07/31/18 12:00 Temperature 97.9 F Pulse Rate 65 85 57 L Respiratory Rate 35 H 45 H 33 H Blood Pressure 127/68 Pulse Oximetry 100 99 100 Intake & Output 07/30/18 07/31/18 07/31/18 18:59 06:59 18:59 Intake Total 1250 / 1250 1005 / 1005 1200 / 1200 Output Total 50 / 50 Balance 1250 / 1250 955 / 955 1200 / 1200 Weight 55.7 kg Intake: IV 1000 / 1000 1005 / 1005 1200 / 1200 NS Inj 1,000 ML @ 100 mls/hr IV 1000 / 1000 1000 / 1000 1200 / 1200 .CONT .Q10H [facility] Rx#:[id number] Cardene Inj 25 MG In NS Inj 250 5 / 5 ML @ 5 MG/HR 52 mls/hr IV.CONT TITRATE PRN Rx#:[id number] Oral 250 / 250 Output: Stool 0 / 0 Estimated Blood Loss 50 / 50 Other: # Voids 4 2 Date of Last Bowel Movement 07/30/18 07/31/18 07/31/18 # Bowel Movements 3 1 Narrative: awake, alert aphasic tracks tearful mildly anxious moving left side purposefully 0/5 right side pupils equal surgical wound clean and dry - Urinary Catheter Management Indwelling Urethral Catheter Cath placed during this visit: yes Reason for continuing: Not indwelling catheter Insertion date: 07/29/18 Insertion time: 23:00 Straight Cath placed during this visit: no Assessment and Plan - Plan s/p stereotactic image-guided Left frontal craniotomy, microsurgical resection of metastatic carcinoma for 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 Removal of left-sided surgical drain with some new small hemorrhage along the tract. Relatively stable edema and hemorrhage in the left basal ganglia region. No significant change in mass effect. 2. Trace hemorrhage in the left lateral ventricle with a slight increase in left lateral ventricular size since July 27. . Plan: f/u CT Brain 07/29/18 reviewed, cont neuro checks cont PT, OT, ST follow up final pathology SCDs and TEDs for dvt prophylaxis 07/30/18 Aphasia slowly improving d/c mannitol today and taper decadron to 2mg 07/31/18 Home health will be needed for this lady vs. SNF (Rehab) Definitely given profound right sided weakness
[2018-08-01 07:35] LABS: Blood Urea Nitrogen 16 mg/dL (7-18); Calcium 8.1 mg/dL (8.5-10.1); Chloride 104 meq/L (98-107); Glomerular Filtration Rate Greater Than 89 mL/min (>89); Potassium 4.5 meq/L (3.5-5.1); Sodium 138 meq/L (136-145)
[2018-08-01 07:36] LABS: Anion Gap 8 meq/L (5-15); Carbon Dioxide 26.4 meq/L (21.0-32.0); Glucose,Random 108 mg/dL (74-106)
[2018-08-01] MEDS: ALPRAZolam 0.25 MG Tablet PO SCH ×2 (09:15→20:47)
[2018-08-01] MEDS: Metoprolol Tartrate 25 MG Tablet PO SCH ×2 (09:15→20:47)
[2018-08-01] MEDS: Famotidine PF Inj 20 MG/2 ML Vial IV.PUSH SCH ×2 (09:16→20:46)
[2018-08-01] MEDS: Senna/Docusate Sodium 8.6/50 MG Tablet PO SCH ×2 (09:17→20:47)
--- NOTE | 2018-08-01 11:48 | P.PNONC ---
Subjective Interval history: Awake and alert on approach. No complaints at this time. She remains with weakness to her right hand and dysarthria. She reports having a bowel movement today, urinating well. She denies pain. Objective Vital Signs/Intake & Output: Vital Signs 07/31/18 12:00 07/31/18 12:05 07/31/18 13:00 Temperature 97.9 F Pulse Rate 57 L 62 66 Respiratory Rate 33 H 30 H 30 H Blood Pressure 127/59 L Pulse Oximetry 100 100 100 07/31/18 13:09 07/31/18 13:12 07/31/18 14:00 Temperature Pulse Rate 78 75 Respiratory Rate 27 H 24 Blood Pressure 128/61 139/69 Pulse Oximetry 100 100 07/31/18 15:00 07/31/18 16:00 07/31/18 20:00 Temperature 98.4 F 98.1 F Pulse Rate 55 L 73 76 Respiratory Rate 22 34 H 24 Blood Pressure 142/68 H 140/82 153/68 H Pulse Oximetry 100 99 98 08/01/18 00:00 08/01/18 04:00 08/01/18 08:00 Temperature 98.1 F 98.3 F Pulse Rate 46 L 47 L 47 L Respiratory Rate 14 16 20 Blood Pressure 119/64 109/64 Pulse Oximetry 96 97 Intake & Output 07/31/18 08/01/18 08/01/18 18:59 06:59 18:59 Intake Total 1800 / 1800 Output Total 50 / 50 Balance 1800 / 1800 -50 / -50 Weight 55.7 kg Intake: IV 1200 / 1200 NS Inj 1,000 ML @ 100 mls/hr IV 1200 / 1200 .CONT .Q10H [facility] Rx#:[id number] Oral 600 / 600 Output: Stool 0 / 0 Estimated Blood Loss 50 / 50 Other: # Voids 7 2 Date of Last Bowel Movement 07/31/18 07/31/18 Result Diagrams: 07/30/18 03:14 08/01/18 06:26 Laboratory Results: Laboratory Results - last 24 hr 08/01/18 06:26 Sodium 138 Potassium 4.5 Chloride 104 Carbon Dioxide 26.4 Anion Gap 8 BUN 16 Creatinine 0.51 Estimated GFR Greater than 89 Random Glucose 108 H Calcium 8.1 L Culture Results: Microbiology 07/24/18 09:01 Aerobic Blood Culture - Final Blood - Peripheral No growth in 5 days Anaerobic Blood Culture - Final No growth in 5 days 07/24/18 08:55 Aerobic Blood Culture - Final Blood - Peripheral Staphylococcus epidermidis Anaerobic Blood Culture - Final No growth in 5 days Medications: Active Medications Generic Name Dose Route Start Last Admin Trade Name Freq PRN Reason Stop Dose Admin Hydrocodone Bitart/Acetaminophen 1 tab 07/23/18 23:42 08/01/18 01:45 [place] 10/325 PO 1 tab Q6H PRN Administration Pain1-6 Alprazolam 0.25 mg 07/24/18 09:00 08/01/18 09:15 Xanax PO 0.25 mg BID [facility] Administration Dexamethasone Sodium Phosphate 2 mg 07/30/18 17:00 08/01/18 05:05 Decadron Inj IV.PUSH 2 mg Q6H [facility] Administration Famotidine 20 mg 07/24/18 09:00 08/01/18 09:16 Pepcid Pf Inj IV.PUSH Not Given Q12HR [facility] Potassium Chloride 20 meq in 100 mls @ 50 mls/hr 07/24/18 01:09 07/24/18 07: 40 Kcl 20 Meq Premix Inj IV.SIG Infused Q2H PRN Infusion For Potassium 3.3 - 3.5 mEq/L Nicardipine HCl 25 mg/ Sodium 260 mls @ 52 mls/hr 07/27/18 22:44 07/30/18 22: 47 Chloride IV.CONT Infused TITRATE PRN Titration Per Protocol Protocol 5 MG/HR Lorazepam 0.5 mg 07/25/18 12:10 07/30/18 08:16 Ativan Inj IV.PUSH 0.5 mg Q6H PRN Administration ANXIETY Metoprolol Tartrate 25 mg 07/30/18 09:15 08/01/18 09:15 Lopressor PO 25 mg BID [facility] Administration Morphine Sulfate 4 mg 07/27/18 15:39 07/27/18 21:35 Morphine Inj IV.PUSH 4 mg Q4H PRN Administration Pain Scale 7 to 10 Pantoprazole Sodium 40 mg 07/28/18 09:00 08/01/18 09:15 Protonix PO 40 mg DAILY [facility] Administration Senna/Docusate Sodium 1 tab 07/27/18 21:00 08/01/18 09:17 Meghna-Colace PO Not Given BID [facility] Sodium Chloride 2 ml 07/24/18 09:00 08/01/18 09:15 Ns Flush IV.FLUSH 2 ml BID [facility] Administration Temazepam 15 mg 07/23/18 23:42 07/26/18 21:21 Restoril PO 15 mg HS PRN Administration INSOMNIA Objective Remarks: GENERAL: Middle-aged female patient, in no acute distress. SKIN: Warm and dry. Ирина to anterior scalp, dry to drainage or erythema. HEAD: Normocephalic. EYES: No scleral icterus. No injection or drainage. NECK: Supple, trachea midline. CARDIOVASCULAR: Regular rate and rhythm without murmurs. RESPIRATORY: Anterior breath sounds clear, equal bilaterally. No accessory muscle use. GASTROINTESTINAL: Abdomen soft, non-tender, nondistended. EXTREMITIES: No cyanosis, or edema. SCDs in place. MUSCULOSKELETAL: Adequate muscle tone. NEUROLOGICAL: Awake, alert, and oriented x3. +dysarthria, decreased strength right extremities. PSYCHIATRIC: Appropriate mood and affect; insight and judgment normal. Assessment/Plan (1) Brain metastases Code(s): C79.31 - Secondary malignant neoplasm of brain Status: Acute - Plan Ms. Wyatt is a pleasant 62-year-old female who was diagnosed with pancreatic adenocarcinoma in May 2017. She had amish metastases in the abdomen as well as pulmonary nodules which are consistent with metastatic disease at the time of diagnosis. Her disease progressed on palliative first-line systemic therapy consisting of gemcitabine and Abraxane. In February 2018 she was transitioned to liposomal Irinotecan in combination with 5-FU (FOLFIRI). She had been responding well to this treatment based on restaging imaging scans performed in mid July 2018. Overall based on PET/CT imaging her systemic disease burden is quite limited, it appears to be limited to the pancreas, intra-abdominal lymph nodes and small pulmonary nodules. She presents the hospital with a several week history of progressive difficulty speaking, weakness of the right upper extremity and headaches. Imaging studies performed on 07/23/2018; CT head with contrast indicates a 3.1 cm mass involving the deep left frontal lobe associated with vasogenic edema and a 4 mm left to right midline shift. The patient has been admitted to the critical care unit, she is been initiated on corticosteroids and has been evaluated by neurosurgery. She has been advised craniotomy with resection of the primary tumor. Following surgery she will be candidate for palliative radiation as well. Recommendations: 1. Metastatic pancreas adenocarcinoma, second line palliative chemotherapy with FOLFIRI (liposomal Irinotecan), currently on hold. 2. Brain mass with vasogenic edema. s/p resection pathology metastatic adenocarcinoma. 4. Continue supportive care. - Attending Statement The exam, history, and the medical decision-making described in the above note were completed with the assistance of the mid-level provider. I reviewed and agree with the findings presented. I attest that I had a [id number] encounter with the patient on the same day, and personally performed and documented my assessment and findings in the medical record. Patient has dysarthria and weakness of right side of the body She is able to walk with assistance Final pathology of the brain mass resection shows adenocarcinoma consistent with pancreatic primary Patient will need stereotactic radiosurgery with Dr. melendez radiation oncologist Patient will benefit from [facility] [place] to get physical therapy Chemotherapy is on hold until she completes the radiation treatment
--- NOTE | 2018-08-01 14:31 | P.PNIM ---
Subjective Interval history: Patient is awake and alert. difficult to understand speech. Discussed with RN. Patient is focused on going home. Right extremity weakness is improved. Physical Exam Vital signs: Vital Signs 07/31/18 15:00 07/31/18 16:00 07/31/18 20:00 Temperature 98.4 F 98.1 F Pulse Rate 55 L 73 76 Respiratory Rate 22 34 H 24 Blood Pressure 142/68 H 140/82 153/68 H Pulse Oximetry 100 99 98 08/01/18 00:00 08/01/18 04:00 08/01/18 08:00 Temperature 98.1 F 98.3 F 98.1 F Pulse Rate 46 L 47 L 69 Respiratory Rate 14 16 20 Blood Pressure 119/64 109/64 149/65 H Pulse Oximetry 96 97 95 08/01/18 12:00 Temperature 97.8 F Pulse Rate 63 Respiratory Rate 24 Blood Pressure 188/56 H Pulse Oximetry 100 Intake & Output 07/31/18 08/01/18 08/01/18 18:59 06:59 18:59 Intake Total 1800 / 1800 Output Total 50 / 50 Balance 1800 / 1800 -50 / -50 Weight 55.7 kg Intake: IV 1200 / 1200 NS Inj 1,000 ML @ 100 mls/hr IV 1200 / 1200 .CONT .Q10H [facility] Rx#:[id number] Oral 600 / 600 Output: Stool 0 / 0 Estimated Blood Loss 50 / 50 Other: # Voids 7 2 Date of Last Bowel Movement 07/31/18 07/31/18 07/31/18 Narrative: GENERAL: This is a well-nourished, well-developed patient, in no apparent distress. CARDIOVASCULAR: Normal rate and regular rhythm without murmurs, gallops, or rubs. RESPIRATORY: Good respiratory efforts. Breath sounds equal and clear to auscultation bilaterally. GASTROINTESTINAL: Abdomen soft, non-tender, non-distended. Normal active bowel sounds MUSCULOSKELETAL: Extremities without cyanosis, or edema. NEURO: Awake and alert, word finding difficulty and difficult to understand speech. Follows commands. Strength is 3 out of 5 on the right and 5 out of 5 on the left. PSYCH: Calm. - Urinary Catheter Management Indwelling Urethral Catheter Cath placed during this visit: yes Reason for continuing: Not indwelling catheter Insertion date: 07/29/18 Insertion time: 23:00 Straight Cath placed during this visit: no Results - Labs CBC & Chem 7: 07/30/18 03:14 08/01/18 06:26 Laboratory Results - last 24 hr 08/01/18 06:26 Sodium 138 Potassium 4.5 Chloride 104 Carbon Dioxide 26.4 Anion Gap 8 BUN 16 Creatinine 0.51 Estimated GFR Greater than 89 Random Glucose 108 H Calcium 8.1 L Assessment and Plan - Plan 62-year-old female with: Brain mass with vasogenic edema: s/p gross resection of left hemispheric mass -Per neurosurgery, continue Decadron 2 mg IV every 6 hours -Palliative care following, patient is DNR -Passed swallow eval. Tolerating a diet. Altered mental status -Due to above -Neuro checks per unit routine -Supportive care -Somewhat impulsive. Need constant supervision. Discussed with RN. Leukopenia- resolved History of pancreatic cancer -Blood cultures on 07/24 showed staph epidermidis in 1 bottle, likely contaminant, patient afebrile with no overt signs of infection -Med onc following, palliative chemo with FOLFIRI currently on hold Anxiety -Xanax PRN DVT GI prophylaxis -Teds SCDs -Hold anticoagulation as patient is s/p deep brain mass resection, stat pharmacologic prophylaxis when okay with neurosurgery. -Pepcid Discharge Planning: Patient will likely need SNF placement unless she can get 24/7 supervision home. She seems impulsive and high risk of fall. Should be ok to transfer to floor. DC when cleared by Neurosurgery.
--- NOTE | 2018-08-01 16:48 | P.PNNS ---
Subjective Interval history: speech improving, has gross movement right arm today, moving right leg. requesting for dc plan to home. Physical Exam Vital signs: Vital Signs 07/31/18 20:00 08/01/18 00:00 08/01/18 04:00 Temperature 98.1 F 98.1 F 98.3 F Pulse Rate 76 46 L 47 L Respiratory Rate 24 14 16 Blood Pressure 153/68 H 119/64 109/64 Pulse Oximetry 98 96 97 08/01/18 08:00 08/01/18 12:00 08/01/18 16:00 Temperature 98.1 F 97.8 F Pulse Rate 69 63 Respiratory Rate 20 24 24 Blood Pressure 149/65 H 188/56 H Pulse Oximetry 95 100 Intake & Output 07/31/18 08/01/18 08/01/18 18:59 06:59 18:59 Intake Total 1800 / 1800 Output Total 50 / 50 Balance 1800 / 1800 -50 / -50 Weight 55.7 kg Intake: IV 1200 / 1200 NS Inj 1,000 ML @ 100 mls/hr IV 1200 / 1200 .CONT .Q10H [facility] Rx#:[id number] Oral 600 / 600 Output: Stool 0 / 0 Estimated Blood Loss 50 / 50 Other: # Voids 7 2 Date of Last Bowel Movement 07/31/18 07/31/18 07/31/18 Narrative: Awake, alert dysphasic but is improving, follows few simple commands gross 2/5 right arm movement, 3/5 right leg moves left side well wound clean and dry, healing well - Urinary Catheter Management Indwelling Urethral Catheter Cath placed during this visit: yes Reason for continuing: Not indwelling catheter Insertion date: 07/29/18 Insertion time: 23:00 Straight Cath placed during this visit: no Assessment and Plan - Plan recommend rehab upon discharge, however patient requests to go home clear to transfer out of unit today, Dr. Araceli mccauley for lovenox for dvt prophylaxis Dr. Dyson dw son in room
[2018-08-02] MEDS: Metoprolol Tartrate 25 MG Tablet PO SCH ×2 (08:14→21:16)
[2018-08-02] MEDS: Famotidine PF Inj 20 MG/2 ML Vial IV.PUSH SCH ×2 (08:14→21:15)
[2018-08-02] MEDS: ALPRAZolam 0.25 MG Tablet PO SCH ×2 (08:14→21:16)
[2018-08-02] MEDS: Senna/Docusate Sodium 8.6/50 MG Tablet PO SCH ×2 (08:14→21:17)
--- NOTE | 2018-08-02 10:03 | P.PNNS ---
Subjective Interval history: moving right side more today, no new complaints Physical Exam Vital signs: Vital Signs 08/01/18 12:00 08/01/18 16:00 08/01/18 20:00 Temperature 97.8 F 98.4 F 98.1 F Pulse Rate 63 66 76 Respiratory Rate 24 20 20 Blood Pressure 188/56 H 159/76 H 127/71 Pulse Oximetry 100 99 99 08/02/18 00:00 08/02/18 04:00 08/02/18 07:00 Temperature 98.2 F 98 F Pulse Rate 63 53 L 70 Respiratory Rate 20 15 28 H Blood Pressure 131/73 110/56 L Pulse Oximetry 94 L 96 99 08/02/18 08:00 08/02/18 08:03 08/02/18 09:00 Temperature 97.6 F Pulse Rate 84 73 76 Respiratory Rate 32 H 31 H 27 H Blood Pressure 124/82 124/82 Pulse Oximetry 91 L 100 100 Intake & Output 08/01/18 08/02/18 08/02/18 18:59 06:59 18:59 Intake Total 400 / 400 550 / 550 Output Total 800 / 800 650 / 650 Balance -400 / -400 -100 / -100 Weight 55.7 kg Intake: Oral 400 / 400 550 / 550 Output: Urine 800 / 800 600 / 600 Stool 0 / 0 Estimated Blood Loss 50 / 50 Other: Date of Last Bowel Movement 07/31/18 07/31/18 # Bowel Movements 1 Narrative: Awake, alert dysphasic but is improving, follows commands gross 2-3/5 right arm movement, 4/5 right leg moves left side well wound clean and dry, healing well, pavel intact - Urinary Catheter Management Indwelling Urethral Catheter Cath placed during this visit: yes Reason for continuing: Not indwelling catheter Insertion date: 07/29/18 Insertion time: 23:00 Straight Cath placed during this visit: no Assessment and Plan - Plan 62 year old female s/p stereotactic image-guided Left frontal craniotomy, microsurgical resection of metastatic carcinoma for 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 Dyson recommend patient discharge to inpatient rehab jose luis zhao 08/10/18
--- NOTE | 2018-08-02 10:27 | P.PNIM ---
Subjective Interval history: Patient's significant other at bedside. States he will be caring for her 26/04. Patient is focused on going home. Physical Exam Vital signs: Vital Signs 08/01/18 12:00 08/01/18 16:00 08/01/18 20:00 Temperature 97.8 F 98.4 F 98.1 F Pulse Rate 63 66 76 Respiratory Rate 24 20 20 Blood Pressure 188/56 H 159/76 H 127/71 Pulse Oximetry 100 99 99 08/02/18 00:00 08/02/18 04:00 08/02/18 07:00 Temperature 98.2 F 98 F Pulse Rate 63 53 L 70 Respiratory Rate 20 15 28 H Blood Pressure 131/73 110/56 L Pulse Oximetry 94 L 96 99 08/02/18 08:00 08/02/18 08:03 08/02/18 09:00 Temperature 97.6 F Pulse Rate 84 73 76 Respiratory Rate 32 H 31 H 27 H Blood Pressure 124/82 124/82 Pulse Oximetry 91 L 100 100 Intake & Output 08/01/18 08/02/18 08/02/18 18:59 06:59 18:59 Intake Total 400 / 400 550 / 550 Output Total 800 / 800 650 / 650 Balance -400 / -400 -100 / -100 Weight 55.7 kg Intake: Oral 400 / 400 550 / 550 Output: Urine 800 / 800 600 / 600 Stool 0 / 0 Estimated Blood Loss 50 / 50 Other: Date of Last Bowel Movement 07/31/18 07/31/18 # Bowel Movements 1 Narrative: GENERAL: This is a well-nourished, well-developed patient, in no apparent distress. CARDIOVASCULAR: Normal rate and regular rhythm without murmurs, gallops, or rubs. RESPIRATORY: Good respiratory efforts. Breath sounds equal and clear to auscultation bilaterally. GASTROINTESTINAL: Abdomen soft, non-tender, non-distended. Normal active bowel sounds MUSCULOSKELETAL: Extremities without cyanosis, or edema. NEURO: Awake and alert, word finding difficulty and difficult to understand speech. Follows commands. Strength is 3 out of 5 on the right and 5 out of 5 on the left. PSYCH: Calm. But at times impulsive. - Urinary Catheter Management Indwelling Urethral Catheter Cath placed during this visit: yes Reason for continuing: Not indwelling catheter Insertion date: 07/29/18 Insertion time: 23:00 Straight Cath placed during this visit: no Results - Labs CBC & Chem 7: 07/30/18 03:14 08/01/18 06:26 Assessment and Plan - Plan 62-year-old female with: Brain mass with vasogenic edema: s/p gross resection of left hemispheric mass -Per neurosurgery, Transition to oral Decadron. -Palliative care following, patient is DNR -Passed swallow eval. Tolerating a diet. Altered mental status -Due to above -Neuro checks per unit routine -Supportive care -Somewhat impulsive initially but improved. Need constant supervision. Discussed with RN. Leukopenia- resolved History of pancreatic cancer -Blood cultures on 07/24 showed staph epidermidis in 1 bottle, likely contaminant, patient afebrile with no overt signs of infection -Med onc following, palliative chemo with FOLFIRI currently on hold Anxiety -Xanax PRN DVT GI prophylaxis -Teds SCDs -Lovenox. -Pepcid Discharge Planning: Patient is focused on going home. However everyone agrees she is not is safe discharge to home. Agree with neurosurgery and oncology recommendation for inpatient rehab.
--- NOTE | 2018-08-02 15:23 | CT ---
EXAM DATE: 08/02/2018 3:15 PM EDT AGE/SEX: 62 years / Female INDICATIONS: Status post fall. CLINICAL DATA: This is the patient's initial encounter. Patient reports that signs and symptoms have been present for 1 day and indicates a pain score of Nonresponsive. MEDICAL/SURGICAL HISTORY: Carcinoma, pancreas. Lung mets. . Brain surgery. RADIATION DOSE: 34.94 CTDI (mGy) COMPARISON: [facility] – [place], [place] HEAD W/O CONTRAST, 07/29/2018. . TECHNIQUE: CT of the head without contrast. Using automated exposure control and adjustment of the mA and/or kV according to patient size, radiation dose was kept as low as reasonably achievable to ob tain optimal diagnostic quality images. DICOM format image data is available electronically for revi ew and comparison. FINDINGS: Cerebrum: There is a 1.4 cm area of hemorrhage within the left basal ganglia extending into the cent rum semiovale region with some surrounding edema. There does appear to be less hemorrhage than on the 26th inferiorly and stable hemorrhage anteriorly with some additional 12 mm area. The patient's had a left frontal craniotomy with bone flap in good position. Posterior Fossa: The cerebellum and brainstem are intact. The 4th ventricle is midline. The cerebe llopontine angle is unremarkable. Extracranial: The visualized portion of the orbits is intact. Skull: The calvaria is intact. No evidence of skull fracture. CONCLUSION: 1. Stable bilobed area of hemorrhage in the left basal ganglia and frontal lobes. Large amount surro unding edema. Less evident on the previous study. . Electronically signed by: Jose Sousa MD 08/02/2018 3:22 PM EDT
--- NOTE | 2018-08-02 15:31 | P.PNPAL ---
Palliative care continues to follow along with Ms. Wyatt. Awaiting transfer to medical floor. Received call from Dr. Kang requesting follow up to assist patient and family with understanding medical recommendations of rehab after discharge and provide ongoing support. Patient leaving unit for CT upon arrival. Lucio and 1 of patient's grandson's at bedside. Lucio is appropriately tearful. Family appears to have a good understanding and supports patient's need to inpatient rehab. Verbalizes patient is reluctant and adamant to go home. Family verbalizes they would not be able to manage patient at this time stating she is more impulsive and "very stubborn" in wanting to do what she wants. Lucio is attempting to arrange family meeting for tomorrow, Friday 08/03. Awaiting call for time. Lucio indicates patient has been more agitated recently. Requests medication administration to assist with symptoms. Informed RN. Upon further discussion and review of determination of incapacity of patient, Lucio tells me he is the 17 year fiance; he and patient are not legally . Gently explained [place] Statutes regarding legal health care proxy. Patient previously indicated she had papers stating Lucio is primary health care surrogate and son Rivera is alternate health care surrogate. Lucio indicates paperwork has not been legally completed. Verbalizes understanding of health care decision making falling to the majority of adult children (patient has 3 adult children) in absence of written advance directives. Unable to assess patient's capacity as she is off the floor. All family appears to be working together. Palliative care awaiting call back to facility family meeting. Palliative care will continue to follow along throughout hospitalization.
[2018-08-02] MEDS: Enoxaparin Inj 40 MG/0.4 ML Syringe SQ SCH (16:19)
[2018-08-03 06:30] LABS: Hematocrit 35.6 % (35.0-46.0); Mean Corpuscular HGB Conc 33.8 % (32.0-36.0); Mean Corpuscular Hemoglobin 33.5 pg (27.0-34.0); Mean Corpuscular Volume 99.3 fL (80.0-100.0); Mean Platelet Volume 8.1 fL (7.0-11.0); Platelet Count 230 th/mm3 (150-450); Red Blood Count 3.59 mil/mm3 (4.00-5.30); Red Cell Distribution Width 14.8 % (11.6-17.2); White Blood Count 18.1 th/mm3 (4.0-11.0)
[2018-08-03 06:55] LABS: Anion Gap 11 meq/L (5-15); Blood Urea Nitrogen 17 mg/dL (7-18); Calcium 8.3 mg/dL (8.5-10.1); Carbon Dioxide 23.9 meq/L (21.0-32.0); Chloride 100 meq/L (98-107); Glomerular Filtration Rate Greater Than 89 mL/min (>89); Glucose,Random 124 mg/dL (74-106); Potassium 4.2 meq/L (3.5-5.1); Sodium 135 meq/L (136-145)
[2018-08-03] MEDS: Enoxaparin Inj 40 MG/0.4 ML Syringe SQ SCH (08:25)
[2018-08-03] MEDS: Metoprolol Tartrate 25 MG Tablet PO SCH ×2 (08:25→20:14)
[2018-08-03] MEDS: ALPRAZolam 0.25 MG Tablet PO SCH ×2 (08:25→20:14)
[2018-08-03] MEDS: Famotidine PF Inj 20 MG/2 ML Vial IV.PUSH SCH (08:26)
[2018-08-03] MEDS: Senna/Docusate Sodium 8.6/50 MG Tablet PO SCH ×2 (08:26→20:15)
--- NOTE | 2018-08-03 11:43 | P.PNPAL ---
Reason for Visit Reason for visit: a. To assist with evaluation and management of symptoms including: Pain, anxiety b. To assist medical decision maker(s) with: better understanding of current medical conditions; weighing benefits/burdens of medical treatment options; making medical treatment decisions. Subjective Subjective/Interval History: Palliative care follow-up for clarifications of goals of care, symptom management. Patient seen in her room, sitting up in bed in moderate distress. Confused, restless. Very poor safety awareness, attempting to get out of bed. Bedside nurse and physical therapy at bedside, patient was assisted out of bed to ambulate by PT. Appeared more comfortable during ambulation, persistent right-sided weakness but able to ambulate with cane. Patient alert to self and place, difficulty with communication secondary to dysarthria. Patient sustained a fall yesterday resulting in laceration to right eyebrow, Steri-Strips in place. Post fall CT of head revealing stable area of hemorrhage in the left basal ganglia and frontal lobes. Patient afebrile, stable vitals. Pending transfer to acute rehabilitation. Telephone conversation with patient's son Rivera. He confirms that no advanced directives have been completed, patient's significant other Lucio Woods visited patient earlier today. Son reports that patient has 3 children, older daughter lives out of state and has not been in contact with family for many years secondary to " mental issues". He reports that only his youngest Sister Sveta and himself are involved in patient's care and would be readily available to assist in medical decision making. Rivera reports that family is in agreement with patient's transfer to acute rehabilitation for physical strengthening. Family aware that palliative chemotherapy is on hold at this time pending physical therapy, plan is for patient to follow-up with radiation oncology after completion of rehab. Son reports that they are attempting to contact additional family members to assist with patient supervision while at the hospital/rehabilitation. Family receptive to palliative care follow-ups. Case discussed with bedside RN and PT. Family/Friend Interactions: See above. Advance Directives Living Will: Never completed Health Care Surrogate: Never completed Health Care Surrogate Name and Number: HCP: son Rivera and daughter Sveta. Objective Vital Signs: Vital Signs 08/02/18 11:54 08/02/18 11:55 08/02/18 12:00 Temperature 98.0 F Pulse Rate 78 78 82 Respiratory Rate 18 17 30 H Blood Pressure 85/53 L 84/49 L 113/54 L Pulse Oximetry 99 98 98 08/02/18 12:02 08/02/18 12:06 08/02/18 13:00 Temperature Pulse Rate 75 64 Respiratory Rate 27 H 24 Blood Pressure 113/54 L Pulse Oximetry 95 99 08/02/18 14:00 08/02/18 14:09 08/02/18 14:15 Temperature Pulse Rate 81 74 Respiratory Rate 15 13 Blood Pressure 135/68 110/68 Pulse Oximetry 88 L 100 08/02/18 14:18 08/02/18 15:00 08/02/18 15:54 Temperature Pulse Rate 71 76 67 Respiratory Rate 13 22 12 Blood Pressure 110/68 105/55 L Pulse Oximetry 100 100 08/02/18 16:00 08/02/18 17:00 08/02/18 18:00 Temperature 99.0 F Pulse Rate 75 84 82 Respiratory Rate 13 20 13 Blood Pressure 105/55 L Pulse Oximetry 99 100 08/02/18 19:00 08/02/18 19:48 08/02/18 19:54 Temperature Pulse Rate 84 107 H 105 H Respiratory Rate 17 22 33 H Blood Pressure 127/59 L 120/61 Pulse Oximetry 100 08/02/18 20:00 08/02/18 21:00 08/02/18 21:20 Temperature 98.8 F 98.1 F Pulse Rate 103 H 103 H 91 H Respiratory Rate 21 29 H 22 Blood Pressure 120/61 110/68 Pulse Oximetry 98 100 08/02/18 22:00 08/02/18 23:00 08/02/18 23:34 Temperature Pulse Rate 95 H 88 Respiratory Rate 25 H 18 20 Blood Pressure Pulse Oximetry 100 100 08/02/18 23:37 08/03/18 00:00 08/03/18 01:00 Temperature 98.2 F Pulse Rate 80 76 71 Respiratory Rate 30 H 16 17 Blood Pressure 89/53 L 98/66 L Pulse Oximetry 100 100 99 08/03/18 01:20 08/03/18 02:00 08/03/18 03:00 Temperature 98 F Pulse Rate 66 73 72 Respiratory Rate 20 20 14 Blood Pressure 99/64 L Pulse Oximetry 98 99 100 08/03/18 03:35 08/03/18 03:40 08/03/18 04:00 Temperature 97.8 F Pulse Rate 85 68 Respiratory Rate 37 H 13 Blood Pressure 120/68 120/64 Pulse Oximetry 100 100 08/03/18 05:00 08/03/18 05:20 08/03/18 06:00 Temperature 98.8 F Pulse Rate 75 78 69 Respiratory Rate 21 20 Blood Pressure 120/60 Pulse Oximetry 100 100 100 08/03/18 07:00 08/03/18 07:23 08/03/18 08:00 Temperature Pulse Rate 77 85 75 Respiratory Rate 18 25 H 18 Blood Pressure 133/69 Pulse Oximetry 100 95 100 08/03/18 08:14 08/03/18 08:19 08/03/18 09:20 Temperature 97.9 F 97.8 F Pulse Rate 101 H 90 Respiratory Rate 41 H 20 Blood Pressure 124/91 H 120/60 Pulse Oximetry 87 L 100 Intake & Output 08/02/18 08/03/18 08/03/18 18:59 06:59 18:59 Intake Total 800 / 800 2200 / 2200 Output Total 1100 / 1100 701 / 701 Balance -300 / -300 1499 / 1499 Weight 55.4 kg Intake: Oral 800 / 800 600 / 600 Anesthesia Amount 1600 / 1600 Output: Urine 1100 / 1100 700 / 700 Stool 0 / 0 1 / 1 Other: # Voids 3 3 Date of Last Bowel Movement 07/31/18 08/02/18 07/31/18 # Bowel Movements 1 Physical Exam: CONSTITUTIONAL/GENERAL: This is an adequately nourished patient in moderate distress sitting up in bed. Restless, poor safety awareness. Attempting to get out of bed without assistance. TUBES/LINES/DRAINS: PIV SKIN: No jaundice, rashes. Skin temperature appropriate. Not diaphoretic. HEAD: Normocephalic. Left frontal surgical incision with pavel in place. Dry clean and intact. Steri-Strips to right eyebrow. EYES: Pupils equal and round and reactive. Extraocular motions intact. No scleral icterus. No injection or drainage. Fundi not examined. ENT: Hearing grossly normal. Nose without bleeding or purulent drainage. Moist oral mucosa. NECK: Trachea midline. Supple, nontender. CARDIOVASCULAR: Regular rate and rhythm without murmurs, gallops, or rubs. Peripheral pulses symmetric. RESPIRATORY/CHEST: Symmetric, unlabored respirations. Clear to auscultation. Breath sounds equal bilaterally. No wheezes, rales, or rhonchi. GASTROINTESTINAL: Abdomen soft, non-tender, nondistended. No guarding. Bowel sounds present. GENITOURINARY: Without palpable bladder distension. MUSCULOSKELETAL: Extremities without clubbing, cyanosis, or edema. NEUROLOGICAL: Awake and alert to self and place. Dysarthria. Right-sided weakness. Poor safety awareness. PSYCHIATRIC: Anxious, restless, impulsive. Diagnostic Tests Laboratory: Laboratory Results - last 72 hr 08/01/18 08/03/18 08/03/18 06:26 05:43 05:43 WBC 18.1 H RBC 3.59 L Hgb 12.0 Hct 35.6 MCV 99.3 MCH 33.5 MCHC 33.8 RDW 14.8 Plt Count 230 MPV 8.1 Sodium 138 135 L Potassium 4.5 4.2 Chloride 104 100 Carbon Dioxide 26.4 23.9 Anion Gap 8 11 BUN 16 17 Creatinine 0.51 0.57 Estimated GFR Greater than 89 Greater than 89 Random Glucose 108 H 124 H Calcium 8.1 L 8.3 L Result Diagrams: 08/03/18 05:43 08/03/18 05:43 Assessment and Plan - Disease Oriented Problem List (1) Brain metastases (2) Pancreatic cancer (3) Leukopenia (4) Hypokalemia - Symptom Scale (1) Anxiety 0-10 Scale: 8 (2) Pain 0-10 Scale: Unable to quantify Pertinent Non-Medical Issues: Psychosocial: Patient does not have any brothers. She has 1 sister, 2 daughters and 1 son. 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 Spiritual: [employer] Legal: No advance directives completed. Ethical issues impacting care: None identified at this time. Important Contacts: Son Rivera Daughter Sveta Significant other- Lucio Woods Prognosis: Mrs Wyatt is a 62-year-old female with a medical history significant for metastatic pancreatic adenocarcinoma with metastatic intra-abdominal lymphadenopathy and pulmonary metastasis, chronic pain, and neutropenia. Patient presented to the emergency room [facility] on 07/23/18 with complaints of worsening neurological symptoms inclusive of difficulty speaking, difficulty swallowing, weakness of right hand, twitching of eyes, poor balance and coordination on the right side. Diagnostic imaging (MRI and CT brain) revealed 3 cm metastatic nodule with vasogenic edema and mass-effect, now s/p microsurgical resection. Given ongoing multiple comorbidities, patient remains at high risk for further complications, deterioration and decline. Code Status: No Code DNR Plan: PLAN: Legal decision maker: Patient unable to participating medical decision making at this time. Patient does not appear to retain medical decision making secondary to confusion s/p left frontal microsurgical resection of metastatic brain carcinoma. No advance directives completed as per family. Patient is single and has 3 adult children. As per [place] statue, healthcare proxy decision making falls to the majority of patient's children. Son Rivera and daughter Sveta have both accepted this role. Goals: Aggressive short of no code. Son Rivera reports that family is in agreement with patient's transfer to acute rehabilitation for physical strengthening. Family aware that palliative chemotherapy is on hold at this time pending physical therapy, plan is for patient to follow-up with radiation oncology after completion of rehab. CODE STATUS: No code DNR. SYMPTOMS: * Anxiety: Frequent episodes of anxiety. Patient currently on alprazolam 0.25 mg twice daily and lorazepam 0.5 mg IV push every 6 hours PRN. Patient has received 3 doses of PRN lorazepam in the past 24 hours, persistent episodes of anxiety. May consider increasing alprazolam frequency to TID. * Pain: History of chronic pain. Patient has history of metastatic pancreatic cancer on palliative chemotherapy. Patient currently his hydrocodone/ acetaminophen 10/325 every 6 hours prn, 2 doses given in the past 24 hours. Patient denied pain at the time of my visit. Palliative care will continue to follow the patient during hospital course as condition evolves, to assist patient/decision-maker with understanding of their medical conditions, weighing benefits/burdens of treatment options, for clarification of goals of treatment. Additionally will assist with any symptoms of palliative concern Time Spent Total Floor Time (mins): 38 (Total time to include reviewing summarization of medical records, physical exam, telephone conversation with patient's son and case reviewed with bedside RN and PT.) >50% Time in Counseling or Coordination of Care: Yes (Total visit time = 38 minutes; > 50% spent counseling/coordinating care) Attestation Attestation: To help prompt me to consider important information that might be impacting today's encounter and assessment, information from prior notes written by myself or my colleagues may have been "brought forward" into today's note. My signature on this note, however, is an attestation that I personally performed the exam, history, and/or decision-making noted today, and, unless otherwise indicated, the interactions with patient, family, and staff as well as the review of records all occurred today. I also attest that the listed assessment and stated plan reflect my best clinical judgment today based on the combination of historical information, prior notes, and today's exam/ interactions. When time spent is documented, it refers only to time spent today by the signer, or if indicated, combined time spent today by collaborating physician/nurse practitioner.
--- NOTE | 2018-08-03 12:32 | P.PNNS ---
Subjective Interval history: no changes overnight, plan to tour [facility] re[facility]. she had fallen yesterday suffered a right forehead lac, f/u CT Brain stable. Physical Exam Vital signs: Vital Signs 08/02/18 13:00 08/02/18 14:00 08/02/18 14:09 Temperature Pulse Rate 64 81 Respiratory Rate 24 15 Blood Pressure 135/68 Pulse Oximetry 99 88 L 08/02/18 14:15 08/02/18 14:18 08/02/18 15:00 Temperature Pulse Rate 74 71 76 Respiratory Rate 13 13 22 Blood Pressure 110/68 110/68 Pulse Oximetry 100 100 08/02/18 15:54 08/02/18 16:00 08/02/18 17:00 Temperature 99.0 F Pulse Rate 67 75 84 Respiratory Rate 12 13 20 Blood Pressure 105/55 L 105/55 L Pulse Oximetry 100 99 08/02/18 18:00 08/02/18 19:00 08/02/18 19:48 Temperature Pulse Rate 82 84 107 H Respiratory Rate 13 17 22 Blood Pressure 127/59 L Pulse Oximetry 100 100 08/02/18 19:54 08/02/18 20:00 08/02/18 21:00 Temperature 98.8 F Pulse Rate 105 H 103 H 103 H Respiratory Rate 33 H 21 29 H Blood Pressure 120/61 120/61 Pulse Oximetry 98 100 08/02/18 21:20 08/02/18 22:00 08/02/18 23:00 Temperature 98.1 F Pulse Rate 91 H 95 H 88 Respiratory Rate 22 25 H 18 Blood Pressure 110/68 Pulse Oximetry 100 100 08/02/18 23:34 08/02/18 23:37 08/03/18 00:00 Temperature 98.2 F Pulse Rate 80 76 Respiratory Rate 20 30 H 16 Blood Pressure 89/53 L 98/66 L Pulse Oximetry 100 100 08/03/18 01:00 08/03/18 01:20 08/03/18 02:00 Temperature 98 F Pulse Rate 71 66 73 Respiratory Rate 17 20 20 Blood Pressure 99/64 L Pulse Oximetry 99 98 99 08/03/18 03:00 08/03/18 03:35 08/03/18 03:40 Temperature Pulse Rate 72 85 Respiratory Rate 14 37 H Blood Pressure 120/68 Pulse Oximetry 100 100 08/03/18 04:00 08/03/18 05:00 08/03/18 05:20 Temperature 97.8 F 98.8 F Pulse Rate 68 75 78 Respiratory Rate 13 21 Blood Pressure 120/64 120/60 Pulse Oximetry 100 100 100 08/03/18 06:00 08/03/18 07:00 08/03/18 07:23 Temperature Pulse Rate 69 77 85 Respiratory Rate 20 18 25 H Blood Pressure 133/69 Pulse Oximetry 100 100 95 08/03/18 08:00 08/03/18 08:14 08/03/18 08:19 Temperature 97.9 F Pulse Rate 75 101 H Respiratory Rate 18 41 H Blood Pressure 124/91 H Pulse Oximetry 100 87 L 08/03/18 08:20 08/03/18 09:20 08/03/18 10:22 Temperature 97.8 F Pulse Rate 87 90 81 Respiratory Rate 20 20 26 H Blood Pressure 120/60 Pulse Oximetry 100 08/03/18 11:09 08/03/18 11:40 08/03/18 12:00 Temperature 99.1 F Pulse Rate 88 88 74 Respiratory Rate 19 28 H 15 Blood Pressure 109/59 L Pulse Oximetry Intake & Output 08/02/18 08/03/18 08/03/18 18:59 06:59 18:59 Intake Total 800 / 800 2200 / 2200 Output Total 1100 / 1100 701 / 701 Balance -300 / -300 1499 / 1499 Weight 55.4 kg Intake: Oral 800 / 800 600 / 600 Anesthesia Amount 1600 / 1600 Output: Urine 1100 / 1100 700 / 700 Stool 0 / 0 1 / 1 Other: # Voids 3 3 Date of Last Bowel Movement 07/31/18 08/02/18 07/31/18 # Bowel Movements 1 Narrative: Awake, alert dysphasic but is improving, follows commands gross 2-3/5 right arm movement, 4/5 right leg moves left side well wound clean and dry, healing well, pavel intact - Urinary Catheter Management Indwelling Urethral Catheter Cath placed during this visit: yes Reason for continuing: Not indwelling catheter Insertion date: 07/29/18 Insertion time: 23:00 Straight Cath placed during this visit: no Assessment and Plan - Plan 62 year old female s/p stereotactic image-guided Left frontal craniotomy, microsurgical resection of metastatic carcinoma for Metastatic adenocarcinoma to the brain on 07/27/18 final pathology - metastatic adenocarcinoma decadron po, decadron wean-script written in chart start lovenox for dvt prophylaxis per Dr. Dyson recommend patient discharge to inpatient rehab dc pavel 08/10/18 clear to dc to rehab once arrangements made
--- NOTE | 2018-08-03 14:59 | P.PN ---
Subjective Interval history: seen with supportive at bedside patient is tearful and crying- calling her friend on the phone per - ate very well Physical Exam Vital signs: Vital Signs 08/02/18 15:00 08/02/18 15:54 08/02/18 16:00 Temperature 99.0 F Pulse Rate 76 67 75 Respiratory Rate 22 12 13 Blood Pressure 105/55 L 105/55 L Pulse Oximetry 100 100 99 08/02/18 17:00 08/02/18 18:00 08/02/18 19:00 Temperature Pulse Rate 84 82 84 Respiratory Rate 20 13 17 Blood Pressure Pulse Oximetry 100 100 08/02/18 19:48 08/02/18 19:54 08/02/18 20:00 Temperature 98.8 F Pulse Rate 107 H 105 H 103 H Respiratory Rate 22 33 H 21 Blood Pressure 127/59 L 120/61 120/61 Pulse Oximetry 98 08/02/18 21:00 08/02/18 21:20 08/02/18 22:00 Temperature 98.1 F Pulse Rate 103 H 91 H 95 H Respiratory Rate 29 H 22 25 H Blood Pressure 110/68 Pulse Oximetry 100 100 08/02/18 23:00 08/02/18 23:34 08/02/18 23:37 Temperature Pulse Rate 88 80 Respiratory Rate 18 20 30 H Blood Pressure 89/53 L Pulse Oximetry 100 100 08/03/18 00:00 08/03/18 01:00 08/03/18 01:20 Temperature 98.2 F 98 F Pulse Rate 76 71 66 Respiratory Rate 16 17 20 Blood Pressure 98/66 L 99/64 L Pulse Oximetry 100 99 98 08/03/18 02:00 08/03/18 03:00 08/03/18 03:35 Temperature Pulse Rate 73 72 85 Respiratory Rate 20 14 37 H Blood Pressure Pulse Oximetry 99 100 100 08/03/18 03:40 08/03/18 04:00 08/03/18 05:00 Temperature 97.8 F Pulse Rate 68 75 Respiratory Rate 13 21 Blood Pressure 120/68 120/64 Pulse Oximetry 100 100 08/03/18 05:20 08/03/18 06:00 08/03/18 07:00 Temperature 98.8 F Pulse Rate 78 69 77 Respiratory Rate 20 18 Blood Pressure 120/60 Pulse Oximetry 100 100 100 08/03/18 07:23 08/03/18 08:00 08/03/18 08:14 Temperature 97.9 F Pulse Rate 85 75 101 H Respiratory Rate 25 H 18 41 H Blood Pressure 133/69 Pulse Oximetry 95 100 87 L 08/03/18 08:19 08/03/18 08:20 08/03/18 09:20 Temperature 97.8 F Pulse Rate 87 90 Respiratory Rate 20 20 Blood Pressure 124/91 H 120/60 Pulse Oximetry 100 08/03/18 10:22 08/03/18 11:09 08/03/18 11:40 Temperature 99.1 F Pulse Rate 81 88 88 Respiratory Rate 26 H 19 28 H Blood Pressure 109/59 L Pulse Oximetry 08/03/18 12:00 08/03/18 13:20 Temperature Pulse Rate 74 98 H Respiratory Rate 15 22 Blood Pressure 109/60 Pulse Oximetry 100 Intake & Output 08/02/18 08/03/18 08/03/18 18:59 06:59 18:59 Intake Total 800 / 800 2200 / 2200 Output Total 1100 / 1100 701 / 701 Balance -300 / -300 1499 / 1499 Weight 55.4 kg Intake: Oral 800 / 800 600 / 600 Anesthesia Amount 1600 / 1600 Output: Urine 1100 / 1100 700 / 700 Stool 0 / 0 1 / Other: # Voids 3 3 Date of Last Bowel Movement 07/31/18 08/02/18 07/31/18 # Bowel Movements 1 Narrative: head- pavel intact Awake, alert dysphasic but is improving, follows commands right hemiparensis- 1-2/5 moves left side well wound clean and dry, healing well, pavel intact - Urinary Catheter Management Indwelling Urethral Catheter Cath placed during this visit: yes Reason for continuing: Not indwelling catheter Insertion date: 07/29/18 Insertion time: 23:00 Straight Cath placed during this visit: no Results - Labs CBC & Chem 7: 08/03/18 05:43 08/03/18 05:43 Laboratory Results - last 24 hr 08/03/18 08/03/18 05:43 05:43 WBC 18.1 H RBC 3.59 L Hgb 12.0 Hct 35.6 MCV 99.3 MCH 33.5 MCHC 33.8 RDW 14.8 Plt Count 230 MPV 8.1 Sodium 135 L Potassium 4.2 Chloride 100 Carbon Dioxide 23.9 Anion Gap 11 BUN 17 Creatinine 0.57 Estimated GFR Greater than 89 Random Glucose 124 H Calcium 8.3 L - Imaging Impressions Head CT 08/02/18 00:00 CONCLUSION: 1. Stable bilobed area of hemorrhage in the left basal ganglia and frontal lobes. Large amount surrounding edema. Less evident on the previous study. . Assessment and Plan - Plan 62-year-old female with: Brain mass with vasogenic edema: s/p gross resection of left hemispheric mass - Metastatic adenocarcinoma -neurosurgery ff on oral Decadron. -Palliative care following, patient is DNR -Passed swallow eval. Tolerating a diet. -radiation oncololy and medical oncology ff Altered mental status- gradually improving -Due to above -Neuro checks per unit routine -Supportive care -Somewhat impulsive initially but improved. Need constant supervision. Discussed with RN. Leukopenia- resolved History of pancreatic cancer -Blood cultures on 07/24 showed staph epidermidis in 1 bottle, likely contaminant, patient afebrile with no overt signs of infection -Med onc following, palliative chemo with [facility] currently on hold Anxiety -Xanax PRN DVT GI prophylaxis -Teds SCDs -Lovenox. -Pepcid- change to po
[2018-08-03] MEDS: Famotidine 20 MG Tablet PO SCH (20:15)
[2018-08-04] MEDS: ALPRAZolam 0.25 MG Tablet PO SCH ×2 (08:04→20:11)
[2018-08-04] MEDS: Metoprolol Tartrate 25 MG Tablet PO SCH ×2 (08:05→20:11)
[2018-08-04] MEDS: Enoxaparin Inj 40 MG/0.4 ML Syringe SQ SCH (08:05)
[2018-08-04] MEDS: Famotidine 20 MG Tablet PO SCH ×2 (08:06→20:11)
[2018-08-04] MEDS: Senna/Docusate Sodium 8.6/50 MG Tablet PO SCH ×2 (08:06→20:12)
--- NOTE | 2018-08-04 10:21 | P.PN ---
Subjective Interval history: patient awake and alert speech dysarthric but more spontaenous- right UE weakness- same Physical Exam Vital signs: Vital Signs 08/03/18 10:22 08/03/18 11:09 08/03/18 11:40 Temperature 99.1 F Pulse Rate 81 88 88 Respiratory Rate 26 H 19 28 H Blood Pressure 109/59 L Pulse Oximetry 08/03/18 12:00 08/03/18 13:00 08/03/18 13:20 Temperature Pulse Rate 74 68 98 H Respiratory Rate 15 33 H 22 Blood Pressure 109/60 Pulse Oximetry 100 08/03/18 14:00 08/03/18 15:01 08/03/18 15:22 Temperature 98.7 F Pulse Rate 100 H 108 H 98 H Respiratory Rate 34 H 29 H 32 H Blood Pressure 139/76 Pulse Oximetry 08/03/18 16:06 08/03/18 17:00 08/03/18 18:00 Temperature Pulse Rate 79 91 H 80 Respiratory Rate 16 36 H 28 H Blood Pressure Pulse Oximetry 08/03/18 19:00 08/03/18 20:00 08/03/18 21:00 Temperature 98.1 F Pulse Rate 90 79 80 Respiratory Rate 28 H 17 19 Blood Pressure 124/71 Pulse Oximetry 100 08/03/18 21:41 08/03/18 22:00 08/03/18 23:00 Temperature Pulse Rate 103 H 89 90 Respiratory Rate 24 19 39 H Blood Pressure 124/71 Pulse Oximetry 100 08/04/18 00:00 08/04/18 01:07 08/04/18 02:00 Temperature 98 F Pulse Rate 68 79 60 Respiratory Rate 14 26 H 27 H Blood Pressure 127/66 Pulse Oximetry 97 98 08/04/18 03:05 08/04/18 04:00 08/04/18 05:00 Temperature 98.1 F Pulse Rate 69 58 L 59 L Respiratory Rate 30 H 21 23 Blood Pressure 124/69 Pulse Oximetry 96 97 08/04/18 05:47 08/04/18 06:00 08/04/18 07:00 Temperature Pulse Rate 65 55 L 55 L Respiratory Rate 20 16 10 L Blood Pressure 124/69 Pulse Oximetry 99 98 99 08/04/18 07:37 08/04/18 08:00 08/04/18 09:00 Temperature 98.1 F Pulse Rate 56 L 70 74 Respiratory Rate 16 11 L 13 Blood Pressure 141/64 H Pulse Oximetry 100 100 98 Intake & Output 08/03/18 08/04/18 08/04/18 18:59 06:59 18:59 Intake Total 625 / 625 550 / 550 Output Total 851 / 851 Balance 625 / 625 -301 / -301 Weight 53.8 kg Intake: Oral 625 / 625 550 / 550 Output: Urine 800 / 800 Stool Estimated Blood Loss 50 / 50 Other: # Voids 5 Date of Last Bowel Movement 07/31/18 08/04/18 07/31/18 # Bowel Movements 2 Narrative: head- pavel intact Awake, alert dysphasic - improving follows commands right hemiparensis- 1-2/5 moves left side well wound clean and dry, healing well, pavel intact - Urinary Catheter Management Indwelling Urethral Catheter Cath placed during this visit: yes Reason for continuing: Not indwelling catheter Insertion date: 07/29/18 Insertion time: 23:00 Straight Cath placed during this visit: no Results - Labs CBC & Chem 7: 08/03/18 05:43 08/03/18 05:43 Assessment and Plan - Plan 62-year-old female with: Brain mass with vasogenic edema: s/p gross resection of left hemispheric mass - Metastatic adenocarcinoma -neurosurgery ff on oral Decadron. -Palliative care following, patient is DNR -Passed swallow eval. Tolerating a diet. -radiation oncololy and medical oncology ff Altered mental status- Improved -Due to above -Neuro checks per unit routine -Supportive care -Somewhat impulsive initially but improved. Need constant supervision. Discussed with RN. Leukopenia- resolved History of pancreatic cancer -Blood cultures on 07/24 showed staph epidermidis in 1 bottle, likely contaminant, patient afebrile with no overt signs of infection -Med onc following, palliative chemo with [facility] currently on hold Anxiety -Xanax PRN DVT GI prophylaxis -Teds SCDs -Lovenox. -Pepcid- change to po DC planning- hopefully [facility] tdoay iof accepted
--- NOTE | 2018-08-05 09:49 | P.PNIM ---
Physical Exam Vital signs: Vital Signs 08/04/18 10:00 08/04/18 11:00 08/04/18 11:58 Temperature Pulse Rate 72 65 88 Respiratory Rate 22 24 27 H Blood Pressure Pulse Oximetry 99 98 100 08/04/18 12:03 08/04/18 12:04 08/04/18 13:00 Temperature 98.3 F Pulse Rate 73 67 Respiratory Rate 28 H 22 Blood Pressure 105/60 Pulse Oximetry 99 08/04/18 14:00 08/04/18 15:00 08/04/18 16:00 Temperature Pulse Rate 82 78 86 Respiratory Rate 28 H 20 27 H Blood Pressure Pulse Oximetry 99 99 98 08/04/18 16:38 08/04/18 20:00 08/04/18 22:00 Temperature 98.3 F 98.1 F Pulse Rate 91 H 93 H 72 Respiratory Rate 20 20 Blood Pressure 99/58 L 122/64 Pulse Oximetry 98 08/05/18 00:00 08/05/18 00:23 08/05/18 04:00 Temperature 97 F L 97.3 F L Pulse Rate 70 80 63 Respiratory Rate 15 16 Blood Pressure 103/63 102/51 L Pulse Oximetry 97 99 08/05/18 04:10 Temperature Pulse Rate 71 Respiratory Rate Blood Pressure Pulse Oximetry Intake & Output 08/04/18 08/05/18 08/05/18 18:59 06:59 18:59 Intake Total 525 / 525 480 / 480 Output Total 1400 / 1400 Balance 525 / 525 -920 / -920 Weight 51.1 kg Intake: Oral 525 / 525 480 / 480 Output: Urine 1400 / 1400 Other: # Voids 4 Date of Last Bowel Movement 07/31/18 07/31/18 # Bowel Movements 1 - Urinary Catheter Management Indwelling Urethral Catheter Cath placed during this visit: yes Reason for continuing: Not indwelling catheter Insertion date: 07/29/18 Insertion time: 23:00 Straight Cath placed during this visit: no Results - Labs CBC & Chem 7: 08/03/18 05:43 08/03/18 05:43
--- NOTE | 2018-08-05 10:04 | P.DS ---
Date of admission: 07/23/18 23:42 Primary care physician: No Primary Care Physician Brief History from admission: 62-year-old unfortunate female with history of Lung cancer, and Pancreatic cancer presents for evaluation of altered mental status. The CT of the head obtained in the emergency department shows Circumscribed 3.1 cm mass in the deep left frontal lobe with surrounding edema and about 4 mm of [id number] midline shift. Findings most characteristic of metastatic disease given the history of malignancy. DS: Summary Hospital Course: This patient is a 62-year-old female with a diagnosis of lung cancer, pancreatic cancer who presented to the emergency department for evaluation of altered mental status. The patient was also having difficulty with her speech. She had a CT scan of the head which showed a 3.1 cm mass in the deep left frontal lobe with surrounding edema and about a 4 mm left to right midline shift. Given the patient's history of lung and pancreatic cancer there was a high suspicion for metastatic disease to the brain. 1. Brain mass with vasogenic edema status post gross resection of the left hemispheric mass on 07/27/2018metastatic adenocarcinoma 2. Acute encephalopathy secondary to #1 resolved The patient presented with the symptoms mentioned above. The patient underwent neurosurgery for resection of the brain mass. Her altered mental status has improved after the surgery and the patient passed swallow evaluation and is now tolerating a p.o. diet. Radiation oncology, medical oncology, neurosurgery are following the patient. The patient still has dysarthria and has right upper right lower extremity motor weakness. Sensation is intact bilaterally. The plan is for the patient to be transferred to [facility] today for continued physical therapy. The patient is now alert and oriented and responds to my questions and commands appropriately. The patient is currently on Decadron p.o. he weaned prescription was written by neurosurgery. Continue Lovenox for DVT prophylaxis. 2. Anxiety Continue Xanax as needed. 3. Leukopenia resolved Blood cultures from 07/24 showed staph epidermidis in 1 bottle which is likely a contaminant. The patient is afebrile, no signs of infection. The wound from surgery appears clean no signs of infections. [place] can be removed on 08/10/2018 as per neurosurgery recommendations. Lovenox for DVT prophylaxis Famotidine for GI prophylaxis. Patient will be transferred to [facility]. - Time Spent with Patient Total time spent providing and/or coordinating discharge services: Greater than 30 minutes - Quality: VTE Deep Vein Thrombosis/Pulmonary Embolism Present on Admission: No Exam Vital signs: Vital Signs 08/04/18 10:00 08/04/18 11:00 08/04/18 11:58 Temperature Pulse Rate 72 65 88 Respiratory Rate 22 24 27 H Blood Pressure Pulse Oximetry 99 98 100 08/04/18 12:03 08/04/18 12:04 08/04/18 13:00 Temperature 98.3 F Pulse Rate 73 67 Respiratory Rate 28 H 22 Blood Pressure 105/60 Pulse Oximetry 99 08/04/18 14:00 08/04/18 15:00 08/04/18 16:00 Temperature Pulse Rate 82 78 86 Respiratory Rate 28 H 20 27 H Blood Pressure Pulse Oximetry 99 99 98 08/04/18 16:38 08/04/18 20:00 08/04/18 22:00 Temperature 98.3 F 98.1 F Pulse Rate 91 H 93 H 72 Respiratory Rate 20 20 Blood Pressure 99/58 L 122/64 Pulse Oximetry 98 08/05/18 00:00 08/05/18 00:23 08/05/18 04:00 Temperature 97 F L 97.3 F L Pulse Rate 70 80 63 Respiratory Rate 15 16 Blood Pressure 103/63 102/51 L Pulse Oximetry 97 99 08/05/18 04:10 Temperature Pulse Rate 71 Respiratory Rate Blood Pressure Pulse Oximetry Intake & Output 08/04/18 08/05/18 08/05/18 18:59 06:59 18:59 Intake Total 525 / 525 480 / 480 Output Total 1400 / 1400 Balance 525 / 525 -920 / -920 Weight 51.1 kg Intake: Oral 525 / 525 480 / 480 Output: Urine 1400 / 1400 Other: # Voids 4 Date of Last Bowel Movement 07/31/18 07/31/18 # Bowel Movements 1 Narrative: General patient in no acute distress, lacerations on the head and laceration of the right eyebrow appear clean, no signs of infection HEENT extraocular movements are intact, clear oropharyngeal mucosa, no JVD Cardiovascular S1-S2 audible, RRR, no murmurs rubs or gallops Respiratory clear to auscultation bilaterally Abdomen soft, nontender, nondistended, normal bowel sounds Extremities no edema 2+ distal pulses in bilateral upper and lower extremities Neuro patient has right upper extremity and right lower extremity weakness 3 out of 5 strength. Sensation is intact bilaterally. Dysarthria noted on my examination. Results Procedures completed during hospitalization: Craniotomy, with resection of left hemispheric mass. Completed studies during hospitalization: Pending at discharge 07/27/18 07:13 Surgical [PTH] Routine - Impressions ITS Impressions Head MRI 07/24/18 00:00 CONCLUSION: 1. Single 3 cm enhancing mass with surrounding edema and mass effect. This remains most consistent with metastatic disease given the medical history. Head CT 08/02/18 00:00 CONCLUSION: 1. Stable bilobed area of hemorrhage in the left basal ganglia and frontal lobes. Large amount surrounding edema. Less evident on the previous study. . Discharge Plan - Discharge Disposition Patient Disposition: [facility] Inpatient - Discharge Condition Condition: Stable - Discharge Order Discharge Orders: Discharge Order (Routine); Ordered 08/05/18 Ordered By: Amelie Turcios - Physicians Team Primary Care Provider: Primary Care Arlettei,Megan Attending Provider: Amelie Turcios Other Providers: Juan Jose Chavez MD ; Wolfgang Torres MD ; Tonio Drummond MD ; Yari Gamble MD ; Segun Dyson MD
[2018-08-05] MEDS: ALPRAZolam 0.25 MG Tablet PO SCH (10:17)
[2018-08-05] MEDS: Enoxaparin Inj 40 MG/0.4 ML Syringe SQ SCH (10:23)
[2018-08-05] MEDS: Famotidine 20 MG Tablet PO SCH (10:24)
[2018-08-05] MEDS: Senna/Docusate Sodium 8.6/50 MG Tablet PO SCH (10:24)
[2018-08-05] MEDS: Metoprolol Tartrate 25 MG Tablet PO SCH (10:24)
[2018-08-05 12:53] VITALS: RESP 18
[2018-08-05 13:08] VITALS: BP 103/72; PULSE 76; TEMP 99; O2SAT 100
--- NOTE | 2018-08-05 17:28 | P.PNONC ---
Subjective Interval history: Patient remains very anxious and crying as she wants to go home She remains dysarthric and has expressive aphasia Objective Vital Signs/Intake & Output: Vital Signs 08/04/18 20:00 08/04/18 22:00 08/05/18 00:00 Temperature 98.1 F 97 F L Pulse Rate 93 H 72 70 Respiratory Rate 20 15 Blood Pressure 122/64 103/63 Pulse Oximetry 97 08/05/18 00:23 08/05/18 04:00 08/05/18 04:10 Temperature 97.3 F L Pulse Rate 80 63 71 Respiratory Rate 16 Blood Pressure 102/51 L Pulse Oximetry 99 08/05/18 08:00 08/05/18 12:00 08/05/18 13:08 Temperature 98.3 F 99 F Pulse Rate 99 H 76 Respiratory Rate 18 18 18 Blood Pressure 127/87 103/72 Pulse Oximetry 99 100 Intake & Output 08/04/18 08/05/18 08/05/18 18:59 06:59 18:59 Intake Total 525 / 525 480 / 480 Output Total 1400 / 1400 Balance 525 / 525 -920 / -920 Weight 51.1 kg Intake: Oral 525 / 525 480 / 480 Output: Urine 1400 / 1400 Other: # Voids 4 Date of Last Bowel Movement 07/31/18 07/31/18 08/05/18 # Bowel Movements 1 Result Diagrams: 08/03/18 05:43 08/03/18 05:43 Objective Remarks: GENERAL: Middle-aged female patient, in no acute distress. SKIN: Warm and dry. Ирина to anterior scalp, dry to drainage or erythema. HEAD: Normocephalic. EYES: No scleral icterus. No injection or drainage. NECK: Supple, trachea midline. CARDIOVASCULAR: Regular rate and rhythm without murmurs. RESPIRATORY: Anterior breath sounds clear, equal bilaterally. No accessory muscle use. GASTROINTESTINAL: Abdomen soft, non-tender, nondistended. EXTREMITIES: No cyanosis, or edema. SCDs in place. MUSCULOSKELETAL: Adequate muscle tone. NEUROLOGICAL: Awake, alert, and oriented x3. +dysarthria, decreased strength right extremities. Assessment/Plan (1) Brain metastases Code(s): C79.31 - Secondary malignant neoplasm of brain Status: Acute - Plan Ms. Wyatt is a pleasant 62-year-old female who was diagnosed with pancreatic adenocarcinoma in May 2017. She had amish metastases in the abdomen as well as pulmonary nodules which are consistent with metastatic disease at the time of diagnosis. Her disease progressed on palliative first-line systemic therapy consisting of gemcitabine and Abraxane. In February 2018 she was transitioned to liposomal Irinotecan in combination with 5-FU (FOLFIRI). She had been responding well to this treatment based on restaging imaging scans performed in mid July 2018. Overall based on PET/CT imaging her systemic disease burden is quite limited, it appears to be limited to the pancreas, intra-abdominal lymph nodes and small pulmonary nodules. She presents the hospital with a several week history of progressive difficulty speaking, weakness of the right upper extremity and headaches. Imaging studies performed on 07/23/2018; CT head with contrast indicates a 3.1 cm mass involving the deep left frontal lobe associated with vasogenic edema and a 4 mm left to right midline shift. The patient has been admitted to the critical care unit, she is been initiated on corticosteroids and has been evaluated by neurosurgery. She has been advised craniotomy with resection of the primary tumor. Following surgery she will be candidate for palliative radiation as well. Recommendations: 1. Metastatic pancreas adenocarcinoma, second line palliative chemotherapy with FOLFIRI (liposomal Irinotecan), currently on hold. 2. Brain mass with vasogenic edema. s/p resection pathology metastatic adenocarcinoma. 4. Continue supportive care. 08/05/2018 Extensive discussion with the patient that she is not stable to go home as she is still has right-sided weakness She is at a risk for fall and may get severe head trauma I recommend that [facility] start radiation therapy to the brain I will resume the chemotherapy after she completes the radiation treatment as an outpatient.
== END 2018-08-05 13:17 ==
LOC: PHED 21:02 → PHEDA 23:42 → N03 07-24 01:25 → HCIN 08-04 21:13
PROVIDERS: ADMIT Hospitalist; ATTEND Hospitalist